=== PATIENT | female | born 1945 | race Caucasian/White ===

== ENCOUNTER 2022-06-15 12:53 | Inpatient (IN) | payer MEDICARE ==
[~2022-06-15] VITALS: Ht 162.6 cm; Wt 74.9 kg
[2022-06-15] MEDS ORDERED: LACTULOSE SYRUP 10GM/15ML (ENULOSE) 30ML UDC PO PRN (13:00)
[2022-06-15] MEDS ORDERED: guaiFENesin/CODEINE (ROBITUSSIN AC) 10ML UDC PO PRN (13:00)
[2022-06-15] MEDS ORDERED: BISACODYL 10 MG SUPP (DULCOLAX) PR PRN (13:00)
[2022-06-15] MEDS ORDERED: LOPERAMIDE 2 MG (IMODIUM) TABLET PO PRN (13:00)
[2022-06-15] MEDS ORDERED: MELATONIN 3 MG TABLET PO PRN (13:00)
[2022-06-15] MEDS ORDERED: ONDANSETRON 4 MG (ZOFRAN) ORAL DISSOLVE TAB PO PRN (13:00)
[2022-06-15] MEDS ORDERED: DOCUSATE SODIUM 100 MG (COLACE) CAP PO PRN (13:00)
[2022-06-15] MEDS ORDERED: CALCIUM CARBONATE 500 MG (TUMS) TAB.CHEW PO PRN (13:00)
[2022-06-15] MEDS ORDERED: diphenhydrAMINE 25 MG TAB (BENADRYL) PO PRN (13:00)
[2022-06-15] MEDS ORDERED: ALPRAZolam 0.25 MG (XANAX) TAB PO PRN (13:00)
[2022-06-15] MEDS ORDERED: FLEET ENEMA ADULT 1 EA BTL PR PRN (13:00)
--- NOTE | 2022-06-15 13:01 | PM&R Post Admission Assessment ---
PM&R HP Date of Visit: Jun 15, 2022 Time of Visit: 18:30 History of Present Illness CC: CVA HPI: This is a 76yoWF who presents from [facility] in [place], [place] following a CVA. Left sided facial droop and mild dysarthria noted. Left arm fracture will need Dr Kirby evaluation since they have requested his services. Cardiology will be consulted. Atrial fibrillation will be monitored closely and Cardiology will see her Tuesday. Patient denies pain and is able to swallow well without dysphagia. Aggressive therapy will be required in order to return back to independent living. PLOF was independent in all ADL's and ambulation. Past Sqqoace-Gxkehd-Ejsmdt Hx Past Med/Social Hx: Reviewed Nursing Past Med/Soc Hx, Reviewed and Corrections made Patient Social History Marrital Status: single Employed/Student: retired Alcohol Use: Denies Use Smoking Status: Never a Smoker Past Medical History Cardiac: Atrial Fibrillation, High Cholesterol, Hypertension Neurological: Stroke Psychosocial: Depression PM&R Allergy/Meds/Data Review Allergies Coded Allergies: Iodinated Contrast Media (Verified Allergy, Unknown, 06/15/22) Sulfa (Sulfonamide Antibiotics) (Verified Allergy, Unknown, 06/15/22) Home Medications Scheduled Amiodarone HCl (Amiodarone HCl), 200 MG PO BID, (Reported) Amiodarone HCl (Amiodarone HCl), 200 MG PO DAILY, (Reported) Apixaban (Eliquis), 5 MG PO BID, (Reported) Aspirin (Aspirin EC), 81 MG PO BID, (Reported) Atorvastatin Calcium (Atorvastatin Calcium), 40 MG PO HS, (Reported) Calcium Carbonate (Calcium Carbonate), 500 MG PO TID, (Reported) Ergocalciferol (Vitamin D2) (Vitamin D2), 50 MCG PO BID, (Reported) Fish Oil/Dha/Epa (Fish Oil 1,200 mg Fish Oil), 1 EACH PO DAILY, (Reported) Gabapentin (Gabapentin), 100 MG PO TID, (Reported) Losartan Potassium (Losartan Potassium), 50 MG PO DAILY, (Reported) Metoprolol Succinate (Metoprolol Succinate), 25 MG PO DAILY, (Reported) Paroxetine HCl (Paroxetine HCl), 20 MG PO DAILY, (Reported) Vit A/Vit C/Vit E/Zinc/Copper (Eye Multivitamin Tablet), 1 EACH PO DAILY, (Reported) Current Medications Current Medications Reviewed Review of Systems Constitutional: see HPI, dizziness, malaise, weakness EENTM: no symptoms reported Respiratory: no symptoms reported Cardiovascular: no symptoms reported Gastrointestinal: no symptoms reported Genitourinary: no symptoms reported Musculoskeletal: back pain, joint pain, other (left wrist pain) Skin: no symptoms reported Psychiatric/Neurological: Depressed, Paresthesia, Weakness All Other Systems Reviewed Negative Unless Noted: Yes Physical Exam Physical Exam Vital Signs Capillary Refill : Height, Weight, BMI Height: '" Weight: lbs. oz. kg; BMI Method: General Appearance: No Apparent Distress, WD/WN, Chronically ill Eyes: Bilateral Eye Normal Inspection, Bilateral Eye PERRL HEENT: PERRL/EOMI, Normal ENT Inspection, Pharynx Normal, Other (Left facial droop) Neck: Full Range of Motion, Normal Inspection, Non Tender, Supple, Carotid Bruit Respiratory: Chest Non Tender, Lungs Clear, Normal Breath Sounds, No Accessory Muscle Use, No Respiratory Distress Cardiovascular: Regular Rate, Rhythm, No Edema, No Gallop, No JVD, No Murmur, Normal Peripheral Pulses Gastrointestinal: Normal Bowel Sounds, No Organomegaly, No Pulsatile Mass, Non Tender, Soft Back: Normal Inspection, No CVA Tenderness, No Vertebral Tenderness Extremity: Normal Capillary Refill, Normal Inspection, Normal Range of Motion, Non Tender, No Calf Tenderness, No Pedal Edema, Other (left wrist arm in brace ) Neurologic/Psychiatric: Alert, Oriented x3, 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 fib, left arm fracture, fall risk REHAB PLAN: The patient is being admitted to our comprehensive inpatient rehabilitation facility and can tolerate the intensity of service consisting of at least: 180 minutes of therapy a day, 5 out of 7 days a week Rehab treatment will consist of: PT and OT will focus on regaining function while managing left arm fracture with stroke residual with the use of assistive devices in order to increase independence in ADLs The patient/family has a good understanding of our discharge process and will benefit from an interdisciplinary inpatient rehabilitation program. The patient has potential to make improvement and is in need of at least two of the following multidisciplinary therapies including but not limited to physical, occupational, speech, and prosthetics and orthotics. Additionally the patient will need services from respiratory, nutritional services, wound care, psychology, etc. (Customize this to each patient). Given the patients complex condition and risk of further medical complications, rehabilitation services cannot be safely or effectively provided at a lower level of care such as a [facility] facility. BARRIERS TO DISCHARGE: Advanced age and fall risk ESTIMATED LOS: 10 days DISPOSITION: Home RELEVANT CHANGES SINCE PREADMISSION SCREENING: I have compared the patients medical and functional status at the time of the preadmission screening and there are: No changes PROGNOSIS: Good REHABILITATION GOALS: 1.PT and OT will focus on regaining function while managing left arm fracture with stroke residual with the use of assistive devices in order to increase independence in ADLs All the above goals were reviewed with the patient and he/she is in agreement. By signing this document, I acknowledge that I have personally performed a full physical examination on this patient within 24 hours of admission to this inpatient rehabilitation facility and have determined the patient to be able to tolerate the above course of treatment at an intensive level for a reasonable period of time. I will be completing a detailed individualized Plan of Care for this patient by day #4 of the patients stay based upon the Preadmission Screen, the Post-Admission Evaluation, and the therapy evaluations. 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 (4) Closed left arm fracture ICD Codes: S42.302A - Unspecified fracture of shaft of humerus, left arm, initial encounter for closed fracture (5) Depression ICD Codes: F32.A - Depression, unspecified (6) Hypertension ICD Codes: I10 - Essential (primary) hypertension (7) Hyperlipidemia ICD Codes: E78.5 - Hyperlipidemia, unspecified Assessment/Plan Assessment and Plan Assess & Plan/Chief Complaint Assessment: CVA Left-sided weakness Left arm fracture Hypertension Hyperlipidemia Atrial fibrillation Depression Plan: Supportive care Monitor closely Orthopedic surgery consult Cardiology consult JHOANA GROSS DO Jun 15, 2022 13:01
[2022-06-15] MEDS ORDERED: CALC500T64 PO ×2 (13:22)
[2022-06-15] MEDS ORDERED: ASPI-1238 PO ×2 (13:22)
[2022-06-15] MEDS ORDERED: FISH1CAP15 PO ×2 (13:22)
[2022-06-15] MEDS ORDERED: ATOR40TA70 PO ×2 (13:22)
[2022-06-15] MEDS ORDERED: ERGO50CA PO ×2 (13:22)
[2022-06-15] MEDS ORDERED: LOSA50TA63 PO ×2 (13:22)
[2022-06-15] MEDS ORDERED: APIX5TAB PO ×2 (13:22)
[2022-06-15] MEDS ORDERED: PARO20TA5 PO ×2 (13:22)
[2022-06-15] MEDS ORDERED: AMIO200T65 PO ×4 (13:22→13:24)
[2022-06-15] MEDS ORDERED: GABA-486 PO ×2 (13:22)
[2022-06-15] MEDS ORDERED: MTP25TSR PO ×2 (13:22)
[2022-06-15] MEDS ORDERED: VIT-31 PO ×2 (13:22)
--- OUTSIDE RECORDS SUMMARY | 2022-06-15 18:08 | XMS REPORT | Clinical Summary ---
Author Author [facility] Organization [facility] Address Unknown Phone Unavailable Care Team Providers Care Steersman Name Role Phone No Pcp, Na PCP Unavailable Source Comments Some departments are not documenting in the electronic medical record. If you d o not see the information that you expected, contact Release of Information in [facility] Information Management department at [phone] for further assistan ce in locating additional records.[facility] Allergies Comments Active Allergy Reactions Severity Noted Date Adhesive Tape-Silicones RASH Medium 2012 Azithromycin NAUSEA AND Low 08/30/2013 VOMITING Fexofenadine-Pseudoephedr PALPITATIONS High 05/17 ine Gemcitabine RASH Medium 01/07/2021 Iodinated Contrast Media SWOLLEN High 01/07 TONGUE, EDEMA Levofloxacin HIVES, EDEMA High 06/17/2009 Sulfa (Sulfonamide RASH Medium 01/07/2021 Antibiotics) Medications End Date Status Medication Sig Dispensed Refills Start Date Active PARoxetine (PAXIL) 20 mg Take 20 mg by 0 11/15 tablet mouth daily. 1 Active lisinopriL (ZESTRIL) 20 TAKE 1 TABLET 0 mg tablet BY MOUTH ONCE 1 DAILY FOR 90 DAYS Active acetaminophen SR (TYLENOL Take by 0 05/15 ARTHRITIS PAIN) 650 mg mouth every 0 tablet 12 hours. Active aspirin EC 81 mg tablet Take 81 mg by 0 mouth daily. Take with food. Active calcium carbonate Take 500 mg 0 (CALCIUM 500 PO) by mouth twice daily. Active diclofenac sodium Apply 1.2 mL 0 (PENNSAID) 1.5 % topical topically to solution affected area four times daily. Active fish oil /omega-3 fatty Take 1 0 acids (SEA-OMEGA) capsule by 340/1000 mg capsule mouth daily. Active fish oil- omega 3-DHA/EPA Take 1 0 300/1,000 mg capsule capsule by mouth daily. Active pregabalin (LYRICA) 75 mg Take one 180 capsule 3 capsule capsule by 2 mouth twice daily. Active Problems Not on file Surgical History Surgery Date Site/Laterality Comments HYSTERECTOMY MASTECTOMY AXILLARY SURGERY resucction KNEE SURGERY Medical History Medical History Date Comments Breast cancer (HCC) A-fib (HCC) Family History Medical History Relation Name Comments Heart problem Father Lung Disease Father pulmonary fibrosis Relation Name Status Comments Father Mother Social History Date Tobacco Use Types Packs/Day Years Used Never Smoker Smokeless Tobacco: Never Used Tobacco Cessation: Counseling Given: No Comments Alcohol Use Standard Drinks/Week Yes 0 (1 standard drink = 0.6 o z pure alcohol) Sex Assigned at Date Recorded Female 01/07/2021 7:42 AM CDT Obstetrics History Last Filed Vital Signs Reading Time Taken Comments Vital Sign 155/80 11/10/2021 12:20 PM CDT Blood Pressure 75 11/10/2021 12:20 PM CDT Pulse 36.7 C (98.1 F) 11/10/2021 12:20 PM CDT Temperature 16 11/10/2021 12:20 PM CDT Respiratory Rate 95% 11/10/2021 12:20 PM CDT Oxygen Saturation - - Inhaled Oxygen Concentration 73 kg (161 lb) 11/10/2021 12:20 PM CDT Weight 162.6 cm (5' 4") 11/10/2021 12:20 PM CDT Height 27.64 11/10/2021 12:20 PM CDT Body Mass Index Plan of Treatment Health Maintenance Due Date Last Done Comments MEDICARE ANNUAL WELLNESS 1944 VISIT DTAP/TDAP VACCINES ( - 1962 Tdap) HEPATITIS C SCREENING 1962 PHYSICAL (COMPREHENSIVE) 1962 EXAM OSTEOPOROSIS 2009 SCREENING/MONITORING PNEUMOCOCCAL VACCINE ( - 2009 PCV) COVID-19 VACCINE (4 - 12/22/2020 10/27/2020, Booster for Moderna 10/15/2020, series) 09/17/2020 ADVANCED CARE PLANNING 08/15/2021 DISCUSSION AND DOCUMENTATION DEPRESSION SCREENING 08/15/2021 INFLUENZA VACCINE 03/15/2022 SHINGLES RECOMBINANT Completed 02/23/2018, VACCINE 12/23/2017 Results Not on filefrom Last 3 Months Insurance Type Payer Benefit Subscriber ID Effective Phone Address Plan / Dates Group Medicare MEDICARE MEDICARE [id number] 2009- [phone] [place] [address] [employer] [id number] 2020- [phone] [id number] [place] [address] Care Teams Start Date End Date Steersman Relationship Specialty 12/31/20 No Pcp, Na PCP - General
--- OUTSIDE RECORDS SUMMARY | 2022-06-15 18:08 | XMS REPORT ---
Author Roxi Mayorga Organization [facility] Address [address] [place], [place] [id number] Care Team Providers Care Wiping Rag Washer Name Role Phone Amado Maldonado PCP Ac Kimbrough Unavailable Ac Kimbrough PreferredProvider Allergies and Adverse Reactions Name Reaction Notes chemotherapy rash, itching Gemzar Contrast media allergy skin red, swollen eyes et lips SULFA (SULFONAMIDES) Levaquin rash Plan of Treatment Planned Activity Comments Planned Date Planned Time Plan/Goal CMP 04/04/2019 12:00 AM DEXA 11/11/2021 12:00 AM Mammogram, diagnostic, digital with samantha 05/27/2022 12:00 AM Urine culture and sensitivity 06/08/2022 12:00 AM Medications Active Name Start Date Estimated Completion Date SIG Co mments Fish Oil 1000 mg oral BID aspirin 81 mg oral tablet,delayed release (DR/EC) take 1 tablet (81 mg) by oral route once daily Zyrtec 10 mg oral tablet take 1 tablet (1 0 mg) by oral route once daily CBD Oil Calcium 500 oral Tylenol Arthritis Pain 650 mg oral tablet extended release take 2 tablets (1,300 mg) by oral route every 8 hours as needed swallowing whole with water. Do not break, crush, dissolve and/or chew. Vitamin D3 2,000 unit oral tablet 04/04/2019 take 3 tablets by oral route once a week Glucometer 12/21/2021 Glucometer of choice with rohan fuentes, testing once a day paroxetine HCl 20 mg oral tablet 04/08/2022 01/03/2023 Take 1 tablet by mouth once daily metoprolol succinate ER 25 mg tablet,extended release 24 hr take 2 tablets (50 mg) by oral route once daily metoprolol tartrate 25 mg tablet take 1 tablet (25 mg) by oral route once daily Name Start Date Expiration Date SIG Comments clarithromycin 500 mg oral tablet 08/05/2015 08/12/2015 take 1 tablet (500 mg) by oral route every 12 hours for 7 days acyclovir 800 mg oral tablet 08/05/2015 08/12/2015 demond e 1 tablet (800 mg) by oral route 4 times per day for 7 days amoxicillin 500 mg oral capsule 08/05/2015 Take two tablets three times a day for 5 days Ventolin HFA 90 mcg/actuation inhalation HFA aerosol inhaler Take two puffs every 4 hours as needed Tessalon Perles 100 mg oral capsule 08/07/2015 take 1 capsule (100 mg) by oral route every 4 hours as needed ipratropium-albuterol 0.5 mg-3 mg(2.5 mg base)/3 mL inhalation solution for nebulization 08/09/2015 09/08/2015 inhale 3 milliliters by nebulization route 4 times per day for 10 days ondansetron 4 mg oral tablet,disintegrating 08/11/2015 One tablet every 4-6 hours as needed for nausea Macrobid 100 mg oral capsule 11/29/2015 12/06/2015 demond e 1 capsule (100 mg) by oral route every 12 hours with food for 7 days Macrobid 100 mg oral capsule 04/09/2016 04/16/2016 demond e 1 capsule (100 mg) by oral route every 12 hours with food for 7 days acyclovir 800 mg oral tablet 05/20/2016 05/27/2016 demond e 1 tablet (800 mg) by oral route 5 times per day for 7 days Macrobid 100 mg oral capsule 05/28/2016 06/04/2016 demond e 1 capsule (100 mg) by oral route every 12 hours with food for 7 days tizanidine 4 mg oral capsule 06/14/2016 demond e 1 capsule (4 mg) by oral route 3 times per day Augmentin 875-125 mg oral tablet 09/22/2016 09/29/2016 take 1 tablet by oral route every 12 hours for 7 days Xarelto 20 mg oral tablet 12/01/2016 03/01/2017 take 1 tablet (20 mg) by oral route once daily with the evening meal for 30 days hydrocodone-acetaminophen 5-325 mg oral tablet 05/04/2017 1 take 1 tablet by oral route every 4-6 hours as needed for pain for 30 days Macrobid 100 mg oral capsule 05/04/2017 demond e 1 capsule (100 mg) by oral route every 12 hours with food for 7 days acyclovir 800 mg oral tablet 05/18/2017 demond e 1 tablet (800 mg) by oral route 4 times per day for 7 days nabumetone 500 mg oral tablet 12/13/2018 12/08/2019 ta ke 1 tablet by oral route daily for 90 days Macrobid 100 mg oral capsule 10/02/2019 10/09/2019 demond e 1 capsule (100 mg) by oral route every 12 hours with food for 7 days Macrobid 100 mg oral capsule 12/13/2019 12/20/2019 demond e 1 capsule (100 mg) by oral route 2 times per day with food for 7 days nifedipine 30 mg oral tablet extended release 05/08/2020 take 1 tablet (30 mg) by oral route once daily for 90 days pregabalin 75 mg oral capsule 06/09/2020 10/07/2020 ta ke 1 capsule (75 mg) by oral route 2 times per day for 30 days ciprofloxacin HCl 250 mg oral tablet 04/10/2021 04/15/2021 take 1 tablet by oral route 2 times a day for 5 days ciprofloxacin HCl 250 mg oral tablet 10/16/2021 10/23/2021 take 1 tablet by oral route 2 times a day for 7 days ciprofloxacin 500 mg tablet 12/25/2021 01/01/2022 take 1 tablet (500 mg) by oral route every 12 hours for 7 days Cipro 250 mg tablet 02/09/2022 02/16/2022 take 1 table t (250 mg) by oral route every 12 hours for 7 days Discontinued Name Start Date Discontinued Date SIG Comments Co Q-10 200 mg oral capsule 04/22/2017 take 1 capsul e by oral route daily gabapentin 300 mg oral capsule 05/28/2016 06/14/2016 T lenny one capsule at bedtime for 5-7 days. If no improvement you may increase to two capsules at bedtime. sotalol 80 mg oral tablet 01/07/2017 take 1 tablet (80 mg) by oral route 2 times per day stopped it in october fluticasone propionate (bulk) 100 % miscellaneous powder 11/20/2020 use as directed simvastatin 10 mg oral tablet 04/22/2017 ta ke 1 tablet (10 mg) by oral route once daily in the evening metoprolol tartrate 25 mg oral tablet 11/10/2016 12/15/2016 take 0.5 tablet by oral route 2 times a day for 30 days Eliquis 5 mg oral tablet 12/01/2016 12/15/2016 take 1 tablet (5 mg) by oral route 2 times per day for 30 days Effexor XR 150 mg oral capsule,extended release 24hr 12/01/2016 09/07/2017 take 1 capsule (150 mg) by oral route once daily for 90 days Paxil 20 mg oral tablet 08/10/2017 06/26/2018 take 1 t ablet (20 mg) by oral route once daily for 90 days Macrobid 100 mg oral capsule 08/13/2017 03/08/2018 demond e 1 capsule (100 mg) by oral route 2 times per day with food for 7 days Pyridium 100 mg oral tablet 08/13/2017 03/08/2018 take 1 tablet (100 mg) by oral route 3 times per day after meals as needed nabumetone 500 mg oral tablet 10/04/2017 06/26/2018 TAKE 1 TABL ET TWICE A DAY metoprolol succinate 50 mg oral tablet extended release 24 h r 03/08/2018 06/26/2018 take 0.5 tablet by oral route daily gabapentin 300 mg oral capsule 06/27/2019 11/15/2019 t lenny 1 capsule by oral route once a day (at bedtime) for 90 days metoprolol tartrate 25 mg oral tablet 06/27/2019 07/27/2019 take 0.5 tablet by oral route daily for 30 days Pt is requesting to discontinue to see h ow her BP does, will notify staff if she restarts medication Xarelto 20 mg oral tablet 11/20/2020 take 1 tablet (20 mg) by oral route once daily with the evening meal lisinopril 20 mg tablet 11/26/2021 04/08/2022 Take 1 tablet by mouth once daily pt has stopped and switched to metoprolol Problem List Description Status Onset GERD Active Osteoporosis Active Menopause Active 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 Sjogren's syndrome Active 03/29/2016 Essential hypertension Active 07/15/2016 Mixed hyperlipidemia Active 07/15/2016 Post herpetic neuralgia Active 07/15/2016 Vital Signs Date Time BP-Sys(mm[Hg] BP-Romi(mm[Hg]) HR(bpm) RR(rpm) Temp WT HT HC BMI BSA BMI Percentile O2 Sat(%) 06/08/2022 7:11:00 PM 144 mm[Hg] 70 mm[Hg] 60 {beats}/min 20 rpm 97.5 F 164 lbs 64 in 28.1502 kg/m2 1.8328 m2 92 % 05/18/2022 11:01:00 AM 134 mm[Hg] 82 mm[Hg] 55 {beats}/min 18 rpm 97.5 F 97 % 04/08/2022 1:52:00 PM 140 mm[Hg] 82 mm[Hg] 48 {beats}/min 04/08/2022 1:52:00 PM 126 mm[Hg] 74 mm[Hg] 51 {beats}/min 04/08/2022 1:52:00 PM 110 mm[Hg] 60 mm[Hg] 55 {beats}/min 04/08/2022 1:48:00 PM 140 mm[Hg] 82 mm[Hg] 48 {beats}/min 16 rpm 96.7 F 163.125 lbs 65.4 in 26.8141 kg/m2 1.8478 m2 96 % 02/09/2022 4:53:00 PM 132 mm[Hg] 78 mm[Hg] 68 {beats}/min 18 rpm 98.2 F 163 lbs 64 in 27.98 kg/m2 1.83 m2 97 % 12/21/2021 8:40:00 AM 124 mm[Hg] 80 mm[Hg] 98 {beats}/min 18 rpm 97.9 F 161 lbs 64 in 27.6353 kg/m2 1.8159 m2 97 % 12/04/2021 4:17:00 PM 130 mm[Hg] 80 mm[Hg] 71 {beats}/min 20 rpm 97.5 F 162 lbs 64 in 27.81 kg/m2 1.82 m2 98 % 11/11/2021 2:02:00 PM 108 mm[Hg] 62 mm[Hg] 82 {beats}/min 16 rpm 97.8 F 165.125 lbs 97 % 10/16/2021 6:35:00 PM 132 mm[Hg] 78 mm[Hg] 78 {beats}/min 16 rpm 97.7 F 163 lbs 64 in 27.9786 kg/m2 1.8272 m2 97 % 05/12/2021 2:43:00 PM 120 mm[Hg] 70 mm[Hg] 66 {beats}/min 18 rpm 97 F 164 lbs 64 in 28.15 kg/m2 1.83 m2 96 % 04/10/2021 3:11:00 PM 120 mm[Hg] 70 mm[Hg] 85 {beats}/min 20 rpm 97.1 F 160 lbs 64 in 27.4637 kg/m2 1.8103 m2 97 % 11/20/2020 3:49:00 PM 130 mm[Hg] 82 mm[Hg] 11/20/2020 2:43:00 PM 140 mm[Hg] 80 mm[Hg] 66 {beats}/min 97.5 F 162 lbs 64 in 27.81 kg/m2 1.8216 m2 97 % 11/17/2020 2:51:00 PM 120 mm[Hg] 60 mm[Hg] 69 {beats}/min 97.5 F 161 l bs 95 % 06/26/2020 2:08:00 PM 120 mm[Hg] 60 mm[Hg] 86 {beats}/min 97.9 F 160 lbs 64 in 27.4637 kg/m2 1.8103 m2 98 % 05/22/2020 2:40:00 PM 116 mm[Hg] 72 mm[Hg] 71 {beats}/min 14 rpm 96.6 F 164.5 lbs 64 in 28.24 kg/m2 1.84 m2 97 % 10/02/2019 11:37:00 AM 146 mm[Hg] 70 mm[Hg] 97 {beats}/min 16 rpm 97.9 F 170.312 lbs 64 in 29.2338 kg/m2 1.8677 m2 95 % 06/27/2019 2:04:00 PM 138 mm[Hg] 72 mm[Hg] 62 {beats}/min 18 rpm 97.7 F 171.375 lbs 64 in 29.42 kg/m2 1.87 m2 95 % 05/30/2019 1:45:00 PM 154 mm[Hg] 90 mm[Hg] 53 {beats}/min 20 rpm 97.9 F 170 lbs 64 in 29.1801 kg/m2 1.866 m2 98 % 04/04/2019 2:23:00 PM 140 mm[Hg] 90 mm[Hg] 04/04/2019 2:13:00 PM 142 mm[Hg] 92 mm[Hg] 66 {beats}/min 18 rpm 97.3 F 167.375 lbs 64 in 28.73 kg/m2 1.8515 m2 97 % 12/13/2018 1:52:00 PM 148 mm[Hg] 74 mm[Hg] 72 {beats}/min 18 rpm 97.7 F 169.375 lbs 64 in 29.0729 kg/m2 1.86 m2 98 % 10/05/2018 1:28:00 PM 134 mm[Hg] 72 mm[Hg] 78 {beats}/min 17 rpm 98.2 F 170.375 lbs 64 in 29.24 kg/m2 1.8681 m2 98 % 06/26/2018 1:16:00 PM 132 mm[Hg] 72 mm[Hg] 82 {beats}/min 18 rpm 97.2 F 167.25 lbs 64 in 28.7081 kg/m2 1.85 m2 97 % 06/13/2018 2:36:00 PM 130 mm[Hg] 70 mm[Hg] 81 {beats}/min 18 rpm 97.7 F 166.125 lbs 64 in 28.51 kg/m2 1.8446 m2 96 % 03/08/2018 2:30:00 PM 134 mm[Hg] 74 mm[Hg] 51 {beats}/min 18 rpm 99 F 166.375 lbs 64 in 28.5579 kg/m2 1.85 m2 97 % 12/28/2017 2:52:00 PM 128 mm[Hg] 74 mm[Hg] 11/16/2017 10:49:00 AM 128 mm[Hg] 70 mm[Hg] 57 {beats}/min 18 rpm 97.9 F 165.125 lbs 64 in 28.3434 kg/m2 1.8391 m2 97 % 09/07/2017 4:22:00 PM 142 mm[Hg] 82 mm[Hg] 09/07/2017 4:20:00 PM 150 mm[Hg] 84 mm[Hg] 51 {beats}/min 18 rpm 98.4 F 161.125 lbs 64 in 27.66 kg/m2 1.8166 m2 98 % 08/22/2017 5:11:00 PM 124 mm[Hg] 64 mm[Hg] 08/13/2017 1:12:00 PM 128 mm[Hg] 66 mm[Hg] 64 {beats}/min 18 rpm 96.8 F 160 lbs 96 % 07/29/2017 3:35:00 PM 142 mm[Hg] 78 mm[Hg] 07/13/2017 2:55:00 PM 136 mm[Hg] 82 mm[Hg] 06/30/2017 1:35:00 PM 122 mm[Hg] 68 mm[Hg] 06/15/2017 2:10:00 PM 122 mm[Hg] 64 mm[Hg] 51 {beats}/min 18 rpm 98.6 F 160 lbs 64 in 27.4637 kg/m2 1.8103 m2 96 % 05/18/2017 3:43:00 PM 140 mm[Hg] 80 mm[Hg] 78 {beats}/min 18 rpm 98.6 F 156 lbs 64 in 26.78 kg/m2 1.79 m2 99 % 05/04/2017 3:38:00 PM 150 mm[Hg] 74 mm[Hg] 73 {beats}/min 20 rpm 98 F 159.5 lbs 64 in 27.3778 kg/m2 1.8075 m2 96 % 04/22/2017 3:14:00 PM 158 mm[Hg] 88 mm[Hg] 60 {beats}/min 18 rpm 97.3 F 160.5 lbs 64 in 27.55 kg/m2 1.81 m2 97 % 03/03/2017 11:03:00 AM 152 mm[Hg] 88 mm[Hg] 70 {beats}/min 16 rpm 96.3 F 158 lbs 64 in 27.1204 kg/m2 1.7989 m2 97 % 01/14/2017 10:29:00 AM 156 mm[Hg] 88 mm[Hg] 72 {beats}/min 16 rpm 96.5 F 155.375 lbs 64 in 26.67 kg/m2 1.78 m2 97 % 01/07/2017 3:04:00 PM 170 mm[Hg] 82 mm[Hg] 64 {beats}/min 16 rpm 96.8 F 157.125 lbs 64 in 26.9702 kg/m2 1.794 m2 97 % 12/15/2016 2:42:00 PM 122 mm[Hg] 60 mm[Hg] 87 {beats}/min 18 rpm 96.7 F 153 lbs 64 in 26.26 kg/m2 1.77 m2 98 % 12/01/2016 11:54:00 AM 130 mm[Hg] 88 mm[Hg] 74 {beats}/min 18 rpm 98 F 155.375 lbs 64 in 26.6698 kg/m2 1.7839 m2 98 % 11/10/2016 10:36:00 AM 138 mm[Hg] 74 mm[Hg] 93 {beats}/min 18 rpm 96.1 F 155.125 lbs 64 in 26.63 kg/m2 1.78 m2 97 % 09/22/2016 9:31:00 AM 138 mm[Hg] 70 mm[Hg] 59 {beats}/min 18 rpm 97.6 F 156 lbs 64 in 26.7771 kg/m2 1.7875 m2 96 % 07/15/2016 10:22:00 AM 121 mm[Hg] 78 mm[Hg] 76 {beats}/min 18 rpm 97.9 F 160 lbs 64 in 27.46 kg/m2 1.81 m2 97 % 06/14/2016 4:06:00 PM 144 mm[Hg] 88 mm[Hg] 74 {beats}/min 20 rpm 97.4 F 160.25 lbs 64 in 27.5066 kg/m2 1.8117 m2 98 % 05/28/2016 3:11:00 PM 148 mm[Hg] 85 mm[Hg] 92 {beats}/min 20 rpm 97.2 F 159 lbs 97 % 05/20/2016 1:54:00 PM 148 mm[Hg] 90 mm[Hg] 77 {beats}/min 18 rpm 97.9 F 158.5 lbs 97 % 04/15/2016 11:36:00 AM 136 mm[Hg] 82 mm[Hg] 04/09/2016 11:29:00 AM 136 mm[Hg] 78 mm[Hg] 64 {beats}/min 16 rpm 97.1 F 161.25 lbs 98 % 03/24/2016 11:43:00 AM 153 mm[Hg] 74 mm[Hg] 80 {beats}/min 20 rpm 97.3 F 160 lbs 64 in 27.4637 kg/m2 1.8103 m2 98 % 01/20/2016 2:54:00 PM 130 mm[Hg] 78 mm[Hg] 12/03/2015 3:07:00 PM 120 mm[Hg] 82 mm[Hg] 11/27/2015 11:41:00 AM 138 mm[Hg] 90 mm[Hg] 2015 2:44:00 PM 150 mm[Hg] 81 mm[Hg] 11/05/2015 2:27:00 PM 144 mm[Hg] 80 mm[Hg] 10/29/2015 2:40:00 PM 152 mm[Hg] 88 mm[Hg] 10/29/2015 2:04:00 PM 162 mm[Hg] 90 mm[Hg] 78 {beats}/min 12 rpm 97.5 F 158 lbs 64 in 27.1204 kg/m2 1.7989 m2 95 % 10/02/2015 2:00:00 PM 130 mm[Hg] 75 mm[Hg] 78 {beats}/min 09/17/2015 1:25:00 PM 140 mm[Hg] 82 mm[Hg] 88 {beats}/min 14 rpm 97.9 F 158 lbs 64 in 27.1204 kg/m2 1.7989 m2 97 % 09/11/2015 2:49:00 PM 130 mm[Hg] 90 mm[Hg] 08/13/2015 11:15:00 AM 110 mm[Hg] 66 mm[Hg] 85 {beats}/min 18 rpm 97 F 159 lbs 64 in 27.292 kg/m2 1.8046 m2 96 % 08/11/2015 10:39:00 AM 126 mm[Hg] 70 mm[Hg] 76 {beats}/min 18 rpm 97.5 F 160.437 lbs 64 in 27.54 kg/m2 1.81 m2 95 % 08/09/2015 12:04:00 PM 100 mm[Hg] 60 mm[Hg] 80 {beats}/min 18 rpm 99.1 F 162 lbs 64 in 27.807 kg/m2 1.8216 m2 93 % 08/07/2015 12:50:00 PM 112 mm[Hg] 74 mm[Hg] 08/07/2015 11:30:00 AM 78 {beats}/min 22 rpm 97.8 F 97 % 08/06/2015 9:34:00 AM 114 mm[Hg] 62 mm[Hg] 87 {beats}/min 18 rpm 97.5 F 161 lbs 64 in 27.6353 kg/m2 1.8159 m2 98 % 08/05/2015 3:26:00 PM 130 mm[Hg] 70 mm[Hg] 87 {beats}/min 18 rpm 100.8 F 163 lbs 64 in 27.98 kg/m2 1.83 m2 94 % 08/01/2015 5:22:00 PM 136 mm[Hg] 70 mm[Hg] 80 {beats}/min 18 rpm 100.9 F 163.125 lbs 64 in 28.0001 kg/m2 1.8279 m2 97 % 07/28/2015 10:55:00 AM 150 mm[Hg] 90 mm[Hg] 07/23/2015 10:09:00 AM 144 mm[Hg] 90 mm[Hg] 80 {beats}/min 18 rpm 97 F 163 lbs 64 in 27.9786 kg/m2 1.8272 m2 96 % 07/09/2015 10:51:00 AM 145 mm[Hg] 100 mm[Hg] 67 {beats}/min 18 rpm 98.1 F 162 lbs 64 in 27.81 kg/m2 1.82 m2 96 % 06/18/2015 10:53:00 AM 160 mm[Hg] 100 mm[Hg] 67 {beats}/min 18 rpm 97.8 F 161.5 lbs 64 in 27.7211 kg/m2 1.8188 m2 97 % Social History Name Description Comments Alcohol Current every day glass of wine a day Tobacco Never smoker walk History of Procedures Date Ordered Description Order Status 07/28/2015 12:00 AM LIPID PANEL Reviewed 07/28/2015 12:00 AM RENAL FUNCTION PANEL Reviewed 08/05/2015 12:00 AM CHEST X-RAY 2VW FRONTAL&LATL Reviewed 08/05/2015 12:00 AM COMPLETE CBC W/AUTO DIFF WBC Reviewed 08/05/2015 12:00 AM CULTURE OTHR SPECIMN AEROBIC Reviewed 08/05/2015 12:00 AM THER/PROPH/DIAG INJ SC/IM Reviewed 08/05/2015 12:00 AM Rocephin 1 gram [facility][NOTE 3]#5801-5964-22 Reviewe d 08/05/2015 12:00 AM AIRWAY INHALATION TREATMENT Reviewed 08/07/2015 12:00 AM Rocephin 1 gram [facility][NOTE 3]#9880-7792-65 Reviewe d 08/07/2015 12:00 AM THER/PROPH/DIAG INJ SC/IM Reviewed 08/09/2015 12:00 AM COMPLETE CBC W/AUTO DIFF WBC Reviewed 08/09/2015 12:00 AM CHEST X-RAY 2VW FRONTAL&LATL Reviewed 08/09/2015 12:00 AM AIRWAY INHALATION TREATMENT Reviewed 08/11/2015 12:00 AM COMPLETE CBC W/AUTO DIFF WBC Reviewed 08/11/2015 12:00 AM Rocephin 1 gram [facility][NOTE 3]#1742-5684-47 Reviewe d 08/11/2015 12:00 AM THER/PROPH/DIAG INJ SC/IM Reviewed 08/07/2015 12:00 AM Rocephin 1 gram [facility][NOTE 3]#7452-5498-03 Reviewe d 08/13/2015 12:00 AM Rocephin 250 Mg [facility][NOTE 3]#1327-2758-98 Reviewe d 09/11/2015 2:54 PM Blood Pressure Check-no charge Reviewed 09/25/2015 12:00 AM NO CHARGE OV Reviewed 10/23/2015 12:00 AM NO CHARGE OV Reviewed 11/05/2015 12:00 AM Blood Pressure Check-no charge Reviewed 11/28/2015 12:00 AM URINE CULTURE/COLONY COUNT Reviewed 11/28/2015 2:14 PM URINALYSIS AUTO W/O SCOPE Reviewed 11/28/2015 12:00 AM URINALYSIS AUTO W/O SCOPE Reviewed 03/16/2016 12:00 AM NO CHARGE OV Reviewed 03/16/2016 12:00 AM NO CHARGE OV Reviewed 04/09/2016 11:35 AM URINALYSIS AUTO W/O SCOPE Reviewed 04/09/2016 12:00 AM URINE CULTURE/COLONY COUNT Reviewed 04/10/2016 12:00 AM URINALYSIS AUTO W/O SCOPE Reviewed 05/28/2016 4:05 PM URINALYSIS AUTO W/O SCOPE Reviewed 06/04/2016 12:00 AM EXTREMITY STUDY Returned 07/15/2016 12:00 AM LIPID PANEL Returned 07/15/2016 12:00 AM RENAL FUNCTION PANEL Returned 11/10/2016 12:00 AM COMPLETE CBC W/AUTO DIFF WBC Reviewed 11/10/2016 12:00 AM ASSAY OF IRON Reviewed 11/10/2016 12:00 AM IRON BINDING TEST Reviewed 11/10/2016 12:00 AM ASSAY OF TRANSFERRIN Reviewed 11/15/2016 12:00 AM COLLECTION VENOUS BLOOD VENIPUNCTURE Rev iewed 01/14/2017 12:00 AM RENAL FUNCTION PANEL Reviewed 01/17/2017 12:00 AM COLLECTION VENOUS BLOOD VENIPUNCTURE Rev iewed 03/04/2017 12:00 AM RENAL FUNCTION PANEL Reviewed 03/04/2017 12:00 AM COLLECTION VENOUS BLOOD VENIPUNCTURE Rev iewed 04/22/2017 12:00 AM URINE BACTERIA CULTURE Reviewed 04/24/2017 7:28 PM URINALYSIS AUTO W/O SCOPE Reviewed 08/13/2017 1:23 PM URINALYSIS AUTO W/O SCOPE Reviewed 09/01/2017 2:56 PM NO CHARGE OV Reviewed 09/12/2017 12:00 AM Blood Pressure Check-no charge Reviewed 10/12/2017 12:00 AM Blood Pressure Check-no charge Reviewed 11/04/2017 12:00 AM Blood Pressure Check-no charge Reviewed 11/16/2017 12:00 AM COMPREHEN METABOLIC PANEL Reviewed 03/21/2018 12:00 AM Blood Pressure Check-no charge Reviewed 04/12/2018 12:00 AM COLLECTION VENOUS BLOOD VENIPUNCTURE Rev iewed 05/12/2018 12:00 AM Blood Pressure Check-no charge Reviewed 06/13/2018 2:43 PM URINALYSIS AUTO W/O SCOPE Reviewed 06/13/2018 12:00 AM URINE BACTERIA CULTURE Reviewed 08/04/2018 12:00 AM Blood Pressure Check-no charge Reviewed 08/31/2018 12:00 AM COMPREHEN METABOLIC PANEL Returned 08/31/2018 12:00 AM COMPLETE CBC W/AUTO DIFF WBC Returned 08/31/2018 12:00 AM LIPID PANEL Returned 08/31/2018 12:00 AM COLLECTION VENOUS BLOOD VENIPUNCTURE Rev iewed 12/13/2018 12:00 AM COMPREHEN METABOLIC PANEL Reviewed 12/13/2018 12:00 AM Solu-Medrol, Up to 125 Mg [facility][NOTE 3]# [id number] 7-27 Reviewed 05/30/2019 12:00 AM ASSAY THYROID STIM HORMONE Returned 05/30/2019 12:00 AM COMPLETE CBC W/AUTO DIFF WBC Returned 05/30/2019 12:00 AM COMPREHEN METABOLIC PANEL Returned 05/30/2019 12:00 AM ELECTROCARDIOGRAM TRACING Reviewed 05/30/2019 12:00 AM MYOCARDIAL SPECT MULTIPLE STUDIES Return ed 05/30/2019 12:00 AM CHEST X-RAY 2VW FRONTAL&LATL Returned 06/27/2019 12:00 AM COMPREHEN METABOLIC PANEL Reviewed 10/02/2019 11:47 AM URINALYSIS AUTO W/O SCOPE Reviewed 10/02/2019 12:00 AM URINE CULTURE/COLONY COUNT Reviewed 10/02/2019 12:00 AM URINE BACTERIA CULTURE Reviewed 12/13/2019 3:21 PM URINALYSIS AUTO W/O SCOPE Reviewed 12/13/2019 12:00 AM URINE BACTERIA CULTURE Returned 06/30/2020 12:00 AM NRV CNDJ TEST 7-8 STUDIES Reviewed 06/30/2020 12:00 AM MUSC TEST DONE W/N TEST COMP Reviewed 07/02/2020 12:00 AM US XTR NON-VASC LMTD Returned 11/17/2020 12:00 AM MRI UPPR EXTREMITY W/O&W/DYE Returned 11/19/2020 12:00 AM COLLECTION VENOUS BLOOD VENIPUNCTURE Rev iewed 11/19/2020 12:00 AM LIPID PANEL Returned 11/19/2020 12:00 AM COMPREHEN METABOLIC PANEL Returned 11/24/2020 12:00 AM MRI UPPER EXTREMITY W/DYE Returned 04/10/2021 3:51 PM URINALYSIS AUTO W/O SCOPE Reviewed 04/10/2021 12:00 AM URINE BACTERIA CULTURE Returned 05/01/2021 12:00 AM COLLECTION VENOUS BLOOD VENIPUNCTURE Rev iewed 05/01/2021 12:00 AM COMPREHEN METABOLIC PANEL Returned 05/28/2021 12:00 AM BREAST TOMOSYNTHESIS UNI Returned 09/21/2021 12:00 AM COVID-19 Testing Returned 10/16/2021 6:41 PM URINALYSIS AUTO W/O SCOPE Reviewed 10/16/2021 12:00 AM URINE BACTERIA CULTURE Reviewed 11/04/2021 12:00 AM COLLECTION VENOUS BLOOD VENIPUNCTURE Rev iewed 11/04/2021 12:00 AM ASSAY THYROID STIM HORMONE Returned 11/04/2021 12:00 AM ASSAY OF FREE THYROXINE Returned 11/04/2021 12:00 AM COMPREHEN METABOLIC PANEL Returned 11/04/2021 12:00 AM LIPID PANEL Returned 12/04/2021 4:21 PM URINALYSIS AUTO W/O SCOPE Reviewed 12/04/2021 12:00 AM URINE BACTERIA CULTURE Returned 12/21/2021 3:30 PM URINALYSIS AUTO W/O SCOPE Reviewed 12/21/2021 12:00 AM URINE BACTERIA CULTURE Returned 02/09/2022 4:56 PM URINALYSIS AUTO W/O SCOPE Reviewed 02/09/2022 12:00 AM URINE BACTERIA CULTURE Returned 02/17/2022 12:00 AM URINE BACTERIA CULTURE Returned 03/25/2022 12:00 AM COMPREHEN METABOLIC PANEL Returned 05/18/2022 11:02 AM US URINE CAPACITY MEASURE Reviewed 05/18/2022 12:00 AM URINALYSIS AUTO W/SCOPE Reviewed 06/08/2022 7:24 PM URINALYSIS AUTO W/O SCOPE Reviewed Results Summary Date and Description Results 07/28/2015 3:05 PM GLUCOSE 109.0 mg/dLSODIUM 14 1.0 mmol/LPOTASSIUM 3.90 mmol/LCHLORIDE 106.0 mmol/LCO2 25.0 mmol/LBUN 15.0 mg/dLCREATININE 0.80 mg/dLALBUMIN 4.30 g/dLCALCIUM 9.10 mg/dLPHOSPHORUS 3.10 mg/dLAGE 69 GFR NonAA 71 GFR AA 86 eGFR >60 mL/min/1.73 m2eGFR AA* >60 TRIGLYCERIDES 196.0 mg/dLCHOLESTEROL 217.0 mg/dLHDL 41.0 mg/dLTOT CHOL/HDL 5.3 LDL (CALC) 137.0 mg/dL 08/05/2015 2:43 PM WBC 25.4 RBC 3.84 HGB 11.60 g/dLHCT 35.60 %MCV 93.0 fLMCH 30.20 pgMCHC 32.60 g/dLRDW SD 49 RDW CV 14.30 %MPV 11.30 fLPLT 349 NRBC# 0.00 NRBC% 0.0 %BASO 0.10 %#BASO 0.02 MANUAL DIFF SEE BELOW SEGS 72 BANDS 19 LYMPHS 2 MONOS 6 METAS 1 08/11/2015 3:54 PM WBC 9.1 RBC 3.37 HGB 10.0 g/ dLHCT 31.80 %MCV 94.0 fLMCH 29.70 pgMCHC 31.40 g/dLRDW SD 49 RDW CV 14.40 %MPV 10.20 fLPLT 540 NRBC# 0.00 NRBC% 0.0 %NEUT 82.80 %%LYMP 10.10 %%MONO 4.40 %%EOS 2.60 %%BASO 0.10 %#NEUT 7.57 #LYMP 0.92 #MONO 0.40 #EOS 0.24 #BASO 0.01 MANUAL DIFF NOT IND 11/28/2015 2:14 PM Color Ur LT YELLOW Glucose U r-sCnc NEGAATIVE Bilirub Ur Ql Strip NEGATIVE Ketones Ur Ql Strip NEGATIVE Sp Gr Ur Qn 1.020 Hgb Ur Ql Strip NEGATIVE pH Ur-LsCnc 5.0 Prot Ur Ql Strip TRACE Urobilinogen Ur-mCnc 0.2 Nitrite Ur Ql Strip NEGATIVE WBC Est Ur Ql Strip SMALL 04/09/2016 11:35 AM Color Ur Yellow Glucose Ur-s Cnc neg Bilirub Ur Ql Strip neg Ketones Ur Ql Strip neg Sp Gr Ur Qn <=1.005 Hgb Ur Ql Strip Large pH Ur-LsCnc 5.0 Prot Ur Ql Strip neg Urobilinogen Ur-mCnc 0.2 Nitrite Ur Ql Strip neg WBC Est Ur Ql Strip large 05/28/2016 4:05 PM Glucose Ur-sCnc negative Isiah irub Ur Ql Strip negative Ketones Ur Ql Strip negative Sp Gr Ur Qn <=1.005 Hgb Ur Ql Strip Trace- intact pH Ur- LsCnc 5.0 Prot Ur Ql Strip negative Urobilinogen Ur-mCnc 0.2 Nitrite Ur Ql Strip negative WBC Est Ur Ql Strip large 11/15/2016 2:40 PM WBC 7.1 RBC 4.51 HGB 13.30 g /dLHCT 41.80 %MCV 93.0 fLMCH 29.50 pgMCHC 31.80 g/dLRDW SD 53 RDW CV 15.50 %MPV 11.10 fLPLT 225 NRBC# 0.00 NRBC% 0.0 %NEUT 67.80 %%LYMP 22.0 %%MONO 7.0 %%EOS 2.50 %%BASO 0.60 %#NEUT 4.81 #LYMP 1.56 #MONO 0.50 #EOS 0.18 #BASO 0.04 MANUAL DIFF NOT IND IRON TOTAL 83.0 ug/dLTransferrin 240.0 mg/dLTIBC Calculation 300 %Saturation Calc 28 01/17/2017 3:44 PM GLUCOSE 84.0 mg/dLSODIUM 140 .0 mmol/LPOTASSIUM 4.20 mmol/LCHLORIDE 108.0 mmol/LCO2 23.0 mmol/LBUN 18.0 mg/dLCREATININE 0.80 mg/dLALBUMIN 3.90 g/dLCALCIUM 9.0 mg/dLPHOSPHORUS 3.60 mg/dLAGE 71 GFR NonAA 71 GFR AA 86 eGFR >60 mL/min/1.73 m2eGFR AA* >60 03/04/2017 4:38 PM GLUCOSE 144.0 mg/dLSODIUM 14 1.0 mmol/LPOTASSIUM 3.80 mmol/LCHLORIDE 105.0 mmol/LCO2 25.0 mmol/LBUN 20.0 mg/dLCREATININE 0.90 mg/dLALBUMIN 4.10 g/dLCALCIUM 9.20 mg/dLPHOSPHORUS 4.50 mg/dLAGE 71 GFR NonAA 62 GFR AA 75 eGFR >60 mL/min/1.73 m2eGFR AA* >60 04/24/2017 7:28 PM Clarity Ur hazy Color Ur yel low Glucose Ur-sCnc neg Bilirub Ur Ql Strip neg Ketones Ur Ql Strip neg Sp Gr Ur Qn 1.005 Hgb Ur Ql Strip mod pH Ur-LsCnc neg Prot Ur Ql Strip neg Urobilinogen Ur-mCnc neg Nitrite Ur Ql Strip positive WBC Est Ur Ql Strip trace 08/13/2017 1:23 PM Clarity Ur cloudy Urine-[place] r dk yellow Glucose Ur-sCnc neg Bilirub Ur Ql small Ketones Ur Ql Strip 15mg/dL Sp Gr Ur Qn 1.025 Hgb Ur Ql Strip Large pH Ur-LsCnc 5.5 Prot Ur Ql Strip >=300mg/dL Urobilinogen Ur-mCnc 1.0 E U/dL Nitrite Ur Ql Strip Pos WBC # Ur Trace 11/16/2017 12:05 PM GLUCOSE 78.0 mg/dLSODIUM 138 .0 mmol/LPOTASSIUM 4.20 mmol/LCHLORIDE 104.0 mmol/LCO2 26.0 mmol/LBUN 18.0 mg/dLCREATININE 0.80 mg/dLSGOT/AST 19.0 IU/LSGPT/ALT 13.0 IU/LALK PHOS 61.0 IU/LTOTAL PROTEIN 8.0 g/dLALBUMIN 4.20 g/dLTOTAL BILI 0.70 mg/dLCALCIUM 9.30 mg/dLAGE 72 GFR NonAA 70 GFR AA 85 eGFR >60 mL/min/1.73 m2eGFR AA* >60 06/13/2018 2:43 PM Clarity Ur clear Urine-Color yellow Glucose Ur-sCnc neg Bilirub Ur Ql small Ketones Ur Ql Strip Trace Sp Gr Ur Qn 1.015 Hgb Ur Ql Strip neg pH Ur-LsCnc 5.5 Prot Ur Ql Strip Trace Urobilinogen Ur-mCnc 0.2 E.U/dL Nitrite Ur Ql Strip neg WBC # Ur Trace 08/01/2018 2:32 PM Falls in last 6 months? No U nsteady or worry about falling? Yes 10/05/2018 1:30 PM Falls in last 6 months? No U nsteady or worry about falling? No Fall Risk Assessment Not At Risk 12/13/2018 3:33 PM GLUCOSE 89 SODIUM 139 POTASS IUM 4.2 CHLORIDE 103.0 mmol/LCO2 26 BUN 16.0 mg/dLCREATININE 0.80 mg/dLSGOT/AST 18 SGPT/ALT 16 ALK PHOS 60 TOTAL PROTEIN 8.0 ALBUMIN 4.3 TOTAL BILI 0.7 CALCIUM 10.10 mg/dLAGE 73 GFR NonAA 70 GFR AA 85 eGFR 70 eGFR AA* >60 mL/min/1.73 m2 06/27/2019 3:11 PM GLUCOSE 91 SODIUM 138 POTASS IUM 4.0 CHLORIDE 104.0 mmol/LCO2 25 BUN 17.0 mg/dLCREATININE 0.940 mg/dLSGOT/AST 16 SGPT/ALT 13 ALK PHOS 53 TOTAL PROTEIN 7.6 ALBUMIN 4.1 TOTAL BILI 0.7 CALCIUM 8.90 mg/dLAGE 73 GFR NonAA 58 GFR AA 70 eGFR 58 mL/min/1.73meGFR AA* >60 mL/min/1.73m 10/02/2019 11:47 AM Clarity Ur cloudy Urine-[place] r yellow Glucose Ur-sCnc neg Bilirub Ur Ql neg Ketones Ur Ql Strip neg Sp Gr Ur Qn 1.015 Hgb Ur Ql Strip small pH Ur-LsCnc 6.0 Prot Ur Ql Strip trace Urobilinogen Ur-mCnc 0.2 Nitrite Ur Ql Strip neg WBC # Ur large 12/13/2019 3:21 PM Glucose Ur-sCnc neg Bilirub Ur Ql neg Ketones Ur Ql Strip neg Sp Gr Ur Qn 1.020 Hgb Ur Ql Strip neg pH Ur-LsCnc 6.0 Prot Ur Ql Strip neg Urobilinogen Ur-mCnc 0.2 Nitrite Ur Ql Strip neg WBC # Ur small 04/10/2021 3:51 PM Glucose Ur-sCnc negative Isiah irub Ur Ql negative Ketones Ur Ql Strip 15 Sp Gr Ur Qn >=1.030 Hgb Ur Ql Strip negative pH Ur-LsCnc 5.5 Prot Ur Ql Strip negative Urobilinogen Ur-mCnc 0.2 Nitrite Ur Ql Strip negative WBC # Ur large 10/16/2021 6:41 PM Clarity Ur Dark Urine-Color Yellow Glucose Ur-sCnc Neg Bilirub Ur Ql Small Ketones Ur Ql Strip 15 Sp Gr Ur Qn 1.025 Hgb Ur Ql Strip Trace pH Ur-LsCnc 5.0 Prot Ur Ql Strip 100 Urobilinogen Ur-mCnc 0.2 Nitrite Ur Ql Strip Neg WBC # Ur Large 12/04/2021 4:17 PM Weight For Length Percentile 0.1 {percentile}Body Mass Index Percentile for Age and Sex 0.1 {percentile} 12/04/2021 4:21 PM Clarity Ur cloudy Urine-[place] r yellow Glucose Ur-sCnc neg Bilirub Ur Ql neg Ketones Ur Ql Strip neg Sp Gr Ur Qn 1.015 Hgb Ur Ql Strip trace-intact pH Ur-LsCnc 6.5 Prot Ur Ql Strip trace Urobilinogen Ur-mCnc 0.2 Nitrite Ur Ql Strip neg WBC # Ur neg 12/21/2021 8:40 AM Weight For Length Percentile 0.1 {percentile}Body Mass Index Percentile for Age and Sex 0.1 {percentile} 12/21/2021 3:30 PM Clarity Ur clear Urine-Color yellow Glucose Ur-sCnc neg Bilirub Ur Ql neg Ketones Ur Ql Strip neg Sp Gr Ur Qn 1.020 Hgb Ur Ql Strip neg pH Ur- LsCnc 7.0 Prot Ur Ql Strip neg Urobilinogen Ur-mCnc 0.2 Nitrite Ur Ql Strip neg WBC # Ur neg 02/09/2022 4:56 PM Clarity Ur cloudy Urine-[place] r yellow Glucose Ur-sCnc negative Bilirub Ur Ql small Ketones Ur Ql Strip trace Sp Gr Ur Qn 1.025 Hgb Ur Ql Strip trace pH Ur-LsCnc 5.0 Prot Ur Ql Strip trace Urobilinogen Ur-mCnc 0.2 Nitrite Ur Ql Strip negative WBC # Ur small 05/18/2022 11:02 AM Residual Urine 0.0 mL 05/18/2022 4:08 PM COLOR Light-Yellow CLARITY C lear SPEC GRAV 1.015 pH 5.0 PROTEIN Negative GLUCOSE Normal KETONE Negative BILIRUBIN Negative BLOOD Negative NITRITE Negative LEUK SCREEN Negative Micro Indicated? NOT IND CULT SET UP? NO 06/08/2022 7:24 PM Clarity Ur clear Urine-Color yellow Glucose Ur-sCnc neg Bilirub Ur Ql neg Ketones Ur Ql Strip neg Sp Gr Ur Qn 1.015 Hgb Ur Ql Strip trace-intact pH Ur-LsCnc 6.0 Prot Ur Ql Strip neg Urobilinogen Ur-mCnc 0.2 Nitrite Ur Ql Strip neg WBC # Ur small History Of Immunizations Name Date Admin Mfg Name Mfg Code Trade Name Lot# Route Inj Vis Given Vis Pub CVX Pneumococcal 08/24/2007 Not Entered NE PNEUMOVAX 23 Not Ente red Not Entered 06/15/2017 08/15/2022 33 Pneumococcal 06/13/2015 Not Entered NE PREVNAR 13 Not Enter ed Not Entered 06/15/2017 08/15/2022 133 Influenza 06/09/2017 Not Entered NE Flucelvax [id number] Intramuscular Right Deltoid 08/15/2022 08/15/2022 150 RZV (Shingles) 12/23/2017 GlaxoSmithKline SKB Not Entered Not Entered Not Entered 01/17/2018 08/15/2022 187 ZVL (Shingles) 02/23/2018 Not Entered NE SHINGRIX Not Entere d Not Entered 02/23/2018 08/15/2022 121 Influenza 05/13/2020 Not Entered NE Not Entered Not Entered Not Entered 05/15/2020 08/15/2022 135 History of Past Illness Name Date of Onset Comments Breast Cancer GERD Osteoporosis Menopause Atrial fibrillation SVT Superficial migratory thrombophlebitis 03/29/2016 L eft arm, appears to be resolved. Will refer for lymphedema therapy. Will also repeat US in 6 weeks. Sjogren's syndrome 03/29/2016 Will take over Nabum etone therapy. Will take over Nabumetone therapy. Essential hypertension 07/15/2016 Mixed hyperlipidemia 07/15/2016 Post herpetic neuralgia 07/15/2016 Elevated blood pressure Jun 18 2015 10:56AM Breast CA, left Jun 18 2015 10:56AM Autoimmune disease Jun 18 2015 10:56AM Essential hypertension Jul 09 2015 10:56AM Arthritis Jul 09 2015 10:56AM Essential hypertension Jul 23 2015 10:13AM Screening for ischemic heart disease Jul 23 2015 10:13AM Left ankle pain Jul 23 2015 10:13AM Encounter for screening for cardiovascular disorders Jul 28 2015 10:53AM Essential (primary) hypertension Jul 28 2015 10:53AM Acute maxillary sinusitis, recurrence not specified Aug 01 015 5:24PM URI (upper respiratory infection) Aug 05 2015 3:29PM Herpes zoster Aug 05 2015 3:29PM Pneumonia of right lower lobe due to Streptococcus pne umoniae Aug 06 2015 9:38AM URI (upper respiratory infection) Aug 06 2015 11:56AM Pneumonia of right lower lobe due to infectious organism Aug 07 2015 12:49PM Pneumonia Aug 09 2015 12:06PM Pneumonia Aug 11 2015 10:42AM Pneumonia of right lower lobe due to Streptococcus pne umoniae Aug 13 2015 11:18AM Pneumonia Aug 19 2015 2:21PM Hypertension, Benign Essential Sep 25 2015 1:16PM Essential hypertension Sep 17 2015 1:29PM Pneumonia of right lower lobe due to Streptococcus pne umoniae Sep 17 2015 1:29PM Hypertension, Benign Essential Oct 23 2015 2:02PM Essential hypertension Oct 29 2015 2:07PM Allergic conjunctivitis and rhinitis, bilateral Oct 29 2015 2:07PM Hypertension Nov 05 2015 2:27PM Dysuria Nov 28 2015 1:45PM HTN (hypertension) 2015 2:45PM Hypertension, Benign Essential Mar 16 2016 10:19AM Hypertension, Benign Essential Mar 16 2016 11:13AM Essential hypertension with goal blood pressure less t velasquez 140/90 Mar 24 2016 11:46AM Superficial migratory thrombophlebitis Mar 24 2016 11:46AM Major depressive disorder with single episode, in part ial remission Mar 24 2016 11:46AM Sjogren's syndrome Mar 24 2016 11:46AM Painful urination Apr 09 2016 11:32AM Urinary Tract Infection Apr 09 2016 11:32AM Rash May 20 2016 1:57PM Shingles rash May 20 2016 1:57PM Urinary Tract Infection May 28 2016 3:12PM Pain May 28 2016 3:12PM Superficial migratory thrombophlebitis Jun 04 2016 10:28AM Lower back pain Jun 14 2016 4:10PM Sciatic nerve pain, left Jun 14 2016 4:10PM Lower back pain Jun 24 2016 10:26AM Sciatica Jun 24 2016 10:26AM Mixed hyperlipidemia Jul 15 2016 10:28AM Essential Hypertension Jul 15 2016 10:28AM Post herpetic neuralgia Jul 15 2016 10:28AM Acute sinusitis Sep 22 2016 9:36AM Resolved Atrial fibrillation with rapid ventricular re sponse Sep 22 2016 9:36AM Paroxysmal atrial fibrillation Nov 10 2016 10:38AM Essential Hypertension Nov 10 2016 10:38AM Iron deficiency anemia due to chronic blood loss Nov 10 2016 10:38AM Iron deficiency anemia due to chronic blood loss Nov 15 2016 2:47PM Anxiety Dec 01 2016 11:58AM PAF (paroxysmal atrial fibrillation) Dec 01 2016 11:58AM Paroxysmal atrial fibrillation Dec 15 2016 2:44PM Essential hypertension Jan 07 2017 3:10PM Headache Jan 07 2017 3:10PM Fatigue Jan 07 2017 3:10PM Anxiety Jan 07 2017 3:10PM Paroxysmal atrial fibrillation Jan 14 2017 10:35AM Essential Hypertension Jan 14 2017 10:35AM Paroxysmal atrial fibrillation Jan 17 2017 11:26AM Essential Hypertension Jan 17 2017 11:26AM Essential Hypertension Mar 03 2017 11:10AM Essential Hypertension Mar 04 2017 10:19AM Infective urethritis Apr 22 2017 3:23PM Essential Hypertension May 04 2017 3:39PM Anxiety disorder, unspecified May 04 2017 3:39PM Major depressive disorder, single episode, unspecified Apr 162016 3:39PM Herpes zoster without complication May 18 2017 3:45PM Essential Hypertension Jun 15 2017 2:16PM Post-herpetic polyneuropathy Jun 15 2017 2:16PM Other specified anxiety disorders Jun 15 2017 2:16PM UTI (urinary tract infection) Aug 13 2017 1:14PM Dysuria Aug 13 2017 1:14PM Urinary frequency Aug 13 2017 1:14PM HTN (hypertension) Aug 22 2017 5:13PM Essential Hypertension Sep 07 2017 4:26PM Hypertension, Benign Essential Oct 12 2017 4:22PM Hypertension, Benign Essential Oct 25 2017 2:36PM Hypertension, Benign Essential Nov 04 2017 2:26PM Essential Hypertension Nov 16 2017 10:53AM Other polyneuropathy Nov 16 2017 10:53AM Hypertension, Benign Essential Feb 23 2018 3:33PM Essential Hypertension Mar 08 2018 2:38PM Other polyneuropathy Mar 08 2018 2:38PM Hypertension, Benign Essential Mar 21 2018 2:24PM Sjogren's syndrome Apr 12 2018 11:39AM custodial use of drug Apr 12 2018 11:39AM Hypertension, Benign Essential May 12 2018 11:02AM Urinary Frequency Jun 13 2018 2:38PM Dysuria Jun 13 2018 2:38PM Primary osteoarthritis involving multiple joints Jun 26 2018 1:25PM Essential Hypertension Jun 26 2018 1:25PM Risk for falls Aug 01 2018 2:32PM Hypertension, Benign Essential Aug 04 2018 11:45AM Essential hypertension Aug 04 2018 3:12PM Hyperlipidemia Aug 04 2018 3:12PM Essential Hypertension Oct 05 2018 1:30PM Stage 3 chronic kidney disease Oct 05 2018 1:30PM Essential Hypertension Dec 13 2018 2:01PM Stage 3 chronic kidney disease Dec 13 2018 2:01PM Seasonal allergic rhinitis due to pollen Dec 13 2018 2:01PM Dyspepsia Dec 13 2018 2:01PM Hypertension, Benign Essential Feb 23 2019 9:42AM Essential Hypertension Apr 04 2019 2:25PM Stage 3 chronic kidney disease Apr 04 2019 2:25PM Palpitations May 30 2019 1:47PM Bradycardia May 30 2019 1:47PM Dyspnea on exertion May 30 2019 1:47PM Essential Hypertension Jun 27 2019 2:19PM Stage 3 chronic kidney disease Jun 27 2019 2:19PM Lymphedema Jun 27 2019 2:19PM Urinary Frequency Oct 02 2019 11:46AM Dysuria Oct 02 2019 11:46AM Urinary Tract Infection, Site Not Specified Oct 02 2019 11:4 6AM Essential Hypertension Nov 15 2019 1:49PM Stage 3 chronic kidney disease Nov 15 2019 1:49PM Resolved Left Upper Lymphedema Nov 15 2019 1:49PM Left hand paresthesia Nov 15 2019 1:49PM Right knee pain Nov 15 2019 1:49PM Carpal tunnel syndrome of left wrist Nov 15 2019 1:49PM Urinary frequency Dec 13 2019 3:02PM Dysuria Dec 13 2019 3:02PM Essential Hypertension May 22 2020 2:44PM Stage 3 chronic kidney disease May 22 2020 2:44PM Left hand paresthesia May 22 2020 2:44PM 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 Jun 26 2020 2:03PM Brachial plexopathy Jun 26 2020 2:03PM Carpal tunnel syndrome of left wrist Jun 26 2020 2:03PM Brachial plexopathy Jul 02 2020 5:17PM Left hand paresthesia Jul 02 2020 5:17PM Essential hypertension Nov 05 2020 9:45AM Mixed hyperlipidemia Nov 05 2020 9:45AM Brachial plexopathy without trauma Nov 17 2020 2:55PM Neuropathic pain Nov 17 2020 2:55PM Essential Hypertension Nov 20 2020 2:46PM Stage 3 chronic kidney disease Nov 20 2020 2:46PM Left hand paresthesia Nov 20 2020 2:46PM Left arm weakness Nov 24 2020 10:59AM History of radiation therapy Nov 24 2020 10:59AM Dysuria Apr 10 2021 3:15PM Leukocytes in urine Apr 10 2021 3:15PM Hypertension May 01 2021 11:02AM Essential Hypertension May 12 2021 2:46PM Stage 3 chronic kidney disease May 12 2021 2:46PM Left hand paresthesia May 12 2021 2:46PM History of breast cancer May 28 2021 6:18PM Fever, unspecified Sep 21 2021 10:22AM Chills Sep 21 2021 10:22AM Congestion of nasal sinus Sep 21 2021 10:22AM Body aches Sep 21 2021 10:22AM Urinary urgency Oct 16 2021 6:41PM Urinary frequency Oct 16 2021 6:41PM Leukocytes in urine Oct 16 2021 6:41PM Hypertension Oct 27 2021 10:02AM Hyperlipidemia Oct 27 2021 10:02AM Family history of thyroid disease Oct 27 2021 10:02AM Hyperlipidemia Nov 11 2021 2:05PM Essential Hypertension Nov 11 2021 2:05PM CKD (chronic kidney disease) Nov 11 2021 2:05PM Osteoporosis Nov 11 2021 5:41PM Hematuria Dec 04 2021 4:20PM Dysuria Dec 04 2021 4:20PM Recurrent UTI Dec 04 2021 4:20PM Urinary frequency Dec 21 2021 8:42AM Dysuria Dec 21 2021 8:42AM Urinary urgency Dec 21 2021 8:42AM Nausea Dec 21 2021 8:42AM Urinary tract infection Feb 09 2022 4:54PM Urinary frequency Feb 17 2022 8:29AM Dysuria Feb 17 2022 8:29AM Hypertension Mar 25 2022 9:36AM Hyperlipidemia Apr 08 2022 1:40PM Essential Hypertension Apr 08 2022 1:40PM CKD (chronic kidney disease) Apr 08 2022 1:40PM Recurrent urinary tract infection May 18 2022 11:02AM Diarrhea May 18 2022 11:02AM History of breast cancer May 27 2022 11:22AM Dysuria Jun 08 2022 7:20PM Urinary Frequency Jun 08 2022 7:20PM Payers Insurance Name Company Name Plan Name Plan Number Policy Number Josr Group Number Start Date Medicare RHC Medicare RHC [id number] Mcrae 2009 Government Personnel [employer] [id number] N/A Medicare RHC Medicare RHC [id number] N/ A Medicare Part A Medicare - Lab [id number] N/A Medicare Part B Medicare Of [place] [id number] Monday, June 15, 2009 History of Encounters Visit Date Visit Type Provider 06/08/2022 Office visit Amado Maldonado [facility]IT SECRETARY 05/18/2022 Nurse visit Juanita Lang MD 05/18/2022 Office visit MARILEE BALLARD MEDICAL UNIT SECRETARY 04/08/[address] Ac Kimbrough MD 02/09/2022 Office visit Lavinia Rucker BUTT PRESSER 02/08/2022 [facility] MD 12/21/2021 Office visit Lavinia Rucker BUTT PRESSER 12/04/2021 Office visit Yelitza Salmon MEDICAL UNIT SECRETARY 11/11/[address] Ac Kimbrough MD 11/04/2021 Laboratory Juanita Lang MD 10/16/2021 Office visit Karon Stevenson MEDICAL UNIT SECRETARY 09/21/2021 Laboratory Yelitza Salmon MEDICAL UNIT SECRETARY 05/12/[address] Ac Kimbrough MD 04/10/2021 Office visit Yelitza Salmon MEDICAL UNIT SECRETARY 11/20/[address] Ac Kimbrough MD 11/19/2020 Laboratory Juanita Lang MD 11/17/2020 Office visit Godfreybrook Munguia DO 06/26/2020 Procedures Godfrey Ezra DO 05/22/[address] Ac Kimbrough MD 05/19/2020 Hospital [facility] MD 12/13/2019 Office visit Lavinia Rucker NP 11/15/[address] Ac Kimbrough MD 10/02/2019 Office visit Aliyah HILLIARD RN 07/24/2019 [facility] Ten Cool MD 06/27/[address] Ac Kimbrough MD 05/30/2019 Office visit Lavinia Rucker NP 05/30/2019 [facility] Ten Cool MD 04/04/[address] Ac Kimbrough MD 02/23/2019 Nurse visit Lavinia Rucker NP 12/13/[address] Ac Kimbrough MD 10/05/[address] Ac Kimbrough MD 08/31/2018 Laboratory Karonestevan Stevenson MEDICAL UNIT SECRETARY 08/04/2018 Nurse visit Amadojacklyn Maldonado MEDICAL UNIT SECRETARY 06/26/[address] Ac Kimbrough MD 06/13/2018 Office visit Amado Groton MEDICAL UNIT SECRETARY 05/12/2018 Nurse visit Amado Joel MEDICAL UNIT SECRETARY 04/12/2018 Laboratory Amado Groton MEDICAL UNIT SECRETARY 03/21/2018 Nurse visit Eugenie Oswald MD 03/08/[address] Ac Kimbrough MD 02/23/2018 Nurse visit Amado Groton MEDICAL UNIT SECRETARY 12/28/[address] Ac Kimbrough MD 11/16/[address] Ac Kimbrough MD 11/04/2017 Nurse visit Eugenie Oswald MD 10/25/2017 Nurse visit Amado Groton MEDICAL UNIT SECRETARY 10/12/2017 Nurse visit Fabiana HILLIARD RN 09/28/2017 Nurse visit Amado Joel MEDICAL UNIT SECRETARY 09/07/[address] Ac Kimbrouhg MD 09/01/2017 Nurse visit Eugenie Oswald MD 08/22/2017 Nurse visit Karon Stevenson MEDICAL UNIT SECRETARY 08/13/2017 Office visit Amado Maldonado MEDICAL UNIT SECRETARY 07/29/2017 Voided Eugenie Oswald MD 07/13/[address] Ac Kimbrough MD 06/30/2017 Nurse visit Eugenie Oswald MD 06/15/[address] Ac Kimbrough MD 05/18/2017 Office visit Fabiana HILLIARD RN 05/04/[address] Ac Kimbrough MD 04/22/2017 Office visit Karon Stevenson MEDICAL UNIT SECRETARY 03/04/2017 Laboratory Amado Maldonado MEDICAL UNIT SECRETARY 03/03/[address] Ac Kimbrough MD 01/17/2017 Laboratory Fabiana HILLIARD RN 01/14/[address] Ac Kimbrough MD 01/07/2017 Voided Karon Stevenson APRN 01/07/2017 Office visit Karon Stevenson APRN 12/15/[address] Ac Kimbrough MD 12/01/[address] Ac Kimbrough MD 11/15/2016 Laboratory Karon Stevenson MEDICAL UNIT SECRETARY 11/10/[address] Ac Kimbrough MD 09/22/[address] Ac Kimbrough MD 09/15/2016 Hospital JESSIE GARRIDO MD 09/14/2016 [facility] MD 09/13/2016 [facility] MD 07/23/2016 Voided Eugenie Oswald MD 07/15/[address] Ac Kimbrough MD 06/14/2016 Office visit Amado Maldonado MEDICAL UNIT SECRETARY 05/28/2016 Office visit Amado Maldonado MEDICAL UNIT SECRETARY 05/20/2016 Office visit Amado Maldonado MEDICAL UNIT SECRETARY 04/15/2016 Nurse visit Amado Maldonado MEDICAL UNIT SECRETARY 04/09/2016 Office visit Karon Stevenson MEDICAL UNIT SECRETARY 03/24/[address] Ac Kimbrough MD 02/18/2016 Voided Fabiana HILLIARD RN 01/20/2016 Nurse visit Fabiana HILLIARD RN 12/03/2015 Nurse visit Karon Stevenson MEDICAL UNIT SECRETARY 11/28/2015 Nurse visit Fabiana HILLIARD RN 11/27/2015 Nurse visit Fabiana HILLIARD RN 2015 Nurse visit Fabiana HILLIARD RN 11/05/2015 Nurse visit Karon Stevenson MEDICAL UNIT SECRETARY 10/29/[address] Ac Kimbrough MD 10/23/2015 Nurse visit Karon Stevenson MEDICAL UNIT SECRETARY 10/02/2015 Nurse visit Fabiana HILLIARD RN 09/25/2015 Nurse visit Karon Stevenson MEDICAL UNIT SECRETARY 09/17/[address] Ac Kimbrough MD 09/11/2015 Nurse visit Karon Stevenson MEDICAL UNIT SECRETARY 08/13/[address] Ac Kimbrough MD 08/11/2015 Office visit Fabiana HILLIARD RN 08/09/2015 Office visit Karon Stevenson MEDICAL UNIT SECRETARY 08/07/2015 Nurse visit Fabiana HILLIARD RN 08/06/[address] Ac Kimbrough MD 08/05/2015 Office visit Fabiana HILLIARD RN 08/01/2015 Office visit Fabiana HILLIARD RN 07/28/2015 Laboratory Fabiana HILLIARD RN 07/23/[address] Ac Kimbrough MD 07/09/[address] Ac Kimbrough MD 06/18/[address] Ac Kimbrough MD
--- OUTSIDE RECORDS SUMMARY | 2022-06-15 18:09 | XMS REPORT ---
Author Author Roxi Lang Organization [facility] Address [address] [place], [place] [id number] Care Team Providers Care Security System Installer Name Role Phone Juanita Lang PCP Ac Kimbrough Unavailable Ac Kimbrough PreferredProvider Allergies and Adverse Reactions Name Reaction Notes chemotherapy rash, itching Gemzar Contrast media allergy skin red, swollen eyes et lips SULFA (SULFONAMIDES) Levaquin rash Plan of Treatment Planned Activity Comments Planned Date Planned Time Plan/Goal CMP 04/04/2019 12:00 AM DEXA 11/11/2021 12:00 AM Mammogram, diagnostic, digital with samantha 05/27/2022 12:00 AM Medications Active Name Start Date [...] (50 mg) by oral route once daily Name [...] HC BMI BSA BMI Percentile O2 Sat(%) 05/18/2022 11:01:00 AM 134 mm[Hg] 82 mm[Hg] [...] Reviewed 08/05/2015 12:00 AM Rocephin 1 gram [facility]#7150-4937-77 Reviewe d 08/05/2015 12:00 AM AIRWAY INHALATION TREATMENT Reviewed 08/07/2015 12:00 AM Rocephin 1 gram [facility]#7900-5370-60 Reviewe d 08/07/2015 12:00 AM THER/PROPH/DIAG INJ SC/IM Reviewed 08/09/2015 12:00 AM COMPLETE CBC W/AUTO DIFF WBC Reviewed 08/09/2015 12:00 AM CHEST X-RAY 2VW FRONTAL&LATL Reviewed 08/09/2015 12:00 AM AIRWAY INHALATION TREATMENT Reviewed 08/11/2015 12:00 AM COMPLETE CBC W/AUTO DIFF WBC Reviewed 08/11/2015 12:00 AM Rocephin 1 gram [facility]#8972-3268-91 Reviewe d 08/11/2015 12:00 AM THER/PROPH/DIAG INJ SC/IM Reviewed 08/07/2015 12:00 AM Rocephin 1 gram [facility]#1714-4938-10 Reviewe d 08/13/2015 12:00 AM Rocephin 250 Mg [facility]#9617-9523-89 Reviewe d 09/11/2015 2:54 PM Blood Pressure [...] 12:00 AM Solu-Medrol, Up to 125 Mg [facility]# 58600-579 7-27 Reviewed 05/30/2019 12:00 AM ASSAY THYROID [...] 05/18/2022 12:00 AM URINALYSIS AUTO W/SCOPE Reviewed Results Summary Date and Description Results [...] trace 08/13/2017 1:23 PM Clarity Ur cloudy Urine-[place] r dk yellow Glucose Ur-sCnc neg Bilirub [...] mL/min/1.73m 10/02/2019 11:47 AM Clarity Ur cloudy Urine-[place] r yellow Glucose Ur-sCnc neg Bilirub Ur [...] {percentile} 12/04/2021 4:21 PM Clarity Ur cloudy Urine-[place] r yellow Glucose Ur-sCnc neg Bilirub Ur [...] neg 02/09/2022 4:56 PM Clarity Ur cloudy Urine-[place] r yellow Glucose Ur-sCnc negative Bilirub Ur [...] Indicated? NOT IND CULT SET UP? NO History Of Immunizations Name Date Admin Mfg Name Mfg Code Trade Name Lot# Route Inj Vis Given Vis Pub CVX Pneumococcal 08/24/2007 Not Entered NE PNEUMOVAX 23 Not Ente red Not Entered 06/15/2017 08/15/2022 33 Pneumococcal 06/13/2015 Not Entered NE PREVNAR 13 Not Enter ed Not Entered 06/15/2017 08/15/2022 133 Influenza 06/09/2017 Not Entered NE Flucelvax [id number] Intramuscular Right Deltoid 08/15/2022 08/15/2022 150 RZV [...] maxillary sinusitis, recurrence not specified Aug 01 2 015 5:24PM URI (upper respiratory infection) Aug [...] 3:39PM Major depressive disorder, single episode, unspecified Sep 2 2016 3:39PM Herpes zoster without complication May 18 [...] 2:24PM Sjogren's syndrome Apr 12 2018 11:39AM detention use of drug Apr 12 2018 11:39AM [...] of breast cancer May 27 2022 11:22AM Payers Insurance Name Company Name Plan Name Plan Number Policy Number Josr cy Group Number Start Date Medicare RHC Medicare RHC [id number] 2009 [employer] [place] [employer] [id number] N/A Medicare RHC Medicare RHC [id number] N/ A Medicare Part A Medicare - Lab [id number] N/A Medicare Part B Medicare Of [place] [id number] Monday, June 15, 2009 History of Encounters Visit Date Visit Type Provider 05/18/2022 Nurse visit Juanita Lang MD 05/18/2022 Office visit MARILEE BALLARD SENIOR INDUSTRIAL ENGINEER 04/08/[address] Ac Kimbrough MD 02/09/2022 Office visit Lavinia Rucker NP 02/08/2022 [facility] Ten Cool MD 12/21/2021 Office visit Lavinia Rucker NP 12/04/2021 Office visit Yelitza Salmon SENIOR INDUSTRIAL ENGINEER 11/11/[address] Ac Kimbrough MD 11/04/2021 Laboratory Juanita Lang MD 10/16/2021 Office visit Karon Stevenson SENIOR INDUSTRIAL ENGINEER 09/21/2021 Laboratory Yelitza Salmon SENIOR INDUSTRIAL ENGINEER 05/12/[address] Ac Kimbrough MD 04/10/2021 Office visit Yelitza Salmon SENIOR INDUSTRIAL ENGINEER 11/20/[address] Ac Kimbrough MD 11/19/2020 Laboratory Juanita Lang MD 11/17/2020 Office visit Godfrey Munguia DO 06/26/2020 Procedures Godfrey Munguia DO 05/22/[address] Ac Kimbrough MD 05/19/2020 [facility] Ten Cool MD 12/13/2019 Office visit Lavinia Rucker NP 11/15/[address] Ac Kimbrough MD 10/02/2019 Office visit Aliyah HILLIARD RN 07/24/2019 [facility] Ten Cool MD 06/27/[address] Ac Kimbrough MD 05/30/2019 Office visit Lavinia Rucker NP 05/30/2019 [facility] Ten Cool MD 04/04/[address] Ac Kimbrough MD 02/23/2019 Nurse visit Lavinia Rucker NP 12/13/[address] Ac Kimbrough MD 10/05/[address] Ac Kimbrough MD 08/31/2018 Laboratory Karon Stevenson SENIOR INDUSTRIAL ENGINEER 08/04/2018 Nurse visit Amado Maldonado SENIOR INDUSTRIAL ENGINEER 06/26/[address] Ac Kimbrough MD 06/13/2018 Office visit Amado Maldonado SENIOR INDUSTRIAL ENGINEER 05/12/2018 Nurse visit Amado Maldonado SENIOR INDUSTRIAL ENGINEER 04/12/2018 Laboratory Amado Maldonado SENIOR INDUSTRIAL ENGINEER 03/21/2018 Nurse visit Eugenie Oswald MD 03/08/[address] Ac Kimbrough MD 02/23/2018 Nurse visit Amado Maldonado SENIOR INDUSTRIAL ENGINEER 12/28/[address] Ac Kimbrough MD 11/16/[address] Ac Kimbrough MD 11/04/2017 Nurse visit Eugenie Oswald MD 10/25/2017 Nurse visit Amado Maldonado SENIOR INDUSTRIAL ENGINEER 10/12/2017 Nurse visit Fabiana HILLIARD RN 09/28/2017 Nurse visit Amado Maldonado SENIOR INDUSTRIAL ENGINEER 09/07/[address] Ac Kimbrough MD 09/01/2017 Nurse visit Eugenie Oswald MD 08/22/2017 Nurse visit Kaorn Stevenson SENIOR INDUSTRIAL ENGINEER 08/13/2017 Office visit Amado Maldonado SENIOR INDUSTRIAL ENGINEER 07/29/2017 Voided Eugenie Oswald MD 07/13/[address] Ac Kimbrough MD 06/30/2017 Nurse visit Eugenie Oswald MD 06/15/[address] Ac Kimbrough MD 05/18/2017 Office visit Fabiana HILLIARD RN 05/04/[address] Ac Kimbrough MD 04/22/2017 Office visit Karon Stevenson SENIOR INDUSTRIAL ENGINEER 03/04/2017 Laboratory Amado Maldonado SENIOR INDUSTRIAL ENGINEER 03/03/[address] Ac Kimbrough MD 01/17/2017 Laboratory Fabiana HILLIARD RN 01/14/[address] Ac Kimbrough MD 01/07/2017 Voided Karon Stevenson SENIOR INDUSTRIAL ENGINEER 01/07/2017 Office visit Karon Stevenson APRN 12/15/[address] Ac Kimbrough MD 12/01/[address] Ac Kimbrough MD 11/15/2016 Laboratory Karon Stevenson SENIOR INDUSTRIAL ENGINEER 11/10/[address] Ac Kimbrough MD 09/22/[address] Ac Kimbrough MD 09/15/2016 [facility] JESSIE GARRIDO MD 09/14/2016 [facility] Ten Cool MD 09/13/2016 [facility] MD 07/23/2016 Voided Eugenie Oswald MD 07/15/[address] Ac Kimbrough MD 06/14/2016 Office visit Amado Maldonado SENIOR INDUSTRIAL ENGINEER 05/28/2016 Office visit Amado Maldonado SENIOR INDUSTRIAL ENGINEER 05/20/2016 Office visit Amado Maldonado SENIOR INDUSTRIAL ENGINEER 04/15/2016 Nurse visit Amado Maldonado SENIOR INDUSTRIAL ENGINEER 04/09/2016 Office visit Karon Stevenson SENIOR INDUSTRIAL ENGINEER 03/24/[address] Ac Kimbrough MD 02/18/2016 Voided Fabiana HILLIARD RN 01/20/2016 Nurse visit Fabiana HILLIARD RN 12/03/2015 Nurse visit Karon Stevenson SENIOR INDUSTRIAL ENGINEER 11/28/2015 Nurse visit Fabiana HILLIARD RN 11/27/2015 Nurse visit Fabiana HILLIARD RN 2015 Nurse visit Fabiana HILLIARD RN 11/05/2015 Nurse visit Karon Stevenson SENIOR INDUSTRIAL ENGINEER 10/29/[address] Ac Kimbrough MD 10/23/2015 Nurse visit Karon Stevenson SENIOR INDUSTRIAL ENGINEER 10/02/2015 Nurse visit Fabiana HILLIARD RN 09/25/2015 Nurse visit Karon Stevenson SENIOR INDUSTRIAL ENGINEER 09/17/[address] Ac Kimbrough MD 09/11/2015 Nurse visit Karon Stevenson SENIOR INDUSTRIAL ENGINEER 08/13/[address] Ac Kimbrough MD 08/11/2015 Office visit Fabiana HILLIARD RN 08/09/2015 Office visit Karon Stevenson SENIOR INDUSTRIAL ENGINEER 08/07/2015 Nurse visit Fabiana HILLIARD RN 08/06/[address] Ac Kimbrough MD 08/05/2015 Office visit Fabiana HILLIARD RN 08/01/2015 Office visit Fabiana HILLIARD RN 07/28/2015 Laboratory Fabiana HILLIARD RN 07/23/[address] Ac Kimbrough MD 07/09/[address] Ac Kimbrough MD 06/18/[address] Ac Kimbrough MD
--- OUTSIDE RECORDS SUMMARY | 2022-06-15 18:09 | XMS REPORT ---
Author Author Roxi Lang Organization [facility] o[facility] Address [address] [place], [place] [id number] Care Team Providers Care Finish Photographer Name Role Phone Juanita Lang PCP Ac [...] 08/05/2015 12:00 AM Rocephin 1 gram [facility]#2696-9474-26 Reviewe d 08/05/2015 12:00 AM AIRWAY INHALATION TREATMENT Reviewed 08/07/2015 12:00 AM Rocephin 1 gram [facility]#0193-5294-63 Reviewe d 08/07/2015 12:00 AM THER/PROPH/DIAG INJ SC/IM Reviewed 08/09/2015 12:00 AM COMPLETE CBC W/AUTO DIFF WBC Reviewed 08/09/2015 12:00 AM CHEST X-RAY 2VW FRONTAL&LATL Reviewed 08/09/2015 12:00 AM AIRWAY INHALATION TREATMENT Reviewed 08/11/2015 12:00 AM COMPLETE CBC W/AUTO DIFF WBC Reviewed 08/11/2015 12:00 AM Rocephin 1 gram [facility]#8813-0360-93 Reviewe d 08/11/2015 12:00 AM THER/PROPH/DIAG INJ SC/IM Reviewed 08/07/2015 12:00 AM Rocephin 1 gram [facility]#4843-8214-85 Reviewe d 08/13/2015 12:00 AM Rocephin 250 Mg [facility]#8079-8197-76 Reviewe d 09/11/2015 2:54 PM Blood Pressure [...] AM Solu-Medrol, Up to 125 Mg [facility]# 67525-252 7-27 Reviewed 05/30/2019 12:00 AM ASSAY THYROID [...] trace 08/13/2017 1:23 PM Clarity Ur cloudy Urine-[place] r dk yellow Glucose Ur-sCnc neg Bilirub [...] mL/min/1.73m 10/02/2019 11:47 AM Clarity Ur cloudy Urine-[place] r yellow Glucose Ur-sCnc neg Bilirub Ur [...] {percentile} 12/04/2021 4:21 PM Clarity Ur cloudy Urine-[place] r yellow Glucose Ur-sCnc neg Bilirub Ur [...] neg 02/09/2022 4:56 PM Clarity Ur cloudy Urine-[place] r yellow Glucose Ur-sCnc negative Bilirub Ur [...] 133 Influenza 06/09/2017 Not Entered NE Flucelvax [id number] Intramuscular Right Deltoid 08/15/2022 08/15/2022 150 RZV [...] 2:24PM Sjogren's syndrome Apr 12 2018 11:39AM senior care use of drug Apr 12 2018 11:39AM [...] Number Start Date Medicare RHC Medicare RHC [id number] 2009 Government Personnel [place] [employer] [id number] N/A Medicare RHC Medicare RHC [id number] N/ A Medicare Part A Medicare - Lab [id number] N/A Medicare Part B Medicare Of [place] [id number] Monday, June 15, 2009 History of Encounters Visit Date Visit Type Provider 05/18/2022 Nurse visit Juanita Lang MD 05/18/2022 Office visit MARILEE BALLARD GENERAL WAREHOUSE ASSOCIATE 04/08/[address] Ac Kimbrough MD 02/09/2022 Office visit Lavinia Rucker NP 02/08/2022 [facility] Ten Cool MD 12/21/2021 Office visit Lavinia Rucker NP 12/04/2021 Office visit Yelitza Salmon GENERAL WAREHOUSE ASSOCIATE 11/11/[address] Ac Kimbrough MD 11/04/2021 Laboratory Juanita Lang MD 10/16/2021 Office visit Karon Stevenson GENERAL WAREHOUSE ASSOCIATE 09/21/2021 Laboratory Yelitza Salmon GENERAL WAREHOUSE ASSOCIATE 05/12/[address] cA Kimbrough MD 04/10/2021 Office visit Yelitza Salmon GENERAL WAREHOUSE ASSOCIATE 11/20/[address] Ac Kimbrough MD 11/19/2020 Laboratory Juanita Lang MD 11/17/2020 Office visit Godfrey Munguia DO 06/26/2020 Procedures Godfrey Munguia DO 05/22/[address] Ac Kimbrough MD 05/19/2020 [facility] Ten Cool MD 12/13/2019 Office visit Lavinia Rucker NP 11/15/[address] Ac Kimbrough MD 10/02/2019 Office visit Aliyah HILLIARD RN 07/24/2019 [facility] Ten Cool MD 06/27/[address] Ac Kimbrough MD 05/30/2019 Office visit Lavinia Rucker NP 05/30/2019 [facility] Ten Cool MD 04/04/[address] Ac Kimbrough MD 02/23/2019 Nurse visit Lavinia Rucker NP 12/13/[address] Ac Kimbrough MD 10/05/[address] Ac Kimbrough MD 08/31/2018 Laboratory Karon Stevenson GENERAL WAREHOUSE ASSOCIATE 08/04/2018 Nurse visit Amado Maldonado GENERAL WAREHOUSE ASSOCIATE 06/26/[address] Ac Kimbrough MD 06/13/2018 Office visit Amado Maldonado GENERAL WAREHOUSE ASSOCIATE 05/12/2018 Nurse visit Amado Maldonado GENERAL WAREHOUSE ASSOCIATE 04/12/2018 Laboratory Amado Maldonado GENERAL WAREHOUSE ASSOCIATE 03/21/2018 Nurse visit Eugenie Oswald MD 03/08/[address] Ac Kimbrough MD 02/23/2018 Nurse visit Amado Maldonado GENERAL WAREHOUSE ASSOCIATE 12/28/[address] Ac Kimbrough MD 11/16/[address] Ac Kimbrough MD 11/04/2017 Nurse visit Eugenie Oswald MD 10/25/2017 Nurse visit Amado Maldonado GENERAL WAREHOUSE ASSOCIATE 10/12/2017 Nurse visit Fabiana HILLIARD RN 09/28/2017 Nurse visit Amado Maldonado GENERAL WAREHOUSE ASSOCIATE 09/07/[address] Ac Kimbrough MD 09/01/2017 Nurse visit Eugenie Oswald MD 08/22/2017 Nurse visit Karon Stevenson GENERAL WAREHOUSE ASSOCIATE 08/13/2017 Office visit Amado Maldonado GENERAL WAREHOUSE ASSOCIATE 07/29/2017 Voided Eugenie Oswald MD 07/13/[address] Ac Kimbrough MD 06/30/2017 Nurse visit Eugenie Oswald MD 06/15/[address] Ac Kimbrough MD 05/18/2017 Office visit Fabiana HILLIARD RN 05/04/[address] Ac Kimbrough MD 04/22/2017 Office visit Karon Stevenson GENERAL WAREHOUSE ASSOCIATE 03/04/2017 Laboratory Amado Maldonado GENERAL WAREHOUSE ASSOCIATE 03/03/[address] cA Kimbrough MD 01/17/2017 Laboratory Fabiana HILLIARD RN 01/14/[address] Ac Kimbrough MD 01/07/2017 Voided Karon Stevenson GENERAL WAREHOUSE ASSOCIATE 01/07/2017 Office visit Karon Stevenson APRN 12/15/[address] Ac Kimbrough MD 12/01/[address] Ac Kimbrough MD 11/15/2016 Laboratory Karon Stevenson GENERAL WAREHOUSE ASSOCIATE 11/10/[address] Ac Kimbrough MD 09/22/[address] Ac Kimbrough MD 09/15/2016 [facility] JESSIE GARRIDO MD 09/14/2016 [facility] Ten Cool MD 09/13/2016 [facility] Ten [facility] MD 07/23/2016 Voided Eugenie Oswald MD 07/15/[address] Ac Kimbrough MD 06/14/2016 Office visit Amado Maldonado GENERAL WAREHOUSE ASSOCIATE 05/28/2016 Office visit Amado Maldonado GENERAL WAREHOUSE ASSOCIATE 05/20/2016 Office visit Amado Maldonado GENERAL WAREHOUSE ASSOCIATE 04/15/2016 Nurse visit Amado Maldonado GENERAL WAREHOUSE ASSOCIATE 04/09/2016 Office visit Karon Stevenson GENERAL WAREHOUSE ASSOCIATE 03/24/[address] Ac Kimbrough MD 02/18/2016 Voided Fabiana HILLIARD RN 01/20/2016 Nurse visit Fabiana HILLIARD RN 12/03/2015 Nurse visit Karon Stevenson GENERAL WAREHOUSE ASSOCIATE 11/28/2015 Nurse visit Fabiana HILLIARD RN 11/27/2015 Nurse visit Fabiana HILLIARD RN 2015 Nurse visit Fabiana HILLIARD RN 11/05/2015 Nurse visit Karon Stevenson GENERAL WAREHOUSE ASSOCIATE 10/29/[address] Ac Kimbrough MD 10/23/2015 Nurse visit Karon Stevenson GENERAL WAREHOUSE ASSOCIATE 10/02/2015 Nurse visit Fabiana HILLIARD RN 09/25/2015 Nurse visit Karon Stevenson GENERAL WAREHOUSE ASSOCIATE 09/17/[address] Ac Kimbrough MD 09/11/2015 Nurse visit Karon Stevenson GENERAL WAREHOUSE ASSOCIATE 08/13/[address] Ac Kimbrough MD 08/11/2015 Office visit Fabiana HILLIARD RN 08/09/2015 Office visit Karon Stevenson GENERAL WAREHOUSE ASSOCIATE 08/07/2015 Nurse visit Fabiana HILLIARD RN 08/06/[address] Ac Kimbrough MD 08/05/2015 Office visit Fabiana HILLIARD RN 08/01/2015 Office visit Fabiana HILLIARD RN 07/28/2015 Laboratory Fabiana HILLIARD RN 07/23/[address] Ac Kimbrough MD 07/09/[address] Ac Kimbrough MD 06/18/[address] Ac Kimbrough MD
--- OUTSIDE RECORDS SUMMARY | 2022-06-15 18:09 | XMS REPORT ---
Author Roxi Clancy Organization [facility] Physicians oup Address [address] [place], [place] [id number] Care Team Providers Care Fire Boat Engineer Name Role Phone MARILEE BALLARD PCP Ac Kimbrough Unavailable Unavailable Ac Kimbrough PreferredProvider Allergies and Adverse Reactions Name Reaction Notes chemotherapy rash, itching Gemzar Contrast media allergy skin red, swollen eyes et lips SULFA (SULFONAMIDES) Levaquin rash Plan of Treatment Planned Activity Comments Planned Date Planned Time Plan/Goal CMP 04/04/2019 12:00 AM DEXA 11/11/2021 12:00 AM URINALYSIS W/MICRO C&S IF IND 05/18/2022 12:00 AM Medications Active Name Start Date [...] Reviewed 08/05/2015 12:00 AM Rocephin 1 gram [facility]#9068-1602-97 Reviewe d 08/05/2015 12:00 AM AIRWAY INHALATION TREATMENT Reviewed 08/07/2015 12:00 AM Rocephin 1 gram [facility]#5314-4549-35 Reviewe d 08/07/2015 12:00 AM THER/PROPH/DIAG INJ SC/IM Reviewed 08/09/2015 12:00 AM COMPLETE CBC W/AUTO DIFF WBC Reviewed 08/09/2015 12:00 AM CHEST X-RAY 2VW FRONTAL&LATL Reviewed 08/09/2015 12:00 AM AIRWAY INHALATION TREATMENT Reviewed 08/11/2015 12:00 AM COMPLETE CBC W/AUTO DIFF WBC Reviewed 08/11/2015 12:00 AM Rocephin 1 gram [facility]#8825-9016-52 Reviewe d 08/11/2015 12:00 AM THER/PROPH/DIAG INJ SC/IM Reviewed 08/07/2015 12:00 AM Rocephin 1 gram [facility]#5740-2224-21 Reviewe d 08/13/2015 12:00 AM Rocephin 250 Mg [facility]#6401-1341-01 Reviewe d 09/11/2015 2:54 PM Blood Pressure [...] 12:00 AM Solu-Medrol, Up to 125 Mg [facility]# 87880-771 7-27 Reviewed 05/30/2019 12:00 AM ASSAY THYROID [...] 11:02 AM US URINE CAPACITY MEASURE Reviewed Results Summary Date and Description Results [...] trace 08/13/2017 1:23 PM Clarity Ur cloudy Urine-[place] r dk yellow Glucose Ur-sCnc neg Bilirub [...] mL/min/1.73m 10/02/2019 11:47 AM Clarity Ur cloudy Urine-[place] r yellow Glucose Ur-sCnc neg Bilirub Ur [...] {percentile} 12/04/2021 4:21 PM Clarity Ur cloudy Urine-[place] r yellow Glucose Ur-sCnc neg Bilirub Ur [...] neg 02/09/2022 4:56 PM Clarity Ur cloudy Urine-[place] r yellow Glucose Ur-sCnc negative Bilirub Ur Ql small Ketones Ur Ql Strip trace Sp Gr Ur Qn 1.025 Hgb Ur Ql Strip trace pH Ur-LsCnc 5.0 Prot Ur Ql Strip trace Urobilinogen Ur-mCnc 0.2 Nitrite Ur Ql Strip negative WBC # Ur small 05/18/2022 11:02 AM Residual Urine 0.0 mL History Of Immunizations Name Date Admin Mfg Name Mfg Code Trade Name Lot# Route Inj Vis Given Vis Pub CVX Pneumococcal 08/24/2007 Not Entered NE PNEUMOVAX 23 Not Ente red Not Entered 06/15/2017 08/15/2022 33 Pneumococcal 06/13/2015 Not Entered NE PREVNAR 13 Not Enter ed Not Entered 06/15/2017 08/15/2022 133 Influenza 06/09/2017 Not Entered NE Flucelvax [id number] Intramuscular Right Deltoid 08/15/2022 08/15/2022 150 RZV [...] depressive disorder, single episode, unspecified Sep 2 0 2016 3:39PM Herpes zoster without complication May [...] 2:24PM Sjogren's syndrome Apr 12 2018 11:39AM watermelon inspector 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 Ac Kimbrough MD 02/09/2022 Office visit Lavinia Rucker NP 02/08/2022 [facility] Cool MD 12/21/2021 Office visit Lavinia Rucker NP 12/04/2021 Office visit Yelitza Salmon [address] [facility] 11/11/[address] Ac Kimbrough MD 11/04/2021 Laboratory Juanita Lang MD 10/16/2021 Office visit Karon Stevenson [address] [facility] 09/21/2021 Laboratory Yelitza Salmon [address] [facility] 05/12/[address] Ac Kimbrough MD 04/10/2021 Office visit Yelitza Salmon [address] [facility] 11/20/[address] Ac Kimbrough MD 11/19/2020 Laboratory Juanita Lang MD 11/17/2020 Office visit Godfrey Munguia DO 06/26/2020 Procedures Godfrey Munguia DO 05/22/[address] Ac Kimbrough MD 05/19/2020 [facility] MD 12/13/2019 Office visit Lavinia Rucker NP 11/15/[address] Ac Kimbrough MD 10/02/2019 Office visit Aliyah HILLIARD RN 07/24/2019 [facility] MD 06/27/[address] Ac Kimbrough MD 05/30/2019 Office visit Lavinia Rucker NP 05/30/2019 [facility] MD 04/04/[address] Ac Kimbrough MD 02/23/2019 Nurse visit Lavinia Rucker NP 12/13/[address] Ac Kimbrough MD 10/05/[address] Ac Kimbrough MD 08/31/2018 Laboratory Karon Stevenson [address] [facility] 08/04/2018 Nurse visit Amado Maldonado [address] [facility] 06/26/[address] Ac Kimbrough MD 06/13/2018 Office visit Amado Maldonado [address] [facility] 05/12/2018 Nurse visit Amado Maldonado [address] [facility] 04/12/2018 Laboratory Amado Maldonado [address] [facility] 03/21/2018 Nurse visit Eugenie Oswald MD 03/08/[address] Ac Kimbrough MD 02/23/2018 Nurse visit Amado Maldonado [address] [facility] 12/28/[address] Ac Kimbrough MD 11/16/[address] Ac Kimbrough MD 11/04/2017 Nurse visit Eugenie Oswald MD 10/25/2017 Nurse visit Amado Maldonado [address] [facility] 10/12/2017 Nurse visit Fabiana HILLIARD RN 09/28/2017 Nurse visit Amado Maldonado [address] [facility] 09/07/[address] Ac Kimbrough MD 09/01/2017 Nurse visit Eugenie Oswald MD 08/22/2017 Nurse visit Karon Stevenson [address] [facility] 08/13/2017 Office visit Amado Maldonado APRN 07/29/2017 Voided Eugenie Oswald MD 07/13/[address] Ac Kimbrough MD 06/30/2017 Nurse visit Eugenie Oswald MD 06/15/[address] Ac Kimbrough MD 05/18/2017 Office visit Fabiana HILLIARD RN 05/04/[address] Ac Kimbrough MD 04/22/2017 Office visit Karon Stevenson APRN 03/04/2017 Laboratory Amado Maldonado APRN 03/03/[address] Ac Kimbrough MD 01/17/2017 Laboratory Fabiana HILLIARD RN 01/14/[address] Ac Kimbrough MD 01/07/2017 Voided Karon Stevenson APRN 01/07/2017 Office visit Karon Stevenson APRN 12/15/[address] Ac Kimbrough MD 12/01/[address] Ac Kimbrough MD 11/15/2016 Laboratory Karon Stevenson APRN 11/10/[address] Ac Kimbrough MD 09/22/[address] [facility] 09[facility] MD 09/13/2016 [facility] MD 07/23/2016 Voidmorgan Oswald MD 07/15/[address] Ac Kimbrough MD 06/14/2016 Office visit Amado Maldonado [address] [facility] 05/28/2016 Office visit Amado Maldonado APRN 05/20/2016 Office visit Amado Maldonado APRN 04/15/2016 Nurse visit Amado Maldonado APRN 04/09/2016 Office visit Karon Stevenson APRN 03/24/[address] Ac Kimbrough MD 02/18/2016 Voided Fabiana HILLIARD RN 01/20/2016 Nurse visit Fabiana HILLIARD RN 12/03/2015 Nurse visit Karon Stevenson [facility] [address] [facility] 11/28/2015 Nurse visit Fabiana HILLIARD RN 11/27/2015 Nurse visit Fabiana HILLIARD RN 2015 Nurse visit Fabiana HILLIARD RN 11/05/2015 Nurse visit Karon Stevenson [facility] [facility] 10/29/[address] Ac Kimbrough MD 10/23/2015 Nurse visit Karon Stevenson [facility] [facility] 10/02/2015 Nurse visit Fabiana HILLIARD RN 09/25/2015 Nurse visit Karon Stevenson APRN 09/17/[address] Ac Kimbrough MD 09/11/2015 Nurse visit Karon Stevenson [facility] [facility] 08/13/[address] Ac Kimbrough MD 08/11/2015 Office visit Fabiana HILLIARD RN 08/09/2015 Office visit Karon Stevenson APRN 08/07/2015 Nurse visit Fabiana HILLIARD RN 08/06/[address] Ac Kimbrough MD 08/05/2015 Office visit Fabiana HILLIARD RN 08/01/2015 Office visit Fabiana HILLIARD RN 07/28/2015 Laboratory Fabiana HILLIARD RN 07/23/[address] Ac Kimbrough MD 07/09/[address] Ac Kimbrough MD 06/18/[address] Ac Kimbrough MD
[2022-06-15] MEDS ORDERED: FLU QUAD HIGH DOSE 240 MCG/0.7 ML 2022-23 (FLUZONE) IM ONE (18:45)
[2022-06-15 19:49] VITALS: BP 143/77
[2022-06-15] MEDS: ASPIRIN E.C. 81 MG (ECOTRIN) TAB PO SCH (20:28)
[2022-06-15] MEDS: APIXABAN 5 MG (ELIQUIS) TABLET PO SCH (20:28)
[2022-06-15] MEDS: AMIODARONE 200 MG (CORDARONE) TAB PO SCH (20:29)
[2022-06-15] MEDS: CALCIUM CARBONATE 500 MG (TUMS) TAB.CHEW PO SCH (20:29)
[2022-06-15] MEDS: GABAPENTIN 100 MG (NEURONTIN) CAP PO SCH (20:29)
[2022-06-15] MEDS: DOCUSATE SODIUM 100 MG (COLACE) CAP PO SCH (20:31)
[2022-06-15] MEDS: polyethylene glycoL POWDER 17 GM (MIRALAX) PACK PO SCH (20:31)
[2022-06-15] MEDS: SENNA W/DOCUSATE (SENOKOT S) TABLET PO SCH (20:32)
[2022-06-15] MEDS ORDERED: NON-FORMULARY MEDICATION 1 EA EA (Calcium Carbonate 500 MG) PO SCH (21:00)
[2022-06-15] MEDS ORDERED: ERGOCALCIFEROL 50 MCG PO SCH (21:00)
--- NOTE | 2022-06-16 06:26 | PM&R Progress Note ---
Subjective HPI/CC On Admission Date Seen by Provider: Jun 16, 2022 Time Seen by Provider: 09:00 Subjective/Events-last exam 06/16/2022: Pt is doing pretty well Holding Gabapentin since that appears to make her very drowsy Dr. Kirby consult appreciated Dr. Medellin consult appreciated Lymphedema will be managed Review of Systems General: Fatigue, Malaise Musculoskeletal: arm pain Neurological: Weakness, Incoordination Objective Exam Vital Signs Vital Signs Date Time Temp Pulse Resp B/P (MAP) Pulse Ox O2 Delivery O2 Flow Rate FiO2 06/16/22 20:04 36.4 67 18 156/70 (98) 96 Room Air Capillary Refill : General Appearance: No Apparent Distress, WD/WN, Chronically ill HEENT: PERRL/EOMI, Normal ENT Inspection, Pharynx Normal, Other (Left facial droop) Neck: Full Range of Motion, Normal Inspection, Non Tender, Supple, Carotid Bruit Respiratory: Chest Non Tender, Lungs Clear, Normal Breath Sounds, No Accessory Muscle Use, No Respiratory Distress Cardiovascular: Regular Rate, Rhythm, No Edema, No Gallop, No JVD, No Murmur, Normal Peripheral Pulses Gastrointestinal: Normal Bowel Sounds, No Organomegaly, No Pulsatile Mass, Non Tender, Soft Back: Normal Inspection, No CVA Tenderness, No Vertebral Tenderness Extremity: Normal Capillary Refill, Normal Inspection, Normal Range of Motion, Non Tender, No Calf Tenderness, No Pedal Edema Neurologic/Psychiatric: Alert, Oriented x3, electrical sign wirer II-XII Norm as Tested, Abnormal Gait, Aphasia (Partial), Depressed Affect, Facial Droop (Left), Motor Weakness (Left-sided weakness) Skin: Normal Color, Warm/Dry Lymphatic: No Adenopathy Results/Procedures Lab Laboratory Tests 06/16/22 08:00 Patient resulted labs reviewed. FIM Transfers Therapy Code Descriptions/Definitions Functional Minter Measure: 0=Not Assessed/NA 4=Minimal Assistance 1=Total Assistance 5=Supervision or Setup 2=Maximal Assistance 6=Modified Minter 3=Moderate Assistance 7=Complete IndependenceSCALE: Activities may be completed with or without assistive devices. 7-Gkodahwijt-uviseoz completes the activity by him/herself with no assistance from a helper. 5-Set-up or Clean-up Assistance-helper sets up or cleans up; patient completes a ctivity. [place] assists only prior to or following the activity. 4-Supervision or Touching Assistance-helper provides verbal cues and/or touching/steadying and/or contact guard assistance as patient completes activity. Assistance may be provided throughout the activity or intermittently. 3-Partial/Moderate Assistance-helper does LESS THAN HALF the effort. [place] lifts, holds or supports trunk or limbs, but provides less than half the effort. 2-Substantial/Maximal Assistance-helper does MORE THAN HALF the effort. [place] lifts or holds trunk or limbs and provides more than half the effort. 6-Cxwxcdpuv-gansbb does ALL the effort. Patient does none of the effort to complete the activity. Or, the assistance of 2 or more helpers is required for the patient to complete the activity. If activity was not attempted, code reason: 7-Patient Refused. 9-Not Applicable-not attempted and the patient did not perform the activity before the current illness, exacerbation or injury. 10-Not Attempted due to Environmental Limitations-(lack of equipment, weather restraints, etc.). 88-Not Attempted due to Medical Conditions or Safety Concerns. Assessment/Plan Assessment and Plan Assess & Plan/Chief Complaint Assessment: CVA Left-sided weakness Left arm fracture Hypertension Hyperlipidemia Atrial fibrillation Depression Plan: Supportive care Monitor closely Orthopedic surgery consult Cardiology consult 06/16/2022: Monitor HR Appreciate Ira Medellin and Mirta (1) CVA (cerebral vascular accident) (2) Atrial fibrillation (3) Chronic anticoagulation (4) Closed left arm fracture (5) Depression (6) Hypertension (7) Hyperlipidemia JHOANA GROSS DO Jun 16, 2022 06:26
[2022-06-16] MEDS: MULTIVIT W/MINERALS TAB (THERAGRAN M) PO SCH (06:44)
[2022-06-16 07:30] VITALS: BP 144/64
[2022-06-16 08:10] LABS: BASOPHILS % (AUTO) 0 % (0-10); EOSINOPHILS # (AUTO) 0.2 10^3/uL (0.0-0.3); EOSINOPHILS % (AUTO) 3 % (0-10); HEMATOCRIT 38 % (35-52); HEMOGLOBIN 12.2 g/dL (11.5-16.0); LYMPHOCYTES # (AUTO) 1.3 10^3/uL (1.0-4.0); LYMPHOCYTES % (AUTO) 18 % (12-44); MEAN CORPUSCULAR HEMOGLOBIN 31 pg (25-34); MEAN CORPUSCULAR HGB CONC 32 g/dL (32-36); MEAN CORPUSCULAR VOLUME 95 fL (80-99); MEAN PLATELET VOLUME 10.1 fL (9.0-12.2); MONOCYTES # (AUTO) 0.4 10^3/uL (0.0-1.0); MONOCYTES % (AUTO) 5 % (0-12); NEUTROPHILS # (AUTO) 5.5 10^3/uL (1.8-7.8); NEUTROPHILS % (AUTO) 74 % (42-75); PLATELET COUNT 248 10^3/uL (130-400); WHITE BLOOD COUNT 7.4 10^3/uL (4.3-11.0)
[2022-06-16 08:35] LABS: ALBUMIN 3.5 GM/DL (3.2-4.5); BILIRUBIN,TOTAL 0.8 MG/DL (0.1-1.0); CALCIUM 9.2 MG/DL (8.5-10.1); CREATININE SERUM 0.78 MG/DL (0.60-1.30); POTASSIUM 3.7 MMOL/L (3.6-5.0); TOTAL PROTEIN 6.9 GM/DL (6.4-8.2)
[2022-06-16] MEDS: OMEGA 3 (FISH OIL) 1000 MG CAP PO SCH (08:36)
[2022-06-16] MEDS: AMIODARONE 200 MG (CORDARONE) TAB PO SCH ×2 (08:37→21:40)
[2022-06-16] MEDS: APIXABAN 5 MG (ELIQUIS) TABLET PO SCH ×2 (08:37→21:40)
[2022-06-16] MEDS: LOSARTAN 50 MG (COZAAR) TAB PO SCH (08:37)
[2022-06-16] MEDS: ASPIRIN E.C. 81 MG (ECOTRIN) TAB PO SCH ×2 (08:38→21:40)
[2022-06-16] MEDS: PARoxetine 20 MG (PAXIL) TAB PO SCH (08:38)
[2022-06-16] MEDS: GABAPENTIN 100 MG (NEURONTIN) CAP PO SCH (08:38)
[2022-06-16] MEDS: CALCIUM CARBONATE 500 MG (TUMS) TAB.CHEW PO SCH ×3 (08:38→21:34)
--- NOTE | 2022-06-16 08:44 | Occupational Therapy Eval ---
OT Evaluation-General/PLF Medical Diagnosis Admission Date Jun 15, 2022 at 17:50 Medical Diagnosis: R CVA Onset Date: Jun 09, 2022 Therapy Diagnosis Therapy Diagnosis: Reduced ADL status, visual field deficit Precautions Precautions/Isolations: Fall Prevention, Standard Precautions Weight Bear Status Weight Bearing Restriction: Non Weight Bearing (at this time; until ortho is consulted) Location Restriction: L UE Referral Physician: Katherin Referral Reason: Evaluation/Treatment Medical History Pertinent Medical History: Atrial Fib, CVA, HTN, Neuropathy (Brachial plexopathy) Current History Pt is s/p R CVA who also fell during an A-fib episode and fractured her L distal ulna. Pt was living with her in a single level home. She was independent with all ADLs and IADLs. Her has had a stroke in the past and receives assistance at home from home health as well as his (this pt). She stated that she normally helps him to stand, and feed him. She was not using any assistive devices at [facility]. Reviewed History: Yes Social History Home: Single Level Current Living Status: Spouse Entry Into Home: Ramp, Stairs With Railing Steps Into Home: 3 Steps Inside Home: 0 ADL-Prior Level of Function SCALE: Activities may be completed with or without assistive devices. 9-Xquivmxrkj-uehqotg completes the activity by him/herself with no assistance from a helper. 5-Set-up or Clean-up Assistance-helper sets up or cleans up; patient completes activity. [place] assists only prior to or following the activity. 4-Supervision or Touching Assistance-helper provides verbal cues and/or touching/steadying and/or contact guard assistance as patient completes act ivity. Assistance may be provided throughout the activity or intermittently. 3-Partial/Moderate Assistance-helper does LESS THAN HALF the effort. [place] lifts, holds or supports trunk or limbs, but provides less than half the effort. 2-Substantial/Maximal Assistance-helper does MORE THAN HALF the effort. [place] lifts or holds trunk or limbs and provides more than half the effort. 6-Zczizdiun-cbqnhs does ALL the effort. Patient does none of the effort to complete the activity. Or, the assistance of 2 or more helpers is required for the patient to complete the activity. If activity was not attempted, code reason: 7-Patient Refused. 9-Not Applicable-not attempted and the patient did not perform the activity before the current illness, exacerbation or injury. 10-Not Attempted due to Environmental Limitations-(lack of equipment, weather restraints, etc.). 88-Not Attempted due to Medical Conditions or Safety Concerns. Self Care: Independent Functional Cognition: Independent DME/Equipment: Bath Chair, Grab Bars, Shower, Tub/Shower DME/Equipment Comments handicap accessible toilet and widened doorways to all bathrooms Drive Self: Yes OT Current Status Subjective Pt was laying in bed upon arrival. She agreed to a therapy eval. Co-treat with PT for part of treatment () secondary to visual deficits, impaired balance, and needing 2 skilled clinicians to progress indep and safety with adls and functional mobility. Appearance Pt was left sitting EOB with nursing, nursing students and TV HOST in room. All needs were within reach. 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) R shoulder: WNL Upper Extremity Strength R Epilepsy Physician strength: minimally impaired R shoulder: 4/5 L sided strength not formally tested due to unknown precautions Pt has L lower quadrant visual field deficits secondary to the CVA, that are impairing ADL function and safety with transfers ADL-Treatment Eating (QC): 5 Oral Hygiene (QC): 4 Shower/Bathe Self (QC): 4 Upper Body Dressing (QC): 3 (mod assist for orientation and clasping bra and orientation and threading splint through arm hole of shirt) Lower Body Dressing (QC): 3 (mod assist for threading bilateral legs through underwear and pulling up over hips on L side. Able to thread pants with no assist.) On/Off Footwear (QC): 3 (min assist- donning L sock due to visual loss) Toileting Hygiene (QC): 4 Supine<>sit: SBA. Sit<>stand: CGA Pt able to doff all clothing with no assist. She completed sponge bath seated EOB with supervision for min cues, but no physical assist required. Pt required assist and cues for orientation of donning bra and clasping bra, as well as orientation of shirt and threading L arm through arm hole due to visual field loss. Pt toileted and completed toileting with CGA/supervision needing cues for orientation of toilet, again due to toilet being on L side after turning. She donned underwear with assist and cues for orientation and threading legs. She needed assist for pulling up pants on L side for underwear and pants. Anticipate better functional use of L hand once cast is removed/precautions are known. Pt stood at sink for several minutes to complete grooming at sink with CGA. No LOB, but pt reported feeling unsteady. After standing at sink, she reported fatigue and expressed the need to sit down. Other Treatments Pt participated in functional activities to improve scanning on L side to improve visual field loss of LLQ. Pt stood for several minutes for activity, but needed adequate rest breaks after each completion of task. She had some minor LOB that she was able to self-correct with CGA. When scanning for pegs in box, pt favored retrieving items from LUQ of container and needed cues to scan entirety of box. Pt unable to use L arm/hand due to splint, weakness, and unknown precautions, so pt use R arm to complete task. Education OT Patient Education: Correct positioning, Energy conservation, Modified ADL techniques, Progress toward Goal/Update tx plan, Purpose of tx/functional activities, Reviewed precautions, Rehab process, Safety issues, Transfer techniques Teaching Recipient: Patient Teaching Methods: Demonstration, Discussion Response to Teaching: Verbalize Understanding, Return Demonstration, Reinforcement Needed BIMS CAM BIMS Expression of Ideas and Wants: Without Difficulty Understanding Verbal Content: Usually Understands Brief Interview/Mental Status: Yes IRF CARL BIMS: IRF CARL BIMS Response (Comments) Value Repitition of Three Words Three 3 Recalls Socks Yes, No Cue Required 2 Recalls Blue Yes, No Cue Required 2 Recalls Bed No, Could Not Recall 0 Year Correct 3 Month Accurate Within 5 Days 2 Day Incorrect or No Answer 0 Total 12 Should Staff Asses. Mental St.: No Notes: 07/29 CAM Mental Status Change/Baseline: 0 Inattention: 0 Disorganized thinkin Altered level of consciousness: 0 OT Short Term Goals Short Term Goals Time Frame: Jun 30, 2022 Oral hygiene: 5 Toileting hygiene: 5 Upper body dressin Lower body dressin Putting on/taking off footwear: 4 OT Nursing Home Goals Nursing Home Goals Time Frame: Jul 14, 2022 Eating (QC): 6 Oral Hygiene (QC): 6 Toileting Hygiene (QC): 6 Shower/Bathe Self (QC): 5 Upper Body Dressing (QC): 6 Lower Body Dressing (QC): 6 On/Off Footwear (QC): 6 Additional Goals: 1-Demonstrate ADL Tasks, 2-Verbalize Understanding, 3-Improve Strength/Winter 1=Demonstrate adherence to instructed precautions during ADL tasks. 2=Patient will verbalize/demonstrate understanding of assistive devices/modifications for ADL. 3=Patient will improve strength/tolerance for activity to enable patient to pe rform ADL's. OT Education/Plan Problem List/Assessment Assessment: Decreased Activ Tolerance, Decreased Safety Aware, Decreased UE Strength, Impaired Coordination, Impaired Funct Balance, Impaired I ADL's, Impa ired Self-Care Skills, Restricted Funct UE ROM Discharge Recommendations Plan/Recommendations: Continue POC Treatment Plan/Plan of Care Treatment,Training & Education: Yes Patient would benefit from OT for education, treatment and training to promote independence in ADL's, mobility, safety and/or upper extremity function for ADL's. Plan of Care: ADL Retraining, Functional Mobility, Group Exercise/Act as Ind, UE Funct Exercise/Act, Visual/Perceptual Retrain Treatment Duration: Jul 14, 2022 Frequency: At least 5 of 7 days/Wk (IRF) Estimated Hrs Per Day: 1.5 hours per day (75-90 min/day) Agreement: Yes Rehab Potential: Fair Time Start Time: 07:45 (0930) Stop Time: 08:35 (0955) Total Time Billed (hr/min): 75 Billed Treatment Time 1 visit EVM (15 min) ADL x2 (35 min) 2nd [id number] with PT (25 min) FA x2 (25 min) Corinne Clifton OT Jun 16, 2022 08:44
[2022-06-16] MEDS: SENNA W/DOCUSATE (SENOKOT S) TABLET PO SCH ×2 (08:46→21:43)
[2022-06-16] MEDS: polyethylene glycoL POWDER 17 GM (MIRALAX) PACK PO SCH ×2 (08:46→21:43)
[2022-06-16] MEDS: DOCUSATE SODIUM 100 MG (COLACE) CAP PO SCH ×2 (08:46→21:43)
[2022-06-16] MEDS: ACETAMINOPHEN 325 MG TABLET PO PRN ×2 (08:51→21:41)
[2022-06-16] MEDS ORDERED: NON-FORMULARY MEDICATION 1 EA EA (Fish Oil/Dha/Epa (Fish Oil 1,200 mg Fish Oil) 1 EACH) PO SCH (09:00)
--- NOTE | 2022-06-16 09:36 | Consultation-Cardiology ---
HPI-Cardiology Cardiology Consultation Date of Consultation 06/16/22 Date of Admission Time Seen by Provider: 09:00 Indication: PAF, CVA HPI Patient is a 76 y/o female with history of PAF, HTN, HLP. Transferred from [facility] in [place], [place] following a CVA. Was noted to have AFib with RVR on admission to hospital and per patient, converted on Amiodarone gtt. Currently on Amio 200mg BID, Eliquis. Patient reports history of PAF, diagnosed approx 5 years ago, patient states she was not on any OAC prior to CVA. Follows with cardiology in [place], [place]. Denies any chest pain or dyspnea. Patient has left arm fracture as result of fall. Home Medications & Allergies Allergies: Coded Allergies: Iodinated Contrast Media (Verified Allergy, Unknown, 06/15/22) Sulfa (Sulfonamide Antibiotics) (Verified Allergy, Unknown, 06/15/22) Home Medication List Reviewed: Yes HWZ-Ypptkh-Gjvrjh Hx Patient Social History Marital Status: single Employed/Student: retired Smoking Status: Never a Smoker Alcohol Use?: Yes Past Medical History PAF, HTN, HLP Family Medical History Significant Family History: No Pertinent Family Hx Family Medical Hx Noncontributory Review of Systems-General Review of Systems Constitutional: see HPI, dizziness, malaise, weakness EENTM: no symptoms reported Respiratory: no symptoms reported Cardiovascular: no symptoms reported Gastrointestinal: no symptoms reported Genitourinary: no symptoms reported Musculoskeletal: back pain, joint pain Skin: no symptoms reported Psychiatric/Neurological: Depressed, Paresthesia, Weakness All Other Systems Reviewed Negative Unless Noted: Yes Reviewed Test Results Reviewed Test Results Lab Laboratory Tests 06/16/22 08:00: White Blood Count 7.4, Red Blood Count 3.98, Hemoglobin 12.2, Hematocrit 38, Mean Corpuscular Volume 95, Mean Corpuscular Hemoglobin 31, Mean Corpuscular Hemoglobin Concent 32, Red Cell Distribution Width 13.2, Platelet Count 248, Mean Platelet Volume 10.1, Immature Granulocyte % (Auto) 0, Neutrophils (%) (Auto) 74, Lymphocytes (%) (Auto) 18, Monocytes (%) (Auto) 5, Eosinophils (%) (Auto) 3, Basophils (%) (Auto) 0, Neutrophils # (Auto) 5.5, Lymphocytes # (Auto) 1.3, Monocytes # (Auto) 0.4, Eosinophils # (Auto) 0.2, Basophils # (Auto) 0.0, Immature Granulocyte # (Auto) 0.0, Sodium Level 140, Potassium Level 3.7, Chloride Level 107, Carbon Dioxide Level 23, Anion Gap 10, Blood Urea Nitrogen 15, Creatinine 0.78, Estimat Glomerular Filtration Rate 78, BUN/Creatinine Ratio 19, Glucose Level 162H, Calcium Level 9.2, Corrected Calcium 9.6, Total Bilirubin 0.8, Aspartate Amino Transf (AST/SGOT) 13, Alanine Aminotransferase (ALT/SGPT) 13, Alkaline Phosphatase 48, Total Protein 6.9, Albumin 3.5 Physical Exam Physical Exam Vital Signs Vital Signs - First Documented 06/15/22 19:49 Temp 35.9 Pulse 56 Resp 20 B/P (MAP) 143/77 (99) Pulse Ox 94 O2 Delivery Room Air Capillary Refill : Height, Weight, BMI Height: '" Weight: lbs. oz. kg; 28.32 BMI Method: General Appearance: No Apparent Distress, WD/WN, Chronically ill Eyes: Bilateral Eye Normal Inspection, Bilateral Eye PERRL HEENT: PERRL/EOMI, Normal ENT Inspection, Pharynx Normal, Other (Left facial droop) Neck: Full Range of Motion, Normal Inspection, Non Tender, Supple, Carotid Bruit Respiratory: Chest Non Tender, Lungs Clear, Normal Breath Sounds, No Accessory Muscle Use, No Respiratory Distress Cardiovascular: Regular Rate, Rhythm, No Edema, No Gallop, No JVD, No Murmur, Normal Peripheral Pulses Gastrointestinal: Normal Bowel Sounds, No Organomegaly, No Pulsatile Mass, Non Tender, Soft Back: Normal Inspection, No CVA Tenderness, No Vertebral Tenderness Extremity: Normal Capillary Refill, Normal Inspection, Normal Range of Motion, Non Tender, No Calf Tenderness, No Pedal Edema Neurologic/Psychiatric: Alert, Oriented x3, casino slot supervisor II-XII Norm as Tested, Abnormal Gait, Aphasia (Partial), Depressed Affect, Facial Droop (Left), Motor Weakness (Left-sided weakness) Skin: Normal Color, Warm/Dry Lymphatic: No Adenopathy A/P-Cardiology Admission Diagnosis CVA PAF HTN HLP Assessment/Plan CVA, continues to have some left sided weakness, continue with PT/OT> PAF, was off of OAC at time of CVA. Currently on Amiodarone 200mg BID, Eliquis 5mg BID, Toprol XL, noted to be bradycardic this morning. I will hold Toprol XL at this time, continue to monitor. Currently wearing Zio Patch that was placed by her humidifier operator in [place], [place] [id number] score 5, maintained on Eliquis HTN, controlled, continue to monitor. HLP, recently started on statin, monitored as outpatient. Left arm fracture, Dr. Kirby consulted. Thank you for allowing us to participate in the management of Ms. Astudillo. This is Marian Armendariz PA-C, as a scribe for Dr. Medellin. Patient was seen and evaluated with Marian, I interviewed and examined the patient, discussed the management plan and agree with the current scribed note Patient had recent stroke, receiving treatment Had left arm fracture, managed by orthopedic surgeon Dr. Kirby Noted to have paroxysmal atrial fibrillation, apparently has history of paroxysmal atrial fibrillation with an episode of atrial fibrillation about 5 years ago. Currently maintained on amiodarone and Eliquis. Family are concerned about the use of amiodarone and the side effect profile, will consider using Multaq instead. Patient had MCOT, being monitored by her humidifier operator in [place] Continue on current medication monitor blood pressure, I noted that she was bradycardic this morning subsequently I stopped Toprol and we will monitor her tolerance and response Monitor lipids MARIAN VERDIN Jun 16, 2022 09:36 YANA MEDELLIN MD Jun 16, 2022 14:21
--- NOTE | 2022-06-16 09:42 | ST Cognitive Linguistic Eval ---
Speech Evaluation-General Medical Diagnosis R CVA Onset Date: Jun 09, 2022 Therapy Diagnosis Therapy Diagnosis: Intact Cognition/Minimal Dysarthria Precautions Precautions: Fall, Aspiration Precautions/Isolations: Aspiration, Fall Prevention, Standard Precautions Referral Referring Physician: Dr. Pandey Reason for Referral: Evaluation/Treatment Medical History Pertinent Medical History: Atrial Fib, CVA, HTN, Neuropathy (Brachial plexopathy) Current History The patient is a 76 year-old female with a past medical history of atrial fibrillation, HTN, and neuropathy (brachial plexopathy), who was admitted to the acute rehabilitation unit following a right stroke. Reviewed History: Yes Social History Current Living Status: Spouse Speech PLF-Current Status Prior Level of Function The patient denied challenges or concerns with her prior level of cognition, speech, language, or swallowing. Subjective The patient was seated upright on the edge of the bed, awake and alert, upon entrance to her room by the clinician. The patient greeted the clinician appropriately and was agreeable to participation in the cognitive linguistic assessment. To note, the patient had multiple individuals present in the room throughout the assessment. Initially, the patient had the RN and two nursing students. Followed by Cardiology and Orthopedics. Finally, the patient's son and were present for completion of the assessment. The patient denied changes or challenges to her communication or language. The patient stated she experiences minimal "slurring" intermittently but displays 100% intelligibility. The patient denied oropharyngeal swallowing difficulties but stated, "I want to be careful. I take my pills one at a time." Language Eval: Auditory Comprehends Simple Yes/No Ques: Functional Ident/Pics in Multiple Powell: Functional Follows 1-Step Commands: Functional Follows General Conversations: Functional Language Eval: Verbal Language Completes Spontaneous Greeting: Functional Produces Auto, Serial Info: Functional Imitates Simple Words/Phrases: Functional Word Finding: Functional Requests Basic Needs: Functional States Basic Personal Info: Functional Language Evaluation: Reading Follows Simple Written Direct: Functional Cognitive Patient Orientation The patient was independently oriented to self, location, month, day of the week, and year. Objective Cognitive Domain Attention: WNL Memory: WNL Problem Solving: Functional Visuospatial Skills: Mild (Per OT, the patient is displaying a left, lower visual field deficit.) Composite Severity Rating: WNL Objective Formal/Standardized Tests [facility] Mental Status Exam (UMS) Results The patient initiated the SLUMS with high accuracy. Unfortunately, due to consistent interruptions the SLUMS could not be completed. The patient does not display or report cognitive deficits at this time throughout interview, informal conversational interactions, and completed portions of the SLUMS. Oral Motor/Speech Production The patient displayed a minimal left facial droop. Minimally reduced articulation was noted throughout the evaluation. The patient remains 100% intelligible in known and unknown contexts. Intelligibility strategies (handout) were provided, demonstrated, and discussed. Minimal dysarthria is present at this time. Impression The patient displays minimal dysarthria with intact cognition and language skills. Speech Patient Assess Expression of Ideas/Wants: Expression (4) Understanding Verbal Content: Understands (4) Brief Interview-Mental Status: Yes Repetition of Three Words: Three (3) Temporal Orientation: Year: Correct (3) Temporal Orientation: Month: Accurate within 5 days(2) Temporal Orientation: Day: Correct (1) Recall : Wear to say "Sock": Yes, no cue required (2) Recall : Color: Yes, no cue required (2) Recall : Bed: Yes, no cue required (2) Memory/Recall Ability: Current season, Location of own room, Staff names and faces, That he or she is in a hsp/hsp unit Speech-Plan Treatment Plan Speech Therapy Treatment Plan: Discontinue ST Treatment Duration: Jun 16, 2022 Frequency: 1 time per week Estimated Hrs Per Day: .5 hour per day (40 minutes per day.) Rehab Potential: Good Safety Risks/Education Teaching Recipient: Patient, Family (Son), Significant Other Teaching Methods: Demonstration, Handout, Discussion Response to Teaching: Verbalize Understanding, Return Demonstration Education Topics Provided: Results, Recommendations, Intelligibility Strategies Time Speech Therapy Time In: 08:35 Speech Therapy Time Out: 09:00 Total Billed Time: 40 Billed Treatment Time 1, SPSNDCOMP (0835 to 0900), SLTS (1015 to 1030) DEMETRICE ARCEO Jun 16, 2022 09:42
--- NOTE | 2022-06-16 10:05 | Physical Therapy Evaluation ---
PT Evaluation-General Medical Diagnosis Admission Date Jun 15, 2022 at 17:50 Medical Diagnosis: R CVA Onset Date: Jun 09, 2022 Therapy Diagnosis Therapy Diagnosis: impaired mobility, strength, balance Precautions Precautions/Isolations: Aspiration, Fall Prevention, Standard Precautions Referral Physician: Ashley Pandey DO Reason for Referral: Evaluation/Treatment Medical History Pertinent Medical History: Atrial Fib, CVA, HTN, Neuropathy (Brachial plexopathy) Reviewed History: Yes Social History Home: Single Level Current Living Status: Spouse Entry Into Home: Ramp, Stairs With Railing PT Steps Into Home: 3 PT Steps Inside Home: 0 Prior Prior Level of Function SCALE: Activities may be completed with or without assistive devices. 1-Loiupyrjio-aztrrne completes the activity by him/herself with no assistance from a helper. 5-Set-up or Clean-up Assistance-helper sets up or cleans up; patient completes activity. Allen assists only prior to or following the activity. 4-Supervision or Touching Assistance-helper provides verbal cues and/or touching/steadying and/or contact guard assistance as patient completes activity. Assistance may be provided throughout the activity or intermittently. 3-Partial/Moderate Assistance-helper does LESS THAN HALF the effort. Allen lifts, holds or supports trunk or limbs, but provides less than half the effort. 2-Substantial/Maximal Assistance-helper does MORE THAN HALF the effort. Allen lifts or holds trunk or limbs and provides more than half the effort. 3-Dcguyiwud-ntjvsr does ALL the effort. Patient does none of the effort to complete the activity. Or, the assistance of 2 or more helpers is required for the patient to complete the activity. If activity was not attempted, code reason: 7-Patient Refused. 9-Not Applicable-not attempted and the patient did not perform the activity before the current illness, exacerbation or injury. 10-Not Attempted due to Environmental Limitations-(lack of equipment, weather restraints, etc.). 88-Not Attempted due to Medical Conditions or Safety Concerns. Bed Mobility: 6 Transfers (B,C,W/C): 6 Gait: 6 Stairs: 6 Indoor Mobility (Ambulation): Independent Stairs: Needed Some Help Prior Devices Use: None PT Evaluation-Current Subjective Patient sitting EOB pre tx, agrees to PT, has no complaints of pain. Will be co-treating with OT for part of tx due to poor patient mobility, strength, endurance, severe debility, coordinate UE and LE during activity, safety and reduce risk of falls. Pain Section J - Health Conditions 1. Rarely or not at all 2. Occasionally 3. Frequently 4. Almost constantly 8. Unable to answer Pain Effect on Sleep: 1 Pain Interference with Therapy: 1 Pain Interference w/Day-to-Day: 1 Pt/Family Goals to be independent at home Objective Patient Orientation: Person, Place, Situation patient has a splint/cast on her left arm ROM/Strength ROM Lower Extremities WNL Strength Lower Extremities LLE (hip flexion 3+/5, knee flexion 4/5, knee extension 4/5, dorsiflexion 4/5), RLE (hip flexion 4/5, knee flexion 4+/5, knee extension 4+/5, dorsiflexion 5/5) Neuromuscular (Tone, Coordination, Reflexes) Patient seems to have intact peripheral vision bilaterally but has some difficulty tracking on the left side. Sensory Vision: Hearing: Functional Hand Dominance: Right Sensation Right Lower Extremit: Intact Sensation Left Lower Extremity: Impaired Transfers Roll Left & Right (QC): 4 Sit to Lying (QC): 4 Lying to Sitting/Side of Bed(Q: 4 Sit to Stand (QC): 4 Chair/Doc-al-Glgqt Xfer(QC): 4 Toilet Transfer (QC): 4 Car Transfer (QC): 4 Patient performs rolling and supine <-> sit with SBA, sit <-> stand and transfers CGA, car transfer CGA. Patient is unsteady when standing and needs steadying assist but didn't have a complete LOB, needs cues for safety and direction due to left neglect. Gait Does the Patient Walk?: Yes Mode of Locomotion: Walk Anticipated Mode of Locomotion: Walk Walk 10 feet (QC): 4 Walk 50 ft with 2 Turns(QC): 4 Walk 150 ft (QC): 4 Walking 10ft/uneven surface-QC: 4 Distance: 150', 100'x2 Gait Assistive Device: Cane Single Point Comments/Gait Description Patient can ambulate 150' with a rolling walker with CGA (including 50' with at least 2 turns of 90 degrees and 10' over an uneven surface), patient is unsteady and needs steadying assist, cues for direction and safety. Attempted to use a rolling walker but her splint doesn't really allow her to millinery copyist it. Wheelchair Training Wheel 50 ft with 2 turns (QC): 9 Wheel 150 ft (QC): 9 Stairs #of Steps: 4 1 Step (curb) (QC): 4 4 Steps (QC): 4 12 Steps (QC): 88 Patient can go up and down 4 steps using 1 handrail with CGA, cues for safety and foot placement Balance Sitting Static: Normal Sitting Dynamic: Normal Standing Static: Fair Standing Dynamic: Poor Picking up an Object (QC): 4 (CGA using a customs guard) Treatment Patient also performed standing exercise while performing UE reaching and scanning activity. PT performed bed mobility and transfers, ambulation, stair training, standing activity, OT performed UE and scanning activity, UE positioning and safety during activity. Assessment/Needs Patient in recliner post tx with nurse call, phone, tray, all needs met. Instructed patient to call nurse if she needs to get up. Patient has impaired mobility, strength, endurance, balance. She has left neglect and needs cues for safety and direction when up. Rehab Potential: Fair PT Short Term Goals Short Term Goals Time Frame: Jun 23, 2022 Roll Left & Right: 6 Sit to lyin Lying to sitting on side of be: 6 Sit to stand: 4 Chair/bzs-tm-dcdjo transfer: 4 Walk 10 feet: 4 Walk 50 feet with two turns: 4 Walk 150 feet: 4 PT Bulk Station Agent Goals Bulk Station Agent Goals PT Penitentiary Goals Time Frame: Jul 07, 2022 Roll Left to Right (QC): 6 Sit to Lying (QC): 6 Lying-Sitting on Side/Bed(QC): 6 Sit to Stand (QC): 5 Chair/Zgc-pa-Jgyvg Xfer(QC): 5 Toilet/Commode Transfer (QC): 5 Car Transfer (QC): 5 Does the Patient Walk: Yes Walk 10 feet (QC): 5 Walk 10ft-Uneven Surface(QC): 5 Walk 50ft with 2 Turns (QC): 5 Walk 150 ft (QC): 5 Wheel 50 feet with 2 turns (QC: 9 Wheel 150 feet: 9 1 Step (curb) (QC): 4 (SBA) 4 Steps (QC): 4 (SBA) 12 Steps (QC): 4 (SBA) Picking up an Object (QC): 5 PT Plan Problem List Problem List: Activity Tolerance, Functional Strength, Safety, Balance, Gait, Transfer, Bed Mobility, ROM Treatment/Plan Treatment Plan: Continue Plan of Care Treatment Plan: Bed Mobility, Education, Functional Activity Winter, Functional Strength, Group Therapy, Gait, Safety, Therapeutic Exercise, Transfers Treatment Duration: Jul 07, 2022 Frequency: At least 5 of 7 days/Wk (IRF) Estimated Hrs Per Day: 1.5 hours per day Patient and/or Family Agrees t: Yes Safety Risks/Education Patient Education: Gait Training, Transfer Techniques, Steps, Correct Positioning, Safety Issues Teaching Recipient: Patient Teaching Methods: Demonstration, Discussion Response to Teaching: Reinforcement Needed Discharge Recommendations Plan Patient will perform bed mobility and transfer training, balance and endurance training, functional strengthening, stair training, gait training, and education, to improve functional mobility and independence at home. Therapy Discharge Recommendati: Scheduled Assistance, Home & Family, Post Acute PT Time Time In: 0900 Time Out: 1015 Total Billed Treatment Time: 75 Total Billed Treatment 1 visit EVM 15' EX 25' FA 35' co-treated with OT from [id number] SERGEY CABRERA PT Jun 16, 2022 10:04
--- NOTE | 2022-06-16 12:27 | Diagnostic Imaging Report ---
Indication: Follow-up of wrist fracture. No comparison for review at this time. FINDINGS: There is minimally displaced fracture of the ulnar styloid and radial styloid. No callus formation is noted. There is mild irregularity along the articulating surface of the radius. The carpal bones are in good alignment. There is no evidence of intercarpal ligament disruption. 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 IMPRESSION: Minimally displaced radial and ulnar styloid fractures without evidence of callus formation. Dictated by: Dictated on workstation # [id number]
--- NOTE | 2022-06-16 14:13 | Physical Therapy Progress Note ---
Therapy Progress Note Patient measured for UE compression garments. At this time, custom compression garments are contraindicated. Patient was dispensed and educated on use and care of Size E tubigrip that was applied from proximal most aspect of cast, proximally to the left shoulder. Patient demonstrates 2-3 second capillary refill time and was educated to contact nursing if she experienced an increase in UE pain or onset of numbness and/or tingling in the left UE. Patient will be fit with smaller, size D tubigrip pending measurable decrease in LE edema. Nurse was notified of dispensing of left UE tubigrip and signs to assess and discontinue use. Dr. Pandey notified as well. JAVAD KEMP PT Jun 16, 2022 14:13
--- NOTE | 2022-06-16 14:34 | CONSULTATION REPORT ---
DATE OF SERVICE: 06/16/2022 INPATIENT CONSULTATION REASON FOR CONSULTATION: Left wrist fracture. HISTORY OF PRESENT ILLNESS: The patient is a 76-year-old female who was transferred from an outside facility following a cerebrovascular accident. She presents for rehabilitation treatment. Apparently, she sustained a wrist fracture at the time of her fall. She was placed in a splint at the outside facility. PHYSICAL EXAMINATION: Today, she has intact MCP extension, finger abduction, thumb IP flexion and extension. Radiographs were obtained today, which revealed a distal radial styloid fracture and ulna fracture. There appears to be some dorsal comminution with some slight dorsal displacement. The alignment overall appears adequate. IMPRESSION: Left ulnar and radial styloid fractures. PLAN: Continue with splint wear. Recommended limited weightbearing to the left upper extremity walker as needed. Recommend platform walker. She is going to follow up with an outside physician in [place] when discharged. This may require operative intervention if there is any displacement. Job ID: [id number] DocumentID: [id number] Dictated Date: 06/16/2022 11:10:16 Automotive Designer Date: 06/16/2022 14:33:28 Dictated By: CHEIKH PZA MD
[2022-06-16 17:13] VITALS: BP 159/82
[2022-06-16 20:04] VITALS: BP 156/70
--- NOTE | 2022-06-17 05:21 | PM&R Progress Note ---
Subjective HPI/CC On Admission Date Seen by Provider: Jun 17, 2022 Time Seen by Provider: 11:00 Subjective/Events-last exam 06/17/2022: 06/16/2022: Pt is doing pretty well Holding Gabapentin since that appears to make her very drowsy Dr. Kirby consult appreciated Dr. Medellin consult appreciated Lymphedema will be managed Review of Systems General: Fatigue, Malaise Objective Exam Vital Signs Vital Signs Date Time Temp Pulse Resp B/P (MAP) Pulse Ox O2 Delivery O2 Flow Rate FiO2 06/17/22 07:58 36.4 67 18 156/70 (98) 96 Room Air Capillary Refill : General Appearance: No Apparent Distress, WD/WN, Chronically ill HEENT: PERRL/EOMI, Normal ENT Inspection, Pharynx Normal, Other (Left facial droop) Neck: Full Range of Motion, Normal Inspection, Non Tender, Supple, Carotid Bruit Respiratory: Chest Non Tender, Lungs Clear, Normal Breath Sounds, No Accessory Muscle Use, No Respiratory Distress Cardiovascular: Regular Rate, Rhythm, No Edema, No Gallop, No JVD, No Murmur, Normal Peripheral Pulses Gastrointestinal: Normal Bowel Sounds, No Organomegaly, No Pulsatile Mass, Non Tender, Soft Back: Normal Inspection, No CVA Tenderness, No Vertebral Tenderness Extremity: Normal Capillary Refill, Normal Inspection, Normal Range of Motion, Non Tender, No Calf Tenderness, No Pedal Edema Neurologic/Psychiatric: Alert, Oriented x3, coating engineer II-XII Norm as Tested, Abnormal Gait, Aphasia (Partial), Depressed Affect, Facial Droop (Left), Motor Weakness (Left-sided weakness) Skin: Normal Color, Warm/Dry Lymphatic: No Adenopathy Results/Procedures Lab Patient resulted labs reviewed. FIM Transfers Therapy Code Descriptions/Definitions Functional [place] Measure: 0=Not Assessed/NA 4=Minimal Assistance 1=Total Assistance 5=Supervision or Setup 2=Maximal Assistance 6=Modified [place] 3=Moderate Assistance 7=Complete IndependenceSCALE: Activities may be completed with or without assistive devices. 3-Smumvsvlkp-fpcrsia completes the activity by him/herself with no assistance from a helper. 5-Set-up or Clean-up Assistance-helper sets up or cleans up; patient completes activity. [place] assists only prior to or following the activity. 4-Supervision or Touching Assistance-helper provides verbal cues and/or touching/steadying and/or contact guard assistance as patient completes activity. Assistance may be provided throughout the activity or intermittently. 3-Partial/Moderate Assistance-helper does LESS THAN HALF the effort. [place] lifts, holds or supports trunk or limbs, but provides less than half the effort. 2-Substantial/Maximal Assistance-helper does MORE THAN HALF the effort. [place] l ifts or holds trunk or limbs and provides more than half the effort. 2-Anslamoyw-xuahvz does ALL the effort. Patient does none of the effort to complete the activity. Or, the assistance of 2 or more helpers is required for the patient to complete the activity. If activity was not attempted, code reason: 7-Patient Refused. 9-Not Applicable-not attempted and the patient did not perform the activity before the current illness, exacerbation or injury. 10-Not Attempted due to Environmental Limitations-(lack of equipment, weather restraints, etc.). 88-Not Attempted due to Medical Conditions or Safety Concerns. Roll Left to Right (QC): 4 Sit to Lying (QC): 4 Sit to Stand (QC): 4 Chair/Fwe-sa-Cjxsh Xfer(QC): 4 Car Transfer (QC): 4 Gait Training Does the Patient Walk?: Yes Walk 10 feet (QC): 4 Walk 50 ft with 2 Turns(QC): 4 Walk 150 ft (QC): 4 Walking 10ft/uneven surface-QC: 4 Gait Assistive Device: Cane Single Point Wheelchair Training Wheel 50 ft with 2 turns (QC): 9 Wheel 150 ft (QC): 9 Stair Training #of Steps: 4 1 Step (curb) (QC): 4 4 Steps (QC): 4 12 Steps (QC): 88 Balance Picking up an Object (QC): 4 (CGA using a clamper) ADL-Treatment Eating (QC): 5 Oral Hygiene (QC): 4 Shower/Bathe Self (QC): 4 Upper Body Dressing (QC): 3 (mod assist for orientation and clasping bra and orientation and threading splint through arm hole of shirt) Lower Body Dressing (QC): 3 (mod assist for threading bilateral legs through underwear and pulling up over hips on L side. Able to thread pants with no assist.) On/Off Footwear (QC): 3 (min assist- donning L sock due to visual loss) Toileting Hygiene (QC): 4 Assessment/Plan Assessment and Plan Assess & Plan/Chief Complaint Assessment: CVA Left-sided weakness Left arm fracture Hypertension Hyperlipidemia Atrial fibrillation Depression Plan: Supportive care Monitor closely Orthopedic surgery consult Cardiology consult 06/16/2022: Monitor HR Appreciate Ira Medellin and Mirta 06/17/2022: (1) CVA (cerebral vascular accident) (2) Atrial fibrillation (3) Chronic anticoagulation (4) Closed left arm fracture (5) Depression (6) Hypertension (7) Hyperlipidemia JHOANA GROSS DO Jun 17, 2022 05:21
--- NOTE | 2022-06-17 05:22 | Individualized Plan of Care ---
Individualized Plan of Care Rehab Nursing IPOC Order Admission Date Jun 15, 2022 at 17:50 Current Orders Orders Admission Order(Inpt,Obs,Sdc) (06/15/22 12:58) Vital Signs: Per Unit Policy ( 08,16,00 (06/15/22 12:58) Phil Suarez (06/15/22 12:58) Sequential Compression Device (06/15/22 12:58) Timber Trimmer-Inpt Rehab Con (06/15/22 12:58) Rehab Nursing Orders-Ipoc (06/15/22 12:58) Physical Therapy Rehab Orders (06/15/22 12:58) Occupational Therapy Rehab Ord (06/15/22 12:58) Speech Therapy Rehab Orders (06/15/22 12:58) Cbc With Automated Diff (06/16/22 06:00) Comprehensive Metabolic Panel (06/16/22 06:00) Precautions (Aru) (06/15/22 12:58) Weekly Weight WEEK (06/15/22 12:58) Rehab-Intensity Of Therapy (06/15/22 12:58) Initiate Admission Nursing Pro .admission (06/15/22 12:58) Alprazolam Tablet (Xanax Tablet) (06/15/22 13:00) Calcium Carbonate Chew Tablet (Antacid C (06/15/22 13:00) Diphenhydramine Tablet (Benadryl Tablet) (06/15/22 13:00) Docusate Sodium Capsule (Colace Capsule) (06/15/22 21:00) Docusate Sodium Capsule (Colace Capsule) (06/15/22 13:00) Bisacodyl Suppository (Dulcolax Supposit (06/15/22 13:00) Lactulose Oral Solution (Enulose Oral So (06/15/22 13:00) Na Phos/Na Biphos Enema (Fleet Enema Chirag (06/15/22 13:00) Guaifenesin/Codeine Syrup (Robitussin Ac (06/15/22 13:00) Loperamide Tablet (Imodium Tablet) (06/15/22 13:00) Melatonin Tablet (Melatonin Tablet) (06/15/22 13:00) Polyethylene Glycol Powder Pkt (Miralax (06/15/22 21:00) Ondansetron Oral Dissolve Tab (Zofran (06/15/22 13:00) Senna S Tablet (Senokot S Tablet) (06/15/22 21:00) Acetaminophen Tablet/Caplet (Tylenol T (06/15/22 13:00) Initiate Admission Nursing Pro .admission (06/15/22 12:58) Follow-Up Appointment (06/15/22 13:13) Admission Arrival Bed Request (06/15/22 17:50) Amiodarone Tablet (Cordarone Tablet) (06/15/22 21:00) Apixaban Tablet (Eliquis Tablet) (06/15/22 21:00) Aspirin Enteric Coated Tablet (Ecotrin T (06/15/22 21:00) Atorvastatin Tablet (Lipitor Tablet) (06/15/22 21:00) Gabapentin Capsule/Tablet (Neurontin Cap (06/15/22 21:00) Losartan Tablet (Cozaar Tablet) (06/16/22 09:00) Metoprolol Succinate (Xl) Tab (Toprol Xl (06/16/22 09:00) Paroxetine Tablet (Paxil Tablet) (06/16/22 09:00) (Nf) Calcium Carbonate (06/15/22 21:00) (Nf) Ergocalciferol (Vitamin D2) (Vitami (06/15/22 21:00) (Nf) Fish Oil/Dha/Epa (Fish Oil 1,200 Mg (06/16/22 09:00) (Nf) Vit A/Vit C/Vit E/Zinc/Copper (Eye (06/16/22 09:00) General/Regular (06/15/22 Dinner) Flu High Dose Quad [id number] (Fluzone Hi (06/15/22 18:45) Amiodarone Tablet (Cordarone Tablet) (07/14/22 09:00) Burke 3 Capsule (Fish Oil Capsule) (06/16/22 09:00) Calcium Carbonate Chew Tablet (Antacid C (06/15/22 21:00) Therapeutic Multivitamin Tab (Vitamins, (06/16/22 07:00) Consult Cardiology (06/16/22 06:26) Consult Orthopedic Surgery (06/16/22 06:26) Ekg Tracing (06/16/22 06:26) Ekg Tracing (06/16/22 07:08) Wrist, Left, 3 Views Or More (06/16/22 09:10) Patient Visit (06/16/22 ) Speech Sound Lang Comp (06/16/22 ) Treat. Speech/Lang/Voice (06/16/22 ) Patient Visit (06/16/22 ) Pt Eval Moderate Complexity (06/16/22 ) Exercise Therap, Ea 15 Min (06/16/22 ) Functional Activities, Ea 15 (06/16/22 ) Ekg Tracing (06/16/22 17:11) Nursing Communication (Order) (06/16/22 21:53) Nursing Communication (Order) (06/16/22 22:01) Ekg Tracing (06/17/22 06:28) Ekg Tracing (06/17/22 07:22) Rehab Nursing Orders: Ongoing Assess. of Function Status Intensity of Therapy to be met Patient to be seen: Min.3h per day/5 of 7d PT IPOC Problem List: Activity Tolerance, Functional Strength, Safety, Balance, Gait, Transfer, Bed Mobility, ROM Bed Mobility, Education, Functional Activity Winter, Functional Strength, Group Therapy, Gait, Safety, Therapeutic Exercise, Transfers Treatment Duration: Jul 07, 2022 Frequency: At least 5 of 7 days/Wk (IRF) Estimated Hrs Per Day: 1.5 hours per day OT IPOC Problems: Decreased Activ Tolerance, Decreased Safety Aware, Decreased UE Strength, Impaired Coordination, Impaired Funct Balance, Impaired I ADL's, Impaired Self-Care Skills, Restricted Funct UE ROM OT Treatment, Training and Edu: Yes Plan of Care: ADL Retraining, Functional Mobility, Group Exercise/Act as Ind, UE Funct Exercise/Act, Visual/Perceptual Retrain Treatment Duration: Jul 14, 2022 Frequency: At least 5 of 7 days/Wk (IRF) Estimated Hrs Per Day: 1.5 hours per day (75-90 min/day) ST IPOC Speech Therapy Treatment Plan: Discontinue ST Treatment Duration: Jun 16, 2022 Frequency: 1 time per week Estimated Hrs Per Day: .5 hour per day (40 minutes per day.) Timber Trimmer/Case Mgmt Timber Trimmer/Case Managemen: Discharge Planning Dietitian/Operations [place] Dietitian/Operations [place] to monitor nutritional status and make changes and/or recommendations as needed and work with speech pathology on dietary upgrades as the occur. Physician IPOC Medical Issues being managed closely and that require the 24 hour availability of a physician: Brief Synthesis of Preadmission Screen, Post-Admission Evaluation, and Therapy Evaluations: JHOANA GROSS DO Jun 17, 2022 05:22
[2022-06-17] MEDS: MULTIVIT W/MINERALS TAB (THERAGRAN M) PO SCH (06:37)
[2022-06-17] MEDS: LOSARTAN 50 MG (COZAAR) TAB PO SCH (07:46)
[2022-06-17] MEDS: OMEGA 3 (FISH OIL) 1000 MG CAP PO SCH (07:46)
[2022-06-17] MEDS: ASPIRIN E.C. 81 MG (ECOTRIN) TAB PO SCH (07:46)
[2022-06-17] MEDS: PARoxetine 20 MG (PAXIL) TAB PO SCH (07:47)
[2022-06-17] MEDS: CALCIUM CARBONATE 500 MG (TUMS) TAB.CHEW PO SCH (07:47)
[2022-06-17] MEDS: AMIODARONE 200 MG (CORDARONE) TAB PO SCH (07:47)
[2022-06-17] MEDS: APIXABAN 5 MG (ELIQUIS) TABLET PO SCH (07:51)
[2022-06-17 07:58] VITALS: BP 156/70
--- NOTE | 2022-06-17 08:38 | Cardiology Progress Note ---
Subjective Date Seen by Provider: Jun 17, 2022 Time Seen by Provider: 08:05 Subjective/Events-last exam Patient is sitting up in chair, complaining of palpitations and racing heart when up to bathroom earlier today. Denies any chest pain. EKG showing AFib with RVR Objective-Cardiology Exam Last Set of Vital Signs Vital Signs 06/17/22 07:58 Temp 36.4 Pulse 67 Resp 18 B/P (MAP) 156/70 (98) Pulse Ox 96 O2 Delivery Room Air I&O Intake and Output 06/17/22 00:00 Intake Total 2090 ml Balance 2090 ml Intake Oral 2090 ml # Voids 11 # Bowel Movements 3 General: Alert, Oriented X3 HEENT: Atraumatic Lungs: Clear to Auscultation, Normal Air Movement Heart: Normal S1, Normal S2, Other (irregularly irregular, tachycardic) Abdomen: Soft Skin: No Rashes, No Significant Lesion Neuro: Normal Speech Psych/Mental Status: Mental Status NL, Mood NL A/P-Cardiology Admission Diagnosis CVA PAF HTN HLP Assessment/Plan CVA, continues to have some left sided weakness, continue with PT/OT PAF, was off of OAC at time of CVA. Currently on Amiodarone 200mg BID, Eliquis 5mg BID, Toprol XL. Patient went back to afib with RVR this morning, will transfer to ICU, start Cardizem gtt Currently wearing Zio Patch that was placed by her draw fire operator in [place], [place] [id number] score 5, maintained on Eliquis HTN, controlled, continue to monitor. HLP, recently started on statin, monitored as outpatient. Left forearm fracture, management per Dr. Kirby Patient was seen and evaluated with Marian, examination performed, management plan was discussed, agree with the current scribed note, I made few changes to the note using Italic font Patient was seen this morning, appeared to be in atrial fibrillation with rapid ventricular response I was contacted last night that she has been in and out of atrial fibrillation but her heart rate was in the 60s. Toprol was discontinued yesterday due to her bradycardia I am planning to transfer her to ICU and start her on Cardizem drip and titrate to achieve adequate heart rate and blood pressure control Monitor blood pressure and lipids Continue on current medications. Supervisory-Addendum Brief Supervisory Addendum Participated in pt care: history, MDM, physical Personally performed: exam, history, MDM Care discussed with: PA Results interpretation: Verified all documentation MARIAN VERDIN Jun 17, 2022 08:37 YANA BRISENO MD Jun 17, 2022 08:48
--- NOTE | 2022-06-17 09:09 | Occupational Ther Daily Note ---
OT Current Status-Daily Note Subjective Pt sitting in recliner upon arrival. Per nursing she was in A-fib last night and this morning after getting back from the bathroom. Nursing agreed for therapy to continue with treatment at this time, but to take it easy. At the end of the session, Dr. Day entered the room and reported that the pt needs to go up to ICU to be further treated/monitored for her A-fib. Appearance Pt was left sitting in recliner with all needs within reach. Mental Status/Objective Patient Orientation: Person, Place, Time, Situation ADL-Treatment Therapy Code Descriptions/Definitions Functional [place] Measure: 0=Not Assessed/NA 4=Minimal Assistance 1=Total Assistance 5=Supervision or Setup 2=Maximal Assistance 6=Modified [place] 3=Moderate Assistance 7=Complete IndependenceSCALE: Activities may be completed with or without assistive devices. 1-Knljygzako-ccsfpjw completes the activity by him/herself with no assistance from a helper. 5-Set-up or Clean-up Assistance-helper sets up or cleans up; patient completes activity. [place] assists only prior to or following the activity. 4-Supervision or Touching Assistance-helper provides verbal cues and/or touchin g/steadying and/or contact guard assistance as patient completes activity. Assistance may be provided throughout the activity or intermittently. 3-Partial/Moderate Assistance-helper does LESS THAN HALF the effort. [place] lifts, holds or supports trunk or limbs, but provides less than half the effort. 2-Substantial/Maximal Assistance-helper does MORE THAN HALF the effort. [place] lifts or holds trunk or limbs and provides more than half the effort. 2-Ctvzquhgv-eaodbn does ALL the effort. Patient does none of the effort to complete the activity. Or, the assistance of 2 or more helpers is required for the patient to complete the activity. If activity was not attempted, code reason: 7-Patient Refused. 9-Not Applicable-not attempted and the patient did not perform the activity before the current illness, exacerbation or injury. 10-Not Attempted due to Environmental Limitations-(lack of equipment, weather restraints, etc.). 88-Not Attempted due to Medical Conditions or Safety Concerns. Eating (QC): 4 (needed cues for L side of the tray) Upper Body Dressing (QC): 5 Toileting Hygiene (QC): 3 (min assist for pulling underwear over L hip) Toilet Transfer (QC): 4 Vitals were taken at beginning of session and pt was in A-fib with her HR ranging from 97-134 BPM; symptomatic. Pt had breakfast tray in front of her and was cued to the left side of her tray where missed food was. She stated, "Oh, I didn't even know that was there." Pt completed upper body dressing x2 with set up assist. Pt declined changing pants at this time, due to fear of standing up w hilyvette in A-fib. Later, Pt requested to transfer to [facility], CGA provided for safety. Pt was able to pull underwear down for toileting but needed min assist to pull underwear over L hip after completion of toileting. After functional activity and news of going to ICU, she decided to get dressed into a hospital gown. Other Treatment Pt participated in functional activity of game of Sequence to improve visual scanning, fine motor skills, and problem-solving. She favored the R side of the board and required mod cues to look to the L of the board. She was seated for entirety of game due to being symptomatic. Education OT Patient Education: Correct positioning, Energy conservation, Modified ADL techniques, Purpose of tx/functional activities, Rehab process, Safety issues Teaching Recipient: Patient Teaching Methods: Discussion Response to Teaching: Verbalize Understanding, Return Demonstration OT Short Term Goals Short Term Goals Time Frame: Jun 30, 2022 Oral hygiene: 5 Toileting hygiene: 5 Upper body dressin Lower body dressin Putting on/taking off footwear: 4 OT Longterm Goals Longterm Goals Time Frame: Jul 14, 2022 Acute change in mental status: 0 Inattention: 0 Disorganized thinkin Altered level of consciousness: 0 Eating (QC): 6 Oral Hygiene (QC): 6 Toileting Hygiene (QC): 6 Shower/Bathe Self (QC): 5 Upper Body Dressing (QC): 6 Lower Body Dressing (QC): 6 On/Off Footwear (QC): 6 Additional Goals: 1-Demonstrate ADL Tasks, 2-Verbalize Understanding, 3- ImproveStrength/Winter 1=Demonstrate adherence to instructed precautions during ADL tasks. 2=Patient will verbalize/demonstrate understanding of assistive devices/modifications for ADL. 3=Patient will improve strength/tolerance for activity to enable patient to perform ADL's. OT Education/Plan Problem List/Assessment Assessment: Decreased Activ Tolerance, Decreased UE Strength, Impaired Coordination, Impaired Funct Balance, Impaired I ADL's, Impaired Self-Care Skills Discharge Recommendations Plan/Recommendations: Continue POC Treatment Plan/Plan of Care Treatment,Training & Education: Yes Patient would benefit from OT for education, treatment and training to promote independence in ADL's, mobility, safety and/or upper extremity function for ADL's. Plan of Care: ADL Retraining, Functional Mobility, Group Exercise/Act as Ind, UE Funct Exercise/Act, Visual/Perceptual Retrain Treatment Duration: Jul 14, 2022 Frequency: At least 5 of 7 days/Wk (IRF) Estimated Hrs Per Day: 1.5 hours per day (75-90 min/day) Agreement: Yes Rehab Potential: Good Time Start Time: 07:30 Stop Time: 09:00 DATE: Jun 17, 2022 Total Time Billed (hr/min): 90 Billed Treatment Time 1 visit ADL x3 (50 min) FA x3 (40 min) Corinne Clifton OT Jun 17, 2022 09:09
--- NOTE | 2022-06-17 10:01 | Discharge Summary ---
Diagnosis/Chief Complaint Date of Admission Jun 15, 2022 at 17:50 Date of Discharge Jun 17, 2022 at 09:10 Discharge Diagnosis Assessment: A. fib with RVR requiring ICU transfer and discharge from rehab 06/17/2022 CVA Left-sided weakness Left arm fracture Hypertension Hyperlipidemia Atrial fibrillation Depression History of left sided breast cancer Chronic left arm lymphedema Plan: Supportive care Monitor closely Orthopedic surgery consult Cardiology consult 06/16/2022: Monitor HR Appreciate Ira Medellin and Mirta Discharge Summary Discharge Physical Examination Allergies: Coded Allergies: gemcitabine (Verified Allergy, Mild, RASH, 06/17/22) Iodinated Contrast Media (Verified Allergy, Unknown, 06/15/22) Sulfa (Sulfonamide Antibiotics) (Verified Allergy, Unknown, 06/15/22) azithromycin (Verified Allergy, NAUSEA AND VOMITING, 06/17/22) levofloxacin (Verified Allergy, HIVES, 06/17/22) Uncoded Allergies: ADHESIVE TAPE-SILICONES (Allergy, Mild, RASH, 06/17/22) CHEMOTHERAPY (Allergy, Unknown, rash, itching, 06/17/22) FEXOFENADINE-PSEUDOEPHEDRINE (Allergy, PALPITATIONS, 06/17/22) Vitals & I&Os Vital Signs Date Time Temp Pulse Resp B/P (MAP) Pulse Ox O2 Delivery O2 Flow Rate FiO2 06/17/22 07:58 36.4 67 18 156/70 (98) 96 Room Air General Appearance: Alert, Oriented X3, Cooperative Respiratory: Clear to Auscultation Cardiovascular: Regular Rate Psych/Mental Status: Mental Status NL Hospital Course Was the Problem List Reviewed?: Yes Short hospital course after he was admitted from [facility] to recover from CVA but she experienced A. fib with RVR and Dr. Medellin was already consulted and he moved around to the ICU on a [facility] drip. Labs (last 24 hrs) Laboratory Tests 06/16/22 08:00: White Blood Count 7.4, Red Blood Count 3.98, Hemoglobin 12.2, Hematocrit 38, Mean Corpuscular Volume 95, Mean Corpuscular Hemoglobin 31, Mean Corpuscular Hemoglobin Concent 32, Red Cell Distribution Width 13.2, Platelet Count 248, Mean Platelet Volume 10.1, Immature Granulocyte % (Auto) 0, Neutrophils (%) (Auto) 74, Lymphocytes (%) (Auto) 18, Monocytes (%) (Auto) 5, Eosinophils (%) (Auto) 3, Basophils (%) (Auto) 0, Neutrophils # (Auto) 5.5, Lymphocytes # (Auto) 1.3, Monocytes # (Auto) 0.4, Eosinophils # (Auto) 0.2, Basophils # (Auto) 0.0, Immature Granulocyte # (Auto) 0.0, Sodium Level 140, Potassium Level 3.7, Chloride Level 107, Carbon Dioxide Level 23, Anion Gap 10, Blood Urea Nitrogen 15, Creatinine 0.78, Estimat Glomerular Filtration Rate 78, BUN/Creatinine Ratio 19, Glucose Level 162H, Calcium Level 9.2, Corrected Calcium 9.6, Total Bilirubin 0.8, Aspartate Amino Transf (AST/SGOT) 13, Alanine Aminotransferase (ALT/SGPT) 13, Alkaline Phosphatase 48, Total Protein 6.9, Albumin 3.5 Pending Labs Laboratory Tests 06/16/22 08:00: White Blood Count 7.4, Red Blood Count 3.98, Hemoglobin 12.2, Hematocrit 38, Mean Corpuscular Volume 95, Mean Corpuscular Hemoglobin 31, Mean Corpuscular Hemoglobin Concent 32, Red Cell Distribution Width 13.2, Platelet Count 248, Mean Platelet Volume 10.1, Immature Granulocyte % (Auto) 0, Neutrophils (%) (Auto) 74, Lymphocytes (%) (Auto) 18, Monocytes (%) (Auto) 5, Eosinophils (%) (Auto) 3, Basophils (%) (Auto) 0, Neutrophils # (Auto) 5.5, Lymphocytes # (Auto) 1.3, Monocytes # (Auto) 0.4, Eosinophils # (Auto) 0.2, Basophils # (Auto) 0.0, Immature Granulocyte # (Auto) 0.0, Sodium Level 140, Potassium Level 3.7, Chloride Level 107, Carbon Dioxide Level 23, Anion Gap 10, Blood Urea Nitrogen 15, Creatinine 0.78, Estimat Glomerular Filtration Rate 78, BUN/Creatinine Ratio 19, Glucose Level 162, Calcium Level 9.2, Corrected Calcium 9.6, Total Bilirubin 0.8, Aspartate Amino Transf (AST/SGOT) 13, Alanine Aminotransferase (ALT/SGPT) 13, Alkaline Phosphatase 48, Total Protein 6.9, Albumin 3.5 Discharge Home Medications: Active Scripts Active Reported Amiodarone HCl 200 Mg Tablet 200 Mg PO DAILY HOLD UNTIL AFTER THE 30 DAYS OF TWICE DAILY HAS BEEN FINISHED Paroxetine HCl 20 Mg Tablet 20 Mg PO DAILY Fish Oil 1,200 mg Fish Oil (Fish Oil/Dha/Epa) 1,200 Mg-144 Mg-216 Mg Capsule 1 Each PO DAILY Eye Multivitamin Tablet (Vit A/Vit C/Vit E/Zinc/Copper) 2,148-113 Tablet 1 Each PO DAILY Metoprolol Succinate 25 Mg Tab.er.24h 25 Mg PO DAILY Losartan Potassium 50 Mg Tablet 50 Mg PO DAILY Gabapentin 100 Mg Capsule 100 Mg PO TID Vitamin D2 (Ergocalciferol (Vitamin D2)) 50 Mcg (2000 Unit) Capsule 50 Mcg PO BID Calcium Carbonate 500 Mg Calcium (1250 Mg) Tablet 500 Mg PO TID Atorvastatin Calcium 40 Mg Tablet 40 Mg PO HS Aspirin EC (Aspirin) 81 Mg Tablet.dr 81 Mg PO BID Eliquis (Apixaban) 5 Mg Tablet 5 Mg PO BID Amiodarone HCl 200 Mg Tablet 200 Mg PO BID TAKE TWICE DAILY STARTING 06-14-2022 , AFTER THE 30 DAYS DECREASE TO 200MG DAILY Instructions to patient/family Please see electronic discharge instructions given to patient. Diagnosis/Problems Diagnosis/Problems (1) CVA (cerebral vascular accident) (2) Atrial fibrillation (3) Chronic anticoagulation (4) Closed left arm fracture (5) Depression (6) Hypertension (7) Hyperlipidemia JHOANA GROSS DO Jun 17, 2022 10:01
--- NOTE | 2022-06-17 12:43 | History & Physical ---
LILIAMARK 06/17/22 1243: History of Present Illness History of Present Illness Reason for visit/HPI Patient is a 76 year old female with a history of PAF, HTN, and HLD who transferred from [facility] in [place], [place] following a CVA on 06/15 for in-patient rehab. The patient was found to have afib with RVR on adm ission but converted with amiodarone. On 06/17 the patient had palpitations and felt like her heart was racing when she stood up and EKG showed that she was in afib with RVR. The patient was transferred to the ICU to be placed on a cardizem drip. The patient denies any chest pain, SOB, and is not currently experiencing any palpitations. Date of Admission Jun 15, 2022 at 17:50 Date Seen by a Provider: Jun 17, 2022 Time Seen by a Provider: 10:15 I consulted on this patient on 06/17/22 12:38 Attending Physician Admitting Physician Admitting Physician: Ashley Pandey DO Attending Physician: Ashley Pandey DO Consult Allergies and Home Medications Allergies Coded Allergies: gemcitabine (Verified Allergy, Mild, RASH, 06/17/22) Iodinated Contrast Media (Verified Allergy, Unknown, 06/15/22) Sulfa (Sulfonamide Antibiotics) (Verified Allergy, Unknown, 06/15/22) azithromycin (Verified Allergy, NAUSEA AND VOMITING, 06/17/22) levofloxacin (Verified Allergy, HIVES, 06/17/22) Uncoded Allergies: ADHESIVE TAPE-SILICONES (Allergy, Mild, RASH, 06/17/22) CHEMOTHERAPY (Allergy, Unknown, rash, itching, 06/17/22) FEXOFENADINE-PSEUDOEPHEDRINE (Allergy, PALPITATIONS, 06/17/22) Patient Home Medication List Home Medication List Reviewed: Yes Amiodarone HCl (Amiodarone HCl) 200 Mg Tablet, 200 MG PO BID, (Reported) Entered as Reported by: YUNIEL MCGRAW on 06/15/22 1322 Last Action: Continued Amiodarone HCl (Amiodarone HCl) 200 Mg Tablet, 200 MG PO DAILY, (Reported) Entered as Reported by: YUNIEL MCGRAW on 06/15/22 1328 Last Action: Continued Apixaban (Eliquis) 5 Mg Tablet, 5 MG PO BID, (Reported) Entered as Reported by: YUNIEL MCGRAW on 06/15/221321 Last Action: Continued Aspirin (Aspirin EC) 81 Mg Tablet.dr, 81 MG PO BID, (Reported) Entered as Reported by: YUNIEL MCGRAW on 06/15/221321 Last Action: Continued Atorvastatin Calcium (Atorvastatin Calcium) 40 Mg Tablet, 40 MG PO HS, (Reported) Entered as Reported by: YUNIEL MCGRAW on 06/15/221321 Last Action: Continued Calcium Carbonate (Calcium Carbonate) 500 Mg Calcium (1250 Mg) Tablet, 500 MG PO TID, (Reported) Entered as Reported by: YUNIEL MCGRAW on 06/15/221321 Last Action: Converted Ergocalciferol (Vitamin D2) (Vitamin D2) 50 Mcg (2000 Unit) Capsule, 50 MCG PO BID, (Reported) Entered as Reported by: YUNIEL MCGRAW on 06/15/221321 Last Action: Converted Fish Oil/Dha/Epa (Fish Oil 1,200 mg Fish Oil) 1,200 Mg-144 Mg-216 Mg Capsule, 1 EACH PO DAILY, (Reported) Entered as Reported by: YUNIEL MCGRAW on 06/15/221321 Last Action: Converted Gabapentin (Gabapentin) 100 Mg Capsule, 100 MG PO TID, (Reported) Entered as Reported by: YUNIEL MCGRAW on 06/15/221321 Last Action: Continued Losartan Potassium (Losartan Potassium) 50 Mg Tablet, 50 MG PO DAILY, (Reported) Entered as Reported by: YUNIEL MCGRAW on 06/15/221321 Last Action: Continued Metoprolol Succinate (Metoprolol Succinate) 25 Mg Tab.er.24h, 25 MG PO DAILY, (Reported) Entered as Reported by: YUNIEL MCGRAW on 06/15/221321 Last Action: Continued Paroxetine HCl (Paroxetine HCl) 20 Mg Tablet, 20 MG PO DAILY, (Reported) Entered as Reported by: YUNIEL MCGRAW on 06/15/221321 Last Action: Continued Vit A/Vit C/Vit E/Zinc/Copper (Eye Multivitamin Tablet) 2,148-113 Tablet, 1 EACH PO DAILY, (Reported) Entered as Reported by: YUNIEL MCGRAW on 06/15/221321 Last Action: Converted Past Ohgqkhr-Kslxwf-Xzxxud Hx Patient Social History Marrital Status: single Employed/Student: retired Tobacco Use?: No Smoking Status: Never a Smoker Use of E-Cig and/or Vaping dev: No Substance use?: No Alcohol Use?: Yes Alcohol type: Wine Alcohol Frequency: Daily Pt feels they are or have been: No Current Status Advance Directives: Yes Advance Directive Location: Home Communicates: Verbally Primary Language: Kiswahili Preferred Spoken Language: Kiswahili Is interpretation needed?: No Sensory deficits: Vision impairment Past Medical History Atrial Fibrillation, High Cholesterol, Hypertension Stroke Depression Family Medical History No Pertinent Family Hx Review of Systems Constitutional: No chills, No fever EENTM: No hearing loss, No blurred vision Respiratory: No cough, No dyspnea on exertion Cardiovascular: see HPI Gastrointestinal: No diarrhea, No nausea, No vomiting Genitourinary: No hematuria, No incontinence Physical Exam Vital Signs Vital Signs - First Documented 06/15/22 19:49 Temp 35.9 Pulse 56 Resp 20 B/P (MAP) 143/77 (99) Pulse Ox 94 O2 Delivery Room Air Capillary Refill : Height, Weight, BMI Height: '" Weight: lbs. oz. kg; 28.32 BMI Method: General Appearance: No Apparent Distress, WD/WN HEENT: PERRL/EOMI Neck: Non Tender, Supple Respiratory: Lungs Clear, No Accessory Muscle Use Cardiovascular: No Edema, Normal Peripheral Pulses Gastrointestinal: Non Tender, Soft Rectal: Deferred Back: No CVA Tenderness Extremity: Non Tender, No Pedal Edema Neurologic/Psychiatric: Alert, Oriented x3, Facial Droop (Slight on L side following CVA) Skin: Normal Color, Warm/Dry Assessment/Plan Assessment and Plan CVA Afib with RVR HTN Hyperlipidemia Closed left arm fracture Currently on cardizem drip Cardiology consulted Orthopedics consulted Continue to work with PT/OT Problems: (1) CVA (cerebral vascular accident) (2) Atrial fibrillation (3) Chronic anticoagulation (4) Closed left arm fracture (5) Depression (6) Hypertension (7) Hyperlipidemia ASHLEY PANDEY DO 06/18/22 0506: Allergies and Home Medications Allergies Coded Allergies: gemcitabine (Verified Allergy, Mild, RASH, 06/17/22) Iodinated Contrast Media (Verified Allergy, Unknown, 06/15/22) Sulfa (Sulfonamide Antibiotics) (Verified Allergy, Unknown, 06/15/22) azithromycin (Verified Allergy, NAUSEA AND VOMITING, 06/17/22) levofloxacin (Verified Allergy, HIVES, 06/17/22) Uncoded Allergies: ADHESIVE TAPE-SILICONES (Allergy, Mild, RASH, 06/17/22) CHEMOTHERAPY (Allergy, Unknown, rash, itching, 06/17/22) FEXOFENADINE-PSEUDOEPHEDRINE (Allergy, PALPITATIONS, 06/17/22) Patient Home Medication List Amiodarone HCl (Amiodarone HCl) 200 Mg Tablet, 200 MG PO BID, (Reported) Entered as Reported by: YUNIEL MCGRAW on 06/15/221321 Last Action: Continued Amiodarone HCl (Amiodarone HCl) 200 Mg Tablet, 200 MG PO DAILY, (Reported) Entered as Reported by: YUNIEL MCGRAW on 06/15/221323 Last Action: Continued Apixaban (Eliquis) 5 Mg Tablet, 5 MG PO BID, (Reported) Entered as Reported by: YUNIEL MCGRAW on 06/15/221321 Last Action: Continued Aspirin (Aspirin EC) 81 Mg Tablet.dr, 81 MG PO BID, (Reported) Entered as Reported by: YUNIEL MCGRAW on 06/15/221321 Last Action: Continued Atorvastatin Calcium (Atorvastatin Calcium) 40 Mg Tablet, 40 MG PO HS, (Reported) Entered as Reported by: YUNIEL MCGRAW on 06/15/221321 Last Action: Continued Calcium Carbonate (Calcium Carbonate) 500 Mg Calcium (1250 Mg) Tablet, 500 MG PO TID, (Reported) Entered as Reported by: YUNIEL MCGRAW on 06/15/221321 Last Action: Converted Ergocalciferol (Vitamin D2) (Vitamin D2) 50 Mcg (2000 Unit) Capsule, 50 MCG PO BID, (Reported) Entered as Reported by: YUNIEL MCGRAW on 06/15/221321 Last Action: Converted Fish Oil/Dha/Epa (Fish Oil 1,200 mg Fish Oil) 1,200 Mg-144 Mg-216 Mg Capsule, 1 EACH PO DAILY, (Reported) Entered as Reported by: YUNIEL MCGRAW on 06/15/221321 Last Action: Converted Gabapentin (Gabapentin) 100 Mg Capsule, 100 MG PO TID, (Reported) Entered as Reported by: YUNIEL MCGRAW on 06/15/221321 Last Action: Continued Losartan Potassium (Losartan Potassium) 50 Mg Tablet, 50 MG PO DAILY, (Reported) Entered as Reported by: YUNIEL MCGRAW on 06/15/221321 Last Action: Continued Metoprolol Succinate (Metoprolol Succinate) 25 Mg Tab.er.24h, 25 MG PO DAILY, (Reported) Entered as Reported by: YUNIEL MCGRAW on 06/15/221321 Last Action: Continued Paroxetine HCl (Paroxetine HCl) 20 Mg Tablet, 20 MG PO DAILY, (Reported) Entered as Reported by: YUNIEL MCGRAW on 06/15/221321 Last Action: Continued Vit A/Vit C/Vit E/Zinc/Copper (Eye Multivitamin Tablet) 2,148-113 Tablet, 1 EACH PO DAILY, (Reported) Entered as Reported by: YUNIEL MCGRAW on 06/15/221321 Last Action: Converted MARK RODRIGUES Jun 17, 2022 12:43 ASHLEY PANDEY DO Jun 18, 2022 05:06
--- NOTE | 2022-06-17 13:19 | Therapy Team Discharge Summary ---
Therapy Discharge Summary Discharge Recommendations Date of Discharge Jun 17, 2022 at 09:10 Physical Therapy Patient came to rehab following a CVA. Upon evaluation patient performs rolling and supine <-> sit with SBA, sit <-> stand and transfers CGA, car transfer CGA, ambulate 150' with a rolling walker with CGA (including 50' with at least 2 turns of 90 degrees and 10' over an uneven surface), can go up and down 4 steps using 1 handrail with CGA, and can orange picker an object from the floor using a quill stripper with CGA. Patient was only really evaluated, she had no further therapy treatment due to medical complications and had to go to ICU. Patient will be discharged from PT at this time. Roll Left to Right (QC): 4 Sit to Lying (QC): 4 Lying to Sitting/Side of Bed(Q: 4 Sit to Stand (QC): 4 Chair/Cmx-zt-Jpaam Xfer(QC): 4 Toilet Transfer (QC): 4 Car Transfer (QC): 4 Does the Patient Walk: Yes Mode of Locomotion: Walk Anticipated Mode of Locomotion: Walk Walk 10 feet (QC): 4 Walk 50 ft with 2 Turns(QC): 4 Walk 150 ft (QC): 4 Walking 10ft on uneven surface: 4 Distance: 150', 100'x2 Gait Assistive Device: Cane Single Point Wheel 50 ft with 2 turns (QC): 9 Wheel 150 ft (QC): 9 #of Steps: 4 1 Step (curb) (QC): 4 4 Steps (QC): 4 12 Steps (QC): 88 Balance Sitting Static: Normal Balance Sitting Dynamic: Normal Balance-Standing Static: Fair Picking up an Object (QC): 4 (CGA using a quill stripper) Occupational Therapy Decreased Activ Tolerance, Decreased UE Strength, Impaired Coordination, Impaired Funct Balance, Impaired I ADL's, Impaired Self-Care Skills Eating (QC): 4 (needed cues for L side of the tray) Oral Hygiene (QC): 4 Shower/Bathe Self (QC): 4 Upper Body Dressing (QC): 5 On/Off Footwear (QC): 3 (min assist- donning L sock due to visual loss) Toileting Hygiene (QC): 3 (min assist for pulling underwear over L hip) PT Ice Cream Vendor Goals Residential Goals PT Ice Cream Vendor Goals Time Frame: Jul 07, 2022 Roll Left to Right (QC): 6 Sit to Lying (QC): 6 Lying-Sitting on Side/Bed(QC): 6 Sit to Stand (QC): 5 Chair/Cji-vn-Izabw Xfer(QC): 5 Toilet/Commode Transfer (QC): 5 Car Transfer (QC): 5 Does the Patient Walk: Yes Walk 10 feet (QC): 5 Walk 10ft-Uneven Surface(QC): 5 Walk 50ft with 2 Turns (QC): 5 Walk 150 ft (QC): 5 Wheel 50 feet with 2 turns (QC: 9 Wheel 150 feet: 9 1 Step (curb) (QC): 4 (SBA) 4 Steps (QC): 4 (SBA) 12 Steps (QC): 4 (SBA) Picking up an Object (QC): 5 OT Residential Goals Residential Goals Time Frame: Jul 14, 2022 Acute change in mental status: 0 Inattention: 0 Disorganized thinkin Altered level of consciousness: 0 Eating (QC): 6 Oral Hygiene (QC): 6 Toileting Hygiene (QC): 6 Shower/Bathe Self (QC): 5 Upper Body Dressing (QC): 6 Lower Body Dressing (QC): 6 On/Off Footwear (QC): 6 Additional Goals: 1-Demonstrate ADL Tasks, 2-Verbalize Understanding, 3-ImproveStrength/Winter 1=Demonstrate adherence to instructed precautions during ADL tasks. 2=Patient will verbalize/demonstrate understanding of assistive devices/modifications for ADL. 3=Patient will improve strength/tolerance for activity to enable patient to perform ADL's. SERGEY CABRERA PT Jun 17, 2022 13:19
[2022-06-18] MEDS ORDERED: DILT-27 PO ×2 (10:45)
[2022-06-18] MEDS ORDERED: AMIO200T65 PO ×2 (10:45)
[2022-06-18] MEDS ORDERED: CHOL20003 PO (15:13)
[2022-07-14] MEDS ORDERED: AMIODARONE 200 MG (CORDARONE) TAB PO SCH (09:00)
== END 2022-06-17 09:10 | disposition short-term general hospital (02) | DRG 57 ==
PROVIDERS: ADMIT Internal Medicine; ATTEND Internal Medicine
DX: I69.354 Hemiplegia and hemiparesis following cerebral infarction affecting left non-dominant side (principal); I69.392 Facial weakness following cerebral infarction; I69.322 Dysarthria following cerebral infarction; I69.320 Aphasia following cerebral infarction; I69.398 Other sequelae of cerebral infarction; R26.89 Other abnormalities of gait and mobility; S52.512D Displaced fracture of left radial styloid process, subsequent encounter for closed fracture with routine healing; S52.612D Displaced fracture of left ulna styloid process, subsequent encounter for closed fracture with routine healing; I48.0 Paroxysmal atrial fibrillation; I89.0 Lymphedema, not elsewhere classified; E78.00 Pure hypercholesterolemia, unspecified; I10 Essential (primary) hypertension; F32.A Depression, unspecified; Z79.01 Long term (current) use of anticoagulants; Z79.82 Long term (current) use of aspirin; Z85.3 Personal history of malignant neoplasm of breast; W19.XXXD Unspecified fall, subsequent encounter
CPT/HCPCS: 36415; 73110; 80053; 85025; 93005

== ENCOUNTER 2022-06-17 09:02 | Inpatient (IN) | payer MEDICARE ==
[~2022-06-17] VITALS: Ht 162.6 cm; Wt 74.8 kg
[~2022-06-17 09:02] MED LIST: AMIO200T65 PO; APIX5TAB PO; ASPI-1238 PO; ATOR40TA70 PO; CALC500T64 PO; ERGO50CA PO; FISH1CAP15 PO; GABA-486 PO; LOSA50TA63 PO; MTP25TSR PO; PARO20TA5 PO; VIT-31 PO
[2022-06-17] MEDS ORDERED: polyethylene glycoL POWDER 17 GM (MIRALAX) PACK PO PRN (10:00)
[2022-06-17] MEDS ORDERED: BISACODYL 10 MG SUPP (DULCOLAX) PR PRN (10:00)
[2022-06-17] MEDS ORDERED: diphenhydrAMINE 25 MG TAB (BENADRYL) PO PRN (10:00)
[2022-06-17] MEDS ORDERED: diphenhydrAMINE 50 MG/ML INJ (BENADRYL) IVP PRN (10:00)
[2022-06-17] MEDS ORDERED: NS IV 500 ML 500 ML IV PRN (10:00)
[2022-06-17] MEDS ORDERED: ONDANSETRON 4 MG (ZOFRAN) ORAL DISSOLVE TAB PO PRN (10:00)
[2022-06-17] MEDS ORDERED: ANTACID SUSP 30 ML UDC (MYLANTA) PO PRN (10:00)
[2022-06-17] MEDS ORDERED: MELATONIN 3 MG TABLET PO PRN (10:00)
[2022-06-17] MEDS ORDERED: ONDANSETRON 4 MG/2 ML (SDV) Z0FRAN IV PRN (10:00)
[2022-06-17] MEDS ORDERED: CALCIUM CARBONATE 500 MG (TUMS) TAB.CHEW PO PRN (10:00)
[2022-06-17] MEDS ORDERED: MILK OF MAGNESIA 400 MG/5 ML 30 ML UDC PO PRN (10:00)
[2022-06-17] MEDS ORDERED: ACETAMINOPHEN 325 MG TABLET PO PRN (10:00)
[2022-06-17] MEDS ORDERED: LACTULOSE SYRUP 10GM/15ML (ENULOSE) 30ML UDC PO PRN (10:00)
[2022-06-17] MEDS ORDERED: morphine INJ 4 MG/ML 1 ML (VIAL/SYRINGE) IV PRN (10:00)
[2022-06-17 10:16] LABS: BASOPHILS % (AUTO) 0 % (0-10); EOSINOPHILS # (AUTO) 0.2 10^3/uL (0.0-0.3); EOSINOPHILS % (AUTO) 3 % (0-10); HEMATOCRIT 37 % (35-52); HEMOGLOBIN 11.9 g/dL (11.5-16.0); LYMPHOCYTES % (AUTO) 14 % (12-44); MEAN CORPUSCULAR HEMOGLOBIN 31 pg (25-34); MEAN CORPUSCULAR HGB CONC 32 g/dL (32-36); MEAN CORPUSCULAR VOLUME 97 fL (80-99); MEAN PLATELET VOLUME 10.4 fL (9.0-12.2); MONOCYTES # (AUTO) 0.6 10^3/uL (0.0-1.0); MONOCYTES % (AUTO) 8 % (0-12); NEUTROPHILS # (AUTO) 5.2 10^3/uL (1.8-7.8); NEUTROPHILS % (AUTO) 74 % (42-75); PLATELET COUNT 263 10^3/uL (130-400); WHITE BLOOD COUNT 6.9 10^3/uL (4.3-11.0)
[2022-06-17] MEDS ORDERED: dilTIAZem120 MG (CARDIZEM CD) CAP PO NR (10:30)
[2022-06-17 10:41] LABS: ALBUMIN 3.4 GM/DL (3.2-4.5); BILIRUBIN,TOTAL 0.5 MG/DL (0.1-1.0); CALCIUM 9.2 MG/DL (8.5-10.1); CREATININE SERUM 0.8 MG/DL (0.60-1.30); POTASSIUM 3.6 MMOL/L (3.6-5.0); TOTAL PROTEIN 6.7 GM/DL (6.4-8.2)
[2022-06-17] MEDS: NS IV 1000 ML 1,000 ML IV SCH (10:55)
[2022-06-17] MEDS: dilTIAZem DRIP PRE-MIX 125 ML IV SCH (11:44)
[2022-06-17 11:54] VITALS: BP 154/88
[2022-06-17] MEDS ORDERED: RT-ALBUTEROL/IPRATROPIUM 3 ML (DUONEB) VIAL INH PRN (12:15)
--- NOTE | 2022-06-17 13:14 | History & Physical ---
LILIAMARK 06/17/22 1314: History of Present Illness History of Present Illness Reason for visit/HPI Patient is a 76 year old female with a history of PAF, HTN, and HLD who transferred from [facility] in [place], [place] following a CVA on 06/15 for in-patient rehab. Patient presented with left-sided weakness, left-s ided facial droop, and mild dysarthria. The patient was found to have afib with RVR on admission but converted with amiodarone. On 06/17 the patient had palpitations and felt like her heart was racing when she stood up and EKG showed that she was in afib with RVR. The patient was transferred to the ICU to be placed on a cardizem drip. The patient denies any chest pain, SOB, and is not currently experiencing any palpitations. Date of Admission Jun 17, 2022 at 09:02 Date Seen by a Provider: Jun 17, 2022 Time Seen by a Provider: 10:15 I consulted on this patient on 06/17/22 13:10 Attending Physician Ac Kimbrough MD Admitting Physician Admitting Physician: Ashley Gross DO Attending Physician: Ashley Gross DO Consult Allergies and Home Medications Allergies Coded Allergies: gemcitabine (Verified Allergy, Mild, RASH, 06/17/22) Iodinated Contrast Media (Verified Allergy, Unknown, 06/15/22) Sulfa (Sulfonamide Antibiotics) (Verified Allergy, Unknown, 06/15/22) azithromycin (Verified Allergy, NAUSEA AND VOMITING, 06/17/22) levofloxacin (Verified Allergy, HIVES, 06/17/22) Uncoded Allergies: ADHESIVE TAPE-SILICONES (Allergy, Mild, RASH, 06/17/22) CHEMOTHERAPY (Allergy, Unknown, rash, itching, 06/17/22) FEXOFENADINE-PSEUDOEPHEDRINE (Allergy, PALPITATIONS, 06/17/22) Patient Home Medication List Home Medication List Reviewed: Yes Amiodarone HCl (Amiodarone HCl) 200 Mg Tablet, 200 MG PO BID, (Reported) Entered as Reported by: YUNIEL MCGRAW on 06/15/22 1322 Last Action: Held Amiodarone HCl (Amiodarone HCl) 200 Mg Tablet, 200 MG PO DAILY, (Reported) Entered as Reported by: YUNIEL MCGRAW on 06/15/221323 Last Action: Held Apixaban (Eliquis) 5 Mg Tablet, 5 MG PO BID, (Reported) Entered as Reported by: YUNIEL MCGRAW on 06/15/221321 Last Action: Continued Aspirin (Aspirin EC) 81 Mg Tablet.dr, 81 MG PO BID, (Reported) Entered as Reported by: YUNIEL MCGRAW on 06/15/221321 Last Action: Continued Atorvastatin Calcium (Atorvastatin Calcium) 40 Mg Tablet, 40 MG PO HS, (Reported) Entered as Reported by: YUNIEL MCGRAW on 06/15/221321 Last Action: Continued Calcium Carbonate (Calcium Carbonate) 500 Mg Calcium (1250 Mg) Tablet, 500 MG PO TID, (Reported) Entered as Reported by: YUNIEL MCGRAW on 06/15/221321 Last Action: Converted Ergocalciferol (Vitamin D2) (Vitamin D2) 50 Mcg (2000 Unit) Capsule, 50 MCG PO BID, (Reported) Entered as Reported by: YUNIEL MCGRAW on 06/15/221321 Last Action: Converted Fish Oil/Dha/Epa (Fish Oil 1,200 mg Fish Oil) 1,200 Mg-144 Mg-216 Mg Capsule, 1 EACH PO DAILY, (Reported) Entered as Reported by: YUNIEL MCGRAW on 06/15/221321 Last Action: Held Gabapentin (Gabapentin) 100 Mg Capsule, 100 MG PO TID, (Reported) Entered as Reported by: YUNIEL MCGRAW on 06/15/221321 Last Action: Continued Losartan Potassium (Losartan Potassium) 50 Mg Tablet, 50 MG PO DAILY, (Reported) Entered as Reported by: YUNIEL MCGRAW on 06/15/221321 Last Action: Held Metoprolol Succinate (Metoprolol Succinate) 25 Mg Tab.er.24h, 25 MG PO DAILY, (Reported) Entered as Reported by: YUNIEL MCGRAW on 06/15/221321 Last Action: Held Paroxetine HCl (Paroxetine HCl) 20 Mg Tablet, 20 MG PO DAILY, (Reported) Entered as Reported by: YUNIEL MCGRAW on 06/15/221321 Last Action: Continued Vit A/Vit C/Vit E/Zinc/Copper (Eye Multivitamin Tablet) 2,148-113 Tablet, 1 EACH PO DAILY, (Reported) Entered as Reported by: YUNIEL MCGRAW on 06/15/22 1322 Last Action: Held Past Gchiftp-Gqnvlq-Vkkqdr Hx Current Status Primary Language: Citizen Of [place] Past Medical History Atrial Fibrillation, High Cholesterol, Hypertension Stroke Depression Family Medical History No Pertinent Family Hx Review of Systems Constitutional: No chills, No fever EENTM: No hearing loss, No blurred vision Respiratory: No cough, No short of breath Cardiovascular: see HPI Gastrointestinal: No abdominal pain, No nausea, No vomiting Genitourinary: No hematuria, No incontinence Skin: No change in color, No change in hair/nails Psychiatric/Neurological: See HPI Physical Exam Vital Signs Vital Signs - First Documented 06/17/22 06/17/22 06/17/22 09:00 11:54 12:28 Temp 36.9 Pulse 65 Resp 24 B/P (MAP) 102/60 (74) Pulse Ox 96 O2 Delivery Room Air FiO2 21 Capillary Refill : Height, Weight, BMI Height: '" Weight: lbs. oz. kg; 28.32 BMI Method: General Appearance: No Apparent Distress, WD/WN HEENT: PERRL/EOMI Neck: Non Tender, Supple Respiratory: Lungs Clear, No Accessory Muscle Use Cardiovascular: No Edema, Normal Peripheral Pulses Gastrointestinal: Non Tender, Soft Rectal: Deferred Back: No CVA Tenderness, No Vertebral Tenderness Extremity: Non Tender, No Pedal Edema Neurologic/Psychiatric: Alert, Oriented x3 Skin: Normal Color, Warm/Dry Lymphatic: No Adenopathy Assessment/Plan Assessment and Plan CVA Afib with RVR HTN Hyperlipidemia Closed left arm fracture Currently on darci cool Cardiology consulted Orthopedics consulted Continue to work with PT/OT Admission Diagnosis Afib with RVR Admission Status: Inpatient Order (span 2 midnights) Reason for Inpatient Admission: ASHLEY Barnes DO 06/18/22 0455: Allergies and Home Medications Allergies Coded Allergies: gemcitabine (Verified Allergy, Mild, RASH, 06/17/22) Iodinated Contrast Media (Verified Allergy, Unknown, 06/15/22) Sulfa (Sulfonamide Antibiotics) (Verified Allergy, Unknown, 06/15/22) azithromycin (Verified Allergy, NAUSEA AND VOMITING, 06/17/22) levofloxacin (Verified Allergy, HIVES, 06/17/22) Uncoded Allergies: ADHESIVE TAPE-SILICONES (Allergy, Mild, RASH, 06/17/22) CHEMOTHERAPY (Allergy, Unknown, rash, itching, 06/17/22) FEXOFENADINE-PSEUDOEPHEDRINE (Allergy, PALPITATIONS, 06/17/22) Patient Home Medication List Amiodarone HCl (Amiodarone HCl) 200 Mg Tablet, 200 MG PO BID, (Reported) Entered as Reported by: YUNIEL MCGRAW on 06/15/221321 Last Action: Held Amiodarone HCl (Amiodarone HCl) 200 Mg Tablet, 200 MG PO DAILY, (Reported) Entered as Reported by: YUNIEL MCGRAW on 06/15/221323 Last Action: Held Apixaban (Eliquis) 5 Mg Tablet, 5 MG PO BID, (Reported) Entered as Reported by: YUNIEL MCGRAW on 06/15/221321 Last Action: Continued Aspirin (Aspirin EC) 81 Mg Tablet.dr, 81 MG PO BID, (Reported) Entered as Reported by: YUNIEL MCGRAW on 06/15/221321 Last Action: Continued Atorvastatin Calcium (Atorvastatin Calcium) 40 Mg Tablet, 40 MG PO HS, (Reported) Entered as Reported by: YUNIEL MCGRAW on 06/15/221321 Last Action: Continued Calcium Carbonate (Calcium Carbonate) 500 Mg Calcium (1250 Mg) Tablet, 500 MG PO TID, (Reported) Entered as Reported by: YUNIEL MCGRAW on 06/15/221321 Last Action: Converted Ergocalciferol (Vitamin D2) (Vitamin D2) 50 Mcg (2000 Unit) Capsule, 50 MCG PO BID, (Reported) Entered as Reported by: YUNIEL MCGRAW on 06/15/221321 Last Action: Converted Fish Oil/Dha/Epa (Fish Oil 1,200 mg Fish Oil) 1,200 Mg-144 Mg-216 Mg Capsule, 1 EACH PO DAILY, (Reported) Entered as Reported by: YUNIEL MCGRAW on 06/15/221321 Last Action: Held Gabapentin (Gabapentin) 100 Mg Capsule, 100 MG PO TID, (Reported) Entered as Reported by: YUNIEL MCGRAW on 06/15/221321 Last Action: Continued Losartan Potassium (Losartan Potassium) 50 Mg Tablet, 50 MG PO DAILY, (Reported) Entered as Reported by: YUNIEL MCGRAW on 06/15/221321 Last Action: Held Metoprolol Succinate (Metoprolol Succinate) 25 Mg Tab.er.24h, 25 MG PO DAILY, (Reported) Entered as Reported by: YUNIEL MCGRAW on 06/15/221321 Last Action: Held Paroxetine HCl (Paroxetine HCl) 20 Mg Tablet, 20 MG PO DAILY, (Reported) Entered as Reported by: YUNIEL MCGRAW on 06/15/221321 Last Action: Continued Vit A/Vit C/Vit E/Zinc/Copper (Eye Multivitamin Tablet) 2,148-113 Tablet, 1 EACH PO DAILY, (Reported) Entered as Reported by: YUNIEL MCGRAW on 06/15/221321 Last Action: Held Past Kinmsvl-Mnrcaz-Ycztzx Hx Patient Social History Marrital Status: single Employed/Student: retired Smoking Status: Never a Smoker Past Medical History Atrial Fibrillation, High Cholesterol, Hypertension Stroke Review of Systems Constitutional: see HPI Respiratory: short of breath Cardiovascular: palpitations Physical Exam General Appearance: No Apparent Distress, WD/WN, Chronically ill Respiratory: Lungs Clear, Normal Breath Sounds Cardiovascular: Irregularly Irregular, Tachycardia Assessment/Plan Assessment and Plan Assessment: Atrial fibrillation with RVR Recent CVA Hypertension Hyperlipidemia Closed left ulna fracture History of breast cancer left Left arm lymphedema Plan: Supportive care Cardizem drip Anticoagulation Problems: (1) Atrial fibrillation with rapid ventricular response (2) CVA (cerebral vascular accident) (3) Chronic anticoagulation (4) Closed left arm fracture (5) Hypertension (6) Hyperlipidemia (7) Depression (8) Atrial fibrillation Admission Diagnosis Admission Status: Inpatient Order (span 2 midnights) Reason for Inpatient Admission: A. fib with RVR with recent stroke Supervisory-Addendum Brief Verification & Attestation Participated in pt care: history, MDM, physical Personally performed: exam, history, MDM, supervision of care Care discussed with: Medical Student Procedures: n/a Results interpretation: Verified all documentation Verification and Attestation of Medical Student E/M Service A medical student performed and documented this service in my presence. I reviewed and verified all information documented by the medical student and made modifications to such information, when appropriate. I personally performed the physical exam and medical decision making. Ashley Gross, Jun 18, 2022,04:55 MARK RODRIGUES Jun 17, 2022 13:14 ASHLEY GROSS DO Jun 18, 2022 04:55
[2022-06-17] MEDS: AMIODARONE 200 MG (CORDARONE) TAB PO SCH ×2 (14:06→20:53)
[2022-06-17] MEDS ORDERED: FLU QUAD HIGH DOSE 240 MCG/0.7 ML 2022-23 (FLUZONE) IM ONE (14:30)
--- NOTE | 2022-06-17 15:17 | Tele-ICU Consult ---
History of Present Illness History of Present Illness Date Seen by Provider: Jun 17, 2022 Time Seen by Provider: 15:16 Date of Admission (Tele-ICU Physician , consultation as per request of PCP Service provided via interactive audio and video telecommunications E-CARE system to a patient admitted to ICU bed in [facility]. Available chart/ vitals / labs / Images reviewed H&P is from ER notes Patient's information available about PMH, Shx, Fhx allergy reviewed inEMR. ROS as per chart and RN report Now in ICU, hemodynamically stable Video assessment done using teleICU camera, rest of exam as per RN Discussed with RN. Consultants: Hospital course: A/P A fib RVR- rate controlled now - off any gtts - as per cardiology - AC with Eliquis - Amio po , toprol was on hold with haile - to be adjusted Recent CVA 06/15/22 - was ont on AC prior to CVA - control BP Left arm fracture - as per bedside ortho Lines : , (Central Line Necessity Reviewed) [place]: OG: Nutrition: Analgesia: Anxiety/ delirium VTE Prophylaxis: eliquis Stress Ulcer Prophylaxis:na Plans in collaboration with bedside consultants and IM MDs. Discussed with RN to reach out if any questions or concerns A total of 10 minutes of critical care time was devoted to this patient today, required to treat and/or prevent further deterioration of critical care condition ( as above ) . I am remotely monitoring this patient from another state. I am unable to do the bedside exam, and history/physical and pertinent information is taken from other notes in the computer and bedside staff. Allergies and Home Medications Allergies Coded Allergies: gemcitabine (Verified Allergy, Mild, RASH, 06/17/22) Iodinated Contrast Media (Verified Allergy, Unknown, 06/15/22) Sulfa (Sulfonamide Antibiotics) (Verified Allergy, Unknown, 06/15/22) azithromycin (Verified Allergy, NAUSEA AND VOMITING, 06/17/22) levofloxacin (Verified Allergy, HIVES, 06/17/22) Uncoded Allergies: ADHESIVE TAPE-SILICONES (Allergy, Mild, RASH, 06/17/22) CHEMOTHERAPY (Allergy, Unknown, rash, itching, 06/17/22) FEXOFENADINE-PSEUDOEPHEDRINE (Allergy, PALPITATIONS, 06/17/22) Home Medications Amiodarone HCl 200 Mg Tablet, 200 MG PO BID, (Reported) TAKE TWICE DAILY STARTING 06-14-2022 , AFTER THE 30 DAYS DECREASE TO 200MG DAILY Amiodarone HCl 200 Mg Tablet, 200 MG PO DAILY, (Reported) HOLD UNTIL AFTER THE 30 DAYS OF TWICE DAILY HAS BEEN FINISHED Apixaban 5 Mg Tablet, 5 MG PO BID, (Reported) Aspirin 81 Mg Tablet.dr, 81 MG PO BID, (Reported) Atorvastatin Calcium 40 Mg Tablet, 40 MG PO HS, (Reported) Calcium Carbonate 500 Mg Calcium (1250 Mg) Tablet, 500 MG PO TID, (Reported) Ergocalciferol (Vitamin D2) 50 Mcg (2000 Unit) Capsule, 50 MCG PO BID, (Reported) Fish Oil/Dha/Epa 1,200 Mg-144 Mg-216 Mg Capsule, 1 EACH PO DAILY, (Reported) Gabapentin 100 Mg Capsule, 100 MG PO TID, (Reported) Losartan Potassium 50 Mg Tablet, 50 MG PO DAILY, (Reported) Metoprolol Succinate 25 Mg Tab.er.24h, 25 MG PO DAILY, (Reported) Paroxetine HCl 20 Mg Tablet, 20 MG PO DAILY, (Reported) Vit A/Vit C/Vit E/Zinc/Copper 2,148-113 Tablet, 1 EACH PO DAILY, (Reported) Past Medical/Social/Family Hx Patient Social History Tobacco Use?: No Substance use?: No Alcohol Use?: Yes Alcohol type: Wine Alcohol Frequency: Daily Pt stated abuse/neglect: No Immunizations Up To Date Influenza Vaccine Up-to-Date: No; Not Current Tetanus Booster (TDap): More Than 5 Years TB Skin Test: Negative Current Status Advance Directives: Yes Advance Directive Location: Home Communicates: Verbally Primary Language: Finnish Preferred Spoken Language: Finnish Is interpretation needed?: No Sensory deficits: Vision impairment, Hearing impairment Implanted or Applied Medical D: Other Review of Systems Constitutional: see HPI Focused Exam Height, Weight, BMI Height: '" Weight: lbs. oz. kg; 26.66 BMI Method: Exam Exam Patient acknowledged, consented, and participated in this virtual visit which was conducted using real time audio/video Vital Signs Date Time Temp Pulse Resp B/P (MAP) Pulse Ox O2 Delivery O2 Flow Rate FiO2 06/17/22 15:00 56 17 120/73 (89) 97 Room Air 06/17/22 14:00 59 16 140/100 (113) 97 Room Air 06/17/22 13:00 63 06/17/22 13:00 51 25 124/104 (111) 94 Room Air 06/17/22 12:48 95 Room Air 06/17/22 12:28 36.9 06/17/22 12:00 63 18 161/91 (114) 97 Room Air 06/17/22 11:54 60 97 21 06/17/22 11:00 60 12 154/88 (110) 98 Room Air 06/17/22 10:00 63 21 146/82 (103) 96 Room Air 06/17/22 09:00 65 24 102/60 (74) 96 Room Air Height & Weight Height: '" Weight: lbs. oz. kg; 26.66 BMI Method: General Appearance: No Apparent Distress, WD/WN HEENT: PERRL/EOMI Neck: Non Tender, Supple Respiratory: Lungs Clear, No Accessory Muscle Use Cardiovascular: No Edema, Normal Peripheral Pulses Extremity: Non Tender, No Pedal Edema Neurologic/Psychiatric: Alert, Oriented x3 Skin: Normal Color, Warm/Dry Lymphatic: No Adenopathy Results Lab Laboratory Tests 06/17/22 10:10 Assessment/Plan Assessment/Plan 1 LINK JASON MD Jun 17, 2022 15:17
[2022-06-17] MEDS: CALCIUM CARBONATE 500 MG (TUMS) TAB.CHEW PO SCH (20:52)
[2022-06-17] MEDS: ASPIRIN E.C. 81 MG (ECOTRIN) TAB PO SCH (20:52)
[2022-06-17] MEDS: GABAPENTIN 100 MG (NEURONTIN) CAP PO SCH (20:52)
[2022-06-17] MEDS: APIXABAN 5 MG (ELIQUIS) TABLET PO SCH (20:53)
[2022-06-17] MEDS ORDERED: NON-FORMULARY MEDICATION 1 EA EA (Calcium Carbonate 500 MG) PO SCH (21:00)
[2022-06-17] MEDS ORDERED: ERGOCALCIFEROL 50 MCG PO SCH (21:00)
[2022-06-17] MEDS ORDERED: FUROSEMIDE 40 MG/4 ML INJ (LASIX) IVP ONE (23:30)
[2022-06-17] MEDS: DOCUSATE SODIUM 100 MG (COLACE) CAP PO SCH (23:39)
[2022-06-17] MEDS: SENNOSIDES 8.6 MG (SENOKOT) TAB PO SCH (23:39)
[2022-06-17] MEDS ORDERED: FUROSEMIDE 40 MG/4 ML INJ (LASIX) ONE (23:42)
[2022-06-18] MEDS: NS IV 1000 ML 1,000 ML IV SCH (00:50)
[2022-06-18] MEDS ORDERED: ACETAMINOPHEN 325 MG TABLET PO PRN (05:45)
[2022-06-18] MEDS ORDERED: KCL 20 MEQ TAB (K-DUR) PO SCH (06:00)
[2022-06-18] MEDS ORDERED: MAGNESIUM 1 GM/100 ML IVPB 100 ML IV SCH (06:00)
[2022-06-18] MEDS ORDERED: POTASSIUM CL 10MEQ/50ML IVPB 50 ML IV SCH (06:00)
[2022-06-18 06:12] LABS: BASOPHILS % (AUTO) 0 % (0-10); EOSINOPHILS # (AUTO) 0.2 10^3/uL (0.0-0.3); EOSINOPHILS % (AUTO) 2 % (0-10); HEMATOCRIT 35 % (35-52); HEMOGLOBIN 11.1 g/dL (11.5-16.0); LYMPHOCYTES # (AUTO) 1.3 10^3/uL (1.0-4.0); LYMPHOCYTES % (AUTO) 17 % (12-44); MEAN CORPUSCULAR HEMOGLOBIN 30 pg (25-34); MEAN CORPUSCULAR HGB CONC 32 g/dL (32-36); MEAN CORPUSCULAR VOLUME 96 fL (80-99); MEAN PLATELET VOLUME 10.8 fL (9.0-12.2); MONOCYTES # (AUTO) 0.5 10^3/uL (0.0-1.0); MONOCYTES % (AUTO) 7 % (0-12); NEUTROPHILS # (AUTO) 5.4 10^3/uL (1.8-7.8); NEUTROPHILS % (AUTO) 72 % (42-75); PLATELET COUNT 253 10^3/uL (130-400); WHITE BLOOD COUNT 7.5 10^3/uL (4.3-11.0)
[2022-06-18 06:31] LABS: ALBUMIN 3.4 GM/DL (3.2-4.5)
[2022-06-18 06:32] LABS: POTASSIUM 3.7 MMOL/L (3.6-5.0)
[2022-06-18 06:33] LABS: CALCIUM 8.8 MG/DL (8.5-10.1)
[2022-06-18 06:34] LABS: TOTAL PROTEIN 6.6 GM/DL (6.4-8.2)
[2022-06-18 06:36] LABS: BILIRUBIN,TOTAL 0.7 MG/DL (0.1-1.0)
[2022-06-18 06:37] LABS: PHOSPHORUS 4.5 MG/DL (2.3-4.7)
[2022-06-18 06:38] LABS: CREATININE SERUM 0.82 MG/DL (0.60-1.30)
[2022-06-18 06:41] LABS: MAGNESIUM 1.7 MG/DL (1.6-2.4)
[2022-06-18] MEDS ORDERED: RT-ALBUTEROL/IPRATROPIUM 3 ML (DUONEB) VIAL INH SCH (07:00)
[2022-06-18] MEDS: MAGNESIUM 1 GM/100 ML IVPB 100 ML IV SCH ×2 (08:10→08:11)
[2022-06-18] MEDS: CALCIUM CARBONATE 500 MG (TUMS) TAB.CHEW PO SCH (08:11)
[2022-06-18] MEDS: SENNOSIDES 8.6 MG (SENOKOT) TAB PO SCH (08:11)
[2022-06-18] MEDS: ASPIRIN E.C. 81 MG (ECOTRIN) TAB PO SCH (08:11)
[2022-06-18] MEDS: DOCUSATE SODIUM 100 MG (COLACE) CAP PO SCH (08:11)
[2022-06-18] MEDS: GABAPENTIN 100 MG (NEURONTIN) CAP PO SCH (08:11)
[2022-06-18] MEDS: APIXABAN 5 MG (ELIQUIS) TABLET PO SCH (08:12)
[2022-06-18] MEDS: AMIODARONE 200 MG (CORDARONE) TAB PO SCH (08:12)
--- NOTE | 2022-06-18 08:56 | Diagnostic Imaging Report ---
INDICATION: Atrial fibrillation with dyspnea. FINDINGS: The heart size within normal limits. There is blunting of the left costophrenic angle. No focal consolidation, however, there is some mild bibasilar partial atelectasis. IMPRESSION: Small left effusion and mild basilar atelectasis. Dictated by: Dictated on workstation # [id number]
[2022-06-18] MEDS ORDERED: PARoxetine 20 MG (PAXIL) TAB PO SCH (09:00)
[2022-06-18] MEDS ORDERED: dilTIAZem120 MG (CARDIZEM CD) CAP PO SCH (09:00)
--- NOTE | 2022-06-18 09:03 | Cardiology Progress Note ---
Subjective Date Seen by Provider: Jun 18, 2022 Time Seen by Provider: 09:01 Subjective/Events-last exam Patient was seen at bedside, sitting comfortably, feeling better. Heart rate is more stable. Review of Systems General: No Chills, No Night Sweats, No Fatigue, No Malaise, No Appetite, No Other HEENT: No Head Aches, No Visual Changes, No Eye Pain, No Ear Pain, No Dysphasia, No Sinus Congestion, No Post Nasal Drip, No Sore Throat, No Other Pulmonary: No Dyspnea, No Cough, No Pleuritic Chest Pain, No Other Cardiovascular: No: Chest Pain, Palpitations, Orthopnea, Paroxysmal Noc. Dyspnea, Edema, Lt Headedness, Other Objective-Cardiology Exam Last Set of Vital Signs Vital Signs 06/18/22 06/18/22 06/18/22 06/18/22 00:06 04:18 08:00 08:03 Temp 36.3 Pulse 55 Resp 22 B/P (MAP) 166/101 (122) Pulse Ox 93 O2 Delivery Room Air O2 Flow Rate 4.00 FiO2 38 I&O Intake and Output 06/18/22 00:00 Intake Total 1540 ml Output Total 200 ml Balance 1340 ml Intake Oral 1540 ml Output Urine Total 200 ml # Voids 2 # Urine Diapers 1 Daily Weight Change No General: Alert, Oriented X3, Cooperative HEENT: Atraumatic, PERRLA Neck: Supple, No JVD, No Thyromegaly Lungs: Clear to Auscultation, Normal Air Movement Heart: Regular Rate, Normal S1, Normal S2, No Murmurs Abdomen: Normal Bowel Sounds, Soft, No Tenderness, No Hepatosplenomegaly, No Masses Extremities: No Clubbing, No Cyanosis, No Edema, Normal Pulses, No Tenderness/Swelling Skin: No Rashes, No Breakdown, No Significant Lesion Neuro: Normal Gait, Normal Speech, Strength at 5/5 X4 Ext, Normal Tone, Sensation Intact Psych/Mental Status: Mental Status NL, Mood NL Results Lab Laboratory Tests 06/17/22 10:10 06/18/22 05:04 A/P-Cardiology Assessment/Plan CVA, continues to have some left sided weakness, continue with PT/OT PAF, was off of OAC at time of CVA. Had multiple episodes of atrial fibrillation with rapid ventricular response. I increased amiodarone to 400 twice daily, it appeared that it settled down her heart rate. Started on Cardizem CD 120 mg daily. Tolerating it well. Transient episode of bradycardia while on metoprolol and amiodarone, currently tolerating amiodarone and Cardizem better. [id number] score 5, maintained on Eliquis Hypertension, poorly controlled. Maintained on Cardizem CD 120 mg daily I will add losartan 50 mg daily and evaluate tolerance and response. HLP, recently started on statin, monitored as outpatient. Left forearm fracture, management per Dr. Mirta Edmondson to transfer to rehab YANA BRISENO MD Jun 18, 2022 09:03
--- NOTE | 2022-06-18 09:14 | Tele-ICU Progress Note ---
Subjective Date Seen by a Provider: Jun 18, 2022 Time Seen by a Provider: 09:14 Subjective/Events-last exam (Tele-ICU Physician , Progress Note ) Service provided via interactive audio and video telecommunications E-CARE system to a patient admitted to ICU bed in [facility]. Available chart/ vitals / labs / Images reviewed Video assessment done using teleICU camera, rest of exam as per RN Discussed with RN Events overnight : hypoxia --> 4l o2 , lasix given Afebrile hemodynamically stable Respiratory - I/O = neg 1 L Drips: ns Pressors- no Consultants: [email or web address] Hospital course: (06/15) Admitted to Rehab from [facility] in [place], [place] following a CVA. Left Arm Fx. (06/17) Pt tx to ICU from Rehab Unit for Afib RVR. (06/18) Now SR A/P A fib RVR- rate controlled now - off any gtts - as per cardiology - AC with Eliquis - Amio po , toprol was on hold with haile ---> to be adjusted by cardiology Hypoxia - most likely VO , resolved with lasix - will stop IVF , cont IS Recent CVA 06/15/22 - was ont on AC prior to CVA - control BP Left arm fracture - as per bedside ortho Lines : periiph , (Central Line Necessity Reviewed) [place]: void OG: Nutrition: Analgesia: Anxiety/ delirium VTE Prophylaxis: eliquis Stress Ulcer Prophylaxis:na Plans in collaboration with bedside consultants and IM MDs. Discussed with RN to reach out if any questions or concerns A total of 15 minutes of critical care time was devoted to this patient today, required to treat and/or prevent further deterioration of critical care condition ( as above ) . I am remotely monitoring this patient from another state. I am unable to do the bedside exam, and history/physical and pertinent information is taken from other notes in the computer and bedside staff. Sepsis Event Evaluation Height, Weight, BMI Height: '" Weight: lbs. oz. kg; 28.29 BMI Method: Exam Exam Patient acknowledged, consented, and participated in this virtual visit which was conducted using real time audio/video Vital Signs Date Time Temp Pulse Resp B/P (MAP) Pulse Ox O2 Delivery O2 Flow Rate FiO2 06/18/22 08:03 36.3 06/18/22 08:00 55 22 166/101 (122) 93 Room Air 06/18/22 07:00 52 18 157/93 (114) 90 Room Air 06/18/22 07:00 55 06/18/22 06:00 56 20 171/95 (120) 92 Room Air 06/18/22 05:00 64 17 95 Room Air 06/18/22 04:18 98 Nasal Cannula 4.00 06/18/22 04:00 55 16 146/75 (98) 96 Room Air 06/18/22 04:00 36.8 06/18/22 03:00 55 18 156/85 (108) 96 Room Air 06/18/22 02:00 55 18 146/78 (100) 95 Room Air 06/18/22 01:00 55 21 145/65 (91) 96 Room Air 06/18/22 01:00 60 06/18/22 00:38 97 Nasal Cannula 4.00 06/18/22 00:06 60 95 38 06/18/22 00:00 59 29 165/86 (112) 95 Room Air 06/18/22 00:00 37.1 06/18/22 00:00 95 Nasal Cannula 4.00 06/17/22 23:07 Nasal Cannula 4.00 06/17/22 23:00 66 23 174/95 (121) 95 Room Air 06/17/22 22:00 62 30 169/94 (119) 95 Room Air 06/17/22 21:00 61 15 167/86 (113) 94 Room Air 06/17/22 20:11 95 Room Air 06/17/22 20:00 36.6 06/17/22 20:00 62 27 128/69 (88) 95 Room Air 06/17/22 19:20 92 Room Air 06/17/22 19:00 70 06/17/22 19:00 65 19 115/60 (78) 95 Room Air 06/17/22 18:00 57 31 146/80 (102) 96 Room Air 06/17/22 17:00 60 22 96 Room Air 06/17/22 16:00 36.6 06/17/22 16:00 96 Room Air 06/17/22 16:00 58 12 161/80 (107) 96 Room Air 06/17/22 15:00 56 17 120/73 (89) 97 Room Air 06/17/22 14:00 59 16 140/100 (113) 97 Room Air 06/17/22 13:00 63 06/17/22 13:00 51 25 124/104 (111) 94 Room Air 06/17/22 12:48 95 Room Air 06/17/22 12:28 36.9 06/17/22 12:00 63 18 161/91 (114) 97 Room Air 06/17/22 11:54 60 97 21 06/17/22 11:00 60 12 154/88 (110) 98 Room Air 06/17/22 10:00 63 21 146/82 (103) 96 Room Air I & O 06/18/22 07:00 Intake Total 1840 ml Output Total 200 ml Balance 1640 ml Height & Weight Height: '" Weight: lbs. oz. kg; 28.29 BMI Method: General Appearance: No Apparent Distress, WD/WN, Chronically ill HEENT: PERRL/EOMI Neck: Non Tender, Supple Respiratory: Lungs Clear, Normal Breath Sounds Cardiovascular: Irregularly Irregular, Tachycardia Extremity: Non Tender, No Pedal Edema Neurologic/Psychiatric: Alert, Oriented x3 Skin: Normal Color, Warm/Dry Lymphatic: No Adenopathy Results Lab Laboratory Tests 06/17/22 10:10 06/18/22 05:04 Assessment/Plan Assessment/Plan 1 LINK JASON MD Jun 18, 2022 09:14
[2022-06-18] MEDS ORDERED: LOSARTAN 50 MG (COZAAR) TAB PO SCH (09:15)
[2022-06-18] MEDS: dilTIAZem DRIP PRE-MIX 125 ML IV SCH (09:28)
[2022-06-18] MEDS ORDERED: AMIO200T65 PO ×2 (10:45)
[2022-06-18] MEDS ORDERED: DILT-27 PO ×2 (10:45)
--- NOTE | 2022-06-18 10:47 | Discharge Summary ---
Diagnosis/Chief Complaint Date of Admission Jun 17, 2022 at 09:02 Date of Discharge Discharge Date: Jun 18, 2022 Discharge Diagnosis Assessment: Atrial fibrillation with RVR Recent CVA Hypertension Hyperlipidemia Closed left ulna fracture History of breast cancer left Left arm lymphedema Plan: Supportive care Cardizem drip Anticoagulation Reason Hospital Visit Discharge Summary Discharge Physical Examination Allergies: Coded Allergies: gemcitabine (Verified Allergy, Mild, RASH, 06/17/22) Iodinated Contrast Media (Verified Allergy, Unknown, 06/15/22) Sulfa (Sulfonamide Antibiotics) (Verified Allergy, Unknown, 06/15/22) azithromycin (Verified Allergy, NAUSEA AND VOMITING, 06/17/22) levofloxacin (Verified Allergy, HIVES, 06/17/22) Uncoded Allergies: ADHESIVE TAPE-SILICONES (Allergy, Mild, RASH, 06/17/22) CHEMOTHERAPY (Allergy, Unknown, rash, itching, 06/17/22) FEXOFENADINE-PSEUDOEPHEDRINE (Allergy, PALPITATIONS, 06/17/22) Vitals & I&Os Vital Signs Date Time Temp Pulse Resp B/P (MAP) Pulse Ox O2 Delivery O2 Flow Rate FiO2 06/18/22 11:45 06/18/22 11:09 95 Room Air 4.00 06/18/22 10:00 56 17 06/18/22 08:03 36.3 06/18/22 00:06 38 General Appearance: Alert, Oriented X3, Cooperative Respiratory: Clear to Auscultation Psych/Mental Status: Mental Status NL Hospital Course Was the Problem List Reviewed?: Yes Short course after admitted to ICU for AF RVR managed with Cardizem drip. Pt had an uneventful hospital course. She was admitted for afib with RVR after discharge from in-patient rehab. Dr. [place] had her on a Cardizem drip and ultimately converted her over to Amiodarone 400 mg BID, added Diltiazem of 120 and Losartan of 50. Pt was deemed stable for discharge and went back to the in- patient rehab unit. Labs (last 24 hrs) Laboratory Tests 06/17/22 10:10: White Blood Count 6.9, Red Blood Count 3.86, Hemoglobin 11.9, Hematocrit 37, Mean Corpuscular Volume 97, Mean Corpuscular Hemoglobin 31, Mean Corpuscular Hemoglobin Concent 32, Red Cell Distribution Width 13.3, Platelet Count 263, Mean Platelet Volume 10.4, Immature Granulocyte % (Auto) 1, Neutrophils (%) (Auto) 74, Lymphocytes (%) (Auto) 14, Monocytes (%) (Auto) 8, Eosinophils (%) (Auto) 3, Basophils (%) (Auto) 0, Neutrophils # (Auto) 5.2, Lymphocytes # (Auto) 1.0, Monocytes # (Auto) 0.6, Eosinophils # (Auto) 0.2, Basophils # (Auto) 0.0, Immature Granulocyte # (Auto) 0.0, Sodium Level 140, Potassium Level 3.6, Chloride Level 107, Carbon Dioxide Level 24, Anion Gap 9, Blood Urea Nitrogen 13, Creatinine 0.80, Estimat Glomerular Filtration Rate 76, BUN/Creatinine Ratio 16, Glucose Level 116H, Calcium Level 9.2, Corrected Calcium 9.7, Total Bilirubin 0.5, Aspartate Amino Transf (AST/SGOT) 12, Alanine Aminotransferase (ALT/SGPT) 14, Alkaline Phosphatase 45, Total Protein 6.7, Albumin 3.4 06/18/22 05:04: White Blood Count 7.5, Red Blood Count 3.66L, Hemoglobin 11.1L, Hematocrit 35, Mean Corpuscular Volume 96, Mean Corpuscular Hemoglobin 30, Mean Corpuscular Hemoglobin Concent 32, Red Cell Distribution Width 13.2, Platelet Count 253, Mean Platelet Volume 10.8, Immature Granulocyte % (Auto) 1, Neutrophils (%) (Auto) 72, Lymphocytes (%) (Auto) 17, Monocytes (%) (Auto) 7, Eosinophils (%) (Auto) 2, Basophils (%) (Auto) 0, Neutrophils # (Auto) 5.4, Lymphocytes # (Auto) 1.3, Monocytes # (Auto) 0.5, Eosinophils # (Auto) 0.2, Basophils # (Auto) 0.0, Immature Granulocyte # (Auto) 0.0, Sodium Level 141, Potassium Level 3.7, Chloride Level 108H, Carbon Dioxide Level 22, Anion Gap 11, Blood Urea Nitrogen 12, Creatinine 0.82, Estimat Glomerular Filtration Rate 74, BUN/Creatinine Ratio 15, Glucose Level 97, Calcium Level 8.8, Corrected Calcium 9.3, Total Bilirubin 0.7, Aspartate Amino Transf (AST/SGOT) 15, Alanine Aminotransferase (ALT/SGPT) 11, Alkaline Phosphatase 49, Total Protein 6.6, Albumin 3.4, Phosphorus Level 4.5, Magnesium Level 1.7 Microbiology 06/17/22 MRSA Screen - Final, Complete MRSA not isolated Pending Labs Microbiology Date/Time Source Procedure Growth Status 06/17/22 14:20 Nasal MRSA Screen - Final MRSA not isolated Complete Laboratory Tests 06/17/22 10:10: White Blood Count 6.9, Red Blood Count 3.86, Hemoglobin 11.9, Hematocrit 37, Mean Corpuscular Volume 97, Mean Corpuscular Hemoglobin 31, Mean Corpuscular H emoglobin Concent 32, Red Cell Distribution Width 13.3, Platelet Count 263, Mean Platelet Volume 10.4, Immature Granulocyte % (Auto) 1, Neutrophils (%) (Auto) 74, Lymphocytes (%) (Auto) 14, Monocytes (%) (Auto) 8, Eosinophils (%) (Auto) 3, Basophils (%) (Auto) 0, Neutrophils # (Auto) 5.2, Lymphocytes # (Auto) 1.0, Monocytes # (Auto) 0.6, Eosinophils # (Auto) 0.2, Basophils # (Auto) 0.0, Immature Granulocyte # (Auto) 0.0, Sodium Level 140, Potassium Level 3.6, Chloride Level 107, Carbon Dioxide Level 24, Anion Gap 9, Blood Urea Nitrogen 13, Creatinine 0.80, Estimat Glomerular Filtration Rate 76, BUN/Creatinine Ratio 16, Glucose Level 116, Calcium Level 9.2, Corrected Calcium 9.7, Total Bilirubin 0.5, Aspartate Amino Transf (AST/SGOT) 12, Alanine Aminotransferase (ALT/SGPT) 14, Alkaline Phosphatase 45, Total Protein 6.7, Albumin 3.4 06/18/22 05:04: White Blood Count 7.5, Red Blood Count 3.66, Hemoglobin 11.1, Hematocrit 35, Mean Corpuscular Volume 96, Mean Corpuscular Hemoglobin 30, Mean Corpuscular Hemoglobin Concent 32, Red Cell Distribution Width 13.2, Platelet Count 253, Mean Platelet Volume 10.8, Immature Granulocyte % (Auto) 1, Neutrophils (%) (Auto) 72, Lymphocytes (%) (Auto) 17, Monocytes (%) (Auto) 7, Eosinophils (%) (Auto) 2, Basophils (%) (Auto) 0, Neutrophils # (Auto) 5.4, Lymphocytes # (Auto) 1.3, Monocytes # (Auto) 0.5, Eosinophils # (Auto) 0.2, Basophils # (Auto) 0.0, Immature Granulocyte # (Auto) 0.0, Sodium Level 141, Potassium Level 3.7, Chloride Level 108, Carbon Dioxide Level 22, Anion Gap 11, Blood Urea Nitrogen 12, Creatinine 0.82, Estimat Glomerular Filtration Rate 74, BUN/Creatinine Ratio 15, Glucose Level 97, Calcium Level 8.8, Corrected Calcium 9.3, Total Bilirubin 0.7, Aspartate Amino Transf (AST/SGOT) 15, Alanine Aminotransferase (ALT/SGPT) 11, Alkaline Phosphatase 49, Total Protein 6.6, Albumin 3.4, Phosphorus Level 4.5, Magnesium Level 1.7 Discharge Home Medications: Active Scripts Active Vitamin D3 (Cholecalciferol (Vitamin D3)) 50 Mcg (2000 Unit) Capsule 50 Mcg PO BID GIVE WITH CALCIUM AT 0900 AND 2100 Diltiazem 24Hr ER (Diltiazem HCl) 120 Mg Cap.er.24h 120 Mg PO DAILY 30 Days Amiodarone HCl 200 Mg Tablet 400 Mg PO BID 30 Days Reported Paroxetine HCl 20 Mg Tablet 20 Mg PO DAILY Fish Oil 1,200 mg Fish Oil (Fish Oil/Dha/Epa) 1,200 Mg-144 Mg-216 Mg Capsule 1 Each PO DAILY Eye Multivitamin Tablet (Vit A/Vit C/Vit E/Zinc/Copper) 2,148-113 Tablet 1 Each PO DAILY Losartan Potassium 50 Mg Tablet 50 Mg PO DAILY Gabapentin 100 Mg Capsule 100 Mg PO TID Calcium Carbonate 500 Mg Calcium (1250 Mg) Tablet 500 Mg PO TID Atorvastatin Calcium 40 Mg Tablet 40 Mg PO HS Aspirin EC (Aspirin) 81 Mg Tablet.dr 81 Mg PO BID Eliquis (Apixaban) 5 Mg Tablet 5 Mg PO BID Instructions to patient/family Please see electronic discharge instructions given to patient. Diagnosis/Problems Diagnosis/Problems (1) Atrial fibrillation with rapid ventricular response (2) CVA (cerebral vascular accident) (3) Chronic anticoagulation (4) Closed left arm fracture (5) Hypertension (6) Hyperlipidemia (7) Depression (8) Atrial fibrillation JHOANA GROSS DO Jun 18, 2022 10:47
[2022-06-18] MEDS ORDERED: CHOL20003 PO (15:13)
== END 2022-06-18 11:36 | DRG 309 ==
LOC: ICU 09:02
PROVIDERS: ADMIT Internal Medicine; ATTEND Internal Medicine
DX: I48.0 Paroxysmal atrial fibrillation (principal); S42.302A Unspecified fracture of shaft of humerus, left arm, initial encounter for closed fracture; I10 Essential (primary) hypertension; Z79.82 Long term (current) use of aspirin; Z79.899 Other long term (current) drug therapy; E78.00 Pure hypercholesterolemia, unspecified; Z86.73 Personal history of transient ischemic attack (TIA), and cerebral infarction without residual deficits; F32.A Depression, unspecified; I89.0 Lymphedema, not elsewhere classified; Z85.3 Personal history of malignant neoplasm of breast; Z79.01 Long term (current) use of anticoagulants; R09.02 Hypoxemia; R00.1 Bradycardia, unspecified; R53.1 Weakness
CPT/HCPCS: 36415; 71045; 80053; 83735; 84100; 85025; 87081; 93005; 94640; 94664

== ENCOUNTER 2022-06-18 10:49 | Inpatient (IN) | payer MEDICARE ==
[~2022-06-18] VITALS: Ht 162.6 cm; Wt 73.5 kg
[~2022-06-18 10:49] MED LIST changes: +DILT-27 PO
[2022-06-18] MEDS ORDERED: BISACODYL 10 MG SUPP (DULCOLAX) PR PRN ×2 (11:00→12:15)
[2022-06-18] MEDS ORDERED: FLEET ENEMA ADULT 1 EA BTL PR PRN (11:00)
[2022-06-18] MEDS ORDERED: CALCIUM CARBONATE 500 MG (TUMS) TAB.CHEW PO PRN (11:00)
[2022-06-18] MEDS ORDERED: diphenhydrAMINE 25 MG TAB (BENADRYL) PO PRN ×2 (11:00→12:15)
[2022-06-18] MEDS ORDERED: ACETAMINOPHEN 325 MG TABLET PO PRN (11:00)
[2022-06-18] MEDS ORDERED: LACTULOSE SYRUP 10GM/15ML (ENULOSE) 30ML UDC PO PRN ×2 (11:00→12:15)
[2022-06-18] MEDS ORDERED: guaiFENesin/CODEINE (ROBITUSSIN AC) 10ML UDC PO PRN (11:00)
[2022-06-18] MEDS ORDERED: ONDANSETRON 4 MG (ZOFRAN) ORAL DISSOLVE TAB PO PRN ×2 (11:00→12:15)
[2022-06-18] MEDS ORDERED: LOPERAMIDE 2 MG (IMODIUM) TABLET PO PRN (11:00)
[2022-06-18] MEDS ORDERED: MELATONIN 3 MG TABLET PO PRN (11:00)
[2022-06-18] MEDS ORDERED: ALPRAZolam 0.25 MG (XANAX) TAB PO PRN (11:00)
[2022-06-18] MEDS ORDERED: DOCUSATE SODIUM 100 MG (COLACE) CAP PO PRN (11:00)
--- NOTE | 2022-06-18 11:00 | PM&R Post Admission Assessment ---
PM&R HP Date of Visit: Jun 18, 2022 Time of Visit: 11:45 History of Present Illness CC: CVA HPI: This is a 76yoWF who presents from [facility] in [place], [place] following a CVA. Left sided facial droop and mild dysarthria noted. Left arm fracture has been managed by Dr Kirby since they have requested his services and weight bearing on that limb should be minimized. Cardiology will continue consulted. Atrial fibrillation will be monitored closely. Patient denies pain and is able to swallow well without dysphagia. Aggressive therapy will be req uired in order to return back to independent living. PLOF was independent in all ADL's and ambulation. ICU course: Pt had an uneventful hospital course. She was admitted for afib with RVR after discharge from in-patient rehab. Dr. Medellin had her on a Cardizem drip and ultimately converted her over to Amiodarone 400 mg BID, added Diltiazem of 120 and Losartan of 50. Pt was deemed stable for discharge and went back to the in-patient rehab unit. Patient is a 76 year old female with a history of PAF, HTN, and HLD who transferred from [facility] in [place], [place] following a CVA on 06/15 for in-patient rehab. Patient presented with left-sided weakness, left- sided facial droop, and mild dysarthria. The patient was found to have afib with RVR on admission but converted with amiodarone. On 06/17 the patient had palpitations and felt like her heart was racing when she stood up and EKG showed that she was in afib with RVR. The patient was transferred to the ICU to be placed on a cardizem drip. The patient denies any chest pain, SOB, and is not currently experiencing any palpitations. Past Sifmnsu-Fwvezb-Sidreh Hx Past Med/Social Hx: Reviewed Nursing Past Med/Soc Hx, Reviewed and Corrections made Patient Social History Marrital Status: single Employed/Student: retired Alcohol Use: Denies Use Smoking Status: Never a Smoker Past Medical History Cardiac: Atrial Fibrillation, High Cholesterol, Hypertension Neurological: Stroke Psychosocial: Depression Family History No Pertinent Family Hx PM&R Allergy/Meds/Data Review Allergies Coded Allergies: gemcitabine (Verified Allergy, Mild, RASH, 06/17/22) Iodinated Contrast Media (Verified Allergy, Unknown, 06/15/22) Sulfa (Sulfonamide Antibiotics) (Verified Allergy, Unknown, 06/15/22) azithromycin (Verified Allergy, NAUSEA AND VOMITING, 06/17/22) levofloxacin (Verified Allergy, HIVES, 06/17/22) Uncoded Allergies: ADHESIVE TAPE-SILICONES (Allergy, Mild, RASH, 06/17/22) CHEMOTHERAPY (Allergy, Unknown, rash, itching, 06/17/22) FEXOFENADINE-PSEUDOEPHEDRINE (Allergy, PALPITATIONS, 06/17/22) Home Medications Scheduled Amiodarone HCl (Amiodarone HCl), 400 MG PO BID Apixaban (Eliquis), 5 MG PO BID, (Reported) Aspirin (Aspirin EC), 81 MG PO BID, (Reported) Atorvastatin Calcium (Atorvastatin Calcium), 40 MG PO HS, (Reported) Calcium Carbonate (Calcium Carbonate), 500 MG PO TID, (Reported) Cholecalciferol (Vitamin D3) (Vitamin D3), 50 MCG PO BID Diltiazem HCl (Diltiazem 24Hr ER), 120 MG PO DAILY Fish Oil/Dha/Epa (Fish Oil 1,200 mg Fish Oil), 1 EACH PO DAILY, (Reported) Gabapentin (Gabapentin), 100 MG PO TID, (Reported) Losartan Potassium (Losartan Potassium), 50 MG PO DAILY, (Reported) Paroxetine HCl (Paroxetine HCl), 20 MG PO DAILY, (Reported) Vit A/Vit C/Vit E/Zinc/Copper (Eye Multivitamin Tablet), 1 EACH PO DAILY, (Reported) Discontinued Medications Amiodarone HCl (Amiodarone HCl), 200 MG PO BID, (Reported) Amiodarone HCl (Amiodarone HCl), 200 MG PO DAILY, (Reported) Ergocalciferol (Vitamin D2) (Vitamin D2), 50 MCG PO BID, (Reported) Discontinued Reason: New Order Metoprolol Succinate (Metoprolol Succinate), 25 MG PO DAILY, (Reported) Current Medications Current Medications Reviewed Review of Systems Constitutional: see HPI, malaise, weakness EENTM: no symptoms reported Respiratory: dyspnea on exertion Cardiovascular: no symptoms reported Gastrointestinal: constipation Genitourinary: no symptoms reported Musculoskeletal: back pain, joint pain Skin: no symptoms reported Psychiatric/Neurological: Tremors, Weakness All Other Systems Reviewed Negative Unless Noted: Yes Physical Exam Physical Exam Vital Signs Capillary Refill : Height, Weight, BMI Height: '" Weight: lbs. oz. kg; 28.29 BMI Method: General Appearance: No Apparent Distress, WD/WN, Chronically ill Eyes: Bilateral Eye Normal Inspection, Bilateral Eye PERRL HEENT: PERRL/EOMI, Normal ENT Inspection, Pharynx Normal Neck: Full Range of Motion, Normal Inspection, Non Tender, Supple, Carotid Bruit Respiratory: Chest Non Tender, Lungs Clear, Normal Breath Sounds, No Accessory Muscle Use, No Respiratory Distress Cardiovascular: No Edema, No Gallop, No JVD, No Murmur, Normal Peripheral Pu lses, Irregularly Irregular, Tachycardia Gastrointestinal: Normal Bowel Sounds, No Organomegaly, No Pulsatile Mass, Non Tender, Soft Back: Normal Inspection, No CVA Tenderness, No Vertebral Tenderness Extremity: Normal Capillary Refill, Normal Inspection, Normal Range of Motion (except left arm), Non Tender, No Calf Tenderness, No Pedal Edema Neurologic/Psychiatric: Alert, Oriented x3, Normal 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 fib, left arm fracture, fall risk REHAB PLAN: The patient is being admitted to our comprehensive inpatient rehabilitation facility and can tolerate the intensity of service consisting of at least: 180 minutes of therapy a day, 5 out of 7 days a week Rehab treatment will consist of: PT and OT will focus on regaining function while managing left arm fracture with stroke residual with the use of assistive devices in order to increase independence in ADLs The patient/family has a good understanding of our discharge process and will benefit from an interdisciplinary inpatient rehabilitation program. The patient has potential to make improvement and is in need of at least two of the following multidisciplinary therapies including but not limited to physical, occupational, speech, and prosthetics and orthotics. Additionally the patient will need services from respiratory, nutritional services, wound care, psychology, etc. (Customize this to each patient). Given the patients complex condition and risk of further medical complications, rehabilitation services cannot be safely or effectively provided at a lower level of care such as a assisted facility. BARRIERS TO DISCHARGE: Advanced age and fall risk ESTIMATED LOS: 10 days DISPOSITION: Home RELEVANT CHANGES SINCE PREADMISSION SCREENING: I have compared the patients medical and functional status at the time of the preadmission screening and there are: No changes PROGNOSIS: Good REHABILITATION GOALS: 1.PT and OT will focus on regaining function while managing left arm fracture with stroke residual with the use of assistive devices in order to increase independence in ADLs All the above goals were reviewed with the patient and he/she is in agreement. By signing this document, I acknowledge that I have personally performed a full physical examination on this patient within 24 hours of admission to this inpatient rehabilitation facility and have determined the patient to be able to tolerate the above course of treatment at an intensive level for a reasonable period of time. I will be completing a detailed individualized Plan of Care for this patient by day #4 of the patients stay based upon the Preadmission Screen, the Post-Admission Evaluation, and the therapy evaluations. Admission Dx/Comorbidities: (1) CVA (cerebral vascular accident) ICD Codes: I63.9 - Cerebral infarction, unspecified (2) Atrial fibrillation with rapid ventricular response ICD Codes: I48.91 - Unspecified atrial fibrillation (3) Closed left arm fracture ICD Codes: S42.302A - Unspecified fracture of shaft of humerus, left arm, initial encounter for closed fracture (4) Chronic anticoagulation ICD Codes: Z79.01 - correction (current) use of anticoagulants (5) Hypertension ICD Codes: I10 - Essential (primary) hypertension (6) Hyperlipidemia ICD Codes: E78.5 - Hyperlipidemia, unspecified (7) Depression ICD Codes: F32.A - Depression, unspecified Assessment/Plan Assessment and Plan Assess & Plan/Chief Complaint Assessment: A. fib with RVR requiring ICU transfer and discharge from rehab 06/17/2022 but readmitted 06/18/2022 CVA Left-sided weakness Left arm fracture limit weight bearing Hypertension Hyperlipidemia Atrial fibrillation Depression History of left sided breast cancer Chronic left arm lymphedema Plan: Monitor closely Fall risk Aggressive rehab Appreciate Cardiology JHOANA GROSS DO Jun 18, 2022 11:00
--- NOTE | 2022-06-18 11:50 | Occupational Therapy Eval ---
OT Evaluation-General/PLF Medical Diagnosis Admission Date 06/18/22 Medical Diagnosis: R CVA Onset Date: Jun 09, 2022 Therapy Diagnosis Therapy Diagnosis: Reduced ADL status Precautions Precautions/Isolations: Fall Prevention, Standard Precautions Weight Bear Status Weight Bearing Restriction: Partial Weight Bearing Location Restriction: L UE Referral Physician: Katherin Lopez Reason: Evaluation/Treatment Medical History Pertinent Medical History: Atrial Fib, CVA, HTN, Neuropathy Current History Pt is s/p R CVA who also fell during an A-fib episode and fractured her L distal ulna. Pt was previously on ARU floor, but after an episode of A-fib, she went up to the ICU and she has just returned to ARU today. Pt was living with her in a single level home. She was independent with all ADLs and IADLs. Her has had a stroke in the past and receives assistance at home from home health as well as his (this pt). She stated that she normally helps him to stand, and feed him. She was not using any assistive devices at [facility]. Reviewed History: Yes Social History Home: Single Level Current Living Status: Spouse Entry Into Home: Ramp, Stairs With Railing Steps Into Home: 3 ADL-Prior Level of Function SCALE: Activities may be completed with or without assistive devices. 4-Ovfcdzkmbw-rgrefih completes the activity by him/herself with no assistance from a helper. 5-Set-up or Clean-up Assistance-helper sets up or cleans up; patient completes activity. Simpson assists only prior to or following the activity. 4-Supervision or Touching Assistance-helper provides verbal cues and/or touching/steadying and/or contact guard assistance as patient completes activity. Assistance may be provided throughout the activity or intermittently. 3-Partial/Moderate Assistance-helper does LESS THAN HALF the effort. Simpson lifts, holds or supports trunk or limbs, but provides less than half the effort. 2-Substantial/Maximal Assistance-helper does MORE THAN HALF the effort. Simpson lifts or holds trunk or limbs and provides more than half the effort. 4-Bfpkknyma-upyydu does ALL the effort. Patient does none of the effort to complete the activity. Or, the assistance of 2 or more helpers is required for the patient to complete the activity. If activity was not attempted, code reason: 7-Patient Refused. 9-Not Applicable-not attempted and the patient did not perform the activity before the current illness, exacerbation or injury. 10-Not Attempted due to Environmental Limitations-(lack of equipment, weather restraints, etc.). 88-Not Attempted due to Medical Conditions or Safety Concerns. Self Care: Independent Functional Cognition: Independent DME/Equipment: Bath Chair, Grab Bars, Shower, Tall Toilet, Tub/Shower DME/Equipment Comments handicap accessible toilet and widened doorways to all bathrooms Drive Self: Yes OT Current Status Subjective Pt was laying in recliner upon arrival. She was ready and excited to come back down to MAU. Her is with her at this time. Appearance Pt was left sitting in chair, all needs within reach, spouse in room at OT departure. 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) R shoulder: WNL Upper Extremity Strength R Radio Television Technical Director strength: minimally impaired R shoulder: 4/5 ADL-Treatment Eating (QC): 4 Oral Hygiene (QC): 5 Shower/Bathe Self (QC): 3 (assist needed for taping/covering L arm, and washing under R arm) Upper Body Dressing (QC): 5 Lower Body Dressing (QC): 3 (mod assist for threading L leg through pants and pulling briefs and pants over L hip) On/Off Footwear (QC): 3 (mod assisit: needs assist for putting bilateral soaks onto toes, pt able to pull socks over heal) Toileting Hygiene (QC): 3 (min assist for pulling pants up over L hip) Sit<>stand: SBA. Pt required assist for taping/covering arm for shower. Pt able to doff all clothing with no assistance or cues. Pt completed shower 75% in standing. Pt only sat to wash lower legs and hair. Pt required assist to wash under R armpit due to having L arm wrapped, and unable to use. Pt showed good balance while in shower. She did report feeling extra cautious and fearful in the shower, wanting therapist to "be close and watch me, in case", due to her A- fib episode and her falling/breaking her arm right after getting out of the shower last time. Pt able to don upper body clothing with set up assist. She was able to thread bilateral legs through the brief but needed assist threading and orienting L leg through pant hole. She requires assist for pulling pants over L hip for both brief and pants. Pt not able to put socks over toes due to cast/inability to use fingers in cast (swelling and placement of cast on fingers), but after therapist donned socks over toes, pt able to pull socks over heals. Pt performed all grooming tasks standing at sink with set up assist. Pt toileted and performed toileting hygiene with min assist for pulling pants over L hip. Other Treatments Pt participated in UE exercises seated in recliner 1x10 reps in all planes. L wrist/hand not performed secondary to cast and being contraindicated at this time. Pt educated on importance of performing exercises everyday to regain/ maintain strength. Pt tolerated these exercises well and did not need any rest breaks in between. Education OT Patient Education: Correct positioning, Energy conservation, Exercise program, Modified ADL techniques, Progress toward Goal/Update tx plan, Purpose of tx/functional activities, Reviewed precautions, Rehab process, Safety issues Teaching Recipient: Patient Teaching Methods: Discussion Response to Teaching: Verbalize Understanding, Return Demonstration BIMS CAM BIMS Expression of Ideas and Wants: Without Difficulty Understanding Verbal Content: Understands Brief Interview/Mental Status: Yes IRF CARL BIMS: IRF CARL BIMS Response (Comments) Value Repitition of Three Words Three 3 Recalls Socks Yes, No Cue Required 2 Recalls Blue Yes, No Cue Required 2 Recalls Bed Yes, After Cueing 1 Year Correct 3 Month Accurate Within 5 Days 2 Day Correct 1 Total [address] Mental [address] No CAM Mental Status Change/Baseline: 0 Inattention: 0 Disorganized thinkin Altered level of consciousness: 0 OT Short Term Goals Short Term Goals Time Frame: Jun 25, 2022 Eatin Oral hygiene: 5 Toileting hygiene: 5 Shower/bathe self: 4 Upper body dressin Lower body dressin Putting on/taking off footwear: 4 OT [facility] Goals [facility] Goals Time Frame: Jul 07, 2022 Eating (QC): 6 Oral Hygiene (QC): 6 Toileting Hygiene (QC): 6 Shower/Bathe Self (QC): 5 Upper Body Dressing (QC): 6 Lower Body Dressing (QC): 6 On/Off Footwear (QC): 6 Additional Goals: 1-Demonstrate ADL Tasks, 2-Verbalize Understanding, 3-Imp roveStrength/Winter 1=Demonstrate adherence to instructed precautions during ADL tasks. 2=Patient will verbalize/demonstrate understanding of assistive devices/modifications for ADL. 3=Patient will improve strength/tolerance for activity to enable patient to perform ADL's. OT Education/Plan Problem List/Assessment Assessment: Decreased Activ Tolerance, Decreased Safety Aware, Decreased UE Strength, Impaired Coordination, Impaired Funct Balance, Impaired I ADL's, Impaired Self-Care Skills Discharge Recommendations Plan/Recommendations: Continue POC Therapy Discharge Recommendati: Post Acute OT (Home health OT pending progress ) Treatment Plan/Plan of Care Treatment,Training & Education: Yes Patient would benefit from OT for education, treatment and training to promote independence in ADL's, mobility, safety and/or upper extremity function for ADL's. Plan of Care: ADL Retraining, Functional Mobility, Group Exercise/Act as Ind, UE Funct Exercise/Act Treatment Duration: Jul 07, 2022 Frequency: At least 5 of 7 days/Wk (IRF) Estimated Hrs Per Day: 1.5 hours per day (75-90 min/day) Agreement: Yes Rehab Potential: Good Time Start Time: 11:28 (1230) Stop Time: 11:38 (1350) DATE: Jun 18, 2022 Total Time Billed (hr/min): 90 Billed Treatment Time 1 visit EVM (10 min) 2nd visit ADL x4 (60 min) EX (20 min) Corinne Clifton OT Jun 18, 2022 11:50
[2022-06-18 11:58] VITALS: BP 139/70
[2022-06-18] MEDS ORDERED: polyethylene glycoL POWDER 17 GM (MIRALAX) PACK PO PRN (12:15)
[2022-06-18] MEDS ORDERED: ANTACID SUSP 30 ML UDC (MYLANTA) PO PRN (12:15)
[2022-06-18] MEDS ORDERED: diphenhydrAMINE 50 MG/ML INJ (BENADRYL) IVP PRN (12:15)
[2022-06-18] MEDS ORDERED: ONDANSETRON 4 MG/2 ML (SDV) Z0FRAN IV PRN (12:15)
[2022-06-18] MEDS ORDERED: morphine INJ 4 MG/ML 1 ML (VIAL/SYRINGE) IV PRN (12:15)
[2022-06-18] MEDS ORDERED: MILK OF MAGNESIA 400 MG/5 ML 30 ML UDC PO PRN (12:15)
--- NOTE | 2022-06-18 12:38 | Physical Therapy Evaluation ---
PT Evaluation-General Medical Diagnosis Admission Date Jun 18, 2022 at 11:28 Medical Diagnosis: R CVA Onset Date: Jun 09, 2022 Therapy Diagnosis Therapy Diagnosis: impaired mobility, strength, balance Precautions Precautions/Isolations: Fall Prevention, Standard Precautions Weight Bear Status Right Lower Extremity: Right Full Weight Bearing Left Lower Extremity: Left Full Weight Bearing partial weight bearing on left hand Referral Physician: Ashley Pandey DO Reason for Referral: Evaluation/Treatment Medical History Pertinent Medical History: Atrial Fib, CVA, HTN, Neuropathy Additional Medical History Pertinent Medical History: Atrial Fib, CVA, HTN, Neuropathy (Brachial plexopathy) Reviewed History: Yes Social History Home: Single Level Current Living Status: Spouse Entry Into Home: Ramp, Stairs With Railing PT Steps Into Home: 3 Prior Prior Level of Function SCALE: Activities may be completed with or without assistive devices. 6-Fcvrsnldgq-gigbxga completes the activity by him/herself with no assistance from a helper. 5-Set-up or Clean-up Assistance-helper sets up or cleans up; patient completes activity. [place] assists only prior to or following the activity. 4-Supervision or Touching Assistance-helper provides verbal cues and/or touching/steadying and/or contact guard assistance as patient completes activity. Assistance may be provided throughout the activity or intermittently. 3-Partial/Moderate Assistance-helper does LESS THAN HALF the effort. [place] lifts, holds or supports trunk or limbs, but provides less than half the effort. 2-Substantial/Maximal Assistance-helper does MORE THAN HALF the effort. [place] lifts or holds trunk or limbs and provides more than half the effort. 3-Ywcjwrncs-qlxvdv does ALL the effort. Patient does none of the effort to complete the activity. Or, the assistance of 2 or more helpers is required for the patient to complete the activity. If activity was not attempted, code reason: 7-Patient Refused. 9-Not Applicable-not attempted and the patient did not perform the activity before the current illness, exacerbation or injury. 10-Not Attempted due to Environmental Limitations-(lack of equipment, weather restraints, etc.). 88-Not Attempted due to Medical Conditions or Safety Concerns. Bed Mobility: 6 Transfers (B,C,W/C): 6 Gait: 6 Stairs: 6 Indoor Mobility (Ambulation): Independent Stairs: Independent Prior Devices Use: None PT Evaluation-Current Subjective Patient in ICU recliner pre-tx, brought down to rehab floor, reports 4/10 pain in LUE, agrees to PT. Pain Section J - Health Conditions 1. Rarely or not at all 2. Occasionally 3. Frequently 4. Almost constantly 8. Unable to answer Pain Effect on Sleep: 1 Pain Interference with Therapy: 1 Pain Interference w/Day-to-Day: 1 Pt/Family Goals Return to independence at home. Objective Patient Orientation: Person, Place, Situation left arm splint ROM/Strength ROM Lower Extremities WFL Strength Lower Extremities RLE (hip flexion 3+, knee extension 4-/5, knee flexion 5/5, DF 4-/5), LLE (hip flexion 3+, knee extension 4-/5, knee flexion 5/5, DF 4-/5) Neuromuscular (Tone, Coordination, Reflexes) Coordination slightly diminished Sensory Hearing: Functional Hand Dominance: Right Sensation Right Lower Extremit: Intact Sensation Left Lower Extremity: Intact Transfers Roll Left & Right (QC): 4 (SBA) Sit to Lying (QC): 4 (SBA) Lying to Sitting/Side of Bed(Q: 4 (SBA) Sit to Stand (QC): 4 (CGA) Chair/Fip-to-Ugwvs Xfer(QC): 4 (CGA) Toilet Transfer (QC): 4 (CGA) Car Transfer (QC): 4 (CGA) Gait Does the Patient Walk?: Yes Mode of Locomotion: Walk Anticipated Mode of Locomotion: Walk Walk 10 feet (QC): 4 Walk 50 ft with 2 Turns(QC): 4 Walk 150 ft (QC): 4 Walking 10ft/uneven surface-QC: 4 Distance: 75', 75', 150' Gait Assistive Device: Walker Platform Comments/Gait Description CGA with all ambulation, patient walks with functional foot clearance, gait speed, and step length. Patient uses platform walker due to broken distal forearm. Wheelchair Training Does the Pt Use a Wheelchair?: No Wheel 50 ft with 2 turns (QC): 9 Wheel 150 ft (QC): 9 Stairs #of Steps: 1 1 Step (curb) (QC): 4 (CGA) 4 Steps (QC): 88 12 Steps (QC): 88 Balance Sitting Static: Normal Sitting Dynamic: Fair Standing Static: Fair Standing Dynamic: Fair Picking up an Object (QC): 4 (CGA with air support control officer arm) Assessment/Needs Patient is unsteady with walking, transfers, and transitioning into different positions. During position transitions, patient reports getting dizzy and displays moderate unsteadiness. [place] 20/28 MODERATE Fall Risk. Patient in recliner post-tx with in room, nurse call, phone, tray, all needs met. Rehab Potential: Fair PT Short Term Goals Short Term Goals Time Frame: Jun 25, 2022 Sit to stand: 4 Chair/csb-po-ybxqb transfer: 4 Toilet transfer: 4 Car transfer: 4 Walk 10 feet: 4 Walk 50 feet with two turns: 4 Walk 150 feet: 4 Walking 10ft on uneven surface: 4 1 step (curb): 4 4 steps: 4 Picking up objects: 4 SBA on all GOALS PT Mcc Goals Key Holder Goals PT Mcc Goals Time Frame: Jul 09, 2022 Roll Left to Right (QC): 6 Sit to Lying (QC): 6 Lying-Sitting on Side/Bed(QC): 6 Sit to Stand (QC): 6 Chair/Vya-dj-Vmief Xfer(QC): 6 Toilet/Commode Transfer (QC): 6 Car Transfer (QC): 6 Walk 10 feet (QC): 6 Walk 10ft-Uneven Surface(QC): 6 Walk 50ft with 2 Turns (QC): 6 Walk 150 ft (QC): 6 Wheel 50 feet with 2 turns (QC: 9 Wheel 150 feet: 9 1 Step (curb) (QC): 6 4 Steps (QC): 6 12 Steps (QC): 88 Picking up an Object (QC): 6 PT Plan Problem List Problem List: Activity Tolerance, Functional Strength, Safety, Balance, Gait, Transfer, Bed Mobility, ROM Treatment/Plan Treatment Plan: Continue Plan of Care Treatment Plan: Bed Mobility, Education, Functional Activity Winter, Functional Strength, Gait, Safety, Therapeutic Exercise, Transfers Treatment Duration: Jul 09, 2022 Frequency: At least 5 of 7 days/Wk (IRF) Estimated Hrs Per Day: 1.5 hours per day Patient and/or Family Agrees t: Yes Safety Risks/Education Patient Education: Gait Training, Transfer Techniques, Steps, Correct Positioning, Safety Issues Teaching Recipient: Patient Teaching Methods: Demonstration, Discussion Response to Teaching: Reinforcement Needed Discharge Recommendations Plan Patient will perform bed mobility and transfer training, functional strengthening and endurance training, stair and gait training, and balance training in order to be more independent at home. Therapy Discharge Recommendati: Home & Family Time Time In: 1138 Time Out: 1200 DATE: Jun 18, 2022 Total Billed Treatment Time: 22 Total Billed Treatment 1 visit ELIANA 22' SERGEY CABRERA PT Jun 18, 2022 12:38
[2022-06-18] MEDS: ACETAMINOPHEN 325 MG TABLET PO PRN ×2 (12:39→20:53)
[2022-06-18] MEDS: CALCIUM CARBONATE 500 MG (TUMS) TAB.CHEW PO SCH ×2 (13:56→20:55)
[2022-06-18] MEDS: GABAPENTIN 100 MG (NEURONTIN) CAP PO SCH ×2 (13:56→20:55)
--- NOTE | 2022-06-18 14:15 | ST Cognitive Linguistic Eval ---
Speech Evaluation-General Medical Diagnosis R CVA Onset Date: Jun 09, 2022 Therapy Diagnosis Therapy Diagnosis: Intact Cognition, Minimal Dysarthria Precautions Precautions: Fall, Aspiration Precautions/Isolations: Aspiration, Fall Prevention, Standard Precautions Referral Referring Physician: Dr. Pandey Medical History Pertinent Medical History: Atrial Fib, CVA, HTN, Neuropathy Reviewed History: Yes Social History Current Living Status: Spouse Speech PLF-Current Status Prior Level of Function The patient denied recent changes to her speech, language or cognition. Subjective The patient was seated upright in a recliner, awake and alert, upon entrance to her room by the clinician. The patient greeted the clinician appropriately and was agreeable to participation in the cognitive linguistic assessment. The patient's was present for the assessment. Language Eval: Auditory Comprehends Simple Yes/No Ques: Functional Indent/Objects Multiple [place]: Functional Follows 1-Step Commands: Functional Follows General Conversations: Functional Language Eval: Verbal Language Completes Spontaneous Greeting: Functional Produces Auto, Serial Info: Functional Word Finding: Functional Requests Basic Needs: Functional States Basic Personal Info: Functional Objective Cognitive Domain Attention: WNL Composite Severity Rating: WNL Objective Oral Motor/Speech Production The patient demonstrated slightly reduced left labial range of motion and strength. Minimally imprecise articulation was present, minimal dysarthria. Regardless of the impairments noted, the patient remains 100% intelligible in known and unknown contexts. Impression The patient remains consistent with intact cognitive linguistic skills and minimal dysarthria. The patient's intelligibility strategies were reviewed and discussed. The patient denied additional questions or concerns for the clinician at this time. Speech-Plan Treatment Plan Speech Therapy Treatment Plan: Discontinue ST Treatment Duration: Jun 18, 2022 Frequency: 1 time per week Estimated Hrs Per Day: .25 hour per day Rehab Potential: Fair Pt/Family Agrees to Plan: Yes Safety Risks/Education Teaching Recipient: Patient, Significant Other Teaching Methods: Discussion Response to Teaching: Verbalize Understanding Education Topics Provided: Results, Plan of Care Time Speech Therapy Time In: 13:50 Speech Therapy Time Out: 14:05 DATE: Jun 18, 2022 Total Billed Time: 15 Billed Treatment Time 1, DEMETRICE LOVING Jun 18, 2022 14:15
--- NOTE | 2022-06-18 14:56 | Physical Therapy Daily Note ---
PT Daily Note-Current Subjective Patient in recliner pre-tx, reports discomfort in distal LUE but no pain, agrees to PT. Pain Section J - Health Conditions 1. Rarely or not at all 2. Occasionally 3. Frequently 4. Almost constantly 8. Unable to answer Pain Effect on Sleep: 1 Pain Interference with Therapy: 1 Pain Interference w/Day-to-Day: 1 Appearance Patient in bed post-tx with in room, nurse call, phone, tray, all needs met. Mental Status Patient Orientation: Person, Place, Situation telemetry, left arm splint Transfers SCALE: Activities may be completed with or without assistive devices. 4-Hxaubhfodx-hviqyzy completes the activity by him/herself with no assistance f rom a helper. 5-Set-up or Clean-up Assistance-helper sets up or cleans up; patient completes activity. [place] assists only prior to or following the activity. 4-Supervision or Touching Assistance-helper provides verbal cues and/or touching/steadying and/or contact guard assistance as patient completes activity. Assistance may be provided throughout the activity or intermittently. 3-Partial/Moderate Assistance-helper does LESS THAN HALF the effort. [place] lifts, holds or supports trunk or limbs, but provides less than half the effort. 2-Substantial/Maximal Assistance-helper does MORE THAN HALF the effort. [place] lifts or holds trunk or limbs and provides more than half the effort. 9-Pdxladvax-ovqupw does ALL the effort. Patient does none of the effort to complete the activity. Or, the assistance of 2 or more helpers is required for the patient to complete the activity. If activity was not attempted, code reason: 7-Patient Refused. 9-Not Applicable-not attempted and the patient did not perform the activity before the current illness, exacerbation or injury. 10-Not Attempted due to Environmental Limitations-(lack of equipment, weather restraints, etc.). 88-Not Attempted due to Medical Conditions or Safety Concerns. Roll Left & Right (QC): 4 Sit to Lying (QC): 4 Lying to Sitting/Side of Bed(Q: 4 Sit to Stand (QC): 4 (CGA) Chair/Tjh-jd-Sjwaz Xfer(QC): 4 (CGA) SBA for all except as noted Weight Bearing Right Lower Extremity: Right Full Weight Bearing Left Lower Extremity: Left Full Weight Bearing partial weight bearing on left hand Gait Training Does the Patient Walk?: Yes Distance: 150', 150' Walk 10 feet (QC): 3 Walk 50 ft with 2 Turns(QC): 3 Walk 150 ft (QC): 3 Gait Persons Needed: 1 Gait Assistive Device: Cane Large Base Quad min A with all ambulation due to patient needing assist to maintain balance, patient was walking with platform walker but we tried quad cane today. Patient a bit unsteady with quad cane, but instructed to take smaller steps and make contact with all 4 points at the same time to steady herself better. Patient seemed to have a little better balance after making those adjustments. Slight left neglect when walking. Exercises Standing: Hamstring curls, Heel/toe raises, 3 way Ex=Flex, Abd, Ext, Marching Standing Reps: 10 NuStep Minutes: 15 NuStep Workload: 4 Treatments Ambulation, LE Strengthening Assessment Current Status: Fair Progress Patient leans a bit to the left side when ambulating, needs verbal cueing to take smaller steps with quad cane in order to have better balance. Patient balance diminished and is unsteady with all ambulation, requires CGA at all times. PT Short Term Goals Short Term Goals Time Frame: Jun 25, 2022 Sit to stand: 4 Chair/vcm-tq-svpkw transfer: 4 Toilet transfer: 4 Car transfer: 4 Walk 10 feet: 4 Walk 50 feet with two turns: 4 Walk 150 feet: 4 Walking 10ft on uneven surface: 4 1 step (curb): 4 4 steps: 4 Picking up objects: 4 PT Center Customer Service Associate Goals Longterm Goals PT Center Customer Service Associate Goals Time Frame: Jul 09, 2022 Roll Left & Right (QC): 6 Sit to Lying (QC): 6 Lying-Sitting on Side/Bed(QC): 6 Sit to Stand (QC): 6 Chair/Sjb-tq-Nifba Xfer(QC): 6 Toilet Transfer (QC): 6 Car Transfer (QC): 6 Does the Patient Walk: Yes Walk 10 feet (QC): 6 Walk 50ft with 2 Turns (QC): 6 Walk 150 ft (QC): 6 Walking 10ft on Uneven Surface: 6 1 Step (curb) (QC): 6 4 Steps (QC): 6 12 Steps (QC): 88 Picking up an Object (QC): 6 Wheel 50 feet with 2 turns (QC: 9 Wheel 150 feet: 9 PT Plan Problem List Problem List: Activity Tolerance, Functional Strength, Safety, Balance, Gait, Transfer, Bed Mobility, ROM Treatment/Plan Treatment Plan: Continue Plan of Care Treatment Plan: Bed Mobility, Education, Functional Activity Winter, Functional Strength, Gait, Safety, Therapeutic Exercise, Transfers Treatment Duration: Jul 09, 2022 Frequency: At least 5 of 7 days/Wk (IRF) Estimated Hrs Per Day: 1.5 hours per day Patient and/or Family Agrees t: Yes Safety Risks/Education Patient Education: Gait Training, Transfer Techniques, Correct Positioning, Safety Issues Teaching Recipient: Patient Teaching Methods: Demonstration, Discussion Response to Teaching: Reinforcement Needed Time Time In: 1405 Time Out: 1500 DATE: Jun 18, 2022 Total Billed Treatment Time: 55 Total Billed Treatment 1 visit FA 30' EX 25' SERGEY CABRERA PT Jun 18, 2022 14:56
[2022-06-18] MEDS ORDERED: CATHETER FLUSH 10 ML SYR IVP PRN (15:00)
[2022-06-18] MEDS ORDERED: CHOL20003 PO (15:13)
[2022-06-18 16:00] VITALS: BP 152/68
[2022-06-18] MEDS: RT-ALBUTEROL/IPRATROPIUM 3 ML (DUONEB) VIAL INH SCH ×2 (16:36→20:15)
[2022-06-18] MEDS ORDERED: FLU QUAD HIGH DOSE 240 MCG/0.7 ML 2022-23 (FLUZONE) IM ONE (16:45)
[2022-06-18 20:00] VITALS: BP 155/69
[2022-06-18] MEDS: polyethylene glycoL POWDER 17 GM (MIRALAX) PACK PO SCH (20:54)
[2022-06-18] MEDS: DOCUSATE SODIUM 100 MG (COLACE) CAP PO SCH (20:54)
[2022-06-18] MEDS: SENNOSIDES 8.6 MG (SENOKOT) TAB PO SCH (20:54)
[2022-06-18] MEDS: APIXABAN 5 MG (ELIQUIS) TABLET PO SCH (20:54)
[2022-06-18] MEDS: AMIODARONE 200 MG (CORDARONE) TAB PO SCH (20:54)
[2022-06-18] MEDS: VITAMIN D3 25 MCG (1,000 UNITS) TABLET PO SCH (20:55)
[2022-06-18] MEDS: ASPIRIN E.C. 81 MG (ECOTRIN) TAB PO SCH (20:55)
[2022-06-18] MEDS: CATHETER FLUSH 10 ML SYR IVP SCH (20:56)
[2022-06-18] MEDS ORDERED: SENNA W/DOCUSATE (SENOKOT S) TABLET PO SCH (21:00)
[2022-06-18] MEDS ORDERED: DOCUSATE SODIUM 100 MG (COLACE) CAP PO SCH (21:00)
[2022-06-18] MEDS ORDERED: ERGOCALCIFEROL 50 MCG PO SCH (21:00)
[2022-06-19] MEDS: CATHETER FLUSH 10 ML SYR IVP SCH ×3 (06:48→20:05)
[2022-06-19 06:50] LABS: BASOPHILS % (AUTO) 1 % (0-10); EOSINOPHILS # (AUTO) 0.2 10^3/uL (0.0-0.3); EOSINOPHILS % (AUTO) 3 % (0-10); HEMATOCRIT 36 % (35-52); HEMOGLOBIN 11.4 g/dL (11.5-16.0); LYMPHOCYTES # (AUTO) 1.3 10^3/uL (1.0-4.0); LYMPHOCYTES % (AUTO) 19 % (12-44); MEAN CORPUSCULAR HEMOGLOBIN 30 pg (25-34); MEAN CORPUSCULAR HGB CONC 32 g/dL (32-36); MEAN CORPUSCULAR VOLUME 97 fL (80-99); MEAN PLATELET VOLUME 10.7 fL (9.0-12.2); MONOCYTES # (AUTO) 0.6 10^3/uL (0.0-1.0); MONOCYTES % (AUTO) 8 % (0-12); NEUTROPHILS # (AUTO) 4.8 10^3/uL (1.8-7.8); NEUTROPHILS % (AUTO) 69 % (42-75); PLATELET COUNT 259 10^3/uL (130-400)
[2022-06-19 07:04] LABS: ALBUMIN 3.3 GM/DL (3.2-4.5); BILIRUBIN,TOTAL 0.5 MG/DL (0.1-1.0); CALCIUM 8.9 MG/DL (8.5-10.1); CREATININE SERUM 0.75 MG/DL (0.60-1.30); POTASSIUM 3.9 MMOL/L (3.6-5.0); TOTAL PROTEIN 6.5 GM/DL (6.4-8.2)
[2022-06-19 07:19] VITALS: BP 151/72
[2022-06-19] MEDS: RT-ALBUTEROL/IPRATROPIUM 3 ML (DUONEB) VIAL INH SCH ×4 (07:50→19:34)
[2022-06-19] MEDS ORDERED: dilTIAZem120 MG (CARDIZEM CD) CAP PO SCH (09:00)
--- NOTE | 2022-06-19 09:16 | Cardiology Progress Note ---
Subjective Date Seen by Provider: Jun 19, 2022 Time Seen by Provider: 09:13 Subjective/Events-last exam Patient was seen at bedside, sitting comfortably, feeling well, complaining of mild orthostatic dizziness. Review of Systems General: No Chills, No Night Sweats, No Fatigue, No Malaise, No Appetite, No Other HEENT: No Head Aches, No Visual Changes, No Eye Pain, No Ear Pain, No Dysphasia, No Sinus Congestion, No Post Nasal Drip, No Sore Throat, No Other Pulmonary: No Dyspnea, No Cough, No Pleuritic Chest Pain, No Other Cardiovascular: No: Chest Pain, Palpitations, Orthopnea, Paroxysmal Noc. Dyspnea, Edema, Lt Headedness, Other Objective-Cardiology Exam Last Set of Vital Signs Vital Signs 06/19/22 06/19/22 07:19 07:50 Temp 36.3 Pulse 55 Resp 18 B/P (MAP) 151/72 (98) Pulse Ox 95 O2 Delivery Room Air I&O Intake and Output 06/19/22 00:00 Intake Total 720 ml Balance 720 ml Intake Oral 720 ml # Voids 4 General: Alert, Oriented X3, Cooperative HEENT: Atraumatic, PERRLA Neck: Supple, No JVD, No Thyromegaly Lungs: Clear to Auscultation, Normal Air Movement Heart: Regular Rate, Normal S1, Normal S2, No Murmurs Abdomen: Normal Bowel Sounds, Soft, No Tenderness, No Hepatosplenomegaly, No Masses Extremities: No Clubbing, No Cyanosis, No Edema, Normal Pulses, No Tenderness/Swelling Skin: No Rashes, No Breakdown, No Significant Lesion Neuro: Normal Gait, Normal Speech, Strength at 5/5 X4 Ext, Normal Tone, Sensation Intact Psych/Mental Status: Mental Status NL, Mood NL Results Lab Laboratory Tests 06/19/22 06:09 A/P-Cardiology Admission Diagnosis Acute CVA Paroxysmal atrial fibrillation Sinus node dysfunction Hypertension Assessment/Plan Status post acute CVA, continues to have some left sided weakness, continue with PT/OT PAF, was off of OAC at time of CVA. Had multiple episodes of atrial fibrillation with rapid ventricular response. Intolerant to metoprolol or Cardizem with bradycardia. Currently tolerating amiodarone Sinus node dysfunction, transient episode of bradycardia while on metoprolol and while on Cardizem. I have stopped Cardizem on June 18, 2022 Maintained on amiodarone 400 mg twice daily and planning to decrease the dose to 200 mg twice daily next week Patient was asymptomatic during the bradycardic episode. Continue to monitor [id number] score 5, maintained on Eliquis Hypertension, poorly controlled. Having orthostatic hypotension and dizziness Maintained on losartan 50 mg daily, continue to monitor blood pressure Hyperlipidemia, maintained on statin. Continue to monitor lipids Left forearm fracture, management per YANA Tobias MD Jun 19, 2022 09:16
--- NOTE | 2022-06-19 09:38 | PM&R Progress Note ---
Subjective HPI/CC On Admission Date Seen by Provider: Jun 19, 2022 Time Seen by Provider: 11:00 Subjective/Events-last exam 06/19/2022: Doing much better Less pain HR is labile either too slow or too fast Dr Medellin assessed her today Review of Systems General: Fatigue, Malaise Objective Exam Vital Signs Vital Signs Date Time Temp Pulse Resp B/P (MAP) Pulse Ox O2 Delivery O2 Flow Rate FiO2 06/19/22 12:42 62 06/19/22 11:06 96 Room Air 06/19/22 07:19 36.3 18 151/72 (98) Capillary Refill : General Appearance: No Apparent Distress, WD/WN, Chronically ill HEENT: PERRL/EOMI, Normal ENT Inspection, Pharynx Normal Neck: Full Range of Motion, Normal Inspection, Non Tender, Supple, Carotid Bruit Respiratory: Chest Non Tender, Lungs Clear, Normal Breath Sounds, No Accessory Muscle Use, No Respiratory Distress Cardiovascular: No Edema, No Gallop, No JVD, No Murmur, Normal Peripheral Pul ses, Irregularly Irregular, Tachycardia Gastrointestinal: Normal Bowel Sounds, No Organomegaly, No Pulsatile Mass, Non Tender, Soft Back: Normal Inspection, No CVA Tenderness, No Vertebral Tenderness Extremity: Normal Capillary Refill, Normal Inspection, Normal Range of Motion (except left arm), Non Tender, No Calf Tenderness, No Pedal Edema Neurologic/Psychiatric: Alert, Oriented x3, Normal Mood/Affect, conveyor mechanic II-XII Norm as Tested, Abnormal Gait, Motor Weakness (left sided) Skin: Normal Color, Warm/Dry Lymphatic: No Adenopathy Results/Procedures Lab Laboratory Tests 06/19/22 06:09 Patient resulted labs reviewed. FIM Transfers Therapy Code Descriptions/Definitions Functional [place] Measure: 0=Not Assessed/NA 4=Minimal Assistance 1=Total Assistance 5=Supervision or Setup 2=Maximal Assistance 6=Modified [place] 3=Moderate Assistance 7=Complete IndependenceSCALE: Activities may be completed with or without assistive devices. 1-Qrmgtmraxo-gxuvrbz completes the activity by him/herself with no assistance from a helper. 5-Set-up or Clean-up Assistance-helper sets up or cleans up; patient completes activity. [place] assists only prior to or following the activity. 4-Supervision or Touching Assistance-helper provides verbal cues and/or touching/steadying and/or contact guard assistance as patient completes activity. Assistance may be provided throughout the activity or intermittently. 3-Partial/Moderate Assistance-helper does LESS THAN HALF the effort. [place] li fts, holds or supports trunk or limbs, but provides less than half the effort. 2-Substantial/Maximal Assistance-helper does MORE THAN HALF the effort. [place] lifts or holds trunk or limbs and provides more than half the effort. 9-Hhtxgfkdk-nbawcf does ALL the effort. Patient does none of the effort to complete the activity. Or, the assistance of 2 or more helpers is required for the patient to complete the activity. If activity was not attempted, code reason: 7-Patient Refused. 9-Not Applicable-not attempted and the patient did not perform the activity before the current illness, exacerbation or injury. 10-Not Attempted due to Environmental Limitations-(lack of equipment, weather restraints, etc.). 88-Not Attempted due to Medical Conditions or Safety Concerns. Roll Left to Right (QC): 4 Sit to Lying (QC): 4 Sit to Stand (QC): 4 (CGA) Chair/Byy-iw-Olwys Xfer(QC): 4 (CGA) Car Transfer (QC): 4 (CGA) Gait Training Does the Patient Walk?: Yes Distance: 150', 150' Walk 10 feet (QC): 3 Walk 50 ft with 2 Turns(QC): 3 Walk 150 ft (QC): 3 Walking 10ft/uneven surface-QC: 4 Gait Persons Needed: 1 Gait Assistive Device: Cane Large Base Quad Wheelchair Training Does the Pt Use a Wheelchair?: No Wheel 50 ft with 2 turns (QC): 9 Wheel 150 ft (QC): 9 Stair Training #of Steps: 1 1 Step (curb) (QC): 4 (CGA) 4 Steps (QC): 88 12 Steps (QC): 88 Balance Picking up an Object (QC): 4 (CGA with neurology technologist arm) ADL-Treatment Eating (QC): 4 Oral Hygiene (QC): 5 Shower/Bathe Self (QC): 3 (assist needed for taping/covering L arm, and washing under R arm) Upper Body Dressing (QC): 5 Lower Body Dressing (QC): 3 (mod assist for threading L leg through pants and pulling briefs and pants over L hip) On/Off Footwear (QC): 3 (mod assisit: needs assist for putting bilateral soaks onto toes, pt able to pull socks over heal) Toileting Hygiene (QC): 3 (min assist for pulling pants up over L hip) Assessment/Plan Assessment and Plan Assess & Plan/Chief Complaint Assessment: Mary. fib with RVR requiring ICU transfer and discharge from rehab 06/17/2022 but readmitted 06/18/2022 CVA Left-sided weakness Left arm fracture limit weight bearing Hypertension Hyperlipidemia Atrial fibrillation Depression History of left sided breast cancer Chronic left arm lymphedema Plan: Monitor closely Fall risk Aggressive rehab Appreciate Cardiology 06/19/2022: Monitor HR Aggressive therapy (1) CVA (cerebral vascular accident) (2) Atrial fibrillation with rapid ventricular response (3) Closed left arm fracture (4) Chronic anticoagulation (5) Hypertension (6) Hyperlipidemia (7) Depression JHOANA GROSS DO Jun 19, 2022 09:38
--- NOTE | 2022-06-19 09:38 | Individualized Plan of Care ---
Individualized Plan of Care Rehab Nursing IPOC Order Admission Date Jun 18, 2022 at 11:28 Current Orders Orders Admission Order(Inpt,Obs,Sdc) (06/18/22 10:57) Vital Signs: Per Unit Policy ( 08,16,00 (06/18/22 10:57) Phil Suarez (06/18/22 10:57) Sequential Compression Device (06/18/22 10:57) Dryerman/Woman-Inpt Rehab Con (06/18/22 10:57) Rehab Nursing Orders-Ipoc (06/18/22 10:57) Physical Therapy Rehab Orders (06/18/22 10:57) Occupational Therapy Rehab Ord (06/18/22 10:57) Speech Therapy Rehab Orders (06/18/22 10:57) Cbc With Automated Diff (06/19/22 06:00) Comprehensive Metabolic Panel (06/19/22 06:00) Precautions (Aru) (06/18/22 10:57) Weekly Weight WEEK (06/18/22 10:57) Rehab-Intensity Of Therapy (06/18/22 10:57) Initiate Admission Nursing Pro .admission (06/18/22 10:57) Alprazolam Tablet (Xanax Tablet) (06/18/22 11:00) Calcium Carbonate Chew Tablet (Antacid C (06/18/22 11:00) Diphenhydramine Tablet (Benadryl Tablet) (06/18/22 11:00) Docusate Sodium Capsule (Colace Capsule) (06/18/22 21:00) Docusate Sodium Capsule (Colace Capsule) (06/18/22 11:00) Bisacodyl Suppository (Dulcolax Supposit (06/18/22 11:00) Lactulose Oral Solution (Enulose Oral So (06/18/22 11:00) Na Phos/Na Biphos Enema (Fleet Enema Chirag (06/18/22 11:00) Guaifenesin/Codeine Syrup (Robitussin Ac (06/18/22 11:00) Loperamide Tablet (Imodium Tablet) (06/18/22 11:00) Melatonin Tablet (Melatonin Tablet) (06/18/22 11:00) Polyethylene Glycol Powder Pkt (Miralax (06/18/22 21:00) Ondansetron Oral Dissolve Tab (Zofran (06/18/22 11:00) Senna S Tablet (Senokot S Tablet) (06/18/22 21:00) Acetaminophen Tablet/Caplet (Tylenol T (06/18/22 11:00) Code/Resuscitation (06/18/22 10:57) Initiate Admission Nursing Pro .admission (06/18/22 10:57) Telemetry (06/18/22 11:38) Telemetry Nursing Assessment ( (06/18/22 11:38) Admission Arrival Bed Request (06/18/22 11:41) Sequential Compression Device (06/18/22 12:08) Phil Hose (06/18/22 12:08) Telemetry (06/18/22 12:08) Vital Signs: Every 4 Hours (Or (06/18/22 12:08) General/Regular (06/18/22 Lunch) Acetaminophen Tablet/Caplet (Tylenol T (06/18/22 12:15) Albuterol/Ipra Inhalation Soln (Duoneb I (06/18/22 15:00) Amiodarone Tablet (Cordarone Tablet) (06/18/22 21:00) Apixaban Tablet (Eliquis Tablet) (06/18/22 21:00) Aspirin Enteric Coated Tablet (Ecotrin T (06/18/22 21:00) Atorvastatin Tablet (Lipitor Tablet) (06/18/22 21:00) Diphenhydramine Injection (Benadryl Inje (06/18/22 12:15) Diphenhydramine Tablet (Benadryl Tablet) (06/18/22 12:15) Calcium Carbonate Chew Tablet (Antacid C (06/18/22 13:00) Docusate Sodium Capsule (Colace Capsule) (06/18/22 21:00) Bisacodyl Suppository (Dulcolax Supposit (06/18/22 12:15) Lactulose Oral Solution (Enulose Oral So (06/18/22 12:15) Gabapentin Capsule/Tablet (Neurontin Cap (06/18/22 13:00) Losartan Tablet (Cozaar Tablet) (06/19/22 09:00) Melatonin Tablet (Melatonin Tablet) (06/18/22 12:15) Magnesium Hydroxide Oral Susp (Mom Oral (06/18/22 12:15) Polyethylene Glycol Powder Pkt (Miralax (06/18/22 12:15) Morphine Injection (Morphine Injection (06/18/22 12:15) Antacid Suspension (Mylanta Suspension (06/18/22 12:15) Paroxetine Tablet (Paxil Tablet) (06/19/22 09:00) Sennosides Tablet (Senokot Tablet) (06/18/22 21:00) Ondansetron Injection (Zofran Injectio (06/18/22 12:15) Ondansetron Oral Dissolve Tab (Zofran (06/18/22 12:15) Diltiazem Cd 24 Hr Capsule (Cardizem Cd (06/19/22 09:00) Oxycodone Immediate Rel Tablet (Oxyir Ta (06/18/22 12:15) Consult Cardiology (06/18/22 12:08) Incentive Spirometry Initial (06/18/22 12:08) Mat Initiate Protocol (06/18/22 12:08) Follow-Up Appointment (06/18/22 12:08) Nursing Communication (Order) (06/18/22 12:08) Precautions (Aru) (06/18/22 12:08) Sequential Compression Device (06/18/22 12:08) Phil Suarez (06/18/22 12:08) Weekly Weight WEEK (06/18/22 12:08) Telemetry Nursing Assessment ( (06/18/22 12:08) Svn Small Volume Nebulizer (06/18/22 12:08) Incentive Spirometry (Nursing) Q2H (06/18/22 12:08) Patient Visit (06/18/22 ) Pt Eval Moderate Complexity (06/18/22 ) Patient Visit (06/18/22 ) Speech Sound Lang Comp (06/18/22 ) Sodium Chloride Flush (Catheter Flush Sy (06/18/22 15:00) Sodium Chloride Flush (Catheter Flush Sy (06/18/22 22:00) Patient Visit (06/18/22 ) Exercise Therap, Ea 15 Min (06/18/22 ) Functional Activities, Ea 15 (06/18/22 ) Cholecalciferol Capsule/Tablet (Vitamin (06/18/22 21:00) Ekg Tracing (06/18/22 16:14) Flu High Dose Quad [id number] (Fluzone Hi (06/18/22 16:45) Patient Visit (06/19/22 ) Gait Training, Ea 15 Min (06/19/22 ) Rehab Nursing Orders: Ongoing Assess. of Function Status, Bladder Management, Bladder Scan, Bladder Training, Bowel Management, Bowel Training, Disease Management & Educaiton, DVT Prophylaxis, Fall Prevention, Fluid/Electrolyte/Nutrition Mgmt, Infection Prevention, Medication Management & Education, Management of Risks & Complications, Management of Skin Intergrity, Nutrition Management, Pain Management, Safety Management Intensity of Therapy to be met Patient to be seen: Min.3h per day/5 of 7d PT IPOC Problem List: Activity Tolerance, Functional Strength, Safety, Balance, Gait, Transfer, Bed Mobility, ROM Treatment Plan: Continue Plan of Care Bed Mobility, Education, Functional Activity Winter, Functional Strength, Gait, Safety, Therapeutic Exercise, Transfers Treatment Duration: Jul 09, 2022 Frequency: At least 5 of 7 days/Wk (IRF) Estimated Hrs Per Day: 1.5 hours per day OT IPOC Problems: Decreased Activ Tolerance, Decreased Safety Aware, Decreased UE Strength, Impaired Coordination, Impaired Funct Balance, Impaired I ADL's, Impaired Self-Care Skills OT Treatment, Training and Edu: Yes Plan of Care: ADL Retraining, Functional Mobility, Group Exercise/Act as Ind, UE Funct Exercise/Act Treatment Duration: Jul 07, 2022 Frequency: At least 5 of 7 days/Wk (IRF) Estimated Hrs Per Day: 1.5 hours per day (75-90 min/day) ST IPOC Speech Therapy Treatment Plan: Discontinue ST Treatment Duration: Jun 18, 2022 Frequency: 1 time per week Estimated Hrs Per Day: .25 hour per day Dryerman/Woman/Case Mgmt Dryerman/Woman/Case Managemen: Discharge Planning Dietitian/Assistant Branch Operations Manager Dietitian/Assistant Branch Operations Manager to monitor nutritional status and make changes and/or recommendations as needed and work with speech pathology on dietary upgrades as the occur. Physician IPOC Medical Issues being managed closely and that require the 24 hour availability of a physician: Recent CVA embolic type then AF RVR ICU stay 2 days after admitted to ARU early this last week will require close monitoring with Cardiology expertise while increasing stamina Medical Issues: Bowel/Bladder Function, DVT Prophylaxis, Falls Precautions, Fluid/Electrolyte/Nutrition Balance, Infection Protection, Pain Management Brief Synthesis of Preadmission Screen, Post-Admission Evaluation, and Therapy Evaluations: PT OT will focus on regaining function with the use of assistive devices in order to increase stamina and prevent falls in order to return to independent living Medical Prognosis: Good Anticipated Length of Stay: 7 days JHOANA GROSS DO Jun 19, 2022 09:38
[2022-06-19] MEDS: polyethylene glycoL POWDER 17 GM (MIRALAX) PACK PO SCH ×2 (09:59→20:17)
[2022-06-19] MEDS: PARoxetine 20 MG (PAXIL) TAB PO SCH (10:01)
[2022-06-19] MEDS: ACETAMINOPHEN 325 MG TABLET PO PRN ×3 (10:01→22:15)
[2022-06-19] MEDS: APIXABAN 5 MG (ELIQUIS) TABLET PO SCH ×2 (10:01→20:06)
[2022-06-19] MEDS: GABAPENTIN 100 MG (NEURONTIN) CAP PO SCH ×3 (10:01→20:07)
[2022-06-19] MEDS: AMIODARONE 200 MG (CORDARONE) TAB PO SCH ×2 (10:01→20:07)
[2022-06-19] MEDS: CALCIUM CARBONATE 500 MG (TUMS) TAB.CHEW PO SCH ×3 (10:01→20:07)
[2022-06-19] MEDS: LOSARTAN 50 MG (COZAAR) TAB PO SCH (10:02)
[2022-06-19] MEDS: SENNOSIDES 8.6 MG (SENOKOT) TAB PO SCH ×2 (10:02→20:06)
[2022-06-19] MEDS: VITAMIN D3 25 MCG (1,000 UNITS) TABLET PO SCH ×2 (10:02→20:06)
[2022-06-19] MEDS: ASPIRIN E.C. 81 MG (ECOTRIN) TAB PO SCH ×2 (10:02→20:07)
[2022-06-19] MEDS: DOCUSATE SODIUM 100 MG (COLACE) CAP PO SCH ×2 (10:02→20:07)
--- NOTE | 2022-06-19 11:06 | Physical Therapy Daily Note ---
PT Daily Note-Current Subjective Pt is in the chair with family present on arrival. Pt is agreeable to treatment. Pain Section J - Health Conditions 1. Rarely or not at all 2. Occasionally 3. Frequently 4. Almost constantly 8. Unable to answer Pain Effect on Sleep: 1 Pain Interference with Therapy: 1 Pain Interference w/Day-to-Day: 1 Mental Status Patient Orientation: Person, Place, Time, Situation Transfers SCALE: Activities may be completed with or without assistive devices. 7-Rigspiisee-fpiufkp completes the activity by him/herself with no assistance from a helper. 5-Set-up or Clean-up Assistance-helper sets up or cleans up; patient completes activity. [place] assists only prior to or following the activity. 4-Supervision or Touching Assistance-helper provides verbal cues and/or touching/steadying and/or contact guard assistance as patient completes activity. Assistance may be provided throughout the activity or intermittently. 3-Partial/Moderate Assistance-helper does LESS THAN HALF the effort. [place] lifts, holds or supports trunk or limbs, but provides less than half the effort. 2-Substantial/Maximal Assistance-helper does MORE THAN HALF the effort. [place] lifts or holds trunk or limbs and provides more than half the effort. 5-Vkinhojna-zfjyou does ALL the effort. Patient does none of the effort to complete the activity. Or, the assistance of 2 or more helpers is required for the patient to complete the activity. If activity was not attempted, code reason: 7-Patient Refused. 9-Not Applicable-not attempted and the patient did not perform the activity be fore the current illness, exacerbation or injury. 10-Not Attempted due to Environmental Limitations-(lack of equipment, weather restraints, etc.). 88-Not Attempted due to Medical Conditions or Safety Concerns. Sit to Stand (QC): 6 Chair/Lvn-qb-Teoyu Xfer(QC): 6 Weight Bearing Right Lower Extremity: Right Full Weight Bearing Left Lower Extremity: Left Full Weight Bearing partial weight bearing on left hand Gait Training Does the Patient Walk?: Yes Distance: 300ft Gait Assistive Device: Walker Platform Moved the platform to the outside of the walker on the (L) to allow pt more room inside the walker for improved safety. Wheelchair Training Does the Pt Use a Wheelchair?: No Exercises Seated Therapy Exercises: LE Protocol Seated Reps: 20 Assessment Current Status: Good Progress Pt is safe with transfers, during gait, and while turning. Pt shows good stability throughout gait. PT Short Term Goals Short Term Goals Time Frame: Jun 25, 2022 Sit to stand: 4 Chair/fty-gb-jobws transfer: 4 Toilet transfer: 4 Car transfer: 4 Walk 10 feet: 4 Walk 50 feet with two turns: 4 Walk 150 feet: 4 Walking 10ft on uneven surface: 4 1 step (curb): 4 4 steps: 4 Picking up objects: 4 PT Raw Material Handler Goals Raw Material Handler Goals PT Raw Material Handler Goals Time Frame: Jul 09, 2022 Roll Left & Right (QC): 6 Sit to Lying (QC): 6 Lying-Sitting on Side/Bed(QC): 6 Sit to Stand (QC): 6 Chair/Rnl-el-Uvzfy Xfer(QC): 6 Toilet Transfer (QC): 6 Car Transfer (QC): 6 Does the Patient Walk: Yes Walk 10 feet (QC): 6 Walk 50ft with 2 Turns (QC): 6 Walk 150 ft (QC): 6 Walking 10ft on Uneven Surface: 6 1 Step (curb) (QC): 6 4 Steps (QC): 6 12 Steps (QC): 88 Picking up an Object (QC): 6 Wheel 50 feet with 2 turns (QC: 9 Wheel 150 feet: 9 PT Plan Treatment/Plan Treatment Plan: Continue Plan of Care Treatment Plan: Bed Mobility, Education, Functional Activity Winter, Functional Strength, Gait, Safety, Therapeutic Exercise, Transfers Treatment Duration: Jul 09, 2022 Frequency: At least 5 of 7 days/Wk (IRF) Estimated Hrs Per Day: 1.5 hours per day Patient and/or Family Agrees t: Yes Time Time In: 1035 Time Out: 1050 DATE: Jun 19, 2022 Total Billed Treatment Time: 15 Total Billed Treatment 1, gt 15 RON BARGER PT Jun 19, 2022 11:06
[2022-06-19 19:59] VITALS: BP 153/73
[2022-06-20] MEDS: CATHETER FLUSH 10 ML SYR IVP SCH ×3 (06:34→20:19)
[2022-06-20 07:46] VITALS: BP 150/79
--- NOTE | 2022-06-20 07:51 | PM&R Progress Note ---
Subjective HPI/CC On Admission Date Seen by Provider: Jun 20, 2022 Time Seen by Provider: 11:30 Subjective/Events-last exam 06/20/2022: Back in AF Pacemaker will be placed tomorrow morning due to severe bradycardia with meds and then will have AF RVR so only option will be pacemaker No pain otherwise Checked meds and labs 06/19/2022: Doing much better Less pain HR is labile either too slow or too fast Dr [place] assessed her today Review of Systems General: Fatigue, Malaise Objective Exam Vital Signs Vital Signs Date Time Temp Pulse Resp B/P (MAP) Pulse Ox O2 Delivery O2 Flow Rate FiO2 06/20/22 13:04 73 06/20/22 11:13 139/84 (102) 06/20/22 09:53 Room Air 06/20/22 08:19 36.4 95 06/20/22 07:46 18 Capillary Refill : General Appearance: No Apparent Distress, WD/WN, Chronically ill HEENT: PERRL/EOMI, Normal ENT Inspection, Pharynx Normal Neck: Full Range of Motion, Normal Inspection, Non Tender, Supple, Carotid Bruit Respiratory: Chest Non Tender, Lungs Clear, Normal Breath Sounds, No Accessory Muscle Use, No Respiratory Distress Cardiovascular: No Edema, No Gallop, No JVD, No Murmur, Normal Peripheral Pulses, Irregularly Irregular, Tachycardia Gastrointestinal: Normal Bowel Sounds, No Organomegaly, No Pulsatile Mass, Non Tender, Soft Back: Normal Inspection, No CVA Tenderness, No Vertebral Tenderness Extremity: Normal Capillary Refill, Normal Inspection, Normal Range of Motion (except left arm), Non Tender, No Calf Tenderness, No Pedal Edema Neurologic/Psychiatric: Alert, Oriented x3, Normal Mood/Affect, gm II-XII Norm as Tested, Abnormal Gait, Motor Weakness (left sided) Skin: Normal Color, Warm/Dry Lymphatic: No Adenopathy Results/Procedures Lab Patient resulted labs reviewed. FIM Transfers Therapy Code Descriptions/Definitions Functional [place] Measure: 0=Not Assessed/NA 4=Minimal Assistance 1=Total Assistance 5=Supervision or Setup 2=Maximal Assistance 6=Modified [place] 3=Moderate Assistance 7=Complete IndependenceSCALE: Activities may be completed with or without assistive devices. 7-Hpmyilteyq-jszpfcz completes the activity by him/herself with no assistance from a helper. 5-Set-up or Clean-up Assistance-helper sets up or cleans up; patient completes activity. [place] assists only prior to or following the activity. 4-Supervision or Touching Assistance-helper provides verbal cues and/or touching/steadying and/or contact guard assistance as patient completes activity. Assistance may be provided throughout the activity or intermittently. 3-Partial/Moderate Assistance-helper does LESS THAN HALF the effort. [place] lifts, holds or supports trunk or limbs, but provides less than half the effort. 2-Substantial/Maximal Assistance-helper does MORE THAN HALF the effort. [place] lifts or holds trunk or limbs and provides more than half the effort. 2-Plnmfnjrh-uitlrz does ALL the effort. Patient does none of the effort to complete the activity. Or, the assistance of 2 or more helpers is required for the patient to complete the activity. If activity was not attempted, code reason: 7-Patient Refused. 9-Not Applicable-not attempted and the patient did not perform the activity before the current illness, exacerbation or injury. 10-Not Attempted due to Environmental Limitations-(lack of equipment, weather restraints, etc.). 88-Not Attempted due to Medical Conditions or Safety Concerns. Roll Left to Right (QC): 4 Sit to Lying (QC): 4 Sit to Stand (QC): 6 Chair/Mqx-we-Avszi Xfer(QC): 6 Car Transfer (QC): 4 (CGA) Gait Training Does the Patient Walk?: Yes Distance: 300ft Walk 10 feet (QC): 3 Walk 50 ft with 2 Turns(QC): 3 Walk 150 ft (QC): 3 Walking 10ft/uneven surface-QC: 4 Gait Persons Needed: 1 Gait Assistive Device: Walker Platform Wheelchair Training Does the Pt Use a Wheelchair?: No Wheel 50 ft with 2 turns (QC): 9 Wheel 150 ft (QC): 9 Stair Training #of Steps: 1 1 Step (curb) (QC): 4 (CGA) 4 Steps (QC): 88 12 Steps (QC): 88 Balance Picking up an Object (QC): 4 (CGA with production director arm) ADL-Treatment Eating (QC): 4 Oral Hygiene (QC): 5 Shower/Bathe Self (QC): 3 (assist needed for taping/covering L arm, and washing under R arm) Upper Body Dressing (QC): 5 Lower Body Dressing (QC): 3 (mod assist for threading L leg through pants and pulling briefs and pants over L hip) On/Off Footwear (QC): 3 (mod assisit: needs assist for putting bilateral soaks onto toes, pt able to pull socks over heal) Toileting Hygiene (QC): 3 (min assist for pulling pants up over L hip) Assessment/Plan Assessment and Plan Assess & Plan/Chief Complaint Assessment: A. fib with RVR requiring ICU transfer and discharge from rehab 06/17/2022 but readmitted 06/18/2022 CVA Left-sided weakness Left arm fracture limit weight bearing Hypertension Hyperlipidemia Atrial fibrillation Depression History of left sided breast cancer Chronic left arm lymphedema Plan: Monitor closely Fall risk Aggressive rehab Appreciate Cardiology 06/19/2022: Monitor HR Aggressive therapy 06/20/2022: Pacemaker placement tomorrow (1) CVA (cerebral vascular accident) (2) Atrial fibrillation with rapid ventricular response (3) Closed left arm fracture (4) Chronic anticoagulation (5) Hypertension (6) Hyperlipidemia (7) Depression JHOANA GROSS DO Jun 20, 2022 07:51
[2022-06-20] MEDS: RT-ALBUTEROL/IPRATROPIUM 3 ML (DUONEB) VIAL INH SCH (08:16)
[2022-06-20 08:19] VITALS: BP 150/79
[2022-06-20] MEDS: LOSARTAN 50 MG (COZAAR) TAB PO SCH (08:26)
[2022-06-20] MEDS: DOCUSATE SODIUM 100 MG (COLACE) CAP PO SCH ×2 (08:26→20:19)
[2022-06-20] MEDS: ASPIRIN E.C. 81 MG (ECOTRIN) TAB PO SCH (08:26)
[2022-06-20] MEDS: PARoxetine 20 MG (PAXIL) TAB PO SCH (08:26)
[2022-06-20] MEDS: APIXABAN 5 MG (ELIQUIS) TABLET PO SCH (08:26)
[2022-06-20] MEDS: ACETAMINOPHEN 325 MG TABLET PO PRN ×3 (08:26→22:32)
[2022-06-20] MEDS: CALCIUM CARBONATE 500 MG (TUMS) TAB.CHEW PO SCH ×3 (08:27→20:19)
[2022-06-20] MEDS: SENNOSIDES 8.6 MG (SENOKOT) TAB PO SCH ×2 (08:27→20:19)
[2022-06-20] MEDS: GABAPENTIN 100 MG (NEURONTIN) CAP PO SCH ×3 (08:27→20:19)
[2022-06-20] MEDS: AMIODARONE 200 MG (CORDARONE) TAB PO SCH ×2 (08:27→20:19)
[2022-06-20] MEDS: VITAMIN D3 25 MCG (1,000 UNITS) TABLET PO SCH ×2 (08:27→20:19)
[2022-06-20] MEDS: polyethylene glycoL POWDER 17 GM (MIRALAX) PACK PO SCH ×2 (08:27→19:45)
[2022-06-20] MEDS ORDERED: LOSARTAN 100 MG (COZAAR) TABLET PO SCH (09:00)
[2022-06-20] MEDS ORDERED: LOSARTAN 50 MG (COZAAR) TAB PO NR (10:00)
[2022-06-20 11:13] VITALS: BP 139/84
--- NOTE | 2022-06-20 11:33 | Cardiology Progress Note ---
Subjective Date Seen by Provider: Jun 20, 2022 Time Seen by Provider: 11:32 Subjective/Events-last exam Patient went back to atrial fibrillation with rapid ventricular response with a heart rate around 140 today She was sitting comfortably in bed, asymptomatic. Review of Systems General: No Chills, No Night Sweats, No Fatigue, No Malaise, No Appetite, No Other HEENT: No Head Aches, No Visual Changes, No Eye Pain, No Ear Pain, No Dysphasia, No Sinus Congestion, No Post Nasal Drip, No Sore Throat, No Other Pulmonary: No Dyspnea, No Cough, No Pleuritic Chest Pain, No Other Cardiovascular: No: Chest Pain, Palpitations, Orthopnea, Paroxysmal Noc. Dyspnea, Edema, Lt Headedness, Other Objective-Cardiology Exam Last Set of Vital Signs Vital Signs 06/20/22 06/20/22 06/20/22 06/20/22 07:46 08:19 09:53 11:13 Temp 36.4 Pulse 131 Resp 18 B/P (MAP) 139/84 (102) Pulse Ox 95 O2 Delivery Room Air I&O Intake and Output 06/20/22 00:00 Intake Total 1400 ml Balance 1400 ml Intake Oral 1400 ml # Voids 5 General: Alert, Oriented X3, Cooperative HEENT: Atraumatic, PERRLA Neck: Supple, No JVD, No Thyromegaly Lungs: Clear to Auscultation, Normal Air Movement Heart: Normal S1, Normal S2, No Murmurs, Other (Atrial fibrillation with rapid ventricular response) Abdomen: Normal Bowel Sounds, Soft, No Tenderness, No Hepatosplenomegaly, No Masses Extremities: No Clubbing, No Cyanosis, No Edema, Normal Pulses, No Tenderness/Swelling Skin: No Rashes, No Breakdown, No Significant Lesion Neuro: Normal Gait, Normal Speech, Strength at 5/5 X4 Ext, Normal Tone, Sensation Intact Psych/Mental Status: Mental Status NL, Mood NL A/P-Cardiology Admission Diagnosis Acute CVA Paroxysmal atrial fibrillation Sinus node dysfunction Hypertension Assessment/Plan Status post acute CVA, continues to have some left sided weakness, continue with PT/OT PAF, was off of OAC at time of CVA. Had multiple episodes of atrial fibrillation with rapid ventricular response. Intolerant to metoprolol or Cardizem with severe bradycardia and multiple pauses Currently back in atrial fibrillation with a heart rate around 140, patient is having tacky bradycardia episodes. I am planning to proceed with dual-chamber pacemaker implantation in the morning and then we will restart Cardizem Sinus node dysfunction, transient episode of bradycardia while on metoprolol and while on Cardizem. I have stopped Cardizem on June 18, 2022 Maintained on amiodarone 400 mg twice daily and planning to decrease the dose to 200 mg twice daily next week Planning for pacemaker implantation then restarting Cardizem [id number] score 5, maintained on Eliquis Hypertension, poorly controlled. Having orthostatic hypotension and dizziness I increase losartan 200 mg daily Hyperlipidemia, maintained on statin. Continue to monitor lipids Left forearm fracture, management per YANA Tobias MD Jun 20, 2022 11:33
[2022-06-20 19:38] VITALS: BP 147/67
[2022-06-21] MEDS: CATHETER FLUSH 10 ML SYR IVP SCH ×2 (05:31→11:45)
--- NOTE | 2022-06-21 06:06 | PM&R Progress Note ---
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 Updated family and patient 06/20/2022: Back in AF Pacemaker will be placed tomorrow morning due to severe bradycardia with meds and then will have AF RVR so only option will be pacemaker No pain otherwise Checked meds and labs 06/19/2022: Doing much better Less pain HR is labile either too slow or too fast Dr Medellin assessed her today Review of Systems General: Fatigue, Malaise Musculoskeletal: arm pain Neurological: Weakness Objective Exam Vital Signs Vital Signs Date Time Temp Pulse Resp B/P (MAP) Pulse Ox O2 Delivery O2 Flow Rate FiO2 06/21/22 09:20 Room Air 06/21/22 09:15 96 0.00 06/21/22 07:10 36.3 62 18 145/84 (104) Capillary Refill : General Appearance: No Apparent Distress, WD/WN, Chronically ill HEENT: PERRL/EOMI, Normal ENT Inspection, Pharynx Normal Neck: Full Range of Motion, Normal Inspection, Non Tender, Supple, Carotid Bruit Respiratory: Chest Non Tender, Lungs Clear, Normal Breath Sounds, No Accessory Muscle Use, No Respiratory Distress Cardiovascular: No Edema, No Gallop, No JVD, No Murmur, Normal Peripheral Pulses, Irregularly Irregular, Tachycardia Gastrointestinal: Normal Bowel Sounds, No Organomegaly, No Pulsatile Mass, Non Tender, Soft Back: Normal Inspection, No CVA Tenderness, No Vertebral Tenderness Extremity: Normal Capillary Refill, Normal Inspection, Normal Range of Motion (except left arm), Non Tender, No Calf Tenderness, No Pedal Edema Neurologic/Psychiatric: Alert, Oriented x3, Normal Mood/Affect, director learning and development II-XII Norm as Tested, Abnormal Gait, Motor Weakness (left sided) Skin: Normal Color, Warm/Dry Lymphatic: No Adenopathy Results/Procedures Lab Laboratory Tests 06/21/22 06:02 Patient resulted labs reviewed. FIM Transfers Therapy Code Descriptions/Definitions Functional [place] Measure: 0=Not Assessed/NA 4=Minimal Assistance 1=Total Assistance 5=Supervision or Setup 2=Maximal Assistance 6=Modified [place] 3=Moderate Assistance 7=Complete IndependenceSCALE: Activities may be completed with or without assistive devices. 4-Tgjfafahgh-ugyueix completes the activity by him/herself with no assistance from a helper. 5-Set-up or Clean-up Assistance-helper sets up or cleans up; patient completes activity. [place] assists only prior to or following the activity. 4-Supervision or Touching Assistance-helper provides verbal cues and/or touching/steadying and/or contact guard assistance as patient completes activity. Assistance may be provided throughout the activity or intermittently. 3-Partial/Moderate Assistance-helper does LESS THAN HALF the effort. [place] lifts, holds or supports trunk or limbs, but provides less than half the effort. 2-Substantial/Maximal Assistance-helper does MORE THAN HALF the effort. [place] lifts or holds trunk or limbs and provides more than half the effort. 8-Vrowopumj-hqzawz does ALL the effort. Patient does none of the effort to complete the activity. Or, the assistance of 2 or more helpers is required for the patient to complete the activity. If activity was not attempted, code reason: 7-Patient Refused. 9-Not Applicable-not attempted and the patient did not perform the activity before the current illness, exacerbation or injury. 10-Not Attempted due to Environmental Limitations-(lack of equipment, weather restraints, etc.). 88-Not Attempted due to Medical Conditions or Safety Concerns. Roll Left to Right (QC): 4 Sit to Lying (QC): 4 Sit to Stand (QC): 6 Chair/Rno-hc-Wutgp Xfer(QC): 6 Car Transfer (QC): 4 (CGA) Gait Training Does the Patient Walk?: Yes Distance: 300ft Walk 10 feet (QC): 3 Walk 50 ft with 2 Turns(QC): 3 Walk 150 ft (QC): 3 Walking 10ft/uneven surface-QC: 4 Gait Persons Needed: 1 Gait Assistive Device: Walker Platform Wheelchair Training Does the Pt Use a Wheelchair?: No Wheel 50 ft with 2 turns (QC): 9 Wheel 150 ft (QC): 9 Stair Training #of Steps: 1 1 Step (curb) (QC): 4 (CGA) 4 Steps (QC): 88 12 Steps (QC): 88 Balance Picking up an Object (QC): 4 (CGA with maori physiotherapist arm) ADL-Treatment Eating (QC): 4 Oral Hygiene (QC): 5 Shower/Bathe Self (QC): 3 (assist needed for taping/covering L arm, and washing under R arm) Upper Body Dressing (QC): 5 Lower Body Dressing (QC): 3 (mod assist for threading L leg through pants and pulling briefs and pants over L hip) On/Off Footwear (QC): 3 (mod assisit: needs assist for putting bilateral soaks onto toes, pt able to pull socks over heal) Toileting Hygiene (QC): 3 (min assist for pulling pants up over L hip) Assessment/Plan Assessment and Plan Assess & Plan/Chief Complaint Assessment: A. fib with RVR requiring ICU transfer and discharge from rehab 06/17/2022 but readmitted 06/18/2022 SSS s/p pacemaker of leadless type required transfer to [place] and placed by Dr Cool 06/21/22 CVA Left-sided weakness Left arm fracture limit weight bearing Hypertension Hyperlipidemia Atrial fibrillation Depression History of left sided breast cancer Chronic left arm lymphedema Plan: Monitor closely Fall risk Aggressive rehab Appreciate Cardiology 06/19/2022: Monitor HR Aggressive therapy 06/20/2022: Pacemaker placement tomorrow 06/21/2022: [place] for leadless pacemaker (1) CVA (cerebral vascular accident) (2) Atrial fibrillation with rapid ventricular response (3) Closed left arm fracture (4) Chronic anticoagulation (5) Hypertension (6) Hyperlipidemia (7) Depression JHOANA GROSS DO Jun 21, 2022 06:06
[2022-06-21 06:09] LABS: HEMATOCRIT 43 % (35-52); HEMOGLOBIN 13.3 g/dL (11.5-16.0); MEAN CORPUSCULAR HEMOGLOBIN 31 pg (25-34); MEAN CORPUSCULAR HGB CONC 31 g/dL (32-36); MEAN CORPUSCULAR VOLUME 100 fL (80-99); MEAN PLATELET VOLUME 11.4 fL (9.0-12.2); PLATELET COUNT 253 10^3/uL (130-400); WHITE BLOOD COUNT 7.6 10^3/uL (4.3-11.0)
[2022-06-21 06:30] LABS: ALBUMIN 3.8 GM/DL (3.2-4.5); BILIRUBIN,TOTAL 0.6 MG/DL (0.1-1.0); CALCIUM 9.7 MG/DL (8.5-10.1); CREATININE SERUM 0.82 MG/DL (0.60-1.30); POTASSIUM 4.2 MMOL/L (3.6-5.0); TOTAL PROTEIN 8.2 GM/DL (6.4-8.2)
[2022-06-21 07:10] VITALS: BP 145/84
[2022-06-21 08:08] LABS: INR 1.1 (0.8-1.4)
[2022-06-21] MEDS: PARoxetine 20 MG (PAXIL) TAB PO SCH (08:46)
[2022-06-21] MEDS: AMIODARONE 200 MG (CORDARONE) TAB PO SCH (08:46)
[2022-06-21] MEDS: CALCIUM CARBONATE 500 MG (TUMS) TAB.CHEW PO SCH ×2 (08:46→11:42)
[2022-06-21] MEDS: LOSARTAN 100 MG (COZAAR) TABLET PO SCH (08:46)
[2022-06-21] MEDS: GABAPENTIN 100 MG (NEURONTIN) CAP PO SCH ×2 (08:46→11:43)
[2022-06-21] MEDS: DOCUSATE SODIUM 100 MG (COLACE) CAP PO SCH (08:46)
[2022-06-21] MEDS: SENNOSIDES 8.6 MG (SENOKOT) TAB PO SCH (08:46)
[2022-06-21] MEDS: VITAMIN D3 25 MCG (1,000 UNITS) TABLET PO SCH (08:46)
[2022-06-21] MEDS: ACETAMINOPHEN 325 MG TABLET PO PRN (08:53)
--- NOTE | 2022-06-21 09:42 | Cardiology Progress Note ---
Subjective Date Seen by Provider: Jun 21, 2022 Time Seen by Provider: 09:40 Subjective/Events-last exam Patient was seen at bedside, sitting comfortably, feeling better Back in sinus rhythm Review of Systems General: No Chills, No Night Sweats, No Fatigue, No Malaise, No Appetite, No Other HEENT: No Head Aches, No Visual Changes, No Eye Pain, No Ear Pain, No Dysphasi a, No Sinus Congestion, No Post Nasal Drip, No Sore Throat, No Other Pulmonary: No Dyspnea, No Cough, No Pleuritic Chest Pain, No Other Cardiovascular: No: Chest Pain, Palpitations, Orthopnea, Paroxysmal Noc. Dyspnea, Edema, Lt Headedness, Other Objective-Cardiology Exam Last Set of Vital Signs Vital Signs 06/21/22 06/21/22 07:10 09:15 Temp 36.3 Pulse 62 Resp 18 B/P (MAP) 145/84 (104) Pulse Ox 96 O2 Delivery Room Air O2 Flow Rate 0.00 I&O Intake and Output 06/21/22 00:00 Intake Total 1855 ml Balance 1855 ml Intake Oral 1855 ml # Voids 6 # Bowel Movements 1 General: Alert, Oriented X3, Cooperative HEENT: Atraumatic, PERRLA Neck: Supple, No JVD, No Thyromegaly Lungs: Clear to Auscultation, Normal Air Movement Heart: Regular Rate, Normal S1, Normal S2, No Murmurs Abdomen: Normal Bowel Sounds, Soft, No Tenderness, No Hepatosplenomegaly, No Masses Extremities: No Clubbing, No Cyanosis, No Edema, Normal Pulses, No Tenderness/Swelling Skin: No Rashes, No Breakdown, No Significant Lesion Neuro: Normal Gait, Normal Speech, Strength at 5/5 X4 Ext, Normal Tone, Sensation Intact Psych/Mental Status: Mental Status NL, Mood NL Results Lab Laboratory Tests 06/21/22 06:02 A/P-Cardiology Admission Diagnosis Acute CVA Paroxysmal atrial fibrillation Sinus node dysfunction Hypertension Assessment/Plan Status post acute CVA, continues to have some left sided weakness, continue with PT/OT PAF, was off of OAC at time of CVA. Had multiple episodes of atrial fibrillation with rapid ventricular response. Intolerant to metoprolol or Cardizem with severe bradycardia and multiple pauses Was back in atrial fibrillation with a heart rate around 140 on June 20, 2022, currently back in sinus rhythm Unable to tolerate calcium channel blockers or beta-blockers due to severe bradycardia with sinus node dysfunction, I had a long discussion with the patient and her family and I was planning to proceed with dual-chamber pacemaker implantation today. She cannot have a device placed on the left side due to history of breast cancer and radiation to the chest We discussed the possibility of putting right-sided device versus leadless pacemaker and patient and her family elected to proceed with a leadless pacemaker I discussed the management plan with Dr. Cool in [place] who accepted the patient. She will be transferred for evaluation Sinus node dysfunction, transient episode of bradycardia while on metoprolol and while on Cardizem. I have stopped Cardizem on June 18, 2022 Maintained on amiodarone 400 mg twice daily and planning to decrease the dose to 200 mg twice daily next week Planning for pacemaker implantation then restarting Cardizem [id number] score 5, maintained on Eliquis Hypertension, poorly controlled. Having orthostatic hypotension and dizziness Continue losartan and monitor blood pressure Hyperlipidemia, maintained on statin. Continue to monitor lipids Left forearm fracture, management per YANA Tobias MD Jun 21, 2022 09:42
[2022-06-21] MEDS: polyethylene glycoL POWDER 17 GM (MIRALAX) PACK PO SCH (11:42)
[2022-06-22] MEDS: polyethylene glycoL POWDER 17 GM (MIRALAX) PACK PO SCH ×3 (13:58→21:30)
[2022-06-22] MEDS: DOCUSATE SODIUM 100 MG (COLACE) CAP PO SCH ×3 (13:58→21:30)
[2022-06-22] MEDS: CALCIUM CARBONATE 500 MG (TUMS) TAB.CHEW PO SCH ×4 (13:58→21:31)
[2022-06-22] MEDS: AMIODARONE 200 MG (CORDARONE) TAB PO SCH ×3 (13:58→21:59)
[2022-06-22] MEDS: LOSARTAN 100 MG (COZAAR) TABLET PO SCH (13:59)
[2022-06-22] MEDS: GABAPENTIN 100 MG (NEURONTIN) CAP PO SCH ×3 (13:59→21:30)
[2022-06-22] MEDS: VITAMIN D3 25 MCG (1,000 UNITS) TABLET PO SCH ×3 (13:59→21:31)
[2022-06-22] MEDS: CATHETER FLUSH 10 ML SYR IVP SCH ×4 (13:59→22:00)
[2022-06-22] MEDS: SENNOSIDES 8.6 MG (SENOKOT) TAB PO SCH ×3 (13:59→21:30)
[2022-06-22] MEDS: PARoxetine 20 MG (PAXIL) TAB PO SCH (14:00)
[2022-06-22 19:50] VITALS: BP 142/78
--- NOTE | 2022-06-23 05:58 | PM&R Progress Note ---
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 Updated family and patient 06/20/2022: Back in AF Pacemaker will be placed tomorrow morning due to severe bradycardia with meds and then will have AF RVR so only option will be pacemaker No pain otherwise Checked meds and labs 06/19/2022: Doing much better Less pain HR is labile either too slow or too fast Dr Medellin assessed her today Review of Systems General: Fatigue, Malaise Objective Exam Vital Signs Vital Signs Date Time Temp Pulse Resp B/P (MAP) Pulse Ox O2 Delivery O2 Flow Rate FiO2 06/24/22 01:03 105 06/23/22 23:23 94 Room Air 06/23/22 20:24 36.8 18 147/73 (97) 06/21/22 09:15 0.00 Capillary Refill : General Appearance: No Apparent Distress, WD/WN, Chronically ill HEENT: PERRL/EOMI, Normal ENT Inspection, Pharynx Normal Neck: Full Range of Motion, Normal Inspection, Non Tender, Supple, Carotid Bruit Respiratory: Chest Non Tender, Lungs Clear, Normal Breath Sounds, No Accessory Muscle Use, No Respiratory Distress Cardiovascular: No Edema, No Gallop, No JVD, No Murmur, Normal Peripheral Pulses, Irregularly Irregular, Tachycardia Gastrointestinal: Normal Bowel Sounds, No Organomegaly, No Pulsatile Mass, Non Tender, Soft Back: Normal Inspection, No CVA Tenderness, No Vertebral Tenderness Extremity: Normal Capillary Refill, Normal Inspection, Normal Range of Motion (except left arm), Non Tender, No Calf Tenderness, No Pedal Edema Neurologic/Psychiatric: Alert, Oriented x3, Normal Mood/Affect, neck fitter II-XII Norm as Tested, Abnormal Gait, Motor Weakness (left sided) Skin: Normal Color, Warm/Dry Lymphatic: No Adenopathy Results/Procedures Lab Patient resulted labs reviewed. FIM Transfers Therapy Code Descriptions/Definitions Functional [place] Measure: 0=Not Assessed/NA 4=Minimal Assistance 1=Total Assistance 5=Supervision or Setup 2=Maximal Assistance 6=Modified [place] 3=Moderate Assistance 7=Complete IndependenceSCALE: Activities may be completed with or without assistive devices. 7-Tycarjsdzi-zttbccm completes the activity by him/herself with no assistance from a helper. 5-Set-up or Clean-up Assistance-helper sets up or cleans up; patient completes activity. [place] assists only prior to or following the activity. 4-Supervision or Touching Assistance-helper provides verbal cues and/or touching/steadying and/or contact guard assistance as patient completes activity. Assistance may be provided throughout the activity or intermittently. 3-Partial/Moderate Assistance-helper does LESS THAN HALF the effort. [place] lifts, holds or supports trunk or limbs, but provides less than half the effort. 2-Substantial/Maximal Assistance-helper does MORE THAN HALF the effort. [place] lifts or holds trunk or limbs and provides more than half the effort. 9-Tukjxtcjy-bjxcdo does ALL the effort. Patient does none of the effort to complete the activity. Or, the assistance of 2 or more helpers is required for the patient to complete the activity. If activity was not attempted, code reason: 7-Patient Refused. 9-Not Applicable-not attempted and the patient did not perform the activity before the current illness, exacerbation or injury. 10-Not Attempted due to Environmental Limitations-(lack of equipment, weather restraints, etc.). 88-Not Attempted due to Medical Conditions or Safety Concerns. Roll Left to Right (QC): 4 Sit to Lying (QC): 4 Sit to Stand (QC): 6 Chair/Puj-xl-Fxcna Xfer(QC): 6 Car Transfer (QC): 4 (CGA) Gait Training Does the Patient Walk?: Yes Distance: 300ft Walk 10 feet (QC): 3 Walk 50 ft with 2 Turns(QC): 3 Walk 150 ft (QC): 3 Walking 10ft/uneven surface-QC: 4 Gait Persons Needed: 1 Gait Assistive Device: Walker Platform Wheelchair Training Does the Pt Use a Wheelchair?: No Wheel 50 ft with 2 turns (QC): 9 Wheel 150 ft (QC): 9 Stair Training #of Steps: 1 1 Step (curb) (QC): 4 (CGA) 4 Steps (QC): 88 12 Steps (QC): 88 Balance Picking up an Object (QC): 4 (CGA with parking lot spotter arm) ADL-Treatment Eating (QC): 4 Oral Hygiene (QC): 5 Shower/Bathe Self (QC): 3 (assist needed for taping/covering L arm, and washing under R arm) Upper Body Dressing (QC): 5 Lower Body Dressing (QC): 3 (mod assist for threading L leg through pants and pulling briefs and pants over L hip) On/Off Footwear (QC): 3 (mod assisit: needs assist for putting bilateral soaks onto toes, pt able to pull socks over heal) Toileting Hygiene (QC): 3 (min assist for pulling pants up over L hip) Assessment/Plan Assessment and Plan Assess & Plan/Chief Complaint Assessment: A. fib with RVR requiring ICU transfer and discharge from rehab 06/17/2022 but readmitted 06/18/2022 SSS s/p pacemaker of leadless type required transfer to [facility] and placed by Dr Cool 06/21/22 and readmitted 06/22/22 CVA Left-sided weakness Left arm fracture limit weight bearing Hypertension Hyperlipidemia Atrial fibrillation Depression History of left sided breast cancer Chronic left arm lymphedema Plan: Monitor closely Fall risk Aggressive rehab Appreciate Cardiology 06/19/2022: Monitor HR Aggressive therapy 06/20/2022: Pacemaker placement tomorrow 06/21/2022: [facility] for leadless pacemaker 06/23/2022: Telemetry Appreciate Dr Medellin (1) CVA (cerebral vascular accident) (2) Atrial fibrillation with rapid ventricular response (3) Closed left arm fracture (4) Chronic anticoagulation (5) Hypertension (6) Hyperlipidemia (7) Depression JHOANA GROSS DO Jun 23, 2022 05:58
[2022-06-23 07:24] VITALS: BP 159/78
[2022-06-23] MEDS: CATHETER FLUSH 10 ML SYR IVP SCH ×4 (07:47→22:04)
[2022-06-23] MEDS: LOSARTAN 100 MG (COZAAR) TABLET PO SCH (08:02)
[2022-06-23] MEDS: PARoxetine 20 MG (PAXIL) TAB PO SCH (08:02)
[2022-06-23] MEDS: AMIODARONE 200 MG (CORDARONE) TAB PO SCH ×2 (08:02→20:43)
[2022-06-23] MEDS: CALCIUM CARBONATE 500 MG (TUMS) TAB.CHEW PO SCH ×3 (08:02→20:43)
[2022-06-23] MEDS: GABAPENTIN 100 MG (NEURONTIN) CAP PO SCH ×3 (08:02→20:43)
[2022-06-23] MEDS: DOCUSATE SODIUM 100 MG (COLACE) CAP PO SCH ×2 (08:02→20:43)
[2022-06-23] MEDS: VITAMIN D3 25 MCG (1,000 UNITS) TABLET PO SCH ×2 (08:02→20:42)
--- NOTE | 2022-06-23 08:16 | Physical Therapy Evaluation ---
PT Evaluation-General Medical Diagnosis Admission Date Jun 18, 2022 at 11:28 Medical Diagnosis: R CVA Onset Date: Jun 09, 2022 Therapy Diagnosis Therapy Diagnosis: Gait deficit, strength deficit Precautions Precautions/Isolations: Fall Prevention, Standard Precautions Weight Bear Status Right Lower Extremity: Right Full Weight Bearing Left Lower Extremity: Left Full Weight Bearing Referral Physician: Ashley Pandey DO Reason for Referral: Evaluation/Treatment Medical History Pertinent Medical History: Atrial Fib, CVA, HTN, Neuropathy Reviewed History: Yes Social History Home: Single Level Current Living Status: Spouse Entry Into Home: Ramp, Stairs With Railing PT Steps Into Home: 3 Prior Prior Level of Function SCALE: Activities may be completed with or without assistive devices. 3-Nhlmtwnyra-epuyvfd completes the activity by him/herself with no assistance from a helper. 5-Set-up or Clean-up Assistance-helper sets up or cleans up; patient completes activity. [place] assists only prior to or following the activity. 4-Supervision or Touching Assistance-helper provides verbal cues and/or touching/steadying and/or contact guard assistance as patient completes activity. Assistance may be provided throughout the activity or intermittently. 3-Partial/Moderate Assistance-helper does LESS THAN HALF the effort. [place] lifts, holds or supports trunk or limbs, but provides less than half the effort. 2-Substantial/Maximal Assistance-helper does MORE THAN HALF the effort. [place] lifts or holds trunk or limbs and provides more than half the effort. 8-Bjicqajnw-xewsar does ALL the effort. Patient does none of the effort to complete the activity. Or, the assistance of 2 or more helpers is required for the patient to complete the activity. If activity was not attempted, code reason: 7-Patient Refused. 9-Not Applicable-not attempted and the patient did not perform the activity before the current illness, exacerbation or injury. 10-Not Attempted due to Environmental Limitations-(lack of equipment, weather restraints, etc.). 88-Not Attempted due to Medical Conditions or Safety Concerns. Bed Mobility: 6 Transfers (B,C,W/C): 6 Gait: 6 Stairs: 6 Indoor Mobility (Ambulation): Independent Stairs: Independent Prior Devices Use: None PT Evaluation-Current Subjective Patient sitting in chair upon PT arrival, agreeable to treatment but finishing breakfast. Patient rates pain at 4/[address] Medellin in room upon PT arrival and reports he does not want the patient using the right UE at extreme ranges, but she is able to use the right UE to push especially with transfers and assistive device for gait. He reports "pulling with the right arm is much worse as it can pull the leads out." Pain Section J - Health Conditions 1. Rarely or not at all 2. Occasionally 3. Frequently 4. Almost constantly 8. Unable to answer Pain Effect on Sleep: 2 Pain Interference with Therapy: 2 Pain Interference w/Day-to-Day: 2 Objective Patient Orientation: Person, Place, Situation ROM/Strength ROM Upper Extremities Right UE ROM limited but recent pacemaker placement, no extreme Ranges of motion in any direction ROM Lower Extremities Bilateral LEs WFLs Strength Lower Extremities 4-5 bilaterally all planes Sensory Vision: Functional Hearing: Functional Hand Dominance: Right Sensation Right Lower Extremit: Intact Sensation Left Lower Extremity: Intact Transfers Roll Left & Right (QC): 4 Sit to Lying (QC): 4 Lying to Sitting/Side of Bed(Q: 4 Sit to Stand (QC): 4 Chair/Evg-ci-Hkfvz Xfer(QC): 4 Toilet Transfer (QC): 4 Car Transfer (QC): 4 Gait Does the Patient Walk?: Yes Mode of Locomotion: Walk Anticipated Mode of Locomotion: Walk Walk 10 feet (QC): 4 Walk 50 ft with 2 Turns(QC): 4 Walk 150 ft (QC): 4 Walking 10ft/uneven surface-QC: 4 Distance: 300' Gait Assistive Device: Walker Platform Wheelchair Training Does the Pt Use a Wheelchair?: No Wheel 50 ft with 2 turns (QC): 9 Wheel 150 ft (QC): 9 Stairs #of Steps: 12 1 Step (curb) (QC): 4 4 Steps (QC): 4 12 Steps (QC): 4 CGA for all steps, patient ascended/descended 3 steps x 4 reps Balance Sitting Static: Good Sitting Dynamic: Good Standing Static: Fair Standing Dynamic: Fair Picking up an Object (QC): 3 Assessment/Needs Patient tolerated evaluation and treatment well. She requires frequent verbal cues for right UE restrictions, however does well using the right UE within limits set forth by Dr. Medellin. Per Dr. Medellin, the patient should not be using the right UE at extreme ranges, but she is able to use the right UE to push especially with transfers and assistive device for gait. He reports "pulling with the right arm is much worse as it can pull the leads out." Patient ambulates 300 feet with platform FWW, with SBA and verbal cues for safety, posture, control within her limits with the left UE and precautions with right UE. Patient in chair post treatment with all needs met, nursing notified, call light in hand. Rehab Potential: Good PT Short Term Goals Short Term Goals Time Frame: Jun 25, 2022 Sit to stand: 4 (MET) Chair/ymn-ky-nkxkl transfer: 4 (MET) Toilet transfer: 4 (MET) Car transfer: 4 (MET) Walk 10 feet: 4 (MET) Walk 50 feet with two turns: 4 (MET) Walk 150 feet: 4 (MET) Walking 10ft on uneven surface: 4 (MET) 1 step (curb): 4 (MET) 4 steps: 4 (MET) Picking up objects: 4 PT Mcfp Goals Mcfp Goals PT Department Head Goals Time Frame: Jul 09, 2022 Roll Left to Right (QC): 6 Sit to Lying (QC): 6 Lying-Sitting on Side/Bed(QC): 6 Sit to Stand (QC): 6 Chair/Wfo-qi-Jqmvi Xfer(QC): 6 Toilet/Commode Transfer (QC): 6 Car Transfer (QC): 6 Does the Patient Walk: Yes Walk 10 feet (QC): 6 Walk 10ft-Uneven Surface(QC): 6 Walk 50ft with 2 Turns (QC): 6 Walk 150 ft (QC): 6 Wheel 50 feet with 2 turns (QC: 9 Wheel 150 feet: 9 1 Step (curb) (QC): 6 4 Steps (QC): 6 12 Steps (QC): 6 Picking up an Object (QC): 6 PT Plan Problem List Problem List: Activity Tolerance, Functional Strength, Safety, Balance, Gait, Transfer, Bed Mobility, ROM Treatment/Plan Treatment Plan: Continue Plan of Care Treatment Plan: Bed Mobility, Education, Functional Activity Winter, Functional Strength, Gait, Safety, Therapeutic Exercise, Transfers Treatment Duration: Jul 09, 2022 Frequency: At least 5 of 7 days/Wk (IRF) Estimated Hrs Per Day: 1.5 hours per day Patient and/or Family Agrees t: Yes Safety Risks/Education Patient Education: Gait Training, Transfer Techniques, Steps, Reviewed Precautions Teaching Recipient: Patient Teaching Methods: Demonstration, Discussion Response to Teaching: Verbalize Understanding, Return Demonstration Time Time In: 810 Time Out: 840 DATE: Jun 23, 2022 Total Billed Treatment Time: 30 Total Billed Treatment Visit, Re-eval (10), gait (20) JAVAD KEMP PT Jun 23, 2022 08:16
[2022-06-23] MEDS ORDERED: APIXABAN 5 MG (ELIQUIS) TABLET PO SCH (09:00)
[2022-06-23] MEDS: SENNOSIDES 8.6 MG (SENOKOT) TAB PO SCH ×2 (09:14→20:43)
[2022-06-23] MEDS: polyethylene glycoL POWDER 17 GM (MIRALAX) PACK PO SCH ×2 (09:14→19:25)
--- NOTE | 2022-06-23 09:51 | Cardiology Progress Note ---
Subjective Date Seen by Provider: Jun 23, 2022 Time Seen by Provider: 08:05 Subjective/Events-last exam Patient sitting up in chair, no new complaint. Right arm in sling and PPM Review of Systems General: No Chills, No Night Sweats; Fatigue; No Malaise, No Appetite, No Other HEENT: No Head Aches, No Visual Changes, No Eye Pain, No Ear Pain, No Dysphasia, No Sinus Congestion, No Post Nasal Drip, No Sore Throat, No Other Pulmonary: No Dyspnea, No Cough, No Pleuritic Chest Pain, No Other Cardiovascular: No: Chest Pain, Palpitations, Orthopnea, Paroxysmal Noc. Dyspnea, Edema, Lt Headedness, Other Objective-Cardiology Exam Last Set of Vital Signs Vital Signs 06/21/22 06/23/22 09:15 07:24 Temp 36.1 Pulse 76 Resp 18 B/P (MAP) 159/78 (105) Pulse Ox 96 O2 Delivery Room Air O2 Flow Rate 0.00 General: Alert, Oriented X3, Cooperative HEENT: Atraumatic, PERRLA Neck: Supple, No JVD, No Thyromegaly Lungs: Clear to Auscultation, Normal Air Movement Heart: Regular Rate, Normal S1, Normal S2, No Murmurs Abdomen: Normal Bowel Sounds, Soft, No Tenderness, No Hepatosplenomegaly, No Masses Extremities: No Clubbing, No Cyanosis, No Edema, Normal Pulses, No Tenderness/Swelling Skin: No Rashes, No Breakdown, No Significant Lesion Neuro: Normal Gait, Normal Speech, Strength at 5/5 X4 Ext, Normal Tone, Sensation Intact Psych/Mental Status: Mental Status NL, Mood NL A/P-Cardiology Admission Diagnosis Acute CVA Paroxysmal atrial fibrillation Sinus node dysfunction Hypertension Assessment/Plan Status post acute CVA, continues to have some left sided weakness, continue with PT/OT PAF, was off of OAC at time of CVA. Had multiple episodes of atrial fibrillation with rapid ventricular response. Intolerant to metoprolol or Cardizem with severe bradycardia and multiple pauses Was back in atrial fibrillation with a heart rate around 140 on June 20, 2022, currently back in sinus rhythm Unable to tolerate calcium channel blockers or beta-blockers due to severe bradycardia with sinus node dysfunction, I had a long discussion with the patient and her family and I was planning to proceed with dual-chamber pacemaker implantation today. She cannot have a device placed on the left side due to history of breast cancer and radiation to the chest Patient is s/p right sided PPM implantation done by Dr. Cool on 06/22/22. Sinus node dysfunction, transient episode of bradycardia while on metoprolol and while on Cardizem. I have stopped Cardizem on June 18, 2022 Maintained on amiodarone 400 mg twice daily and planning to decrease the dose to 200 mg twice daily next week She is s/p PPM implantation, I will start patient on Cardizem CD 120mg daily [id number] score 5, maintained on Eliquis Hypertension, Having orthostatic hypotension and dizziness Continue losartan and monitor blood pressure Hyperlipidemia, maintained on statin. Continue to monitor lipids Left forearm fracture, management per Dr. Kirby Supervisory-Addendum Brief Supervisory Addendum Participated in pt care: history, MDM, physical Personally performed: exam, history, MDM Care discussed with: SUE Results interpretation: Verified all documentation Notes: Patient was seen and evaluated with Loren, examination performed, management plan was discussed, agree with the current scribed note, I made few changes to the note using Italic font Patient is sitting in a chair, comfortable, no new complaint. Right arm in a sling, encouraged her to start physical therapy Restart Eliquis, adding Cardizem at this point and will consider increasing the dose as tolerated. LOREN VERDIN Jun 23, 2022 09:51 YANA BRISENO MD Jun 23, 2022 11:40
--- NOTE | 2022-06-23 10:13 | Occupational Ther Daily Note ---
OT Current Status-Daily Note Subjective Pt in recliner, alert. Pt agrees to therapy. C/o no pain at this time. Mental Status/Objective Patient Orientation: Person, Place, Time, Situation ADL-Treatment Pt completed sponge bath after set up, upper body and brendan area/buttocks by self then declines to complete lower body bathing. Pt ambulated to bathroom with FWW and transferred to toilet, SBA. Pt performed toilet hygiene and cleaned brendan area by self. Pt SBA for toilet transfer and ambulated to sink. Pt completed oral and hand hygiene in standing by self, SBA for safety. Assist provided to brush hair due to pacemaker protocols. Pt ambulated to recliner with FWW. Pt made comfortable. Call light and phone in reach. All needs met in room. Therapy Code Descriptions/Definitions Functional [place] Measure: 0=Not Assessed/NA 4=Minimal Assistance 1=Total Assistance 5=Supervision or Setup 2=Maximal Assistance 6=Modified [place] 3=Moderate Assistance 7=Complete IndependenceSCALE: Activities may be completed with or without assistive devices. 3-Njtoosuzvt-wxsgnjx completes the activity by him/herself with no assistance from a helper. 5-Set-up or Clean-up Assistance-helper sets up or cleans up; patient completes activity. [place] assists only prior to or following the activity. 4-Supervision or Touching Assistance-helper provides verbal cues and/or touching/steadying and/or contact guard assistance as patient completes activity. Assistance may be provided throughout the activity or intermittently. 3-Partial/Moderate Assistance-helper does LESS THAN HALF the effort. [place] lifts, holds or supports trunk or limbs, but provides less than half the effort. 2-Substantial/Maximal Assistance-helper does MORE THAN HALF the effort. [place] lifts or holds trunk or limbs and provides more than half the effort. 2-Vxtahlkdu-dpzjxh does ALL the effort. Patient does none of the effort to complete the activity. Or, the assistance of 2 or more helpers is required for the patient to complete the activity. If activity was not attempted, code reason: 7-Patient Refused. 9-Not Applicable-not attempted and the patient did not perform the activity before the current illness, exacerbation or injury. 10-Not Attempted due to Environmental Limitations-(lack of equipment, weather restraints, etc.). 88-Not Attempted due to Medical Conditions or Safety Concerns. Pt reports her home is well equipped for her needs. Her recently had a stroke and their home has been modified to fit his needs which will now benefit her as well. Pt was unable to use L hand/fingers due to cast. She did use it for assistance with stabilizing objects. Other Treatment Pt performed 20 reps of resistance sponge for R deputy controller strength and pinched resistance clothes pins with R hand crossing midline while following pacemaker precautions to improve UE strength for self care and mobility. Pt unable to perform task with L hand due to fingers in cast. Pt displayed a pincer grasp with R hand to remove small objects from putty to improve FM skills needed for self care. Education OT Patient Education: Energy conservation Teaching Recipient: Patient Teaching Methods: Demonstration, Discussion Response to Teaching: Verbalize Understanding OT Short Term Goals Short Term Goals Time Frame: Jun 25, 2022 Eatin Oral hygiene: 5 Toileting hygiene: 5 Shower/bathe self: 4 Upper body dressin Lower body dressin Putting on/taking off footwear: 4 OT Group Home Goals Group Home Goals Time Frame: Jul 07, 2022 Acute change in mental status: 0 Inattention: 0 Disorganized thinkin Altered level of consciousness: 0 Eating (QC): 6 Oral Hygiene (QC): 6 Toileting Hygiene (QC): 6 Shower/Bathe Self (QC): 5 Upper Body Dressing (QC): 6 Lower Body Dressing (QC): 6 On/Off Footwear (QC): 6 Additional Goals: 1-Demonstrate ADL Tasks, 2-Verbalize Understanding, 3- ImproveStrength/Winter 1=Demonstrate adherence to instructed precautions during ADL tasks. 2=Patient will verbalize/demonstrate understanding of assistive devices/modifications for ADL. 3=Patient will improve strength/tolerance for activity to enable patient to perform ADL's. OT Education/Plan Problem List/Assessment Assessment: Decreased Activ Tolerance, Decreased UE Strength, Impaired I ADL's, Impaired Self-Care Skills Discharge Recommendations Plan/Recommendations: Continue POC Treatment Plan/Plan of Care Patient would benefit from OT for education, treatment and training to promote independence in ADL's, mobility, safety and/or upper extremity function for ADL's. Plan of Care: ADL Retraining, Functional Mobility, Group Exercise/Act as Ind, UE Funct Exercise/Act Treatment Duration: Jul 07, 2022 Frequency: At least 5 of 7 days/Wk (IRF) Estimated Hrs Per Day: 1.5 hours per day (75-90 min/day) Agreement: Yes Rehab Potential: Good Time Start Time: 09:00 Stop Time: 10:00 DATE: Jun 23, 2022 Total Time Billed (hr/min): 60 Billed Treatment Time 1 visit-ADL 3 (40 min) EX 1 (20 min) KENDY SHARP Jun 23, 2022 10:13
--- NOTE | 2022-06-23 10:54 | Physical Therapy Daily Note ---
PT Daily Note-Current Subjective Pt. sitting up in recliner, agrees to Rx if not too vigorous, c/o some fatigue and some anxiety wanting to make sure she is being monitored regarding AFIB. Pt. explains her previous level of activity at home and feels sure she will get back to that. Pt. c/o some discomfort in right shoulder / pec area secondary to new pacemaker placement Pain Numeric Pain Scale: 4 Location: Right Location Body Site: Breast (chest/shoulder) Pain Description: Burning Section J - Health Conditions 1. Rarely or not at all 2. Occasionally 3. Frequently 4. Almost constantly 8. Unable to answer Pain Effect on Sleep: 2 Pain Interference with Therapy: 2 Pain Interference w/Day-to-Day: 2 Mental Status Patient Orientation: Normal For Age Attachments: Other-See Comments (splint cast left wrist) Transfers SCALE: Activities may be completed with or without assistive devices. 5-Lqbjgubgmy-wghupba completes the activity by him/herself with no assistance from a helper. 5-Set-up or Clean-up Assistance-helper sets up or cleans up; patient completes activity. [place] assists only prior to or following the activity. 4-Supervision or Touching Assistance-helper provides verbal cues and/or touching/steadying and/or contact guard assistance as patient completes activity. Assistance may be provided throughout the activity or intermittently. 3-Partial/Moderate Assistance-helper does LESS THAN HALF the effort. [place] lifts, holds or supports trunk or limbs, but provides less than half the effort. 2-Substantial/Maximal Assistance-helper does MORE THAN HALF the effort. [place] lifts or holds trunk or limbs and provides more than half the effort. 7-Emqkxbfnk-zgumfo does ALL the effort. Patient does none of the effort to complete the activity. Or, the assistance of 2 or more helpers is required for the patient to complete the activity. If activity was not attempted, code reason: 7-Patient Refused. 9-Not Applicable-not attempted and the patient did not perform the activity before the current illness, exacerbation or injury. 10-Not Attempted due to Environmental Limitations-(lack of equipment, weather restraints, etc.). 88-Not Attempted due to Medical Conditions or Safety Concerns. Sit to Stand (QC): 4 Toilet Transfer (QC): 4 reviewed precautions use of right arm ( see educ )sit to stand from lift recline chair without advantage of lift , sit to stand from toilet all CGA Weight Bearing Right Lower Extremity: Right Full Weight Bearing Left Lower Extremity: Left Full Weight Bearing partial weight bearing on left hand Gait Training Does the Patient Walk?: Yes Gait Assistive Device: Walker Platform 30ft x 2 FWW platf CGA, no LOB, uses device correctly Exercises Supine Ex: Bridging, Ankle pumps, Quad Set, Glut sets, Heel Slides, Short Arc Quads, Scooting (up in recliner in supine), Straight leg raise, Hip abd/add Supine Reps: 15 Seated Therapy Exercises: Ankle pumps, Sit to stand (5), Long arc quads, Hip flexion, Hip abd/add Seated Reps: 15 Treatments sup and sit therex, BP monitoring in sit and stand, gait , toileting, intro to use of lift recline chair, Assessment Current Status: Good Progress c/o some fatigue but agreeable to Rx with rest etc, seated BP 132/63, HR 63, standing BP 122/58 HR 61 PT Short Term Goals Short Term Goals Time Frame: Jun 25, 2022 Sit to stand: 4 (MET) Chair/fku-kj-gkfxm transfer: 4 (MET) Toilet transfer: 4 (MET) Car transfer: 4 (MET) Walk 10 feet: 4 (MET) Walk 50 feet with two turns: 4 (MET) Walk 150 feet: 4 (MET) Walking 10ft on uneven surface: 4 (MET) 1 step (curb): 4 (MET) 4 steps: 4 (MET) Picking up objects: 4 PT Parts Processor Goals Mcfp Goals PT Parts Processor Goals Time Frame: Jul 09, 2022 Roll Left & Right (QC): 6 Sit to Lying (QC): 6 Lying-Sitting on Side/Bed(QC): 6 Sit to Stand (QC): 6 Chair/Iuk-zs-Rswog Xfer(QC): 6 Toilet Transfer (QC): 6 Car Transfer (QC): 6 Does the Patient Walk: Yes Walk 10 feet (QC): 6 Walk 50ft with 2 Turns (QC): 6 Walk 150 ft (QC): 6 Walking 10ft on Uneven Surface: 6 1 Step (curb) (QC): 6 4 Steps (QC): 6 12 Steps (QC): 6 Picking up an Object (QC): 6 Wheel 50 feet with 2 turns (QC: 9 Wheel 150 feet: 9 PT Plan Treatment/Plan Treatment Plan: Continue Plan of Care Treatment Plan: Bed Mobility, Education, Functional Activity Winter, Functional Strength, Gait, Safety, Therapeutic Exercise, Transfers Treatment Duration: Jul 09, 2022 Frequency: At least 5 of 7 days/Wk (IRF) Estimated Hrs Per Day: 1.5 hours per day Patient and/or Family Agrees t: Yes Safety Risks/Education Patient Education: Gait Training, Transfer Techniques, Reviewed Precautions (use of right ar,m limitations, no extension or over head use per Dr [place]), Correct Positioning, Safety Issues Teaching Recipient: Patient Teaching Methods: Demonstration, Discussion Response to Teaching: Verbalize Understanding, Return Demonstration, Reinforcement Needed Time Time In: 1000 Time Out: 1100 DATE: Jun 23, 2022 Total Billed Treatment Time: 60 Total Billed Treatment 1,FA30m,EX20m,GT10m DARINEL HAMPTON CONCRETE SCULPTOR Jun 23, 2022 10:54
--- NOTE | 2022-06-23 11:05 | Progress Note ---
ELIECER ADAMS 06/23/22 1105: Progress Note S: Ms. Astudillo is a 76 year old female who presents to the rehabilitation unit s/p CVA. Patient returned from [place] yesterday evening after having a leadless pacemaker placed on the right. Cardiology is following patient. Patient has requested to be monitored with telemetry to ease her concerns about her heart rhythm. Patient states she is doing well today. She denies chest pain, SOA, nausea, or vomiting. She states she has pain on her right anterior chest from where the pacemaker was placed. She states the pain is sharp and rates as 5/10. Patient states she also has left upper extremity pain that is aching in nature and rates as 4/10. Patient states her pain is well controlled with PO pain medication. Patient reports ambulating well with FWW and her last BM was yesterday. O: -Vital signs stable: T 36.8, HR 69, RR 20, BP 142/78, SpO2 96% RA. -PE: -Cardiovascular: HRRR -Pulmonary: LCTAB A/P: 1. Continued in-patient rehabilitation with PT and OT. Plan is to work toward discharge on 07/01/2022. 2. Appreciate plan from Cardiology. Plan to discontinue telemetry by tomorrow or Tuesday if no complications persist. ASHLEY GROSS DO 06/23/222101: Supervisory-Addendum Brief Verification & Attestation Participated in pt care: history, MDM, physical Personally performed: exam, history, MDM, supervision of care Care discussed with: Medical Student Procedures: n/a Results interpretation: Verified all documentation Verification and Attestation of Medical Student E/M Service A medical student performed and documented this service in my presence. I reviewed and verified all information documented by the medical student and made modifications to such information, when appropriate. I personally performed the physical exam and medical decision making. Ashley Gross Jun 23, 2022,21:02 ELIECER ADAMS Jun 23, 2022 11:05 ASHLEY GROSS DO Jun 23, 2022 21:02
[2022-06-23] MEDS: ACETAMINOPHEN 325 MG TABLET PO PRN ×2 (11:30→20:42)
--- NOTE | 2022-06-23 11:53 | Occupational Ther Daily Note ---
OT Current Status-Daily Note Subjective Pt in recliner. Pt displays increased fatigue. C/o of no pain. Agrees to therapy. Mental Status/Objective Patient Orientation: Person, Place, Time, Situation Attachments: Telemetry (pacemaker) ADL-Treatment Therapy Code Descriptions/Definitions Functional [place] Measure: 0=Not Assessed/NA 4=Minimal Assistance 1=Total Assistance 5=Supervision or Setup 2=Maximal Assistance 6=Modified [place] 3=Moderate Assistance 7=Complete IndependenceSCALE: Activities may be completed with or without assistive devices. 3-Kcxfadkcmg-gnvyjlw completes the activity by him/herself with no assistance from a helper. 5-Set-up or Clean-up Assistance-helper sets up or cleans up; patient completes activity. [place] assists only prior to or following the activity. 4-Supervision or Touching Assistance-helper provides verbal cues and/or touching/steadying and/or contact guard assistance as patient completes acti vity. Assistance may be provided throughout the activity or intermittently. 3-Partial/Moderate Assistance-helper does LESS THAN HALF the effort. [place] lifts, holds or supports trunk or limbs, but provides less than half the effort. 2-Substantial/Maximal Assistance-helper does MORE THAN HALF the effort. [place] lifts or holds trunk or limbs and provides more than half the effort. 2-Yfpzhksdr-anbvgp does ALL the effort. Patient does none of the effort to complete the activity. Or, the assistance of 2 or more helpers is required for the patient to complete the activity. If activity was not attempted, code reason: 7-Patient Refused. 9-Not Applicable-not attempted and the patient did not perform the activity before the current illness, exacerbation or injury. 10-Not Attempted due to Environmental Limitations-(lack of equipment, weather restraints, etc.). 88-Not Attempted due to Medical Conditions or Safety Concerns. Other Treatment Pt educated on energy conservation. Hand out provided on energy conservation. Pt completed 2 visual scanning exercises without difficulty. Pt displayed images of regarding safety hazards at home and verbalized good understanding of proper safety techniques and procedures. pt in recliner at end of session. Call light/phone in reach. All needs met in room. Education OT Patient Education: Energy conservation Teaching Recipient: Patient Teaching Methods: Handout, Discussion Response to Teaching: Verbalize Understanding OT Short Term Goals Short Term Goals Time Frame: Jun 25, 2022 Eatin Oral hygiene: 5 Toileting hygiene: 5 Shower/bathe self: 4 Upper body dressin Lower body dressin Putting on/taking off footwear: 4 OT Chcf Goals Chcf Goals Time Frame: Jul 07, 2022 Acute change in mental status: 0 Inattention: 0 Disorganized thinkin Altered level of consciousness: 0 Eating (QC): 6 Oral Hygiene (QC): 6 Toileting Hygiene (QC): 6 Shower/Bathe Self (QC): 5 Upper Body Dressing (QC): 6 Lower Body Dressing (QC): 6 On/Off Footwear (QC): 6 Additional Goals: 1-Demonstrate ADL Tasks, 2-Verbalize Understanding, 3- ImproveStrength/Winter 1=Demonstrate adherence to instructed precautions during ADL tasks. 2=Patient will verbalize/demonstrate understanding of assistive devices/modifications for ADL. 3=Patient will improve strength/tolerance for activity to enable patient to perform ADL's. OT Education/Plan Problem List/Assessment Assessment: Decreased Activ Tolerance, Impaired I ADL's, Impaired Self-Care Skills Discharge Recommendations Plan/Recommendations: Continue POC Treatment Plan/Plan of Care Patient would benefit from OT for education, treatment and training to promote independence in ADL's, mobility, safety and/or upper extremity function for ADL's. Plan of Care: ADL Retraining, Functional Mobility, Group Exercise/Act as Ind, UE Funct Exercise/Act Treatment Duration: Jul 07, 2022 Frequency: At least 5 of 7 days/Wk (IRF) Estimated Hrs Per Day: 1.5 hours per day (75-90 min/day) Agreement: Yes Rehab Potential: Good Time Start Time: 11:15 Stop Time: 11:45 DATE: Jun 23, 2022 Total Time Billed (hr/min): 30 Billed Treatment Time 1 visit FA 2 (30 min) KENDY SHARP Jun 23, 2022 11:53
[2022-06-23] MEDS: dilTIAZem120 MG (CARDIZEM CD) CAP PO SCH (13:45)
[2022-06-23 20:24] VITALS: BP 147/73
--- NOTE | 2022-06-24 05:56 | PM&R Progress Note ---
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 Updated family and patient 06/20/2022: Back in AF Pacemaker will be placed tomorrow morning due to severe bradycardia with meds and then will have AF RVR so only option will be pacemaker No pain otherwise Checked meds and labs 06/19/2022: Doing much better Less pain HR is labile either too slow or too fast Dr Medellin assessed her today Review of Systems General: Fatigue, Malaise Objective Exam Vital Signs Vital Signs Date Time Temp Pulse Resp B/P (MAP) Pulse Ox O2 Delivery O2 Flow Rate FiO2 06/25/22 01:00 60 06/24/22 20:20 36.2 16 142/64 (90) 94 Room Air 06/24/22 08:28 21 06/21/22 09:15 0.00 Capillary Refill : General Appearance: No Apparent Distress, WD/WN, Chronically ill HEENT: PERRL/EOMI, Normal ENT Inspection, Pharynx Normal Neck: Full Range of Motion, Normal Inspection, Non Tender, Supple, Carotid Bruit Respiratory: Chest Non Tender, Lungs Clear, Normal Breath Sounds, No Accessory Muscle Use, No Respiratory Distress Cardiovascular: No Edema, No Gallop, No JVD, No Murmur, Normal Peripheral Pulses, Irregularly Irregular, Tachycardia Gastrointestinal: Normal Bowel Sounds, No Organomegaly, No Pulsatile Mass, Non Tender, Soft Back: Normal Inspection, No CVA Tenderness, No Vertebral Tenderness Extremity: Normal Capillary Refill, Normal Inspection, Normal Range of Motion (except left arm), Non Tender, No Calf Tenderness, No Pedal Edema Neurologic/Psychiatric: Alert, Oriented x3, Normal Mood/Affect, pricing analyst II-XII Norm as Tested, Abnormal Gait, Motor Weakness (left sided) Skin: Normal Color, Warm/Dry Lymphatic: No Adenopathy Results/Procedures Lab Patient resulted labs reviewed. FIM Transfers Therapy Code Descriptions/Definitions Functional [place] Measure: 0=Not Assessed/NA 4=Minimal Assistance 1=Total Assistance 5=Supervision or Setup 2=Maximal Assistance 6=Modified [place] 3=Moderate Assistance 7=Complete IndependenceSCALE: Activities may be completed with or without assistive devices. 0-Ulqsphcbxo-yqpcsdv completes the activity by him/herself with no assistance from a helper. 5-Set-up or Clean-up Assistance-helper sets up or cleans up; patient completes activity. [place] assists only prior to or following the activity. 4-Supervision or Touching Assistance-helper provides verbal cues and/or touching/steadying and/or contact guard assistance as patient completes activity. Assistance may be provided throughout the activity or intermittently. 3-Partial/Moderate Assistance-helper does LESS THAN HALF the effort. [place] lifts, holds or supports trunk or limbs, but provides less than half the effort. 2-Substantial/Maximal Assistance-helper does MORE THAN HALF the effort. [place] lifts or holds trunk or limbs and provides more than half the effort. 2-Gmmymcxlc-gxcnwz does ALL the effort. Patient does none of the effort to complete the activity. Or, the assistance of 2 or more helpers is required for the patient to complete the activity. If activity was not attempted, code reason: 7-Patient Refused. 9-Not Applicable-not attempted and the patient did not perform the activity before the current illness, exacerbation or injury. 10-Not Attempted due to Environmental Limitations-(lack of equipment, weather restraints, etc.). 88-Not Attempted due to Medical Conditions or Safety Concerns. Roll Left to Right (QC): 4 Sit to Lying (QC): 4 Sit to Stand (QC): 4 Chair/Bks-vr-Ivbzt Xfer(QC): 4 Car Transfer (QC): 4 Gait Training Does the Patient Walk?: Yes Distance: 300ft Walk 10 feet (QC): 4 Walk 50 ft with 2 Turns(QC): 4 Walk 150 ft (QC): 4 Walking 10ft/uneven surface-QC: 4 Gait Persons Needed: 1 Gait Assistive Device: Walker Platform Wheelchair Training Does the Pt Use a Wheelchair?: No Wheel 50 ft with 2 turns (QC): 9 Wheel 150 ft (QC): 9 Stair Training #of Steps: 12 1 Step (curb) (QC): 4 4 Steps (QC): 4 12 Steps (QC): 4 Balance Picking up an Object (QC): 3 ADL-Treatment Eating (QC): 4 Oral Hygiene (QC): 5 Shower/Bathe Self (QC): 3 (assist needed for taping/covering L arm, and washing under R arm) Upper Body Dressing (QC): 5 Lower Body Dressing (QC): 3 (mod assist for threading L leg through pants and pulling briefs and pants over L hip) On/Off Footwear (QC): 3 (mod assisit: needs assist for putting bilateral soaks onto toes, pt able to pull socks over heal) Toileting Hygiene (QC): 3 (min assist for pulling pants up over L hip) Assessment/Plan Assessment and Plan Assess & Plan/Chief Complaint Assessment: A. fib with RVR requiring ICU transfer and discharge from rehab 06/17/2022 but readmitted 06/18/2022 SSS s/p pacemaker of leadless type required transfer to [place] and placed by Dr Cool 06/21/22 and readmitted 06/22/22 CVA Left-sided weakness Left arm fracture limit weight bearing Hypertension Hyperlipidemia Atrial fibrillation Depression History of left sided breast cancer Chronic left arm lymphedema Plan: Monitor closely Fall risk Aggressive rehab Appreciate Cardiology 06/19/2022: Monitor HR Aggressive therapy 06/20/2022: Pacemaker placement tomorrow 06/21/2022: [place] for leadless pacemaker 06/23/2022: Telemetry Appreciate Dr Medellin 06/24/2022: Appreciate Ira Medellin and [place] (1) CVA (cerebral vascular accident) (2) Atrial fibrillation with rapid ventricular response (3) Closed left arm fracture (4) Chronic anticoagulation (5) Hypertension (6) Hyperlipidemia (7) Depression JHOANA GROSS DO Jun 24, 2022 05:56
[2022-06-24] MEDS: ACETAMINOPHEN 325 MG TABLET PO PRN ×3 (06:21→20:04)
[2022-06-24 07:23] VITALS: BP 129/96
[2022-06-24] MEDS: VITAMIN D3 25 MCG (1,000 UNITS) TABLET PO SCH ×2 (07:32→20:05)
[2022-06-24] MEDS: CALCIUM CARBONATE 500 MG (TUMS) TAB.CHEW PO SCH ×3 (07:32→20:05)
[2022-06-24] MEDS: SENNOSIDES 8.6 MG (SENOKOT) TAB PO SCH ×2 (07:33→20:05)
[2022-06-24] MEDS: DOCUSATE SODIUM 100 MG (COLACE) CAP PO SCH ×2 (07:33→20:05)
[2022-06-24] MEDS: PARoxetine 20 MG (PAXIL) TAB PO SCH (07:33)
[2022-06-24] MEDS: dilTIAZem120 MG (CARDIZEM CD) CAP PO SCH (07:33)
[2022-06-24] MEDS: LOSARTAN 100 MG (COZAAR) TABLET PO SCH (07:33)
[2022-06-24] MEDS: AMIODARONE 200 MG (CORDARONE) TAB PO SCH ×2 (07:33→20:06)
[2022-06-24] MEDS: GABAPENTIN 100 MG (NEURONTIN) CAP PO SCH ×3 (07:36→20:05)
[2022-06-24] MEDS: polyethylene glycoL POWDER 17 GM (MIRALAX) PACK PO SCH ×2 (07:39→19:23)
--- NOTE | 2022-06-24 08:23 | Cardiology Progress Note ---
Subjective Date Seen by Provider: Jun 24, 2022 Time Seen by Provider: 08:21 Subjective/Events-last exam Patient was seen at bedside, sitting comfortably, feeling well Back in atrial fibrillation with ventricular response Review of Systems General: No Chills, No Night Sweats, No Fatigue, No Malaise, No Appetite, No Other HEENT: No Head Aches, No Visual Changes, No Eye Pain, No Ear Pain, No Dysphasia, No Sinus Congestion, No Post Nasal Drip, No Sore Throat, No Other Pulmonary: No Dyspnea, No Cough, No Pleuritic Chest Pain, No Other Cardiovascular: No: Chest Pain, Palpitations, Orthopnea, Paroxysmal Noc. Dyspnea, Edema, Lt Headedness, Other Objective-Cardiology Exam Last Set of Vital Signs Vital Signs 06/21/22 06/24/22 09:15 07:23 Temp 36.0 Pulse 122 Resp 18 B/P (MAP) 129/96 (107) Pulse Ox 96 O2 Delivery Room Air O2 Flow Rate 0.00 I&O Intake and Output 06/24/22 00:00 Intake Total 1780 ml Balance 1780 ml Intake Oral 1780 ml # Voids 7 # Bowel Movements 1 General: Alert, Oriented X3, Cooperative HEENT: Atraumatic, PERRLA Neck: Supple, No JVD, No Thyromegaly Lungs: Clear to Auscultation, Normal Air Movement Heart: Normal S1, Normal S2, No Murmurs, Other (Atrial fibrillation) Abdomen: Normal Bowel Sounds, Soft, No Tenderness, No Hepatosplenomegaly, No Masses Extremities: No Clubbing, No Cyanosis, No Edema, Normal Pulses, No Tenderness/Swelling Skin: No Rashes, No Breakdown, No Significant Lesion Neuro: Normal Gait, Normal Speech, Normal Tone, Sensation Intact Psych/Mental Status: Mental Status NL, Mood NL A/P-Cardiology Admission Diagnosis Acute CVA Paroxysmal atrial fibrillation Sinus node dysfunction Hypertension Assessment/Plan Status post acute CVA, continues to have some left sided weakness, continue with PT/OT PAF, was off of OAC at time of CVA. Patient is s/p right sided PPM implantation done by Dr. Cool on 06/22/22. Back in atrial fibrillation with rapid ventricular response Continue on amiodarone and Cardizem and monitor tolerance and response. Sinus node dysfunction, multiple episodes of bradycardia, tachybradycardia episodes. She is s/p PPM implantation Cardizem was restarted, monitor tolerance and response [id number] score 5, maintained on Eliquis Hypertension, Having orthostatic hypotension and dizziness Continue losartan and monitor blood pressure Hyperlipidemia, maintained on statin. Continue to monitor lipids Left forearm fracture, management per YANA Tobias MD Jun 24, 2022 08:23
[2022-06-24 08:28] VITALS: BP 129/96
--- NOTE | 2022-06-24 08:59 | Physical Therapy Daily Note ---
PT Daily Note-Current Subjective Pt. agrees to Rx but is somewhat apprehensive as she is in A fib and this makes her nervous. Nursing present and reassures pt that with pacemaker and meds she is safe to do therapies. Dr Medellin visits pt and also supports her continuing activity etc and recommends seeing drop wire aligner . Pt. then expresses she feels more confident and asks when she might get to go home, hoping for Sat, at point of sup to sit with rolling pt c/o dizziness , BP taken at 103/73, HR 66 Pain Numeric Pain Scale: 3 Location: Right Location Body Site: Shoulder (chest/pec, pacemaker site) Pain Description: Pricking Section J - Health Conditions 1. Rarely or not at all 2. Occasionally 3. Frequently 4. Almost constantly 8. Unable to answer Pain Effect on Sleep: 1 Pain Interference with Therapy: 2 Pain Interference w/Day-to-Day: 2 Mental Status Patient Orientation: Normal For Age Transfers SCALE: Activities may be completed with or without assistive devices. 0-Njtwqjrsne-nebwpfv completes the activity by him/herself with no assistance from a helper. 5-Set-up or Clean-up Assistance-helper sets up or cleans up; patient completes activity. [place] assists only prior to or following the activity. 4-Supervision or Touching Assistance-helper provides verbal cues and/or touching/steadying and/or contact guard assistance as patient completes activ ity. Assistance may be provided throughout the activity or intermittently. 3-Partial/Moderate Assistance-helper does LESS THAN HALF the effort. [place] lifts, holds or supports trunk or limbs, but provides less than half the effort. 2-Substantial/Maximal Assistance-helper does MORE THAN HALF the effort. [place] lifts or holds trunk or limbs and provides more than half the effort. 2-Wnujeocss-odiosg does ALL the effort. Patient does none of the effort to complete the activity. Or, the assistance of 2 or more helpers is required for the patient to complete the activity. If activity was not attempted, code reason: 7-Patient Refused. 9-Not Applicable-not attempted and the patient did not perform the activity before the current illness, exacerbation or injury. 10-Not Attempted due to Environmental Limitations-(lack of equipment, weather restraints, etc.). 88-Not Attempted due to Medical Conditions or Safety Concerns. Roll Left & Right (QC): 6 Sit to Lying (QC): 6 Lying to Sitting/Side of Bed(Q: 4 Sit to Stand (QC): 6 Chair/Eqv-ub-Azrpw Xfer(QC): 6 Toilet Transfer (QC): 6 pt. still working out the fine points of sup to sit to sup with both UEs involved Weight Bearing Right Lower Extremity: Right Full Weight Bearing Left Lower Extremity: Left Full Weight Bearing partial weight bearing on left hand Gait Training Does the Patient Walk?: Yes Walk 10 feet (QC): 6 Walk 50 ft with 2 Turns(QC): 6 Walk 150 ft (QC): 6 Gait Persons Needed: 1 Gait Assistive Device: Walker Platform good use of AD, fine tuned the platf att today attempting to accommodate for more comfort Exercises Supine Ex: Bridging, Ankle pumps, Quad Set, Rolling, Glut sets, Lower trunk rotation, Heel Slides, Short Arc Quads, Scooting, Straight leg raise, Hip abd/add Supine Reps: 15 (x2) Seated Therapy Exercises: Ankle pumps, Sit to stand, Long arc quads, Hip flexion, Hip abd/add Seated Reps: 15 Treatments education, BP and HR monitoring, toileting with SBA for all, gait, TRFs, LE ex Assessment Current Status: Good Progress pt. in AFib this morning, Dr Medellin consulted and visited pt this morning calming her fears, pt. requesting to DC possibly Sat PT Short Term Goals Short Term Goals Time Frame: Jun 25, 2022 Sit to stand: 4 (MET) Chair/ypj-xh-zovad transfer: 4 (MET) Toilet transfer: 4 (MET) Car transfer: 4 (MET) Walk 10 feet: 4 (MET) Walk 50 feet with two turns: 4 (MET) Walk 150 feet: 4 (MET) Walking 10ft on uneven surface: 4 (MET) 1 step (curb): 4 (MET) 4 steps: 4 (MET) Picking up objects: 4 PT Examining Officer Goals Jail Goals PT Jail Goals Time Frame: Jul 09, 2022 Roll Left & Right (QC): 6 Sit to Lying (QC): 6 Lying-Sitting on Side/Bed(QC): 6 Sit to Stand (QC): 6 Chair/Hyl-kx-Ixuqn Xfer(QC): 6 Toilet Transfer (QC): 6 Car Transfer (QC): 6 Does the Patient Walk: Yes Walk 10 feet (QC): 6 Walk 50ft with 2 Turns (QC): 6 Walk 150 ft (QC): 6 Walking 10ft on Uneven Surface: 6 1 Step (curb) (QC): 6 4 Steps (QC): 6 12 Steps (QC): 6 Picking up an Object (QC): 6 Wheel 50 feet with 2 turns (QC: 9 Wheel 150 feet: 9 PT Plan Treatment/Plan Treatment Plan: Continue Plan of Care Treatment Plan: Bed Mobility, Education, Functional Activity Winter, Functional Strength, Gait, Safety, Therapeutic Exercise, Transfers Treatment Duration: Jul 09, 2022 Frequency: At least 5 of 7 days/Wk (IRF) Estimated Hrs Per Day: 1.5 hours per day Patient and/or Family Agrees t: Yes Safety Risks/Education Patient Education: Gait Training, Transfer Techniques, Reviewed Precautions, Correct Positioning, Disease Process, Safety Issues Teaching Recipient: Patient Teaching Methods: Demonstration, Discussion Response to Teaching: Verbalize Understanding, Return Demonstration, Reinforcement Needed Time Time In: 745 Time Out: 900 DATE: Jun 24, 2022 Total Billed Treatment Time: 75 Total Billed Treatment 1,FA30m,EX30m, GT15 DARINEL HAMPTON VAT OVERHAULER Jun 24, 2022 08:59
[2022-06-24] MEDS: APIXABAN 5 MG (ELIQUIS) TABLET PO SCH ×2 (09:08→20:06)
--- NOTE | 2022-06-24 11:09 | Progress Note ---
ELIECER ADAMS 06/24/22 1109: Progress Note S: Ms. Astudillo is a 76 year old female who presents to the rehabilitation unit s/p CVA. Patient returned from [facility] on 06/22 after having a leadless pacemaker placed on the right. Cardiology is following patient. Patient has requested to be monitored with telemetry to ease her concerns about her heart rhythm. Patient experienced atrial fibrillation with RVR this morning and has been seen by Cardiology. She denies chest pain or SOA. Patient states her right- sided chest pain from pacemaker placement has improved today. Patient states her pain is well controlled with PO pain medication. During her time with PT this morning, after sitting up from lying down, the patient began to feel faint, weak, and dizzy. The patient's BP was measured multiple times in a seated position; range: 103-155/67-94. HR range 49-71. The patient made a quick recovery and was able to ambulate to her room without difficulty. The patient expressed desire to return home prior to 07/01, her scheduled discharge date. Counseled patient that she continues to meet goals and that her discharge is a multi-disciplinary decision. OT voiced inquiries regarding how the patient's left fingers are positioned in her cast. Plan is to communicate with Dr. Kirby. O: -Vital signs: T 36.0, HR 122, RR 18, BP 129/96, SpO2 96% RA. -PE: -Cardiovascular: HRRR - at time of encounter patient, a fib was not auscultated or identifiable with radial pulse -Pulmonary: LCTAB A/P: 1. Continued in-patient rehabilitation with PT and OT. Plan is to work toward discharge on 07/01/2022. 2. Appreciate plan from Cardiology. Plan to discontinue telemetry if no complications persist/when patient feels comfortable to do so. 3. Appreciate plan from Dr. Kirby regarding patient's left arm cast SAHLEY GROSS DO 06/25/22 1759: Supervisory-Addendum Brief Verification & Attestation Participated in pt care: history, MDM, physical Personally performed: exam, history, MDM, supervision of care Care discussed with: Medical Student Procedures: n/a Results interpretation: Verified all documentation Verification and Attestation of Medical Student E/M Service A medical student performed and documented this service in my presence. I reviewed and verified all information documented by the medical student and made modifications to such information, when appropriate. I personally performed the physical exam and medical decision making. Ashley Gross, Jun 25, 2022,04:09 ELIECER ADAMS Jun 24, 2022 11:09 ASHLEY GROSS DO Jun 25, 2022 04:09
--- NOTE | 2022-06-24 11:22 | Occupational Ther Daily Note ---
OT Current Status-Daily Note Subjective Pt alert, in bed. Pt c/o no pain at this time. Pt agrees to therapy. Pt reports feeling a little "foggy" from medication. Mental Status/Objective Patient Orientation: Person, Place, Time, Situation Attachments: Telemetry (pacemaker) ADL-Treatment Pt independently supine to EOB. Pt completed upper body, brendan area and upper legs sponge bath then required assist for lower legs and feet due to pacemaker precautions. Pt ambulates to bathroom with FWW, completes toilet transfer independently. Pt required assist to wipe after BM due to pacemaker precautions. Pt used locomotive crane operator helper to lace feet through depends and pants. Pt used dressing stick to doff socks. Therapist applied DEBBIE hose. Assist provided to don socks due to pacemaker precautions. Pt ambulated to sink to perform hand hygiene independently. Pt ambulated with FWW back to recliner. Pt donned shirt by self after set up. Pt ambulated back to bathroom sink to perform oral hygiene while standing at sink independently. Pt ambulated back to recliner and made comfortable. Phone/call light in reach. All needs met in room. Therapy Code Descriptions/Definitions Functional [place] Measure: 0=Not Assessed/NA 4=Minimal Assistance 1=Total Assistance 5=Supervision or Setup 2=Maximal Assistance 6=Modified [place] 3=Moderate Assistance 7=Complete IndependenceSCALE: Activities may be completed with or without assistive devices. 3-Fksbnzxvcw-ngqepxo completes the activity by him/herself with no assistance from a helper. 5-Set-up or Clean-up Assistance-helper sets up or cleans up; patient completes activity. [place] assists only prior to or following the activity. 4-Supervision or Touching Assistance-helper provides verbal cues and/or touching/steadying and/or contact guard assistance as patient completes activity. Assistance may be provided throughout the activity or intermittently. 3-Partial/Moderate Assistance-helper does LESS THAN HALF the effort. [place] lifts, holds or supports trunk or limbs, but provides less than half the effort. 2-Substantial/Maximal Assistance-helper does MORE THAN HALF the effort. [place] lifts or holds trunk or limbs and provides more than half the effort. 7-Ifosquazp-brtjix does ALL the effort. Patient does none of the effort to complete the activity. Or, the assistance of 2 or more helpers is required for the patient to complete the activity. If activity was not attempted, code reason: 7-Patient Refused. 9-Not Applicable-not attempted and the patient did not perform the activity before the current illness, exacerbation or injury. 10-Not Attempted due to Environmental Limitations-(lack of equipment, weather restraints, etc.). 88-Not Attempted due to Medical Conditions or Safety Concerns. Oral Hygiene (QC): 6 Bathing Location: L Arm, R Arm, L Upper Leg, R Upper Leg, Chest, Abdomen, Buttocks, Perineal Area Shower/Bathe Self (QC): 3 Upper Body Dressing (QC): 5 Lower Body Dressing (QC): 5 On/Off Footwear: 3 Toileting Hygiene (QC): 3 Toilet Transfer (QC): 6 Other Treatment Skilled instruction provided for brachial plexus stretches to fingers. Education OT Patient Education: Home exercise program Teaching Recipient: Patient Teaching Methods: Demonstration Response to Teaching: Verbalize Understanding, Return Demonstration OT Short Term Goals Short Term Goals Time Frame: Jun 25, 2022 Eatin Oral hygiene: 5 Toileting hygiene: 5 Shower/bathe self: 4 Upper body dressin Lower body dressin Putting on/taking off footwear: 4 OT Senior Living Goals [employer] Mill Tender Goals Time Frame: Jul 07, 2022 Acute change in mental status: 0 Inattention: 0 Disorganized thinkin Altered level of consciousness: 0 Eating (QC): 6 Oral Hygiene (QC): 6 Toileting Hygiene (QC): 6 Shower/Bathe Self (QC): 5 Upper Body Dressing (QC): 6 Lower Body Dressing (QC): 6 On/Off Footwear (QC): 6 Additional Goals: 1-Demonstrate ADL Tasks, 2-Verbalize Understanding, 3- ImproveStrength/Winter 1=Demonstrate adherence to instructed precautions during ADL tasks. 2=Patient will verbalize/demonstrate understanding of assistive devices/modifications for ADL. 3=Patient will improve strength/tolerance for activity to enable patient to perform ADL's. OT Education/Plan Problem List/Assessment Assessment: Decreased Activ Tolerance, Impaired Self-Care Skills, Restricted Fu nct UE ROM (due to pacemaker precautions) Discharge Recommendations Plan/Recommendations: Continue POC Treatment Plan/Plan of Care Patient would benefit from OT for education, treatment and training to promote independence in ADL's, mobility, safety and/or upper extremity function for ADL's. Plan of Care: ADL Retraining, Functional Mobility, Group Exercise/Act as Ind, UE Funct Exercise/Act Treatment Duration: Jul 07, 2022 Frequency: At least 5 of 7 days/Wk (IRF) Estimated Hrs Per Day: 1.5 hours per day (75-90 min/day) Agreement: Yes Rehab Potential: Good Time Start Time: 09:00 Stop Time: 10:00 DATE: Jun 24, 2022 Total Time Billed (hr/min): 60 Billed Treatment Time 1 visit-ADL 4 (60 min) KENDY SHARP Jun 24, 2022 11:22
[2022-06-24 12:04] VITALS: BP 129/81
[2022-06-24] MEDS: CATHETER FLUSH 10 ML SYR IVP SCH ×2 (13:24→19:23)
--- NOTE | 2022-06-24 13:25 | Occupational Ther Daily Note ---
OT Current Status-Daily Note Subjective Pt alert, in bed upon arrival. Pt c/o no pain at the time. Pt agrees to therapy. Mental Status/Objective Patient Orientation: Person, Place, Time, Situation ADL-Treatment Therapy Code Descriptions/Definitions Functional [place] Measure: 0=Not Assessed/NA 4=Minimal Assistance 1=Total Assistance 5=Supervision or Setup 2=Maximal Assistance 6=Modified [place] 3=Moderate Assistance 7=Complete IndependenceSCALE: Activities may be completed with or without assistive devices. 9-Agrynthtqr-hwugtie completes the activity by him/herself with no assistance from a helper. 5-Set-up or Clean-up Assistance-helper sets up or cleans up; patient completes activity. [place] assists only prior to or following the activity. 4-Supervision or Touching Assistance-helper provides verbal cues and/or touchi ng/steadying and/or contact guard assistance as patient completes activity. Assistance may be provided throughout the activity or intermittently. 3-Partial/Moderate Assistance-helper does LESS THAN HALF the effort. [place] lifts, holds or supports trunk or limbs, but provides less than half the effort. 2-Substantial/Maximal Assistance-helper does MORE THAN HALF the effort. [place] lifts or holds trunk or limbs and provides more than half the effort. 6-Cnctqdteh-dczmsi does ALL the effort. Patient does none of the effort to complete the activity. Or, the assistance of 2 or more helpers is required for the patient to complete the activity. If activity was not attempted, code reason: 7-Patient Refused. 9-Not Applicable-not attempted and the patient did not perform the activity before the current illness, exacerbation or injury. 10-Not Attempted due to Environmental Limitations-(lack of equipment, weather restraints, etc.). 88-Not Attempted due to Medical Conditions or Safety Concerns. Pt ambulated from recliner to bed with FWW to fold clothes placed on the bed. Pt sat at a chair next to the bed to complete folding. Pt ambulated to closet to place clothing in suitcase. Pt ambulated to kitchen with FWW. She was able to stand at the sink and fill a cup with water independently. Pt required assist to retrieve cup from cabinet due to pacemaker precautions. Pt used the counter top for stabilization and walked with the cup to place it into the microwave. Pt opened and closed microwave independently. She then placed the cup in the fridge, opening and closing it independently. Pt ambulated back to the sink by using the counter top for stabilization and emptied the cup and through it away. Pt opened the oven and removed peres independently. She required assist to close oven due to pacemaker precautions. Pt required a seated rest break before ambulating back to the room with FWW. Pt states she does not use a cane or walker at home but due to the fall, she is scared to walk without it. Pt has less anxiety using FWW to be stable. Nursing came into room at this time to adjust splint and place new dressing. Pt in recliner at end of session. Phone/call light in reach. All needs met in room. Education OT Patient Education: Modified ADL techniques, Purpose of tx/functional activities, Reviewed precautions Teaching Recipient: Patient Teaching Methods: Demonstration, Discussion Response to Teaching: Verbalize Understanding, Return Demonstration OT Short Term Goals Short Term Goals Time Frame: Jun 25, 2022 Eatin Oral hygiene: 5 Toileting hygiene: 5 Shower/bathe self: 4 Upper body dressin Lower body dressin Putting on/taking off footwear: 4 OT Fpc Goals Pediatric Medical Assistant Goals Time Frame: Jul 07, 2022 Acute change in mental status: 0 Inattention: 0 Disorganized thinkin Altered level of consciousness: 0 Eating (QC): 6 Oral Hygiene (QC): 6 Toileting Hygiene (QC): 6 Shower/Bathe Self (QC): 5 Upper Body Dressing (QC): 6 Lower Body Dressing (QC): 6 On/Off Footwear (QC): 6 Additional Goals: 1-Demonstrate ADL Tasks, 2-Verbalize Understanding, 3- ImproveStrength/Winter 1=Demonstrate adherence to instructed precautions during ADL tasks. 2=Patient will verbalize/demonstrate understanding of assistive devices/modifications for ADL. 3=Patient will improve strength/tolerance for activity to enable patient to perform ADL's. OT Education/Plan Problem List/Assessment Assessment: Impaired I ADL's, Impaired Self-Care Skills, Restricted Funct UE ROM Discharge Recommendations Plan/Recommendations: Continue POC Treatment Plan/Plan of Care Patient would benefit from OT for education, treatment and training to promote independence in ADL's, mobility, safety and/or upper extremity function for ADL's. Plan of Care: ADL Retraining, Functional Mobility, Group Exercise/Act as Ind, UE Funct Exercise/Act Treatment Duration: Jul 07, 2022 Frequency: At least 5 of 7 days/Wk (IRF) Estimated Hrs Per Day: 1.5 hours per day (75-90 min/day) Agreement: Yes Rehab Potential: Good Time Start Time: 11:20 Stop Time: 11:50 DATE: Jun 24, 2022 Total Time Billed (hr/min): 30 Billed Treatment Time 1 visit FA 2 (30 min) KENDY SHARP Jun 24, 2022 13:25
--- NOTE | 2022-06-24 14:00 | Physical Therapy Daily Note ---
PT Daily Note-Current Subjective Pt. , and dtr all present . Dtr concerned about pt. aftr DC. This DIRECTOR OF DIETARY encouraging that pt is doing well Pain Location: No Pain Reported Section J - Health Conditions 1. Rarely or not at all 2. Occasionally 3. Frequently 4. Almost constantly 8. Unable to answer Pain Effect on Sleep: 1 Pain Interference with Therapy: 2 Pain Interference w/Day-to-Day: 2 Mental Status Patient Orientation: Normal For Age Attachments: Other-See Comments (cast L arm) Transfers SCALE: Activities may be completed with or without assistive devices. 8-Qsotaruchv-dpzwpei completes the activity by him/herself with no assistance from a helper. 5-Set-up or Clean-up Assistance-helper sets up or cleans up; patient completes activity. [place] assists only prior to or following the activity. 4-Supervision or Touching Assistance-helper provides verbal cues and/or touching/steadying and/or contact guard assistance as patient completes activity. Assistance may be provided throughout the activity or intermittently. 3-Partial/Moderate Assistance-helper does LESS THAN HALF the effort. [place] lifts, holds or supports trunk or limbs, but provides less than half the effort. 2-Substantial/Maximal Assistance-helper does MORE THAN HALF the effort. [place] lifts or holds trunk or limbs and provides more than half the effort. 3-Jojwvuewt-mplehw does ALL the effort. Patient does none of the effort to co mplete the activity. Or, the assistance of 2 or more helpers is required for the patient to complete the activity. If activity was not attempted, code reason: 7-Patient Refused. 9-Not Applicable-not attempted and the patient did not perform the activity before the current illness, exacerbation or injury. 10-Not Attempted due to Environmental Limitations-(lack of equipment, weather restraints, etc.). 88-Not Attempted due to Medical Conditions or Safety Concerns. Sit to Stand (QC): 6 Weight Bearing Right Lower Extremity: Right Full Weight Bearing Left Lower Extremity: Left Full Weight Bearing partial weight bearing on left hand Gait Training Does the Patient Walk?: Yes Walk 150 ft (QC): 6 Gait Persons Needed: 1 Gait Assistive Device: Walker Platform Stair Training Stair Training: Handrails/: 2 handrails 4 Steps (QC): 6 Stairs: Pattern: Reciprocal Treatments family education, gait, steps Assessment Current Status: Good Progress PT Short Term Goals Short Term Goals Time Frame: Jun 25, 2022 Sit to stand: 4 (MET) Chair/ikr-yj-nzapf transfer: 4 (MET) Toilet transfer: 4 (MET) Car transfer: 4 (MET) Walk 10 feet: 4 (MET) Walk 50 feet with two turns: 4 (MET) Walk 150 feet: 4 (MET) Walking 10ft on uneven surface: 4 (MET) 1 step (curb): 4 (MET) 4 steps: 4 (MET) Picking up objects: 4 PT Corn Breeder Goals Snf Goals PT Snf Goals Time Frame: Jul 09, 2022 Roll Left & Right (QC): 6 Sit to Lying (QC): 6 Lying-Sitting on Side/Bed(QC): 6 Sit to Stand (QC): 6 Chair/Xys-ur-Qpumg Xfer(QC): 6 Toilet Transfer (QC): 6 Car Transfer (QC): 6 Does the Patient Walk: Yes Walk 10 feet (QC): 6 Walk 50ft with 2 Turns (QC): 6 Walk 150 ft (QC): 6 Walking 10ft on Uneven Surface: 6 1 Step (curb) (QC): 6 4 Steps (QC): 6 12 Steps (QC): 6 Picking up an Object (QC): 6 Wheel 50 feet with 2 turns (QC: 9 Wheel 150 feet: 9 PT Plan Treatment/Plan Treatment Plan: Continue Plan of Care Treatment Plan: Bed Mobility, Education, Functional Activity Winter, Functional Strength, Gait, Safety, Therapeutic Exercise, Transfers Treatment Duration: Jul 09, 2022 Frequency: At least 5 of 7 days/Wk (IRF) Estimated Hrs Per Day: 1.5 hours per day Patient and/or Family Agrees t: Yes Safety Risks/Education Patient Education: Gait Training, Transfer Techniques, Steps Response to Teaching: Reinforcement Needed Time Time In: 1335 Time Out: 1355 DATE: Jun 24, 2022 Total Billed Treatment Time: 20 Total Billed Treatment 1,GT20m DARINEL HAMPTON DIRECTOR OF DIETARY Jun 24, 2022 13:59
--- NOTE | 2022-06-24 15:14 | Physical Therapy Progress Note ---
Therapy Progress Note This patient is restricted in weight bearing on left upper extremity and can only wt bear through her forearm and requires a platform attachment on the walker for safe gait. Pt. has a cast on her forearm on L . Pt. is slightly limited on R UE as she had pacemaker placement 3 days ago. A front wheeled walker with left upper extremity platform attachment meets patients needs for safe gait and improves her mobility greatly making her much more independent. Pt. has demonstrated this during treatment with this AGRICULTURE LABORER on multiple treatment occasions . FAY Multani LEE A AGRICULTURE LABORER Jun 24, 2022 15:14
[2022-06-24 20:20] VITALS: BP 142/64
[2022-06-25] MEDS: CATHETER FLUSH 10 ML SYR IVP SCH ×2 (06:42→12:43)
[2022-06-25 07:47] VITALS: BP 180/95
[2022-06-25] MEDS: DOCUSATE SODIUM 100 MG (COLACE) CAP PO SCH ×2 (07:48→20:51)
[2022-06-25] MEDS: VITAMIN D3 25 MCG (1,000 UNITS) TABLET PO SCH ×2 (07:49→20:53)
[2022-06-25] MEDS: CALCIUM CARBONATE 500 MG (TUMS) TAB.CHEW PO SCH ×3 (07:49→20:48)
[2022-06-25] MEDS: SENNOSIDES 8.6 MG (SENOKOT) TAB PO SCH ×2 (07:49→20:49)
[2022-06-25] MEDS: AMIODARONE 200 MG (CORDARONE) TAB PO SCH ×2 (07:49→20:49)
[2022-06-25] MEDS: APIXABAN 5 MG (ELIQUIS) TABLET PO SCH ×2 (07:49→20:49)
[2022-06-25] MEDS: GABAPENTIN 100 MG (NEURONTIN) CAP PO SCH ×3 (07:49→20:50)
[2022-06-25] MEDS: LOSARTAN 100 MG (COZAAR) TABLET PO SCH (07:49)
[2022-06-25] MEDS: PARoxetine 20 MG (PAXIL) TAB PO SCH (07:49)
[2022-06-25] MEDS: dilTIAZem120 MG (CARDIZEM CD) CAP PO SCH (07:49)
[2022-06-25] MEDS: polyethylene glycoL POWDER 17 GM (MIRALAX) PACK PO SCH ×2 (07:50→20:53)
[2022-06-25] MEDS: ACETAMINOPHEN 325 MG TABLET PO PRN ×3 (07:50→20:50)
[2022-06-25 10:23] VITALS: BP 121/72
--- NOTE | 2022-06-25 11:00 | Occupational Ther Daily Note ---
OT Current Status-Daily Note Subjective Pt in recliner, asleep on arrival. Pt awaken and agrees to therapy. Pt c/o no pain at this time. Mental Status/Objective Patient Orientation: Person, Place, Time, Situation ADL-Treatment Pt agrees to sponge bath. Pt don/doff upper body by self after set up. Pt dons/doffs lower body by self after set up. Pt able to don/doff socks independently. Pt completed sponge bath to upper body, brendan area, buttocks and lower body by self after set up/clean up. Pt ambulates to toilet with FWW and complete toilet transfer and hygiene independently. Pt reminded of pacemaker precautions and cautioned to not wipe buttocks from behind. Pt educated on how to wipe buttocks from the front and the importance of hygiene to brendan area. Pt reports no pulling when wiping from the back. Pt stood at sink with FWW to complete hand and oral hygiene independently. Pt ambulates back to recliner with FWW. In recliner at end of session. Phone/call light in reach. All needs met in room. Therapy Code Descriptions/Definitions Functional [place] Measure: 0=Not Assessed/NA 4=Minimal Assistance 1=Total Assistance 5=Supervision or Setup 2=Maximal Assistance 6=Modified [place] 3=Moderate Assistance 7=Complete IndependenceSCALE: Activities may be completed with or without assistive devices. 0-Eetcurdfdv-ajwqgyr completes the activity by him/herself with no assistance from a helper. 5-Set-up or Clean-up Assistance-helper sets up or cleans up; patient completes activity. [place] assists only prior to or following the activity. 4-Supervision or Touching Assistance-helper provides verbal cues and/or touching/steadying and/or contact guard assistance as patient completes activity. Assistance may be provided throughout the activity or intermittently. 3-Partial/Moderate Assistance-helper does LESS THAN HALF the effort. [place] lifts, holds or supports trunk or limbs, but provides less than half the effort. 2-Substantial/Maximal Assistance-helper does MORE THAN HALF the effort. [place] lifts or holds trunk or limbs and provides more than half the effort. 5-Atkpmcdkn-pvmkuf does ALL the effort. Patient does none of the effort to complete the activity. Or, the assistance of 2 or more helpers is required for the patient to complete the activity. If activity was not attempted, code reason: 7-Patient Refused. 9-Not Applicable-not attempted and the patient did not perform the activity before the current illness, exacerbation or injury. 10-Not Attempted due to Environmental Limitations-(lack of equipment, weather restraints, etc.). 88-Not Attempted due to Medical Conditions or Safety Concerns. Oral Hygiene (QC): 6 Shower/Bathe Self (QC): 5 Upper Body Dressing (QC): 5 Lower Body Dressing (QC): 5 On/Off Footwear: 6 Toileting Hygiene (QC): 6 Toilet Transfer (QC): 6 Education OT Patient Education: Correct positioning, Modified ADL techniques, Safety issues Teaching Recipient: Patient Teaching Methods: Demonstration, Discussion Response to Teaching: Verbalize Understanding, Return Demonstration OT Short Term Goals Short Term Goals Time Frame: Jun 25, 2022 Eatin Oral hygiene: 5 Toileting hygiene: 5 Shower/bathe self: 4 Upper body dressin Lower body dressin Putting on/taking off footwear: 4 OT Petroleum Engineering Teacher Goals Petroleum Engineering Teacher Goals Time Frame: Jul 07, 2022 Acute change in mental status: 0 Inattention: 0 Disorganized thinkin Altered level of consciousness: 0 Eating (QC): 6 Oral Hygiene (QC): 6 Toileting Hygiene (QC): 6 Shower/Bathe Self (QC): 5 Upper Body Dressing (QC): 6 Lower Body Dressing (QC): 6 On/Off Footwear (QC): 6 Additional Goals: 1-Demonstrate ADL Tasks, 2-Verbalize Understanding, 3- ImproveStrength/Winter 1=Demonstrate adherence to instructed precautions during ADL tasks. 2=Patient will verbalize/demonstrate understanding of assistive devices/modifications for ADL. 3=Patient will improve strength/tolerance for activity to enable patient to perform ADL's. OT Education/Plan Problem List/Assessment Assessment: Decreased Safety Aware, Impaired I ADL's, Impaired Self-Care Skills, Restricted Funct UE ROM Discharge Recommendations Plan/Recommendations: Continue POC Treatment Plan/Plan of Care Patient would benefit from OT for education, treatment and training to promote independence in ADL's, mobility, safety and/or upper extremity function for ADL's. Plan of Care: ADL Retraining, Functional Mobility, Group Exercise/Act as Ind, UE Funct Exercise/Act Treatment Duration: Jul 07, 2022 Frequency: At least 5 of 7 days/Wk (IRF) Estimated Hrs Per Day: 1.5 hours per day (75-90 min/day) Agreement: Yes Rehab Potential: Good Time Start Time: 10:00 Stop Time: 11:00 DATE: Jun 25, 2022 Total Time Billed (hr/min): 60 Billed Treatment Time 1 visit ADL 4 (60 min) KENDY SHARP Jun 25, 2022 11:00
--- NOTE | 2022-06-25 11:05 | Progress Note ---
ELIECER ADAMS 06/25/22 1105: Progress Note S: Ms. Astudillo is a 76 year old female who presents to the rehabilitation unit s/p CVA. Patient returned from [place] on 06/22 after having a leadless pacemaker placed on the right. Cardiology is following patient. Patient has requested to be monitored with telemetry to ease her concerns about her heart rhythm. Patient is resting in recliner this morning. She denies chest pain or SOA. Patient states her right-sided chest pain from pacemaker placement continues to improve. Patient states her pain is well controlled with PO pain medication. Patient is tolerating PO food and drink as well as PT/OT therapy. Patient's left arm splint has been loosened per Orthopedic's advice. O: -Vital signs: T 36.2, HR 62, RR 16, BP 142/64, SpO2 94% RA. -PE: -Cardiovascular: HRRR - currently in sinus rhythm -Pulmonary: LCTAB A/P: 1. Continued in-patient rehabilitation with PT and OT. Plan is to work toward discharge on 07/01/2022. 2. Appreciate plan from Cardiology. Plan to discontinue telemetry if no complications persist/when patient feels comfortable to do so. ASHLEY GROSS DO 06/26/22 0553: Supervisory-Addendum Brief Verification & Attestation Participated in pt care: history, MDM, physical Personally performed: exam, history, MDM, supervision of care Care discussed with: Medical Student Procedures: n/a Results interpretation: Verified all documentation Verification and Attestation of Medical Student E/M Service A medical student performed and documented this service in my presence. I reviewed and verified all information documented by the medical student and made modifications to such information, when appropriate. I personally performed the physical exam and medical decision making. Ashley rGoss Jun 26, 2022,05:53 ELIECER ADAMS Jun 25, 2022 11:05 ASHLEY GROSS DO Jun 26, 2022 05:53
--- NOTE | 2022-06-25 11:18 | Cardiology Progress Note ---
Subjective Date Seen by Provider: Jun 25, 2022 Time Seen by Provider: 11:00 Subjective/Events-last exam Pt reports feeling better today. She returned to sinus rhythm overnight. She denies CP, palpitations, syncope, edema, and SOB. She states that when her rhythm changes, she gets nauseous, but she is not nauseous currently. She is a little sore over her pacemaker site, but is otherwise not in pain. Dr. Zarate: We are following her due to atrial fibrillation and sick sinus syndrome now status post pacemaker implantation. She remains on the inpatient physical rehabilitation unit. She denies chest discomfort, dyspnea, palpitations, syncope, or ankle edema. Certain portions of this document may have been dictated utilizing voice recognition technology. Inherent to this technology, typographical and gramma tical errors may exist. As much as I am diligent to identify and correct these mistakes, some errors may remain in the document. Focused Exam Respiratory: Lungs Clear, Normal Breath Sounds, No Accessory Muscle Use, No Re spiratory Distress Cardiovascular: Regular Rate, Rhythm, No Murmur, Other (leadless pacemaker) Skin: normal color, warm/dry Objective-Cardiology Exam Last Set of Vital Signs Vital Signs 06/21/22 06/25/22 06/25/22 06/25/22 06/25/22 09:15 07:47 08:34 10:23 13:09 Temp 36.0 Pulse 63 Resp 18 B/P (MAP) 121/72 (88) Pulse Ox 93 O2 Delivery Room Air O2 Flow Rate 0.00 I&O Intake and Output 06/25/22 00:00 Intake Total 1720 ml Balance 1720 ml Intake Oral 1720 ml # Voids 8 General: Alert, Oriented X3, Cooperative, No Acute Distress HEENT: Atraumatic, EOMI Neck: Supple Lungs: Clear to Auscultation, Normal Air Movement Heart: Regular Rate, No Murmurs Abdomen: Soft, No Tenderness Extremities: No Edema, Other (Fx left forearm cast) Neuro: Normal Gait, Normal Speech Psych/Mental Status: Mental Status NL, Mood NL Other physical findings Dr. Zarate: General: Alert. No acute distress. Eye: No xanthelasma. HENT: Normocephalic. Neck: Jugular venous pressure does not appear elevated. Respiratory: Lungs are clear to auscultation. Respirations are non-labored. Breath sounds are equal. Symmetrical chest wall expansion. Cardiovascular: Normal rate. Regular rhythm. No murmur. No gallop. No edema. Gastrointestinal: Soft. Normal bowel sounds. Skin: Warm. Dry. Right-sided pacemaker insertion site has a dressing which is dry and intact. Neurologic: Alert and oriented to person, place, time. Cranial nerves 3-11 grossly intact. Psychiatric: Cooperative. Appropriate mood & affect. A/P-Cardiology Admission Diagnosis Acute CVA Paroxysmal atrial fibrillation Sinus node dysfunction Hypertension Assessment/Plan Status post acute CVA -continue with PT/OT PAF, was off of OAC at time of CVA. Patient is s/p right sided PPM implantation done by Dr. Cool on 06/22/22. Has returned to sinus rhythm following AFib w/ RVR Continue on amiodarone and Cardizem and monitor tolerance and response. Sinus node dysfunction, multiple episodes of bradycardia, tachybradycardia episodes. She is s/p PPM implantation Cardizem was restarted, monitor tolerance and response [id number] score 5, maintained on Eliquis Hypertension Continue losartan and monitor blood pressure Hyperlipidemia maintained on statin. Continue to monitor lipids Left forearm fracture management per Dr. Mirta ZARATE: Sick sinus syndrome. She is now status post permanent pacemaker implantation. We will schedule her for a wound check in 1 week. Atrial fibrillation, paroxysmal. She remains in sinus rhythm on amiodarone and diltiazem. She is on apixaban for stroke prophylaxis. Essential hypertension. Blood pressures have been intermittently elevated. If this persists, we may need to make some adjustments to her antihypertensive medication. Mixed hyperlipidemia. Continue statin medication. Supervisory-Addendum Brief Verification & Attestation Participated in pt care: history, MDM, physical Personally performed: exam, history, MDM Care discussed with: Medical Student Procedures: n/a Results interpretation: Verified all documentation I independently interviewed and examined the patient and formulated my own impression and plan as noted above. I also reviewed the medical student notes. JABARI HUANG Jun 25, 2022 11:18 LINH ZARATE JR, MD Jun 25, 2022 15:57
--- NOTE | 2022-06-25 11:55 | PM&R Progress Note ---
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 Updated family and patient 06/20/2022: Back in AF Pacemaker will be placed tomorrow morning due to severe bradycardia with meds and then will have AF RVR so only option will be pacemaker No pain otherwise Checked meds and labs 06/19/2022: Doing much better Less pain HR is labile either too slow or too fast Dr Medellin assessed her today Review of Systems General: Fatigue, Malaise Objective Exam Vital Signs Vital Signs Date Time Temp Pulse Resp B/P (MAP) Pulse Ox O2 Delivery O2 Flow Rate FiO2 06/26/22 01:00 61 06/25/22 20:45 Room Air 06/25/22 19:44 36.4 20 142/67 (92) 95 06/24/22 08:28 21 06/21/22 09:15 0.00 Capillary Refill : General Appearance: No Apparent Distress, WD/WN, Chronically ill HEENT: PERRL/EOMI, Normal ENT Inspection, Pharynx Normal Neck: Full Range of Motion, Normal Inspection, Non Tender, Supple, Carotid Bruit Respiratory: Lungs Clear, Normal Breath Sounds, No Accessory Muscle Use, No Respiratory Distress Cardiovascular: Regular Rate, Rhythm, No Murmur, Other (leadless pacemaker) Gastrointestinal: Normal Bowel Sounds, No Organomegaly, No Pulsatile Mass, Non Tender, Soft Back: Normal Inspection, No CVA Tenderness, No Vertebral Tenderness Extremity: Normal Capillary Refill, Normal Inspection, Normal Range of Motion (except left arm), Non Tender, No Calf Tenderness, No Pedal Edema Neurologic/Psychiatric: Alert, Oriented x3, Normal Mood/Affect, beveller operator II-XII Norm as Tested, Abnormal Gait, Motor Weakness (left sided) Skin: Normal Color, Warm/Dry Lymphatic: No Adenopathy Results/Procedures Lab Patient resulted labs reviewed. FIM Transfers Therapy Code Descriptions/Definitions Functional [place] Measure: 0=Not Assessed/NA 4=Minimal Assistance 1=Total Assistance 5=Supervision or Setup 2=Maximal Assistance 6=Modified [place] 3=Moderate Assistance 7=Complete IndependenceSCALE: Activities may be completed with or without assistive devices. 4-Glsqofsszv-cashdpd completes the activity by him/herself with no assistance from a helper. 5-Set-up or Clean-up Assistance-helper sets up or cleans up; patient completes activity. [place] assists only prior to or following the activity. 4-Supervision or Touching Assistance-helper provides verbal cues and/or touching/steadying and/or contact guard assistance as patient completes activity. Assistance may be provided throughout the activity or intermittently. 3-Partial/Moderate Assistance-helper does LESS THAN HALF the effort. [place] lifts, holds or supports trunk or limbs, but provides less than half the effort. 2-Substantial/Maximal Assistance-helper does MORE THAN HALF the effort. [place] l ifts or holds trunk or limbs and provides more than half the effort. 8-Thcsuaimy-txasmn does ALL the effort. Patient does none of the effort to complete the activity. Or, the assistance of 2 or more helpers is required for the patient to complete the activity. If activity was not attempted, code reason: 7-Patient Refused. 9-Not Applicable-not attempted and the patient did not perform the activity before the current illness, exacerbation or injury. 10-Not Attempted due to Environmental Limitations-(lack of equipment, weather restraints, etc.). 88-Not Attempted due to Medical Conditions or Safety Concerns. Roll Left to Right (QC): 6 Sit to Lying (QC): 6 Sit to Stand (QC): 6 Chair/Vrq-dt-Lpajy Xfer(QC): 6 Car Transfer (QC): 4 Gait Training Does the Patient Walk?: Yes Distance: 300ft Walk 10 feet (QC): 6 Walk 50 ft with 2 Turns(QC): 6 Walk 150 ft (QC): 6 Walking 10ft/uneven surface-QC: 4 Gait Persons Needed: 1 Gait Assistive Device: Walker Platform Wheelchair Training Does the Pt Use a Wheelchair?: No Wheel 50 ft with 2 turns (QC): 9 Wheel 150 ft (QC): 9 Stair Training Stair Training: Handrails/: 2 handrails #of Steps: 12 1 Step (curb) (QC): 4 4 Steps (QC): 6 12 Steps (QC): 4 Stairs: Pattern: Reciprocal Balance Picking up an Object (QC): 3 ADL-Treatment Eating (QC): 4 Oral Hygiene (QC): 6 Bathing Location: L Arm, R Arm, L Upper Leg, R Upper Leg, Chest, Abdomen, Buttocks, Perineal Area Shower/Bathe Self (QC): 5 Upper Body Dressing (QC): 5 Lower Body Dressing (QC): 5 On/Off Footwear (QC): 6 Toileting Hygiene (QC): 6 Toilet Transfer (QC): 6 Assessment/Plan Assessment and Plan Assess & Plan/Chief Complaint Assessment: A. fib with RVR requiring ICU transfer and discharge from rehab 06/17/2022 but readmitted 06/18/2022 SSS s/p pacemaker of leadless type required transfer to [place] and placed by Dr Cool 06/21/22 and readmitted 06/22/22 CVA Left-sided weakness Left arm fracture limit weight bearing Hypertension Hyperlipidemia Atrial fibrillation Depression History of left sided breast cancer Chronic left arm lymphedema Plan: Monitor closely Fall risk Aggressive rehab Appreciate Cardiology 06/19/2022: Monitor HR Aggressive therapy 06/20/2022: Pacemaker placement tomorrow 06/21/2022: [place] for leadless pacemaker 06/23/2022: Telemetry Appreciate Dr Medellin 06/24/2022: Appreciate Ira Medellin and Mirta 06/25/2022: Supportive care (1) CVA (cerebral vascular accident) (2) Atrial fibrillation with rapid ventricular response (3) Closed left arm fracture (4) Chronic anticoagulation (5) Hypertension (6) Hyperlipidemia (7) Depression JHOANA GROSS DO Jun 25, 2022 11:55
--- NOTE | 2022-06-25 12:12 | Physical Therapy Daily Note ---
PT Daily Note-Current Subjective Pt. agrees to Rx, c/o only minor twinges in R chest/ shoulder area. Pain Numeric Pain Scale: 3 Location: Right Location Body Site: Shoulder Pain Description: Pricking Section J - Health Conditions 1. Rarely or not at all 2. Occasionally 3. Frequently 4. Almost constantly 8. Unable to answer Pain Effect on Sleep: 1 Pain Interference with Therapy: 2 Pain Interference w/Day-to-Day: 2 Mental Status Patient Orientation: Normal For Age Attachments: Other-See Comments (cast L arm/wrist) Transfers SCALE: Activities may be completed with or without assistive devices. 4-Pdtvbbzlzq-idkxhxf completes the activity by him/herself with no assistance from a helper. 5-Set-up or Clean-up Assistance-helper sets up or cleans up; patient completes activity. [place] assists only prior to or following the activity. 4-Supervision or Touching Assistance-helper provides verbal cues and/or touching/steadying and/or contact guard assistance as patient completes activity. Assistance may be provided throughout the activity or intermittently. 3-Partial/Moderate Assistance-helper does LESS THAN HALF the effort. [place] lifts, holds or supports trunk or limbs, but provides less than half the effort. 2-Substantial/Maximal Assistance-helper does MORE THAN HALF the effort. [place] lifts or holds trunk or limbs and provides more than half the effort. 9-Ajlqbkpxp-zgpcfn does ALL the effort. Patient does none of the effort to complete the activity. Or, the assistance of 2 or more helpers is required for the patient to complete the activity. If activity was not attempted, code reason: 7-Patient Refused. 9-Not Applicable-not attempted and the patient did not perform the activity before the current illness, exacerbation or injury. 10-Not Attempted due to Environmental Limitations-(lack of equipment, weather restraints, etc.). 88-Not Attempted due to Medical Conditions or Safety Concerns. Roll Left & Right (QC): 4 Sit to Lying (QC): 6 Lying to Sitting/Side of Bed(Q: 6 Sit to Stand (QC): 6 Chair/Nks-ph-Tzram Xfer(QC): 6 Toilet Transfer (QC): 6 Car Transfer (QC): 6 pt. utilized wedge today for sup to sit and sit to sup which upgraded her to indep and no c/o pain in either UE. Pt. states she can duplicate this at home, pt sits straight up to get up and out of bed and reverse in to bed. Weight Bearing Right Lower Extremity: Right Full Weight Bearing Left Lower Extremity: Left Full Weight Bearing partial weight bearing on left hand Gait Training Does the Patient Walk?: Yes Walk 10 feet (QC): 6 Walk 50 ft with 2 Turns(QC): 6 Walk 150 ft (QC): 6 Walking 10ft/uneven surface-QC: 6 Gait Persons Needed: 1 Gait Assistive Device: Walker Platform it has been questioned as to whether it would be safe for pt to attempt to use c ane in right hand to ambulate as the FWW with platform is cumbersome. This WARDROBE COORDINATOR brought these questions of precautions to the nurse to help us decide whether this would break precautions. Stair Training Stair Training: Handrails/: 2 handrails #of Steps: 4 4 Steps (QC): 4 Stairs: Pattern: Reciprocal Exercises Seated Therapy Exercises: Ankle pumps, Sit to stand, Long arc quads, Hip flexion, Hip abd/add Seated Reps: 12 NuStep Minutes: 10 NuStep Workload: 1 Treatments therex, gait, TRFs, steps Assessment Current Status: Good Progress progressing well, questions with regards to limitations on use of right hand arm still in question ie use of SPC or QC for gait, otherwise pt. progressing well and is happy to report she is in sinus rythm again PT Short Term Goals Short Term Goals Time Frame: Jun 25, 2022 Sit to stand: 4 (MET) Chair/vwy-lz-knhfc transfer: 4 (MET) Toilet transfer: 4 (MET) Car transfer: 4 (MET) Walk 10 feet: 4 (MET) Walk 50 feet with two turns: 4 (MET) Walk 150 feet: 4 (MET) Walking 10ft on uneven surface: 4 (MET) 1 step (curb): 4 (MET) 4 steps: 4 (MET) Picking up objects: 4 PT Defensive Secondary Coach Goals Nursing Home Goals PT Defensive Secondary Coach Goals Time Frame: Jul 09, 2022 Roll Left & Right (QC): 6 Sit to Lying (QC): 6 Lying-Sitting on Side/Bed(QC): 6 Sit to Stand (QC): 6 Chair/Byj-ye-Dyluj Xfer(QC): 6 Toilet Transfer (QC): 6 Car Transfer (QC): 6 Does the Patient Walk: Yes Walk 10 feet (QC): 6 Walk 50ft with 2 Turns (QC): 6 Walk 150 ft (QC): 6 Walking 10ft on Uneven Surface: 6 1 Step (curb) (QC): 6 4 Steps (QC): 6 12 Steps (QC): 6 Picking up an Object (QC): 6 Wheel 50 feet with 2 turns (QC: 9 Wheel 150 feet: 9 PT Plan Treatment/Plan Treatment Plan: Continue Plan of Care Treatment Plan: Bed Mobility, Education, Functional Activity Winter, Functional Strength, Gait, Safety, Therapeutic Exercise, Transfers Treatment Duration: Jul 09, 2022 Frequency: At least 5 of 7 days/Wk (IRF) Estimated Hrs Per Day: 1.5 hours per day Patient and/or Family Agrees t: Yes Safety Risks/Education Patient Education: Gait Training, Transfer Techniques, Steps, Reviewed Precautions, Correct Positioning, Disease Process, Safety Issues Teaching Recipient: Patient Teaching Methods: Demonstration, Discussion Response to Teaching: Verbalize Understanding, Return Demonstration, Reinforcement Needed Time Time In: 800 Time Out: 900 DATE: Jun 25, 2022 Total Billed Treatment Time: 60 Total Billed Treatment 1,FA30m,GT15m,Ex,15m DARINEL HAMPTON WARDROBE COORDINATOR Jun 25, 2022 12:12
--- NOTE | 2022-06-25 14:11 | Therapy Group Daily Note ---
Therapy Daily Group Note Patient Education Topic Exercises, Other List Below (memory strategies, therex program) Exercises LE Seated Exercise, UE Exercise Session Ratio (pt:therapist): 2:1 Goal of Session: Education on ARU Expectations, Memory Strategies, UE/LE Strengthing Goal Met for this Session: Yes Pt Benefit of Group: Contributions to Others, F/U Use of Strategies @Home, Socialization Other/Notes Pt. participated in group PT OT session this date. Pt ambulated to group using FWW and assist. Pts introduced themselves, shared hometown as well as time in their life they felt very challenged but conquered it. Pts. were reviewed on ARU expectations and practices, pts all participated in memory game involving l ocating and remembering images and matching them . Pts shared and discussed memory strategies they use . Pts participated in seated U&L ext exercises. Pt. was assisted to room after group , call neal at hand and all needs met Start Time: 13:00 Stop Time: 14:00 Total Billed Treatment Time: 60 Total Billed Treatment 1,GRP 60m DARINEL HAMPTON WASTEWATER DESIGN ENGINEER Jun 25, 2022 14:11
[2022-06-25 19:44] VITALS: BP 142/67
[2022-06-25] MEDS: MELATONIN 3 MG TABLET PO PRN (22:29)
--- NOTE | 2022-06-26 06:21 | PM&R Progress Note ---
Subjective HPI/CC On Admission Date Seen by Provider: Jun 26, 2022 Time Seen by Provider: 12:00 Subjective/Events-last exam 06/26/2022: Patient doing really well Asking about her visual field deficit of the left side and we discussed that a bit Her eye doctor is in [place] Telemetry is maintained 06/25/2022: Wants to go home soon Doing very well Converted to normal sinus rhythm Still on telemetry 06/24/2022: Much improved status Less pain in right arm Dr Kirby will evaluate the left hand it appears to be more swollen AF RVR managed conservatively 06/23/2022: Patient doing well Telemtry is maintained Appreciate Dr Medellin Pacemaker maintained 06/21/2022: Patient will require transfer to [place] for leadless pacemaker 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 Updated family and patient 06/20/2022: Back in AF Pacemaker will be placed tomorrow morning due to severe bradycardia with meds and then will have AF RVR so only option will be pacemaker No pain otherwise Checked meds and labs 06/19/2022: Doing much better Less pain HR is labile either too slow or too fast Dr Medellin assessed her today Review of Systems General: Fatigue, Malaise Objective Exam Vital Signs Vital Signs Date Time Temp Pulse Resp B/P (MAP) Pulse Ox O2 Delivery O2 Flow Rate FiO2 06/27/22 01:00 65 06/26/22 20:30 Room Air 06/26/22 20:00 36.7 16 173/76 (108) 95 06/24/22 08:28 21 06/21/22 09:15 0.00 Capillary Refill : General Appearance: No Apparent Distress, WD/WN, Chronically ill HEENT: PERRL/EOMI, Normal ENT Inspection, Pharynx Normal Neck: Full Range of Motion, Normal Inspection, Non Tender, Supple, Carotid Bruit Respiratory: Lungs Clear, Normal Breath Sounds, No Accessory Muscle Use, No Respiratory Distress Cardiovascular: Regular Rate, Rhythm, No Murmur, Other (leadless pacemaker) Gastrointestinal: Normal Bowel Sounds, No Organomegaly, No Pulsatile Mass, Non Tender, Soft Back: Normal Inspection, No CVA Tenderness, No Vertebral Tenderness Extremity: Normal Capillary Refill, Normal Inspection, Normal Range of Motion (except left arm), Non Tender, No Calf Tenderness, No Pedal Edema Neurologic/Psychiatric: Alert, Oriented x3, Normal Mood/Affect, cephalometric analyst II-XII Norm as Tested, Abnormal Gait, Motor Weakness (left sided) Skin: Normal Color, Warm/Dry Lymphatic: No Adenopathy Results/Procedures Lab Patient resulted labs reviewed. FIM Transfers Therapy Code Descriptions/Definitions Functional [place] Measure: 0=Not Assessed/NA 4=Minimal Assistance 1=Total Assistance 5=Supervision or Setup 2=Maximal Assistance 6=Modified [place] 3=Moderate Assistance 7=Complete IndependenceSCALE: Activities may be completed with or without assistive devices. 4-Nynsmyrazz-izzulln completes the activity by him/herself with no assistance from a helper. 5-Set-up or Clean-up Assistance-helper sets up or cleans up; patient completes activity. [place] assists only prior to or following the activity. 4-Supervision or Touching Assistance-helper provides verbal cues and/or touching/steadying and/or contact guard assistance as patient completes activity. Assistance may be provided throughout the activity or intermittently. 3-Partial/Moderate Assistance-helper does LESS THAN HALF the effort. [place] lifts, holds or supports trunk or limbs, but provides less than half the effort. 2-Substantial/Maximal Assistance-helper does MORE THAN HALF the effort. [place] lifts or holds trunk or limbs and provides more than half the effort. 8-Fotdijklw-govfhv does ALL the effort. Patient does none of the effort to complete the activity. Or, the assistance of 2 or more helpers is required for the patient to complete the activity. If activity was not attempted, code reason: 7-Patient Refused. 9-Not Applicable-not attempted and the patient did not perform the activity before the current illness, exacerbation or injury. 10-Not Attempted due to Environmental Limitations-(lack of equipment, weather restraints, etc.). 88-Not Attempted due to Medical Conditions or Safety Concerns. Roll Left to Right (QC): 4 Sit to Lying (QC): 6 Sit to Stand (QC): 6 Chair/Anb-jw-Chdcq Xfer(QC): 6 Car Transfer (QC): 6 Gait Training Does the Patient Walk?: Yes Distance: 300ft Walk 10 feet (QC): 6 Walk 50 ft with 2 Turns(QC): 6 Walk 150 ft (QC): 6 Walking 10ft/uneven surface-QC: 6 Gait Persons Needed: 1 Gait Assistive Device: Walker Platform Wheelchair Training Does the Pt Use a Wheelchair?: No Wheel 50 ft with 2 turns (QC): 9 Wheel 150 ft (QC): 9 Stair Training Stair Training: Handrails/: 2 handrails #of Steps: 4 1 Step (curb) (QC): 4 4 Steps (QC): 4 12 Steps (QC): 4 Stairs: Pattern: Reciprocal Balance Picking up an Object (QC): 3 ADL-Treatment Eating (QC): 4 Oral Hygiene (QC): 6 Bathing Location: L Arm, R Arm, L Upper Leg, R Upper Leg, Chest, Abdomen, Buttocks, Perineal Area Shower/Bathe Self (QC): 5 Upper Body Dressing (QC): 5 Lower Body Dressing (QC): 5 On/Off Footwear (QC): 6 Toileting Hygiene (QC): 6 Toilet Transfer (QC): 6 Assessment/Plan Assessment and Plan Assess & Plan/Chief Complaint Assessment: A. fib with RVR requiring ICU transfer and discharge from rehab 06/17/2022 but readmitted 06/18/2022 SSS s/p pacemaker of leadless type required transfer to [place] and placed by Dr Cool 06/21/22 and readmitted 06/22/22 CVA Left-sided weakness Left arm fracture limit weight bearing Hypertension Hyperlipidemia Atrial fibrillation Depression History of left sided breast cancer Chronic left arm lymphedema Plan: Monitor closely Fall risk Aggressive rehab Appreciate Cardiology 06/19/2022: Monitor HR Aggressive therapy 06/20/2022: Pacemaker placement tomorrow 06/21/2022: [place] for leadless pacemaker 06/23/2022: Telemetry Appreciate Dr Medellin 06/24/2022: Appreciate Ira Medellin and Mirta 06/25/2022: Supportive care 06/26/2022: Supportive care (1) CVA (cerebral vascular accident) (2) Atrial fibrillation with rapid ventricular response (3) Closed left arm fracture (4) Chronic anticoagulation (5) Hypertension (6) Hyperlipidemia (7) Depression JHOANA GROSS DO Jun 26, 2022 06:21
[2022-06-26] MEDS: ACETAMINOPHEN 325 MG TABLET PO PRN ×2 (06:55→20:21)
[2022-06-26 07:48] VITALS: BP 121/66
[2022-06-26] MEDS: VITAMIN D3 25 MCG (1,000 UNITS) TABLET PO SCH ×2 (08:09→20:19)
[2022-06-26] MEDS: dilTIAZem120 MG (CARDIZEM CD) CAP PO SCH (08:09)
[2022-06-26] MEDS: SENNOSIDES 8.6 MG (SENOKOT) TAB PO SCH ×2 (08:10→20:19)
[2022-06-26] MEDS: LOSARTAN 100 MG (COZAAR) TABLET PO SCH (08:10)
[2022-06-26] MEDS: DOCUSATE SODIUM 100 MG (COLACE) CAP PO SCH ×2 (08:10→20:20)
[2022-06-26] MEDS: GABAPENTIN 100 MG (NEURONTIN) CAP PO SCH ×3 (08:10→20:19)
[2022-06-26] MEDS: PARoxetine 20 MG (PAXIL) TAB PO SCH (08:10)
[2022-06-26] MEDS: AMIODARONE 200 MG (CORDARONE) TAB PO SCH (08:10)
[2022-06-26] MEDS: APIXABAN 5 MG (ELIQUIS) TABLET PO SCH ×2 (08:10→20:21)
[2022-06-26] MEDS: polyethylene glycoL POWDER 17 GM (MIRALAX) PACK PO SCH ×2 (08:10→20:23)
[2022-06-26] MEDS: CALCIUM CARBONATE 500 MG (TUMS) TAB.CHEW PO SCH ×3 (08:10→20:22)
--- NOTE | 2022-06-26 10:09 | Cardiology Progress Note ---
Progress Note-Cardiology Events since last exam Date Seen by Provider: Jun 26, 2022 Time Seen by Provider: 10:04 Events since last exam We are following her due to sick sinus syndrome and atrial fibrillation. She remains on the inpatient physical rehabilitation unit. She had been sent to [facility] for possible leadless pacemaker but then had atrial fibrillation and because of this, ended up undergoing a dual chamber pacemaker implantation at the outside facility and was sent transferred back to our facility. She has been working with physical therapy without any significant dyspnea. She denies chest pain, palpitations, syncope, or ankle edema. Certain portions of this document may have been dictated utilizing voice recognition technology. Inherent to this technology, typographical and grammatical errors may exist. As much as I am diligent to identify and correct these mistakes, some errors may remain in the document. Vitals Last set of Vitals Signs Vital Signs 06/21/22 06/26/22 09:15 07:48 Temp 36.7 Pulse 63 Resp 20 B/P (MAP) 121/66 (84) Pulse Ox 96 O2 Delivery Room Air O2 Flow Rate 0.00 Exam Vital Signs Vital Signs Date Time Temp Pulse Resp B/P (MAP) Pulse Ox O2 Delivery O2 Flow Rate FiO2 06/26/22 07:48 36.7 63 20 121/66 (84) 96 Room Air 06/24/22 08:28 21 06/21/22 09:15 0.00 Physical Exam General: Alert. No acute distress. Eye: No xanthelasma. HENT: Normocephalic. Neck: Jugular venous pressure does not appear elevated. Respiratory: Lungs are clear to auscultation. Respirations are non-labored. Breath sounds are equal. Symmetrical chest wall expansion. Cardiovascular: Normal rate. Regular rhythm. No murmur. No gallop. No edema. Gastrointestinal: Soft. Normal bowel sounds. Skin: Warm. Dry. Neurologic: Alert and oriented to person, place, time. Cranial nerves 3-11 grossly intact. Psychiatric: Cooperative. Appropriate mood & affect. Diagnosis/Problems Diagnosis/Problems (1) Paroxysmal atrial fibrillation Assessment & Plan: She seems to be remaining in an atrial paced rhythm on amiodarone. I will decrease this from 200 mg twice daily down to 200 mg once daily. Ultimately, we may want to see if we can taper this to off. She is on apixaban for stroke prophylaxis. (2) Sick sinus syndrome Assessment & Plan: She is now status post dual chamber pacemaker implantation from the right side. Site appears intact. (3) Primary hypertension Assessment & Plan: Blood pressure is reasonably controlled with diltiazem and losartan. (4) Mixed hyperlipidemia Assessment & Plan: Continue statin. (5) Cardiac pacemaker in situ Assessment & Plan: We will get her enrolled in our outpatient pacemaker monitoring clinic at the time of discharge. LINH SCHNEIDER JR, MD Jun 26, 2022 10:09
--- NOTE | 2022-06-26 11:03 | Physical Therapy Daily Note ---
PT Daily Note-Current Subjective Upon arrival, pt was seated in recliner, with call light and tray in reach, pts family was present. Pt states that she sleep fine, pt states she has min pain, but did not rate. Pt agrees to PT. Pain Section J - Health Conditions 1. Rarely or not at all 2. Occasionally 3. Frequently 4. Almost constantly 8. Unable to answer Pain Effect on Sleep: 1 Pain Interference with Therapy: 2 Pain Interference w/Day-to-Day: 2 Mental Status Patient Orientation: Person, Time, Situation Transfers SCALE: Activities may be completed with or without assistive devices. 3-Lgvcycoroj-uxeckkq completes the activity by him/herself with no assistance from a helper. 5-Set-up or Clean-up Assistance-helper sets up or cleans up; patient completes activity. [place] assists only prior to or following the activity. 4-Supervision or Touching Assistance-helper provides verbal cues and/or touching/steadying and/or contact guard assistance as patient completes activity. Assistance may be provided throughout the activity or intermittently. 3-Partial/Moderate Assistance-helper does LESS THAN HALF the effort. [place] lifts, holds or supports trunk or limbs, but provides less than half the effort. 2-Substantial/Maximal Assistance-helper does MORE THAN HALF the effort. [place] lifts or holds trunk or limbs and provides more than half the effort. 8-Oauiafoxo-inccni does ALL the effort. Patient does none of the effort to complete the activity. Or, the assistance of 2 or more helpers is required for the patient to complete the activity. If activity was not attempted, code reason: 7-Patient Refused. 9-Not Applicable-not attempted and the patient did not perform the activity before the current illness, exacerbation or injury. 10-Not Attempted due to Environmental Limitations-(lack of equipment, weather restraints, etc.). 88-Not Attempted due to Medical Conditions or Safety Concerns. Sit to Stand (QC): 4 Toilet Transfer (QC): 4 Pt was able to stand with min assistance. Pt ambulates to BR, and was able to toilet herself. Pt was CGA with task. Weight Bearing Right Lower Extremity: Right Full Weight Bearing Left Lower Extremity: Left Full Weight Bearing partial weight bearing on left hand Gait Training Does the Patient Walk?: Yes Distance: 110' Walk 10 feet (QC): 4 Walk 50 ft with 2 Turns(QC): 4 Gait Persons Needed: 1 Gait Assistive Device: Walker Platform Pt ambulated with a slow but steady GT. Pts GT pattern was step to with platform walker. Exercises Supine Ex: Ankle pumps (20), Heel Slides, Straight leg raise Supine Reps: 10 Treatments Pt completed all exercises listed above. Pt ambulated from room, around RN station and back to room. Pt went to BR, and was able to wipe herself and stand up with min assistance. Once PT was concluded, pt was seated in recliner with call light and tray in reach and all needs met. As PT exits pts room, pts family was still present. Assessment Current Status: Good Progress Pt would benefit from continued skilled PT to address strength, GT and activity tolerance. PT Short Term Goals Short Term Goals Time Frame: Jun 25, 2022 Sit to stand: 4 (MET) Chair/acd-ys-gegxo transfer: 4 (MET) Toilet transfer: 4 (MET) Car transfer: 4 (MET) Walk 10 feet: 4 (MET) Walk 50 feet with two turns: 4 (MET) Walk 150 feet: 4 (MET) Walking 10ft on uneven surface: 4 (MET) 1 step (curb): 4 (MET) 4 steps: 4 (MET) Picking up objects: 4 PT Detention Goals Detention Goals PT Bin Filler Goals Time Frame: Jul 09, 2022 Roll Left & Right (QC): 6 Sit to Lying (QC): 6 Lying-Sitting on Side/Bed(QC): 6 Sit to Stand (QC): 6 Chair/Dno-ri-Lynfl Xfer(QC): 6 Toilet Transfer (QC): 6 Car Transfer (QC): 6 Does the Patient Walk: Yes Walk 10 feet (QC): 6 Walk 50ft with 2 Turns (QC): 6 Walk 150 ft (QC): 6 Walking 10ft on Uneven Surface: 6 1 Step (curb) (QC): 6 4 Steps (QC): 6 12 Steps (QC): 6 Picking up an Object (QC): 6 Wheel 50 feet with 2 turns (QC: 9 Wheel 150 feet: 9 PT Plan Problem List Problem List: Activity Tolerance, Functional Strength, Gait Treatment/Plan Treatment Plan: Continue Plan of Care Treatment Plan: Bed Mobility, Education, Functional Activity Winter, Functional Strength, Gait, Safety, Therapeutic Exercise, Transfers Treatment Duration: Jul 09, 2022 Frequency: At least 5 of 7 days/Wk (IRF) Estimated Hrs Per Day: 1.5 hours per day Patient and/or Family Agrees t: Yes Time Time In: 915 Time Out: 931 DATE: Jun 26, 2022 Total Billed Treatment Time: 16 Total Billed Treatment 1, FA (8), Ex (8) COCO ORDAZ PTA Jun 26, 2022 11:03
[2022-06-26] MEDS ORDERED: LORATADINE (CLARITIN) 10 MG TAB PO ONE (12:30)
[2022-06-26 20:00] VITALS: BP 173/76
[2022-06-26] MEDS: MELATONIN 3 MG TABLET PO PRN (20:19)
--- NOTE | 2022-06-27 07:09 | PM&R Progress Note ---
Subjective HPI/CC On Admission Date Seen by Provider: Jun 27, 2022 Time Seen by Provider: 13:00 Subjective/Events-last exam 06/27/2022: Improved status BM+ 06/25 Walking well No pain 06/26/2022: Patient doing really well Asking about her visual field deficit of the left side and we discussed that a bit Her eye doctor is in [place] Telemetry is maintained 06/25/2022: Wants to go home soon Doing very well Converted to normal sinus rhythm Still on telemetry 06/24/2022: Much improved status Less pain in right arm Dr Kirby will evaluate the left hand it appears to be more swollen AF RVR managed conservatively 06/23/2022: Patient doing well Telemtry is maintained Appreciate Dr Medellin Pacemaker maintained 06/21/2022: Patient will require transfer to [facility] for leadless pacemaker 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 Updated family and patient 06/20/2022: Back in AF Pacemaker will be placed tomorrow morning due to severe bradycardia with meds and then will have AF RVR so only option will be pacemaker No pain otherwise Checked meds and labs 06/19/2022: Doing much better Less pain HR is labile either too slow or too fast Dr Medellin assessed her today Review of Systems General: Fatigue, Malaise Neurological: Weakness, Numbness, Incoordination Objective Exam Vital Signs Vital Signs Date Time Temp Pulse Resp B/P (MAP) Pulse Ox O2 Delivery O2 Flow Rate FiO2 06/27/22 19:53 36.6 80 18 130/69 (89) 93 Room Air 06/24/22 08:28 21 06/21/22 09:15 0.00 Capillary Refill : General Appearance: No Apparent Distress, WD/WN, Chronically ill HEENT: PERRL/EOMI, Normal ENT Inspection, Pharynx Normal Neck: Full Range of Motion, Normal Inspection, Non Tender, Supple, Carotid Bruit Respiratory: Lungs Clear, Normal Breath Sounds, No Accessory Muscle Use, No Respiratory Distress Cardiovascular: Regular Rate, Rhythm, No Murmur, Other (leadless pacemaker) Gastrointestinal: Normal Bowel Sounds, No Organomegaly, No Pulsatile Mass, Non Tender, Soft Back: Normal Inspection, No CVA Tenderness, No Vertebral Tenderness Extremity: Normal Capillary Refill, Normal Inspection, Normal Range of Motion (except left arm), Non Tender, No Calf Tenderness, No Pedal Edema Neurologic/Psychiatric: Alert, Oriented x3, Normal 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 FIM Transfers Therapy Code Descriptions/Definitions Functional [place] Measure: 0=Not Assessed/NA 4=Minimal Assistance 1=Total Assistance 5=Supervision or Setup 2=Maximal Assistance 6=Modified [place] 3=Moderate Assistance 7=Complete IndependenceSCALE: Activities may be completed with or without assistive devices. 0-Oxgukdobjq-hyaariq completes the activity by him/herself with no assistance from a helper. 5-Set-up or Clean-up Assistance-helper sets up or cleans up; patient completes activity. [place] assists only prior to or following the activity. 4-Supervision or Touching Assistance-helper provides verbal cues and/or touch ing/steadying and/or contact guard assistance as patient completes activity. Assistance may be provided throughout the activity or intermittently. 3-Partial/Moderate Assistance-helper does LESS THAN HALF the effort. [place] lifts, holds or supports trunk or limbs, but provides less than half the effort. 2-Substantial/Maximal Assistance-helper does MORE THAN HALF the effort. [place] lifts or holds trunk or limbs and provides more than half the effort. 0-Bzssnzkpx-cdisgs does ALL the effort. Patient does none of the effort to complete the activity. Or, the assistance of 2 or more helpers is required for the patient to complete the activity. If activity was not attempted, code reason: 7-Patient Refused. 9-Not Applicable-not attempted and the patient did not perform the activity before the current illness, exacerbation or injury. 10-Not Attempted due to Environmental Limitations-(lack of equipment, weather restraints, etc.). 88-Not Attempted due to Medical Conditions or Safety Concerns. Roll Left to Right (QC): 4 Sit to Lying (QC): 6 Sit to Stand (QC): 4 Chair/Cdy-ql-Dnjqx Xfer(QC): 6 Car Transfer (QC): 6 Gait Training Does the Patient Walk?: Yes Distance: 110' Walk 10 feet (QC): 4 Walk 50 ft with 2 Turns(QC): 4 Walk 150 ft (QC): 6 Walking 10ft/uneven surface-QC: 6 Gait Persons Needed: 1 Gait Assistive Device: Walker Platform Wheelchair Training Does the Pt Use a Wheelchair?: No Wheel 50 ft with 2 turns (QC): 9 Wheel 150 ft (QC): 9 Stair Training Stair Training: Handrails/: 2 handrails #of Steps: 4 1 Step (curb) (QC): 4 4 Steps (QC): 4 12 Steps (QC): 4 Stairs: Pattern: Reciprocal Balance Picking up an Object (QC): 3 ADL-Treatment Eating (QC): 4 Oral Hygiene (QC): 6 Bathing Location: L Arm, R Arm, L Upper Leg, R Upper Leg, Chest, Abdomen, Buttocks, Perineal Area Shower/Bathe Self (QC): 5 Upper Body Dressing (QC): 5 Lower Body Dressing (QC): 5 On/Off Footwear (QC): 6 Toileting Hygiene (QC): 6 Toilet Transfer (QC): 6 Assessment/Plan Assessment and Plan Assess & Plan/Chief Complaint Assessment: A. fib with RVR requiring ICU transfer and discharge from rehab 06/17/2022 but readmitted 06/18/2022 SSS s/p pacemaker of leadless type required transfer to [facility] and placed by Dr Cool 06/21/22 and readmitted 06/22/22 CVA Left-sided weakness Left arm fracture limit weight bearing Hypertension Hyperlipidemia Atrial fibrillation Depression History of left sided breast cancer Chronic left arm lymphedema Plan: Monitor closely Fall risk Aggressive rehab Appreciate Cardiology 06/19/2022: Monitor HR Aggressive therapy 06/20/2022: Pacemaker placement tomorrow 06/21/2022: [facility] for leadless pacemaker 06/23/2022: Telemetry Appreciate Dr Medellin 06/24/2022: Appreciate Ira Medellin and Mirta 06/25/2022: Supportive care 06/26/2022: Supportive care 06/27/2022: Monitor closely (1) Paroxysmal atrial fibrillation Assessment & Plan: She seems to be remaining in an atrial paced rhythm on amiodarone. I will decrease this from 200 mg twice daily down to 200 mg once daily. Ultimately, we may want to see if we can taper this to off. She is on apixaban for stroke prophylaxis. (2) Sick sinus syndrome Assessment & Plan: She is now status post dual chamber pacemaker implantation from the right side. Site appears intact. (3) Primary hypertension Assessment & Plan: Blood pressure is reasonably controlled with diltiazem and losartan. (4) Mixed hyperlipidemia Assessment & Plan: Continue statin. (5) Cardiac pacemaker in situ Assessment & Plan: We will get her enrolled in our outpatient pacemaker monitoring clinic at the time of discharge. JHOANA GROSS DO Jun 27, 2022 07:09
[2022-06-27 07:29] VITALS: BP 158/78
[2022-06-27] MEDS: GABAPENTIN 100 MG (NEURONTIN) CAP PO SCH ×3 (09:46→20:14)
[2022-06-27] MEDS: VITAMIN D3 25 MCG (1,000 UNITS) TABLET PO SCH ×2 (09:46→20:14)
[2022-06-27] MEDS: CALCIUM CARBONATE 500 MG (TUMS) TAB.CHEW PO SCH ×3 (09:46→20:13)
[2022-06-27] MEDS: PARoxetine 20 MG (PAXIL) TAB PO SCH (09:47)
[2022-06-27] MEDS: LORATADINE (CLARITIN) 10 MG TAB PO SCH (09:47)
[2022-06-27] MEDS: AMIODARONE 200 MG (CORDARONE) TAB PO SCH (09:47)
[2022-06-27] MEDS: LOSARTAN 100 MG (COZAAR) TABLET PO SCH (09:47)
[2022-06-27] MEDS: APIXABAN 5 MG (ELIQUIS) TABLET PO SCH ×2 (09:47→20:14)
[2022-06-27] MEDS: dilTIAZem120 MG (CARDIZEM CD) CAP PO SCH (09:47)
[2022-06-27] MEDS: SENNOSIDES 8.6 MG (SENOKOT) TAB PO SCH ×2 (09:48→20:14)
[2022-06-27] MEDS: DOCUSATE SODIUM 100 MG (COLACE) CAP PO SCH ×2 (09:48→20:13)
[2022-06-27] MEDS: ACETAMINOPHEN 325 MG TABLET PO PRN ×2 (09:55→20:17)
[2022-06-27] MEDS: polyethylene glycoL POWDER 17 GM (MIRALAX) PACK PO SCH ×2 (09:55→20:17)
[2022-06-27 19:53] VITALS: BP 130/69
[2022-06-27] MEDS: MELATONIN 3 MG TABLET PO PRN (20:14)
--- NOTE | 2022-06-28 05:25 | PM&R Progress Note ---
Subjective HPI/CC On Admission Date Seen by Provider: Jun 28, 2022 Time Seen by Provider: 08:30 Subjective/Events-last exam 06/28/2022: Patient doing well Bowels moved today Incision looks good Will have an ablation appointment due to atrial fibrillation issues Discharge plan for tomorrow 06/27/2022: Improved status BM+ 06/25 Walking well No pain 06/26/2022: Patient doing really well Asking about her visual field deficit of the left side and we discussed that a bit Her eye doctor is in [place] Telemetry is maintained 06/25/2022: Wants to go home soon Doing very well Converted to normal sinus rhythm Still on telemetry 06/24/2022: Much improved status Less pain in right arm Dr Kirby will evaluate the left hand it appears to be more swollen AF RVR managed conservatively 06/23/2022: Patient doing well Telemtry is maintained Appreciate Dr Medellin Pacemaker maintained 06/21/2022: Patient will require transfer to [facility] for leadless pacemaker 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 Updated family and patient 06/20/2022: Back in AF Pacemaker will be placed tomorrow morning due to severe bradycardia with meds and then will have AF RVR so only option will be pacemaker No pain otherwise Checked meds and labs 06/19/2022: Doing much better Less pain HR is labile either too slow or too fast Dr Medellin assessed her today Review of Systems General: Fatigue, Malaise Objective Exam Vital Signs Vital Signs Date Time Temp Pulse Resp B/P (MAP) Pulse Ox O2 Delivery O2 Flow Rate FiO2 06/29/22 01:00 60 06/28/22 21:00 Room Air 06/28/22 21:00 36.4 18 162/79 (106) 96 06/24/22 08:28 21 Capillary Refill : General Appearance: No Apparent Distress, WD/WN, Chronically ill HEENT: PERRL/EOMI, Normal ENT Inspection, Pharynx Normal Neck: Full Range of Motion, Normal Inspection, Non Tender, Supple, Carotid Bruit Respiratory: Lungs Clear, Normal Breath Sounds, No Accessory Muscle Use, No Respiratory Distress Cardiovascular: Regular Rate, Rhythm, No Murmur, Other (leadless pacemaker) Gastrointestinal: Normal Bowel Sounds, No Organomegaly, No Pulsatile Mass, Non Tender, Soft Back: Normal Inspection, No CVA Tenderness, No Vertebral Tenderness Extremity: Normal Capillary Refill, Normal Inspection, Normal Range of Motion (except left arm), Non Tender, No Calf Tenderness, No Pedal Edema Neurologic/Psychiatric: Alert, Oriented x3, Normal 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 FIM Transfers Therapy Code Descriptions/Definitions Functional [place] Measure: 0=Not Assessed/NA 4=Minimal Assistance 1=Total Assistance 5=Supervision or Setup 2=Maximal Assistance 6=Modified [place] 3=Moderate Assistance 7=Complete IndependenceSCALE: Activities may be completed with or without assistive devices. 7-Lkcyjripaq-wjjiprh completes the activity by him/herself with no assistance from a helper. 5-Set-up or Clean-up Assistance-helper sets up or cleans up; patient completes activity. [place] assists only prior to or following the activity. 4-Supervision or Touching Assistance-helper provides verbal cues and/or touching/steadying and/or contact guard assistance as patient completes activity. Assistance may be provided throughout the activity or intermittently. 3-Partial/Moderate Assistance-helper does LESS THAN HALF the effort. [place] lifts, holds or supports trunk or limbs, but provides less than half the effort. 2-Substantial/Maximal Assistance-helper does MORE THAN HALF the effort. [place] lifts or holds trunk or limbs and provides more than half the effort. 7-Hkcxadyji-inzrvk does ALL the effort. Patient does none of the effort to complete the activity. Or, the assistance of 2 or more helpers is required for the patient to complete the activity. If activity was not attempted, code reason: 7-Patient Refused. 9-Not Applicable-not attempted and the patient did not perform the activity before the current illness, exacerbation or injury. 10-Not Attempted due to Environmental Limitations-(lack of equipment, weather restraints, etc.). 88-Not Attempted due to Medical Conditions or Safety Concerns. Roll Left to Right (QC): 4 Sit to Lying (QC): 6 Sit to Stand (QC): 4 Chair/Cso-go-Ronel Xfer(QC): 6 Car Transfer (QC): 6 Gait Training Does the Patient Walk?: Yes Distance: 110' Walk 10 feet (QC): 4 Walk 50 ft with 2 Turns(QC): 4 Walk 150 ft (QC): 6 Walking 10ft/uneven surface-QC: 6 Gait Persons Needed: 1 Gait Assistive Device: Walker Platform Wheelchair Training Does the Pt Use a Wheelchair?: No Wheel 50 ft with 2 turns (QC): 9 Wheel 150 ft (QC): 9 Stair Training Stair Training: Handrails/: 2 handrails #of Steps: 4 1 Step (curb) (QC): 4 4 Steps (QC): 4 12 Steps (QC): 4 Stairs: Pattern: Reciprocal Balance Picking up an Object (QC): 3 ADL-Treatment Eating (QC): 4 Oral Hygiene (QC): 6 Bathing Location: L Arm, R Arm, L Upper Leg, R Upper Leg, Chest, Abdomen, Buttocks, Perineal Area Shower/Bathe Self (QC): 5 Upper Body Dressing (QC): 5 Lower Body Dressing (QC): 5 On/Off Footwear (QC): 6 Toileting Hygiene (QC): 6 Toilet Transfer (QC): 6 Assessment/Plan Assessment and Plan Assess & Plan/Chief Complaint Assessment: A. fib with RVR requiring ICU transfer and discharge from rehab 06/17/2022 but re admitted 06/18/2022 SSS s/p pacemaker of leadless type required transfer to [facility] and placed by Dr Cool 06/21/22 and readmitted 06/22/22 CVA Left-sided weakness Left arm fracture limit weight bearing Hypertension Hyperlipidemia Atrial fibrillation Depression History of left sided breast cancer Chronic left arm lymphedema Plan: Monitor closely Fall risk Aggressive rehab Appreciate Cardiology 06/19/2022: Monitor HR Aggressive therapy 06/20/2022: Pacemaker placement tomorrow 06/21/2022: [facility] for leadless pacemaker 06/23/2022: Telemetry Appreciate Dr Medellin 06/24/2022: Appreciate Ira Medellin and Mirta 06/25/2022: Supportive care 06/26/2022: Supportive care 06/27/2022: Monitor closely 06/28/2022: Discharge home tomorrow (1) Paroxysmal atrial fibrillation Assessment & Plan: She seems to be remaining in an atrial paced rhythm on amiodarone. I will decrease this from 200 mg twice daily down to 200 mg once daily. Ultimately, we may want to see if we can taper this to off. She is on apixaban for stroke prophylaxis. (2) Sick sinus syndrome Assessment & Plan: She is now status post dual chamber pacemaker implantation from the right side. Site appears intact. (3) Primary hypertension Assessment & Plan: Blood pressure is reasonably controlled with diltiazem and losartan. (4) Mixed hyperlipidemia Assessment & Plan: Continue statin. (5) Cardiac pacemaker in situ Assessment & Plan: We will get her enrolled in our outpatient pacemaker monitoring clinic at the time of discharge. JHOANA GROSS DO Jun 28, 2022 05:25
[2022-06-28 05:44] LABS: BASOPHILS % (AUTO) 1 % (0-10); EOSINOPHILS # (AUTO) 0.4 10^3/uL (0.0-0.3); EOSINOPHILS % (AUTO) 7 % (0-10); HEMATOCRIT 38 % (35-52); HEMOGLOBIN 12.2 g/dL (11.5-16.0); LYMPHOCYTES # (AUTO) 1.3 10^3/uL (1.0-4.0); LYMPHOCYTES % (AUTO) 23 % (12-44); MEAN CORPUSCULAR HEMOGLOBIN 31 pg (25-34); MEAN CORPUSCULAR HGB CONC 32 g/dL (32-36); MEAN CORPUSCULAR VOLUME 95 fL (80-99); MEAN PLATELET VOLUME 10.6 fL (9.0-12.2); MONOCYTES # (AUTO) 0.5 10^3/uL (0.0-1.0); MONOCYTES % (AUTO) 9 % (0-12); NEUTROPHILS # (AUTO) 3.3 10^3/uL (1.8-7.8); NEUTROPHILS % (AUTO) 60 % (42-75); PLATELET COUNT 221 10^3/uL (130-400); WHITE BLOOD COUNT 5.5 10^3/uL (4.3-11.0)
[2022-06-28 06:08] LABS: ALBUMIN 3.4 GM/DL (3.2-4.5); BILIRUBIN,TOTAL 0.3 MG/DL (0.1-1.0); CALCIUM 8.9 MG/DL (8.5-10.1); CREATININE SERUM 0.81 MG/DL (0.60-1.30); TOTAL PROTEIN 6.6 GM/DL (6.4-8.2)
[2022-06-28 08:00] VITALS: BP 166/87
[2022-06-28] MEDS: AMIODARONE 200 MG (CORDARONE) TAB PO SCH (08:04)
[2022-06-28] MEDS: PARoxetine 20 MG (PAXIL) TAB PO SCH (08:04)
[2022-06-28] MEDS: VITAMIN D3 25 MCG (1,000 UNITS) TABLET PO SCH ×2 (08:04→21:01)
[2022-06-28] MEDS: CALCIUM CARBONATE 500 MG (TUMS) TAB.CHEW PO SCH ×3 (08:04→21:01)
[2022-06-28] MEDS: SENNOSIDES 8.6 MG (SENOKOT) TAB PO SCH ×2 (08:04→21:01)
[2022-06-28] MEDS: LOSARTAN 100 MG (COZAAR) TABLET PO SCH (08:04)
[2022-06-28] MEDS: APIXABAN 5 MG (ELIQUIS) TABLET PO SCH ×2 (08:04→21:01)
[2022-06-28] MEDS: DOCUSATE SODIUM 100 MG (COLACE) CAP PO SCH ×2 (08:04→21:02)
[2022-06-28] MEDS: GABAPENTIN 100 MG (NEURONTIN) CAP PO SCH ×3 (08:04→21:01)
[2022-06-28] MEDS: LORATADINE (CLARITIN) 10 MG TAB PO SCH (08:05)
[2022-06-28] MEDS: polyethylene glycoL POWDER 17 GM (MIRALAX) PACK PO SCH ×2 (08:05→21:00)
[2022-06-28] MEDS: dilTIAZem120 MG (CARDIZEM CD) CAP PO SCH (08:05)
[2022-06-28] MEDS: ACETAMINOPHEN 325 MG TABLET PO PRN ×3 (08:25→21:24)
--- NOTE | 2022-06-28 08:29 | Cardiology Progress Note ---
Subjective Date Seen by Provider: Jun 28, 2022 Time Seen by Provider: 08:26 Subjective/Events-last exam Patient sitting up in chair, no new complaints, denies any chest pain or dyspnea. Review of Systems General: No Chills, No Night Sweats, No Fatigue, No Malaise, No Appetite, No Other HEENT: No Head Aches, No Visual Changes, No Eye Pain, No Ear Pain, No Dysphasia, No Sinus Congestion, No Post Nasal Drip, No Sore Throat, No Other Pulmonary: No Dyspnea, No Cough, No Pleuritic Chest Pain, No Other Cardiovascular: No: Chest Pain, Palpitations, Orthopnea, Paroxysmal Noc. Dyspnea, Edema, Lt Headedness, Other Objective-Cardiology Exam Last Set of Vital Signs Vital Signs 06/27/22 06/28/22 19:53 08:00 Temp 35.9 Pulse 70 Resp 20 B/P (MAP) 166/87 (113) Pulse Ox 93 O2 Delivery Room Air I&O Intake and Output 06/28/22 00:00 Intake Total 1540 ml Balance 1540 ml Intake Oral 1540 ml # Voids 8 # Bowel Movements 1 General: Alert, Oriented X3, Cooperative, No Acute Distress HEENT: Atraumatic, EOMI Neck: Supple Lungs: Clear to Auscultation, Normal Air Movement Heart: Regular Rate, Normal S1, Normal S2, No Murmurs Abdomen: Soft, No Tenderness Extremities: No Edema, Other (Fx left forearm cast) Skin: No Rashes, No Breakdown Neuro: Normal Gait, Normal Speech Psych/Mental Status: Mental Status NL, Mood NL Results Lab Laboratory Tests 06/28/22 05:21 A/P-Cardiology Admission Diagnosis Acute CVA Paroxysmal atrial fibrillation Sinus node dysfunction Hypertension Assessment/Plan Status post acute CVAcontinue with PT/OT , Paroxysmal atrial fibrillation, sinus node dysfunction, was off anticoagulation and had a stroke. Patient is s/p right sided PPM implantation done by Dr. Cool on 06/22/22. Has returned to sinus rhythm following AFib w/ RVR Has been having multiple episodes of atrial fibrillation in and out of atrial fibrillation, tolerating amiodarone well. Continue to monitor Sinus node dysfunction, multiple episodes of bradycardia, tachybradycardia episodes. She is s/p PPM implantation [id number] score 5, maintained on Eliquis Hypertension, Continue losartan and monitor blood pressure Hyperlipidemia, maintained on statin. Continue to monitor lipids Left forearm fracture, management per Dr. Kirby Supervisory-Addendum Brief Supervisory Addendum Participated in pt care: history, MDM, physical Personally performed: exam, history, MDM Care discussed with: SUE Results interpretation: Verified all documentation Notes: Patient was seen and evaluated with Loren, examination performed, management plan was discussed, agree with the current scribed note, I made few changes to the note using Italic font Patient was seen at bedside, sitting comfortably Amiodarone dose was decreased Continue to monitor heart rate and blood pressure LOREN VERDIN Jun 28, 2022 08:29 YANA BRISENO MD Jun 28, 2022 10:23
--- NOTE | 2022-06-28 11:13 | Physical Therapy Daily Note ---
PT Daily Note-Current Subjective Pt reclined in chair upon arrival. Pt agrees to PT. Pain Location: No Pain Reported Section J - Health Conditions 1. Rarely or not at all 2. Occasionally 3. Frequently 4. Almost constantly 8. Unable to answer Pain Effect on Sleep: 1 Pain Interference with Therapy: 2 Pain Interference w/Day-to-Day: 2 Mental Status Patient Orientation: Person, Place, Time, Situation Transfers SCALE: Activities may be completed with or without assistive devices. 5-Zqaxudfvli-rrnupfi completes the activity by him/herself with no assistance from a helper. 5-Set-up or Clean-up Assistance-helper sets up or cleans up; patient completes activity. [place] assists only prior to or following the activity. 4-Supervision or Touching Assistance-helper provides verbal cues and/or touching/steadying and/or contact guard assistance as patient completes activity. Assistance may be provided throughout the activity or intermittently. 3-Partial/Moderate Assistance-helper does LESS THAN HALF the effort. [place] lifts, holds or supports trunk or limbs, but provides less than half the effort. 2-Substantial/Maximal Assistance-helper does MORE THAN HALF the effort. [place] l ifts or holds trunk or limbs and provides more than half the effort. 1-Tfshibbvf-zhzquj does ALL the effort. Patient does none of the effort to complete the activity. Or, the assistance of 2 or more helpers is required for the patient to complete the activity. If activity was not attempted, code reason: 7-Patient Refused. 9-Not Applicable-not attempted and the patient did not perform the activity before the current illness, exacerbation or injury. 10-Not Attempted due to Environmental Limitations-(lack of equipment, weather restraints, etc.). 88-Not Attempted due to Medical Conditions or Safety Concerns. Roll Left & Right (QC): 6 Sit to Lying (QC): 6 Lying to Sitting/Side of Bed(Q: 6 Sit to Stand (QC): 6 Chair/Vgz-wh-Sfylo Xfer(QC): 6 Toilet Transfer (QC): 6 Car Transfer (QC): 6 Weight Bearing Right Lower Extremity: Right Full Weight Bearing Left Lower Extremity: Left Full Weight Bearing partial weight bearing on left hand Gait Training Does the Patient Walk?: Yes Distance: 200' Walk 10 feet (QC): 6 Walk 50 ft with 2 Turns(QC): 6 Walk 150 ft (QC): 6 Walking 10ft/uneven surface-QC: 6 Gait Assistive Device: Walker Platform Wheelchair Training Does the Pt Use a Wheelchair?: No Stair Training Stair Training: Handrails/: 2 handrails #of Steps: 12 1 Step (curb) (QC): 6 4 Steps (QC): 6 12 Steps (QC): 5 Stairs: Pattern: Step to Balance Picking up an Object (QC): 5 Special Test Comments Pt reports a little dizziness in bending over so DISABILITY RATER encouraged use of graphic art designer. Exercises Seated Therapy Exercises: Ankle pumps, Long arc quads, Hip flexion, Hip abd/add, Glut set Seated Reps: 15 NuStep Minutes: 15 NuStep Workload: 5 Treatments 900-1000: Pt completes bed mobility and states will use a bed cane. Pt TF to standing and uses BR. Pt amb. in hallway before using NuStep. Pt amb. in hallway before returning to room and resting in recliner. Pt completes Seated EX before end of tx. All needs met, call light in hand. [id number]: Pt completes QC scoring items listed above before returning to room to rest in recliner with all needs met, call light in hand. Assessment Current Status: Good Progress Pt michelle. tx well. PT Short Term Goals Short Term Goals Time Frame: Jun 25, 2022 Sit to stand: 4 (MET) Chair/ffl-bc-ijzjh transfer: 4 (MET) Toilet transfer: 4 (MET) Car transfer: 4 (MET) Walk 10 feet: 4 (MET) Walk 50 feet with two turns: 4 (MET) Walk 150 feet: 4 (MET) Walking 10ft on uneven surface: 4 (MET) 1 step (curb): 4 (MET) 4 steps: 4 (MET) Picking up objects: 4 PT [facility] Goals Pre K Special Education Teacher Goals PT [facility] Goals Time Frame: Jul 09, 2022 Roll Left & Right (QC): 6 Sit to Lying (QC): 6 Lying-Sitting on Side/Bed(QC): 6 Sit to Stand (QC): 6 Chair/Xuq-og-Awfsx Xfer(QC): 6 Toilet Transfer (QC): 6 Car Transfer (QC): 6 Does the Patient Walk: Yes Walk 10 feet (QC): 6 Walk 50ft with 2 Turns (QC): 6 Walk 150 ft (QC): 6 Walking 10ft on Uneven Surface: 6 1 Step (curb) (QC): 6 4 Steps (QC): 6 12 Steps (QC): 6 Picking up an Object (QC): 6 Wheel 50 feet with 2 turns (QC: 9 Wheel 150 feet: 9 PT Plan Problem List Problem List: Activity Tolerance Treatment/Plan Treatment Plan: Continue Plan of Care Treatment Plan: Bed Mobility, Education, Functional Activity Winter, Functional Strength, Gait, Safety, Therapeutic Exercise, Transfers Treatment Duration: Jul 09, 2022 Frequency: At least 5 of 7 days/Wk (IRF) Estimated Hrs Per Day: 1.5 hours per day Patient and/or Family Agrees t: Yes Safety Risks/Education Patient Education: Transfer Techniques, Correct Positioning Teaching Recipient: Patient Teaching Methods: Discussion Response to Teaching: Verbalize Understanding Time Time In: 900 Time Out: 1000 DATE: Jun 28, 2022 Total Billed Treatment Time: 60 Total Billed Treatment 900-1000: 1, GT (15m), FA (15m) EX x2 (30m) [id number]: 1, FA (30m) IVÁN MARTIN DISABILITY RATER Jun 28, 2022 11:13
--- NOTE | 2022-06-28 11:15 | Progress Note ---
ELIECER ADAMS 06/28/22 1115: Progress Note S: Ms. Astudillo is a 76 year old female who presents to the rehabilitation unit s/p CVA. Patient returned from [place] on 06/22 after having a leadless pacemaker placed on the right. Cardiology is following patient. Patient has requested to be monitored with telemetry to ease her concerns about her heart rhythm. Patient is resting in recliner this morning. She denies chest pain or SOA. Patient denies right-sided chest pain from pacemaker placement but states the surrounding skin is itchy. Patient reports 3/10 L arm pain this morning. Patient states her pain is well controlled with PO pain medication. Patient is tolerating PO food and drink as well as PT/OT therapy. Patient states her last BM was this morning. Patient has been seen by Cardiology this morning. O: -Vital signs: T 36.6, HR 60, RR 18, BP 130/69, SpO2 93% RA. -PE: -Cardiovascular: HRRR - currently in sinus rhythm -Pulmonary: LCTAB A/P: 1. Continued in-patient rehabilitation with PT and OT. Plan is to work toward discharge on 07/01/2022. 2. Appreciate plan from Cardiology. Plan to discontinue telemetry if no complications persist/when patient feels comfortable to do so. ASHLEY GROSS DO 06/28/222052: Supervisory-Addendum Brief Verification & Attestation Participated in pt care: history, MDM, physical Personally performed: exam, history, MDM, supervision of care Care discussed with: Medical Student Procedures: n/a Results interpretation: Verified all documentation Verification and Attestation of Medical Student E/M Service A medical student performed and documented this service in my presence. I reviewed and verified all information documented by the medical student and made modifications to such information, when appropriate. I personally performed the physical exam and medical decision making. Ashley Gross Jun 28, 2022,20:53 ELIECER ADAMS Jun 28, 2022 11:15 ASHLEY GROSS DO Jun 28, 2022 20:53
--- NOTE | 2022-06-28 12:00 | Occupational Ther Daily Note ---
OT Current Status-Daily Note Subjective Pt in recliner, alert. Pt agrees to therapy. C/o no pain at start of session. Pain/fatigue increased after session and pt request Tylenol. Reported to nursing. Mental Status/Objective Patient Orientation: Person, Place, Time, Situation ADL-Treatment Pt agrees to shower. Pt transferred to shower with FWW and completes shower transfer independently. Pt doffed all clothing and socks independently. Pt showered independently using grabbars, shower bench and hand held shower. Pt used grab bars to pull self up to clean brendan area. Pt donned all clothes and socks independently. Pt completes transfer to toilet with FWW and then toilet hygiene both independently. Pt completed oral and hand hygiene independently standing at the sink with FWW. Pt ambulated back to recliner with FWW. Therapy Code Descriptions/Definitions Functional [place] Measure: 0=Not Assessed/NA 4=Minimal Assistance 1=Total Assistance 5=Supervision or Setup 2=Maximal Assistance 6=Modified [place] 3=Moderate Assistance 7=Complete IndependenceSCALE: Activities may be completed with or without assistive devices. 4-Hiupevjrgh-wrrfise completes the activity by him/herself with no assistance from a helper. 5-Set-up or Clean-up Assistance-helper sets up or cleans up; patient completes activity. [place] assists only prior to or following the activity. 4-Supervision or Touching Assistance-helper provides verbal cues and/or touching/steadying and/or contact guard assistance as patient completes activity. Assistance may be provided throughout the activity or intermittently. 3-Partial/Moderate Assistance-helper does LESS THAN HALF the effort. [place] lifts, holds or supports trunk or limbs, but provides less than half the effort. 2-Substantial/Maximal Assistance-helper does MORE THAN HALF the effort. [place] lifts or holds trunk or limbs and provides more than half the effort. 1-Dqjgcboal-fsulam does ALL the effort. Patient does none of the effort to complete the activity. Or, the assistance of 2 or more helpers is required for the patient to complete the activity. If activity was not attempted, code reason: 7-Patient Refused. 9-Not Applicable-not attempted and the patient did not perform the activity before the current illness, exacerbation or injury. 10-Not Attempted due to Environmental Limitations-(lack of equipment, weather restraints, etc.). 88-Not Attempted due to Medical Conditions or Safety Concerns. Eating (QC): 6 (Per clinical judgment, pt is independent.) Oral Hygiene (QC): 6 Bathing Location: L Arm, R Arm, L Upper Leg, R Upper Leg, L Lower Leg (including foot), R Lower Leg (including foot), Chest, Abdomen, Buttocks, Pe rineal Area Shower/Bathe Self (QC): 6 Upper Body Dressing (QC): 6 Lower Body Dressing (QC): 6 On/Off Footwear: 6 Toileting Hygiene (QC): 6 Toilet Transfer (QC): 6 Pt requires verbal cues to slow down and pace herself which causes safety concerns. Other Treatment Pt participated in 5 different B UE exercises without weights or resistance to improve UE strength and ROM. Pt participated in fine motor activities with R UE to improve grasp. Pt placed 50 resistant pegs into peg board with R UE to improve UE strength and grasp strength. Pt pinched resistant clothes pins to improve grasp strength. Skills demonstration provided for proper technique and position. All activities were performed to increase strength and endurance necessary for self care and mobility. After session, pt sitting in recliner with call light/phone in reach. All needs met. [place] placed on L UE. BIMS CAM BIMS Expression of Ideas and Wants: Without Difficulty Understanding Verbal Content: Understands Brief Interview/Mental Status: Yes IRF CARL BIMS: IRF CARL BIMS Response (Comments) Value Repitition of Three Words Three 3 Recalls Socks Yes, No Cue Required 2 Recalls Blue Yes, No Cue Required 2 Recalls Bed Yes, No Cue Required 2 Year Correct 3 Month Accurate Within 5 Days 2 Day Correct 1 Total 15 Patient Normally Able to Recal: Current Session, Location of own room, Staff Names and faces, That he/she in a hsp Should Staff Asses. Mental St.: No CAM Mental Status Change/Baseline: 0 Inattention: 0 Disorganized thinkin Altered level of consciousness: 0 OT Short Term Goals Short Term Goals Time Frame: Jun 25, 2022 Eatin Oral hygiene: 5 Toileting hygiene: 5 Shower/bathe self: 4 Upper body dressin Lower body dressin Putting on/taking off footwear: 4 OT Swimming Coach Or Instructor Goals Long-Term Goals Time Frame: Jul 07, 2022 Acute change in mental status: 0 Inattention: 0 Disorganized thinkin Altered level of consciousness: 0 Eating (QC): 6 (met) Oral Hygiene (QC): 6 (met) Toileting Hygiene (QC): 6 (met) Shower/Bathe Self (QC): 5 (met) Upper Body Dressing (QC): 6 (met) Lower Body Dressing (QC): 6 (met) On/Off Footwear (QC): 6 (met) Additional Goals: 1-Demonstrate ADL Tasks, 2-Verbalize Understanding, 3- ImproveStrength/Winter 1=Demonstrate adherence to instructed precautions during ADL tasks. 2=Patient will verbalize/demonstrate understanding of assistive cole nancy/modifications for ADL. 3=Patient will improve strength/tolerance for activity to enable patient to perform ADL's. OT Education/Plan Problem List/Assessment Assessment: Decreased Activ Tolerance, Impaired I ADL's, Impaired Self-Care Skills, Restricted Funct UE ROM Discharge Recommendations Plan/Recommendations: Continue POC Therapy Discharge Recommendati: Post Acute OT Equpiment Recommendations-D/C: Other, See Comments (FWW) Treatment Plan/Plan of Care Patient would benefit from OT for education, treatment and training to promote independence in ADL's, mobility, safety and/or upper extremity function for ADL's. Plan of Care: ADL Retraining, Functional Mobility, Group Exercise/Act as Ind, UE Funct Exercise/Act Treatment Duration: Jul 07, 2022 Frequency: At least 5 of 7 days/Wk (IRF) Estimated Hrs Per Day: 1.5 hours per day (75-90 min/day) Agreement: Yes Rehab Potential: Good Time Start Time: 10:30 Stop Time: 12:00 DATE: Jun 28, 2022 Total Time Billed (hr/min): 90 Billed Treatment Time 1 visit ADL 3 (45 min) EX 2 (30 min) KENDY SHARP Jun 28, 2022 11:59
[2022-06-28] MEDS ORDERED: CALC-308 PO (14:45)
[2022-06-28] MEDS ORDERED: MTP25TSR PO (14:45)
[2022-06-28] MEDS ORDERED: ERGO2000 PO (14:47)
[2022-06-28] MEDS ORDERED: ACET-2650 PO (14:49)
[2022-06-28] MEDS ORDERED: CETI10TA49 PO (14:49)
[2022-06-28 21:00] VITALS: BP 162/79
[2022-06-29] MEDS ORDERED: APIX5TAB PO (05:24)
[2022-06-29] MEDS ORDERED: ATOR40TA PO (05:24)
[2022-06-29] MEDS ORDERED: LOSA100T57 PO (05:24)
[2022-06-29] MEDS ORDERED: GABA-486 PO (05:24)
[2022-06-29] MEDS ORDERED: OXC5T PO (05:24)
[2022-06-29] MEDS ORDERED: DILT-27 PO (05:24)
[2022-06-29] MEDS ORDERED: AMIO200T65 PO (05:24)
--- NOTE | 2022-06-29 05:25 | D/C HH Face to Face Order ---
D/C Face to Face Orders Reconcile Patient Problems Problems Reviewed?: Yes Instructions for Patient [place] Patient Instructions/FollowUp: pcp 2 weeks Physician to follow Patient: Legler Discharge Diet for Home: No Restrictions Patient Problems: CVA AF Patient Data-Allergies,Ht & Wt Patient Allergies: Coded Allergies: gemcitabine (Verified Allergy, Mild, RASH, 06/17/22) Iodinated Contrast Media (Verified Allergy, Unknown, 06/15/22) Sulfa (Sulfonamide Antibiotics) (Verified Allergy, Unknown, 06/15/22) azithromycin (Verified Allergy, NAUSEA AND VOMITING, 06/17/22) levofloxacin (Verified Allergy, HIVES, 06/17/22) Uncoded Allergies: ADHESIVE TAPE-SILICONES (Allergy, Mild, RASH, 06/17/22) CHEMOTHERAPY (Allergy, Unknown, rash, itching, 06/17/22) FEXOFENADINE-PSEUDOEPHEDRINE (Allergy, PALPITATIONS, 06/17/22) Home Health Need/Face to Face Date of Face to Face: Jun 29, 2022 Clinical Findings: Instability, Muscle weakness, Unsteady gait I have seen Pt fgql-yf-llrg: Yes Discharged To: Home Diagnosis/Conditions: CVA Patient is Homebound due to: [place] fall risk due to instabilty, Muscle weakness Homebound Status Due to the above stated illness, injury or surgical procedure (medical condition or diagnosis) and associated clinical findings, the patient is homebound because of his/her inability to leave home except with aid of a suppor tive device and/or person AND leaving the home requires a considerable and taxing effort or is medically contraindicated. Pt req the following assistanc: [facility] Health Nursing Orders Home Health Services Order: Nursing Services, Merchandising Representative-Evaluate & Treat, Physical Therapy-Evaluate & Treat Certify Stmt I certify that this patient is under my care and that I, a nurse practitioner or a physician; a public health training assistant working with me, had a face to face encounter that - meets the physician face to face encounter requirements with this patient as dated. JHOANA GROSS DO Jun 29, 2022 05:25
--- NOTE | 2022-06-29 05:26 | Discharge Summary ---
Diagnosis/Chief Complaint Date of Admission Jun 18, 2022 at 11:28 Date of Discharge Discharge Date: Jun 29, 2022 Discharge Diagnosis Assessment: A. fib with RVR requiring ICU transfer and discharge from rehab 06/17/2022 but readmitted 06/18/2022 SSS s/p pacemaker of leadless type required transfer to [facility] and placed by Dr Cool 06/21/22 and readmitted 06/22/22 CVA Left-sided weakness Left arm fracture limit weight bearing Hypertension Hyperlipidemia Atrial fibrillation Depression History of left sided breast cancer Chronic left arm lymphedema Plan: Monitor closely Fall risk Aggressive rehab Appreciate Cardiology 06/19/2022: Monitor HR Aggressive therapy 06/20/2022: Pacemaker placement tomorrow 06/21/2022: [facility] for leadless pacemaker 06/23/2022: Telemetry Appreciate Dr Medellin 06/24/2022: Appreciate Ira [place]ellin and [facility] 06/25/2022: Supportive care 06/26/2022: Supportive care 06/27/2022: Monitor closely 06/28/2022: Discharge home tomorrow (1) Paroxysmal atrial fibrillation Assessment & Plan: She seems to be remaining in an atrial paced rhythm on amiodarone. I will decrease this from 200 mg twice daily down to 200 mg once daily. Ultimately, we may want to see if we can taper this to off. She is on apixaban for stroke prophylaxis. (2) Sick sinus syndrome Assessment & Plan: She is now status post dual chamber pacemaker implantation from the right side. Site appears intact. (3) Primary hypertension Assessment & Plan: Blood pressure is reasonably controlled with diltiazem and losartan. (4) Mixed hyperlipidemia Assessment & Plan: Continue statin. (5) Cardiac pacemaker in situ Assessment & Plan: We will get her enrolled in our outpatient pacemaker monitoring clinic at the time of discharge. Discharge Summary Discharge Physical Examination Allergies: Coded Allergies: gemcitabine (Verified Allergy, Mild, RASH, 06/17/22) Iodinated Contrast Media (Verified Allergy, Unknown, 06/15/22) Sulfa (Sulfonamide Antibiotics) (Verified Allergy, Unknown, 06/15/22) azithromycin (Verified Allergy, NAUSEA AND VOMITING, 06/17/22) levofloxacin (Verified Allergy, HIVES, 06/17/22) Uncoded Allergies: ADHESIVE TAPE-SILICONES (Allergy, Mild, RASH, 06/17/22) CHEMOTHERAPY (Allergy, Unknown, rash, itching, 06/17/22) FEXOFENADINE-PSEUDOEPHEDRINE (Allergy, PALPITATIONS, 06/17/22) Vitals & I&Os Vital Signs Date Time Temp Pulse Resp B/P (MAP) Pulse Ox O2 Delivery O2 Flow Rate FiO2 06/29/22 13:50 36.2 67 18 147/88 96 Room Air 0.00 06/24/22 08:28 21 General Appearance: Alert, Oriented X3, Cooperative Respiratory: Clear to Auscultation Cardiovascular: Regular Rate Psych/Mental Status: Mental Status NL Hospital Course Was the Problem List Reviewed?: Yes Discharge Summary: Ms. Astudillo is a 76 year old female who presented to the rehabilitation unit on 06/18/2022 s/p CVA. Patient has a PMHx of atrial fibrillation. During the patient's stay, the patient was briefly transferred to [facility] ICU for management of her a fib. The patient was transferred to [facility] on 06/22 for a leadless pacemaker placement. Patient was able to safely return to the ARU after the procedure. Cardiology followed the patient during her stay. Patient has a concurrent injury; patient is recovering from a fractured L distal ulna after falling during an atrial fibrillation episode prior to admission. Patient was evaluated and treated by PT and OT services. Prior to CVA, patient stated she was independent of ADLs and lived at home with her in a single story home. -OT: At time of evaluation patient displayed decreased activity tolerance, impaired ADLs, impaired self-care skills, and restricted UE ROM. During the patient's rehab stay, OT focused on balance, activity tolerance, visual deficits, strengthening, ROM, energy conservation, compensatory methods, and safety in order to improve performance and independence in ADLs and functional mobility. Patient made good progress and met all of her senior living goals. -PT: At time of evaluation patient required assistance with transfers and ambulation/gait training. During the patient's rehab stay, the patient has been performing bed mobility and transfer training, balance and endurance training, functional strengthening, stair training, gait training, and education. PT reports that the patient has made good progress and has met all of her senior living goals except for stairs and picking up an object from the floor. Discharge instructions: 1. Follow-up with PCP. In-patient OT and PT services not recommended at this time. Refer to PCP for recommendations for out-patient services 2. Follow-up with Cardiology 3. Follow-up with Orthopedics Labs (last 24 hrs) Laboratory Tests 06/19/22 06:09: White Blood Count 7.0, Red Blood Count 3.75L, Hemoglobin 11.4L, Hematocrit 36, Mean Corpuscular Volume 97, Mean Corpuscular Hemoglobin 30, Mean Corpuscular Hemoglobin Concent 32, Red Cell Distribution Width 13.2, Platelet Count 259, Mean Platelet Volume 10.7, Immature Granulocyte % (Auto) 0, Neutrophils (%) (Auto) 69, Lymphocytes (%) (Auto) 19, Monocytes (%) (Auto) 8, Eosinophils (%) (Auto) 3, Basophils (%) (Auto) 1, Neutrophils # (Auto) 4.8, Lymphocytes # (Auto) 1.3, Monocytes # (Auto) 0.6, Eosinophils # (Auto) 0.2, Basophils # (Auto) 0.0, Immature Granulocyte # (Auto) 0.0, Sodium Level 142, Potassium Level 3.9, Chloride Level 108H, Carbon Dioxide Level 21, Anion Gap 13, Blood Urea Nitrogen 14, Creatinine 0.75, Estimat Glomerular Filtration Rate 82, BUN/Creatinine Ratio 19, Glucose Level 104, Calcium Level 8.9, Corrected Calcium 9.5, Total Bilirubin 0.5, Aspartate Amino Transf (AST/SGOT) 15, Alanine Aminotransferase (ALT/SGPT) 14, Alkaline Phosphatase 51, Total Protein 6.5, Albumin 3.3 06/21/22 06:02: White Blood Count 7.6, Red Blood Count 4.35, Hemoglobin 13.3, Hematocrit 43, Mean Corpuscular Volume 100H, Mean Corpuscular Hemoglobin 31, Mean Corpuscular Hemoglobin Concent 31L, Red Cell Distribution Width 13.2, Platelet Count 253, Mean Platelet Volume 11.4, Sodium Level 140, Potassium Level 4.2, Chloride Level 106, Carbon Dioxide Level 19L, Anion Gap 15H, Blood Urea Nitrogen 11, Creatinine 0.82, Estimat Glomerular Filtration Rate 74, BUN/Creatinine Ratio 13, Glucose Level 94, Calcium Level 9.7, Corrected Calcium 9.9, Total Bilirubin 0.6, Aspartate Amino Transf (AST/SGOT) 30, Alanine Aminotransferase (ALT/SGPT) 15, Alkaline Phosphatase 65, Total Protein 8.2, Albumin 3.8 06/21/22 07:44: Prothrombin Time 15.0H, INR Comment 1.1, Activated Partial Thromboplast Time 35 06/28/22 05:21: White Blood Count 5.5, Red Blood Count 3.98, Hemoglobin 12.2, Hematocrit 38, Mean Corpuscular Volume 95, Mean Corpuscular Hemoglobin 31, Mean Corpuscular Hemoglobin Concent 32, Red Cell Distribution Width 12.9, Platelet Count 221, Mean Platelet Volume 10.6, Immature Granulocyte % (Auto) 1, Neutrophils (%) (Auto) 60, Lymphocytes (%) (Auto) 23, Monocytes (%) (Auto) 9, Eosinophils (%) (Auto) 7, Basophils (%) (Auto) 1, Neutrophils # (Auto) 3.3, Lymphocytes # (Auto) 1.3, Monocytes # (Auto) 0.5, Eosinophils # (Auto) 0.4H, Basophils # (Auto) 0.0, Immature Granulocyte # (Auto) 0.0, Sodium Level 140, Potassium Level 4.0, Chloride Level 106, Carbon Dioxide Level 23, Anion Gap 11, Blood Urea Nitrogen 13, Creatinine 0.81, Estimat Glomerular Filtration Rate 75, BUN/Creatinine Ratio 16, Glucose Level 107H, Calcium Level 8.9, Corrected Calcium 9.4, Total Bilirubin 0.3, Aspartate Amino Transf (AST/SGOT) 17, Alanine Aminotransferase (ALT/SGPT) 10, Alkaline Phosphatase 67, Total Protein 6.6, Albumin 3.4 Pending Labs Laboratory Tests 06/19/22 06:09: White Blood Count 7.0, Red Blood Count 3.75, Hemoglobin 11.4, Hematocrit 36, Mean Corpuscular Volume 97, Mean Corpuscular Hemoglobin 30, Mean Corpuscular Hemoglobin Concent 32, Red Cell Distribution Width 13.2, Platelet Count 259, Mean Platelet Volume 10.7, Immature Granulocyte % (Auto) 0, Neutrophils (%) (Auto) 69, Lymphocytes (%) (Auto) 19, Monocytes (%) (Auto) 8, Eosinophils (%) (Auto) 3, Basophils (%) (Auto) 1, Neutrophils # (Auto) 4.8, Lymphocytes # (Auto) 1.3, Monocytes # (Auto) 0.6, Eosinophils # (Auto) 0.2, Basophils # (Auto) 0.0, Immature Granulocyte # (Auto) 0.0, Sodium Level 142, Potassium Level 3.9, Chloride Level 108, Carbon Dioxide Level 21, Anion Gap 13, Blood Urea Nitrogen 14, Creatinine 0.75, Estimat Glomerular Filtration Rate 82, BUN/Creatinine Ratio 19, Glucose Level 104, Calcium Level 8.9, Corrected Calcium 9.5, Total Bilirubin 0.5, Aspartate Amino Transf (AST/SGOT) 15, Alanine Aminotransferase (ALT/SGPT) 14, Alkaline Phosphatase 51, Total Protein 6.5, Albumin 3.3 06/21/22 06:02: White Blood Count 7.6, Red Blood Count 4.35, Hemoglobin 13.3, Hematocrit 43, Mean Corpuscular Volume 100, Mean Corpuscular Hemoglobin 31, Mean Corpuscular Hemoglobin Concent 31, Red Cell Distribution Width 13.2, Platelet Count 253, Mean Platelet Volume 11.4, Sodium Level 140, Potassium Level 4.2, Chloride Level 106, Carbon Dioxide Level 19, Anion Gap 15, Blood Urea Nitrogen 11, Creatinine 0.82, Estimat Glomerular Filtration Rate 74, BUN/Creatinine Ratio 13, Glucose Level 94, Calcium Level 9.7, Corrected Calcium 9.9, Total Bilirubin 0.6, Aspartate Amino Transf (AST/SGOT) 30, Alanine Aminotransferase (ALT/SGPT) 15, Alkaline Phosphatase 65, Total Protein 8.2, Albumin 3.8 06/21/22 07:44: Prothrombin Time 15.0, INR Comment 1.1, Activated Partial Thromboplast Time 35 06/28/22 05:21: White Blood Count 5.5, Red Blood Count 3.98, Hemoglobin 12.2, Hematocrit 38, Mean Corpuscular Volume 95, Mean Corpuscular Hemoglobin 31, Mean Corpuscular Hemoglobin Concent 32, Red Cell Distribution Width 12.9, Platelet Count 221, Mean Platelet Volume 10.6, Immature Granulocyte % (Auto) 1, Neutrophils (%) (Auto) 60, Lymphocytes (%) (Auto) 23, Monocytes (%) (Auto) 9, Eosinophils (%) (Auto) 7, Basophils (%) (Auto) 1, Neutrophils # (Auto) 3.3, Lymphocytes # (Auto) 1.3, Monocytes # (Auto) 0.5, Eosinophils # (Auto) 0.4, Basophils # (Auto) 0.0, Immature Granulocyte # (Auto) 0.0, Sodium Level 140, Potassium Level 4.0, Chloride Level 106, Carbon Dioxide Level 23, Anion Gap 11, Blood Urea Nitrogen 13, Creatinine 0.81, Estimat Glomerular Filtration Rate 75, BUN/Creatinine Ratio 16, Glucose Level 107, Calcium Level 8.9, Corrected Calcium 9.4, Total Bilirubin 0.3, Aspartate Amino Transf (AST/SGOT) 17, Alanine Aminotransferase (ALT/SGPT) 10, Alkaline Phosphatase 67, Total Protein 6.6, Albumin 3.4 Discharge Home Medications: Active Scripts Active Gabapentin 100 Mg Capsule 100 Mg PO TID Oxyir Tablet (Oxycodone HCl) 5 Mg Tab 5 Mg PO Q8H PRN Losartan Potassium 100 Mg Tablet 100 Mg PO DAILY Diltiazem 24Hr ER (Diltiazem HCl) 120 Mg Cap.er.24h 120 Mg PO DAILY Lipitor (Atorvastatin Calcium) 40 Mg Tablet 40 Mg PO HS Amiodarone HCl 200 Mg Tablet 200 Mg PO DAILY Eliquis (Apixaban) 5 Mg Tablet 5 Mg PO BID Reported Zyrtec (Cetirizine HCl) 10 Mg Tablet 10 Mg PO DAILY PRN Tylenol Arthritis (Acetaminophen) 650 Mg Tablet.er 650 Mg PO BID PRN Vitamin D2 (Ergocalciferol (Vitamin D2)) 50 Mcg (2000 Unit) Tablet 50 Mcg PO BID Calcium (Calcium Carbonate) 500 Mg Calcium (1250 Mg) Tab.chew 500 Mg PO BID Paroxetine HCl 20 Mg Tablet 20 Mg PO DAILY Instructions to patient/family Please see electronic discharge instructions given to patient. Diagnosis/Problems Diagnosis/Problems (1) CVA (cerebral vascular accident) (2) Atrial fibrillation with rapid ventricular response (3) Closed left arm fracture (4) Chronic anticoagulation (5) Hypertension (6) Hyperlipidemia (7) Depression JHOANA GROSS DO Jun 29, 2022 05:25
[2022-06-29 07:53] VITALS: BP 147/88
--- NOTE | 2022-06-29 08:34 | Cardiology Progress Note ---
Subjective Date Seen by Provider: Jun 29, 2022 Time Seen by Provider: 08:33 Subjective/Events-last exam Patient sitting in chair, no new complaints. Denies any chest pain or dyspnea. Objective-Cardiology Exam Last Set of Vital Signs Vital Signs 06/28/22 06/29/22 21:00 07:53 Temp 36.2 Pulse 67 Resp 18 B/P (MAP) 147/88 (107) Pulse Ox 96 O2 Delivery Room Air I&O Intake and Output 06/29/22 00:00 Intake Total 900 ml Balance 900 ml Intake Oral 900 ml # Voids 7 # Bowel Movements 1 General: Alert, Oriented X3, Cooperative, No Acute Distress HEENT: Atraumatic, EOMI Neck: Supple Lungs: Clear to Auscultation, Normal Air Movement Heart: Regular Rate, Normal S1, Normal S2, No Murmurs Abdomen: Soft, No Tenderness Extremities: No Edema, Other (Fx left forearm cast) Skin: No Rashes, No Breakdown Neuro: Normal Gait, Normal Speech Psych/Mental Status: Mental Status NL, Mood NL A/P-Cardiology Admission Diagnosis Acute CVA Paroxysmal atrial fibrillation Sinus node dysfunction Hypertension Assessment/Plan Status post acute CVAcontinue with PT/OT , Paroxysmal atrial fibrillation, sinus node dysfunction, was off anticoagulation and had a stroke. Patient is s/p right sided PPM implantation done by Dr. Cool on 06/22/22. Has returned to sinus rhythm following AFib w/ RVR Has been having multiple episodes of atrial fibrillation in and out of atrial fibrillation, tolerating amiodarone well. Continue to monitor Will refer to Dr. Kathleen in our [place] office. Will arrange appt through our office Sinus node dysfunction, multiple episodes of bradycardia, tachybradycardia episodes. She is s/p PPM implantation [id number] score 5, maintained on Eliquis Hypertension, Continue losartan and monitor blood pressure Hyperlipidemia, maintained on statin. Continue to monitor lipids Left forearm fracture, management per Dr. Mirta Castaneda for discharge from cardiology standpoint. Follow up with Dr. Cool in 2-[address] Kathleen in our [place] office. Supervisory-Addendum Brief Supervisory Addendum Participated in pt care: history, MDM, physical Personally performed: exam, history, MDM Care discussed with: SUE Results interpretation: Verified all documentation Notes: Patient was seen and evaluated with Marian, examination performed, management plan was discussed, agree with the current scribed note, I made few changes to the note using Italic font Patient was seen at bedside, sitting comfortably Blood pressure is mildly elevated, will continue on Cardizem and losartan She wishes to follow-up with Dr. Cool. Recommended follow-up in 1 to 2 weeks I will arrange for EP evaluation with Dr. Frannie VERDIN,MARIAN ROGERS Jun 29, 2022 08:34 YANA BRISENO MD Jun 29, 2022 08:44
[2022-06-29] MEDS: VITAMIN D3 25 MCG (1,000 UNITS) TABLET PO SCH (08:45)
[2022-06-29] MEDS: dilTIAZem120 MG (CARDIZEM CD) CAP PO SCH (08:45)
[2022-06-29] MEDS: LOSARTAN 100 MG (COZAAR) TABLET PO SCH (08:46)
[2022-06-29] MEDS: AMIODARONE 200 MG (CORDARONE) TAB PO SCH (08:46)
[2022-06-29] MEDS: DOCUSATE SODIUM 100 MG (COLACE) CAP PO SCH (08:46)
[2022-06-29] MEDS: LORATADINE (CLARITIN) 10 MG TAB PO SCH (08:46)
[2022-06-29] MEDS: CALCIUM CARBONATE 500 MG (TUMS) TAB.CHEW PO SCH (08:46)
[2022-06-29] MEDS: APIXABAN 5 MG (ELIQUIS) TABLET PO SCH (08:46)
[2022-06-29] MEDS: PARoxetine 20 MG (PAXIL) TAB PO SCH (08:46)
[2022-06-29] MEDS: SENNOSIDES 8.6 MG (SENOKOT) TAB PO SCH (08:46)
[2022-06-29] MEDS: ACETAMINOPHEN 325 MG TABLET PO PRN (08:47)
[2022-06-29] MEDS: polyethylene glycoL POWDER 17 GM (MIRALAX) PACK PO SCH (08:50)
[2022-06-29] MEDS: GABAPENTIN 100 MG (NEURONTIN) CAP PO SCH (08:50)
--- NOTE | 2022-06-29 11:50 | Therapy Team Discharge Summary ---
Therapy Discharge Summary Discharge Recommendations Date of Discharge Physical Therapy Patient came to rehab post right CVA. Upon evaluation patient performed rolling and supine <-> sit with CGA/SBA, sit <-> stand and transfers CGA/SBA, car transfer CGA/SBA, ambulated 300' with a platform walker with CGA/SBA (including 50' with at least 2 turns of 90 degrees and 10' over an uneven surface), went up and down 12 steps with CGA, and picked up an object from the floor with min/mod assist. Patient has been performing bed mobility and transfer training, balance and endurance training, functional strengthening, stair training, gait training, and education. Patient has made good progress and has met all of her fdc goals except for stairs and picking up an object from the floor. 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 Patient is being discharged from this facility today and will be discharged from PT at this time. Roll Left to Right (QC): 6 Sit to Lying (QC): 6 Lying to Sitting/Side of Bed(Q: 6 Sit to Stand (QC): 6 Chair/Ohd-ui-Cwhhp Xfer(QC): 6 Toilet Transfer (QC): 6 Car Transfer (QC): 6 Does the Patient Walk: Yes Mode of Locomotion: Walk Anticipated Mode of Locomotion: Walk Walk 10 feet (QC): 6 Walk 50 ft with 2 Turns(QC): 6 Walk 150 ft (QC): 6 Walking 10ft on uneven surface: 6 Distance: 300' Gait Assistive Device: Walker Platform Does the Pt Use a Wheelchair: No Wheel 50 ft with 2 turns (QC): 9 Wheel 150 ft (QC): 9 #of Steps: 12 1 Step (curb) (QC): 6 4 Steps (QC): 6 12 Steps (QC): 5 Balance Sitting Static: Good Balance Sitting Dynamic: Good Balance-Standing Static: Fair Picking up an Object (QC): 5 Occupational Therapy Decreased Activ Tolerance, Impaired I ADL's, Impaired Self-Care Skills, Restricted Funct UE ROM Eating (QC): 6 (Per clinical judgment, pt is independent.) Oral Hygiene (QC): 6 Shower/Bathe Self (QC): 6 Upper Body Dressing (QC): 6 Lower Body Dressing (QC): 6 On/Off Footwear (QC): 6 Toileting Hygiene (QC): 6 PT Head Inspector Goals Head Inspector Goals PT Jail Goals Time Frame: Jul 09, 2022 Roll Left to Right (QC): 6 Sit to Lying (QC): 6 Lying-Sitting on Side/Bed(QC): 6 Sit to Stand (QC): 6 Chair/Sht-wj-Qpunr Xfer(QC): 6 Toilet/Commode Transfer (QC): 6 Car Transfer (QC): 6 Does the Patient Walk: Yes Walk 10 feet (QC): 6 Walk 10ft-Uneven Surface(QC): 6 Walk 50ft with 2 Turns (QC): 6 Walk 150 ft (QC): 6 Wheel 50 feet with 2 turns (QC: 9 Wheel 150 feet: 9 1 Step (curb) (QC): 6 4 Steps (QC): 6 12 Steps (QC): 6 Picking up an Object (QC): 6 OT Jail Goals Jail Goals Time Frame: Jul 07, 2022 Acute change in mental status: 0 Inattention: 0 Disorganized thinkin Altered level of consciousness: 0 Eating (QC): 6 (met) Oral Hygiene (QC): 6 (met) Toileting Hygiene (QC): 6 (met) Shower/Bathe Self (QC): 5 (met) Upper Body Dressing (QC): 6 (met) Lower Body Dressing (QC): 6 (met) On/Off Footwear (QC): 6 (met) Additional Goals: 1-Demonstrate ADL Tasks, 2-Verbalize Understanding, 3- ImproveStrength/Winter 1=Demonstrate adherence to instructed precautions during ADL tasks. 2=Patient will verbalize/demonstrate understanding of assistive devices/modifications for ADL. 3=Patient will improve strength/tolerance for activity to enable patient to perform ADL's. SERGEY CABRERA PT Jun 29, 2022 11:50
[2022-06-29 13:50] VITALS: BP 147/88
--- NOTE | 2022-06-29 14:24 | Therapy Team Discharge Summary ---
Therapy Discharge Summary Discharge Recommendations Date of Discharge Jun 29, 2022 at 12:15 Therapy D/C Recommendations: Home w/ Family Support, Homemaker Support, Occupational Therapy Outpatient Physical Therapy Roll Left to Right (QC): 6 Sit to Lying (QC): 6 Lying to Sitting/Side of Bed(Q: 6 Sit to Stand (QC): 6 Chair/Tif-ix-Qlecd Xfer(QC): 6 Toilet Transfer (QC): 6 Car Transfer (QC): 6 Does the Patient Walk: Yes Mode of Locomotion: Walk Anticipated Mode of Locomotion: Walk Walk 10 feet (QC): 6 Walk 50 ft with 2 Turns(QC): 6 Walk 150 ft (QC): 6 Walking 10ft on uneven surface: 6 Distance: 300' Gait Assistive Device: Walker Platform Does the Pt Use a Wheelchair: No Wheel 50 ft with 2 turns (QC): 9 Wheel 150 ft (QC): 9 #of Steps: 12 1 Step (curb) (QC): 6 4 Steps (QC): 6 12 Steps (QC): 5 Balance Sitting Static: Good Balance Sitting Dynamic: Good Balance-Standing Static: Fair Picking up an Object (QC): 5 Occupational Therapy Pt admitted to ARU with R CVA. At time of evaluation she was mod a for footwear and lower body dressing, min a for toileting and bathing, sba for eating, and set up for oral care and upper body dressing. During her rehab stay, OT focused on balance, activity tolerance, visual deficits, strengthening, ROM, energy conservation, compensatory methods, and safety in order to improve performance and independence in adls and functional mobility. 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 See below for current levels of assist. Pt has now discharged from this facility and will be discharged from OT at this time. Decreased Activ Tolerance, Impaired I ADL's, Impaired Self-Care Skills, Restricted Funct UE ROM Eating (QC): 6 (Per clinical judgment, pt is independent.) Oral Hygiene (QC): 6 Shower/Bathe Self (QC): 6 Upper Body Dressing (QC): 6 Lower Body Dressing (QC): 6 On/Off Footwear (QC): 6 Toileting Hygiene (QC): 6 PT Mcc Goals Environmental Tech Goals PT Mcc Goals Time Frame: Jul 09, 2022 Roll Left to Right (QC): 6 Sit to Lying (QC): 6 Lying-Sitting on Side/Bed(QC): 6 Sit to Stand (QC): 6 Chair/Jnf-ja-Ndsks Xfer(QC): 6 Toilet/Commode Transfer (QC): 6 Car Transfer (QC): 6 Does the Patient Walk: Yes Walk 10 feet (QC): 6 Walk 10ft-Uneven Surface(QC): 6 Walk 50ft with 2 Turns (QC): 6 Walk 150 ft (QC): 6 Wheel 50 feet with 2 turns (QC: 9 Wheel 150 feet: 9 1 Step (curb) (QC): 6 4 Steps (QC): 6 12 Steps (QC): 6 Picking up an Object (QC): 6 OT Environmental Tech Goals Environmental Tech Goals Time Frame: Jul 07, 2022 Acute change in mental status: 0 Inattention: 0 Disorganized thinkin Altered level of consciousness: 0 Eating (QC): 6 (met) Oral Hygiene (QC): 6 (met) Toileting Hygiene (QC): 6 (met) Shower/Bathe Self (QC): 5 (met) Upper Body Dressing (QC): 6 (met) Lower Body Dressing (QC): 6 (met) On/Off Footwear (QC): 6 (met) Additional Goals: 1-Demonstrate ADL Tasks, 2-Verbalize Understanding, 3- ImproveStrength/Winter 1=Demonstrate adherence to instructed precautions during ADL tasks. 2=Patient will verbalize/demonstrate understanding of assistive de vices/modifications for ADL. 3=Patient will improve strength/tolerance for activity to enable patient to perform ADL's. Corinne Clifton OT Jun 29, 2022 14:24
--- NOTE | 2022-06-29 14:49 | Progress Note ---
ELIECER ADAMS 06/29/22 1449: Progress Note Discharge Summary: Ms. Astudillo is a 76 year old female who presented to the rehabilitation unit on 06/18/2022 s/p CVA. Patient has a PMHx of atrial fibrillation. During the p atient's stay, the patient was briefly transferred to [facility] ICU for management of her a fib. The patient was transferred to [facility] on 06/22 for a leadless pacemaker placement. Patient was able to safely return to the ARU after the procedure. Cardiology followed the patient during her stay. Patient has a concurrent injury; patient is recovering from a fractured L distal ulna after fa lling during an atrial fibrillation episode prior to admission. Patient was evaluated and treated by PT and OT services. Prior to CVA, patient stated she was independent of ADLs and lived at home with her in a single story home. -OT: At time of evaluation patient displayed decreased activity tolerance, impaired ADLs, impaired self-care skills, and restricted UE ROM. During the patient's rehab stay, OT focused on balance, activity tolerance, visual deficits, strengthening, ROM, energy conservation, compensatory methods, and safety in order to improve performance and independence in ADLs and functional mobility. 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 -PT: At time of evaluation patient required assistance with transfers and amb ulation/gait training. During the patient's rehab stay, the patient has been performing bed mobility and transfer training, balance and endurance training, functional strengthening, stair training, gait training, and education. 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 Discharge instructions: 1. Follow-up with PCP. In-patient OT and PT services not recommended at this time. Refer to PCP for recommendations for out-patient services 2. Follow-up with Cardiology 3. Follow-up with Orthopedics ASHLEY GROSS DO 06/29/22 2016: Supervisory-Addendum Brief Verification & Attestation Participated in pt care: history, MDM, physical Personally performed: exam, history, MDM, supervision of care Care discussed with: Medical Student Procedures: n/a Results interpretation: Verified all documentation Verification and Attestation of Medical Student E/M Service A medical student performed and documented this service in my presence. I reviewed and verified all information documented by the medical student and made modifications to such information, when appropriate. I personally performed the physical exam and medical decision making. Ashley Gross, Jun 29, 2022,20:16 ELIECER ADAMS Jun 29, 2022 14:49 ASHLEY GROSS DO Jun 29, 2022 20:16
== END 2022-06-29 12:15 | disposition home health service (06) | DRG 57 ==
PROVIDERS: ADMIT Internal Medicine; ATTEND Internal Medicine
DX: I69.354 Hemiplegia and hemiparesis following cerebral infarction affecting left non-dominant side (principal); I69.392 Facial weakness following cerebral infarction; I69.322 Dysarthria following cerebral infarction; I48.0 Paroxysmal atrial fibrillation; S52.602D Unspecified fracture of lower end of left ulna, subsequent encounter for closed fracture with routine healing; H53.452 Other localized visual field defect, left eye; Z91.81 History of falling; I10 Essential (primary) hypertension; E78.2 Mixed hyperlipidemia; K59.00 Constipation, unspecified; F32.A Depression, unspecified; I49.5 Sick sinus syndrome; I95.1 Orthostatic hypotension; I89.0 Lymphedema, not elsewhere classified; Z85.3 Personal history of malignant neoplasm of breast; Z79.01 Long term (current) use of anticoagulants; Z79.82 Long term (current) use of aspirin; Z95.0 Presence of cardiac pacemaker; Z23 Encounter for immunization
CPT/HCPCS: 36415; 80053; 85025; 85027; 85610; 85730; 90662; 93005; 94640; 94760

== ENCOUNTER → 2022-06-21 | Day surgery (SDC) | payer MEDICARE ==
[~2022-06-21] MED LIST changes: +ACET-2650 PO; +ATOR40TA PO; +CALC-308 PO; +CETI10TA49 PO; +CHOL20003 PO; +ERGO2000 PO; +LOSA100T57 PO; +OXC5T PO
== END | disposition home or self-care (01) ==
LOC: CATH 08:00
PROVIDERS: ATTEND Internal Medicine Cardiovascular Disease
DX: Z53.9 Procedure and treatment not carried out, unspecified reason (principal)

== ENCOUNTER → 2022-09-09 | Outpatient (CLI) | payer MEDICARE, OTHER ==
--- NOTE | 2022-09-13 12:17 | Diagnostic Imaging Report ---
INDICATION: Routine screening. COMPARISON: 06/23/2021. TECHNIQUE: Unilateral right 2D and 3D screening mammography was performed with CAD. FINDINGS: The right breast is heterogeneously dense, limiting the sensitivity of mammography. The parenchymal pattern is stable. No mass or malignant-appearing microcalcifications are seen. There are scattered benign calcifications in the right breast. The right axilla is unremarkable. IMPRESSION: No mammographic features suspicious for malignancy are identified. ACR BI-RADS Category 2: Benign findings. Result letter will be mailed to the patient. Note: At least 10% of breast cancer is not imaged by mammography. Dictated by: Dictated on workstation # [id number]
== END ==
LOC: RAD 14:44
PROVIDERS: ATTEND Internal Medicine
DX: Z12.31 Encounter for screening mammogram for malignant neoplasm of breast (principal); Z85.3 Personal history of malignant neoplasm of breast
CPT/HCPCS: 77063

== ENCOUNTER 2022-09-20 10:45 | Outpatient (CLI) | payer MEDICARE, OTHER | END 2022-09-20 11:33 | LOC: SLEEP 10:45 | PROVIDERS: ATTEND Internal Medicine Cardiovascular Disease | DX: G47.33 Obstructive sleep apnea (adult) (pediatric) (principal); G47.10 Hypersomnia, unspecified; R06.83 Snoring; I49.9 Cardiac arrhythmia, unspecified; Z86.73 Personal history of transient ischemic attack (TIA), and cerebral infarction without residual deficits | CPT/HCPCS: G0399 ==

== ENCOUNTER → 2022-10-06 | Outpatient (CLI) | payer MEDICARE, OTHER ==
[~2022-10-06] MED LIST changes: +CATHETER FLUSH 10 ML SYR IVP PRN; +REGADENOSON 0.4 MG/5 ML SYR (LEXISCAN) IV ONE
[2022-10-06 13:15] VITALS: BP 173/82
--- NOTE | 2022-10-06 17:31 | Cardiology Stress Test Report ---
Stress Test Report Date of Procedure/Referring: Date of Procedure: Oct 06, 2022 PCP Ac Kimbrough MD Admitting Physician Admitting Physician: Attending Physician: Yana Medellin MD Indications: CP Baseline Heart Rate: 62 Baseline Blood Pressure: Blood Pressure Systolic: 173 Blood Pressure Diastolic: 82 Baseline Vitals Vital Signs Date Time Temp Pulse Resp B/P (MAP) Pulse Ox O2 Delivery O2 Flow Rate FiO2 10/06/22 13:15 64 173/82 (112) 99 Baseline EKG: Baseline EKG: NSR Summary After explaining the procedure to the patient, she signed a consent and then brought to the stress nuclear laboratory. Patient received 0.4 mg Lexiscan for stress test, ECG, heart rate and blood pressure were monitored continuously. Resting and stress dose of radio tracer were injected, imaging was acquired and reviewed in short axis, horizontal long axis and vertical long axis views. TID: 1.05 SSS: 2 SDS: 2 EF: 47 1. Patient tolerated Lexiscan well 2. No significant ischemia or infarction noted on SPECT images 3. Normal left ventricular size, ejection fraction 47% YANA MEDELLIN MD Oct 06, 2022 17:31
== END ==
LOC: CARD 11:18
PROVIDERS: ATTEND Internal Medicine Cardiovascular Disease
DX: I25.10 Atherosclerotic heart disease of native coronary artery without angina pectoris (principal); I10 Essential (primary) hypertension
CPT/HCPCS: 78452; 93017; A9502

== ENCOUNTER 2023-01-28 16:14 | Emergency (ER) | payer MEDICARE, OTHER ==
[~2023-01-28] VITALS: Ht 162.6 cm; Wt 72.6 kg
[~2023-01-28 16:14] MED LIST changes: -CATHETER FLUSH 10 ML SYR IVP PRN; -LOSA100T57 PO; +LOSA100T58 PO; -REGADENOSON 0.4 MG/5 ML SYR (LEXISCAN) IV ONE
[2023-01-28] MEDS ORDERED: ONDANSETRON 4 MG (ZOFRAN) ORAL DISSOLVE TAB PO STA (16:32)
[2023-01-28] MEDS ORDERED: ONDA4TAB11 PO (16:38)
--- NOTE | 2023-01-28 16:38 | ED General ---
General Chief Complaint: - Reproductive Stated Complaint: UTI SYMPTOMS Source of Information: Patient, Family () Exam Limitations: No Limitations History of Present Illness Date Seen by Provider: Jan 28, 2023 Time Seen by Provider: 16:28 Initial Comments Patient is a 77-year-old female who presents to the emergency department with a chief complaint of upset stomach/nausea. She has been fighting a urinary tract infection over the course of the last 2 weeks. She has had at least 3 visits to urgent care with shots of Rocephin and now currently on ciprofloxacin. She started it 2 or 3 days ago. She states she has felt very gassy and bloated. She is concerned she will not be able to hold down her daily medications and antibiotics. She was able to hold down the medication this morning. She points to the epigastrium as the source of her stomach upset. She is on multiple medications for acid reflux/GERD. She denies fevers or chills. She states that her dysuria, urgency and frequency are improving. She denies diarrhea, black or bloody stools. She is mainly here for nausea medication. She states she does feel a little lightheaded when she stands up. She states she has been drinking lots of water, tea and Sprite. Timing/Duration: 1-2 Days Severity: Moderate Associated Systoms: Loss of Appetite, Nausea/Vomiting (nausea without vomiting) Allergies and Home Medications Allergies Coded Allergies: gemcitabine (Verified Allergy, Mild, RASH, 06/17/22) Iodinated Contrast Media (Verified Allergy, Unknown, 06/15/22) Sulfa (Sulfonamide Antibiotics) (Verified Allergy, Unknown, 06/15/22) azithromycin (Verified Allergy, NAUSEA AND VOMITING, 06/17/22) levofloxacin (Verified Allergy, HIVES, 06/17/22) Uncoded Allergies: ADHESIVE TAPE-SILICONES (Allergy, Mild, RASH, 06/17/22) CHEMOTHERAPY (Allergy, Unknown, rash, itching, 06/17/22) FEXOFENADINE-PSEUDOEPHEDRINE (Allergy, PALPITATIONS, 06/17/22) Patient Home Medication List Home Medication List Reviewed: Yes Acetaminophen (Tylenol Arthritis) 650 Mg Tablet.er, 650 MG PO BID PRN for PAIN- MILD (1-4), (Reported) Entered as Reported by: BARB DENNISON on 06/28/22 1449 Amiodarone HCl (Amiodarone HCl) 200 Mg Tablet, 200 MG PO DAILY Prescribed by: JHOANA GROSS on 06/29/22523 Apixaban (Eliquis) 5 Mg Tablet, 5 MG PO BID Prescribed by: JHOANA GROSS on 06/29/22523 Atorvastatin Calcium (Lipitor) 40 Mg Tablet, 40 MG PO HS Prescribed by: JHOANA GROSS on 06/29/22523 Calcium Carbonate (Calcium) 500 Mg Calcium (1250 Mg) Tab.chew, 500 MG PO BID, (Reported) Entered as Reported by: BARB DENNISON on 06/28/22 1445 Cetirizine HCl (Zyrtec) 10 Mg Tablet, 10 MG PO DAILY PRN for ALLERGIES, (Reported) Entered as Reported by: BARB DENNISON on 06/28/22 1449 Diltiazem HCl (Diltiazem 24Hr ER) 120 Mg Cap.er.24h, 120 MG PO DAILY Prescribed by: JHOANA GROSS on 06/29/22523 Ergocalciferol (Vitamin D2) (Vitamin D2) 50 Mcg (2000 Unit) Tablet, 50 MCG PO BID, (Reported) Entered as Reported by: BARB DENNISON on 06/28/22 1447 Gabapentin (Gabapentin) 100 Mg Capsule, 100 MG PO TID Prescribed by: JHOANA GROSS on 06/29/22523 Losartan Potassium (Losartan Potassium) 100 Mg Tablet, 100 MG PO DAILY Prescribed by: JHOANA GROSS on 06/29/22523 Ondansetron (Ondansetron Odt) 4 Mg Tab.rapdis, 4 MG PO Q8H PRN for NAUSEA/VOMITING Prescribed by: JO ANN XIONG on 01/28/23 1638 Oxycodone Hcl (Oxyir Tablet) 5 Mg Tab, 5 MG PO Q8H PRN for PAIN-SEE DOSE INSTRUC TIONS Prescribed by: JHOANA GROSS on 06/29/22523 Paroxetine HCl (Paroxetine HCl) 20 Mg Tablet, 20 MG PO DAILY, (Reported) Entered as Reported by: YUNIEL MCGRAW on 06/15/22 1322 Review of Systems Review of Systems Constitutional: see HPI EENTM: no symptoms reported Respiratory: no symptoms reported Cardiovascular: no symptoms reported Gastrointestinal: loss of appetite, nausea, other ("bloated") Genitourinary: no symptoms reported Musculoskeletal: no symptoms reported Skin: no symptoms reported Past Nexiusi-Xtkcgl-Clepcu Hx Past Medical History Surgery/Hospitalization HX: AFIB, HTN, LEFT BREAST CA WITH MASTECTOMY AND THEN RESECTION, LEFT ARM LYMPHEDEMA, NEUROPATHY FROM CHEMO, HYSTERECTOMY, LEFT ELBOW SURGERY, CVA, FALLS. Atrial Fibrillation, High Cholesterol, Hypertension Stroke Depression Family Medical History No Pertinent Family Hx Physical Exam Vital Signs Vital Signs - First Documented 01/28/23 16:20 Temp 36.7 Pulse 70 Resp 20 B/P (MAP) 160/73 (102) Pulse Ox 99 Capillary Refill : Height, Weight, BMI Height: '" Weight: lbs. oz. kg; 28.29 BMI Method: General Appearance: No Apparent Distress, WD/WN, Other (alert, perky; no acute distress) Eyes: Bilateral Eye Normal Inspection, Bilateral Eye PERRL, Bilateral Eye EOMI HEENT: PERRL/EOMI, Other (slightly dry oral mucosa) Respiratory: Lungs Clear, No Accessory Muscle Use Cardiovascular: Regular Rate, Rhythm, Normal Peripheral Pulses Gastrointestinal: Normal Bowel Sounds, Non Tender, Soft Extremity: Normal Inspection Neurologic/Psychiatric: Alert, Oriented x3, No Motor/Sensory Deficits, Normal Mood/Affect Skin: Normal Color, Warm/Dry Progress/Results/Core Measures Suspected Sepsis SIRS Temperature: Pulse: Respiratory Rate: Blood Pressure / Mean: Results/Orders My Orders Orders - JO ANN XIONG MD Ondansetron Oral Dissolve Tab (Zofran (01/28/23 16:32) Vital Signs/I&O 01/28/23 01/28/23 16:20 17:09 Temp 36.7 Pulse 70 62 Resp 20 B/P (MAP) 160/73 (102) 137/70 Pulse Ox 99 96 Capillary Refill : Progress Note : Time: 17:00 Progress Note Patient is feeling better. Tolerating oral fluids. SHe has no clinical or objective findings to warrant lab work or repeat urinalysis. She states her symptoms are improving - just getting an upset stomach with the medications. No concerning findings for sepsis on VS. Departure Impression Primary Impression: Nausea Disposition: 01 HOME, SELF-CARE Condition: Improved Departure-Patient Inst. Decision time for Depature: 16:36 Referrals: BRIGIDA VAIL MD (PCP/Family) Primary Care Physician Patient Instructions: Nausea and Vomiting, Adult (DC) Add. Discharge Instructions: Sip on clear liquids to stay well hydrated. Use the Ondansetron 4mg tablets every 8 hours as needed for nausea. Continue your other medications as prescribed. Be sure and finish the entire antibiotic prescription. Return to the Emergency Department for any new, concerning or emergent complaints. Scripts Ondansetron (Ondansetron Odt) 4 Mg Tab.rapdis 4 MG PO Q8H PRN for NAUSEA/VOMITING, #10 TAB 0 Refills Prov: JO ANN XIONG MD 01/28/23 JO ANN XIONG MD Jan 28, 2023 16:38
[2023-01-28 17:09] VITALS: BP 137/70
== END 2023-01-28 17:10 | disposition home or self-care (01) ==
LOC: EDUNIT# 16:14 → ER 16:16
DX: R11.0 Nausea (principal); K21.9 Gastro-esophageal reflux disease without esophagitis; Z79.899 Other long term (current) drug therapy; Z28.311 Partially vaccinated for COVID-19
CPT/HCPCS: 99283

== ENCOUNTER → 2023-03-08 | Outpatient (CLI) | payer MEDICARE, OTHER ==
[~2023-03-08] MED LIST changes: +ONDA4TAB11 PO
--- NOTE | 2023-03-08 09:47 | Diagnostic Imaging Report ---
INDICATION: Abdominal pain. TECHNIQUE: Abdominal sonography was performed in the routine fashion. FINDINGS: The liver shows normal echogenicity without focal lesion. The portal vein is patent with hepatopetal flow. The gallbladder is unremarkable with no stones or wall thickening. The common duct measures 4 mm. The pancreas appears unremarkable. The spleen is not enlarged and shows no focal lesion. The visualized portions of the aorta and IVC are unremarkable. The kidneys bilaterally appear normal with the right measuring 9.6 x 4.7 x 5.2 cm and the left 9.4 x 5.1 x 5.5 cm. There is no ascites. The sonographic Rascon sign was negative. IMPRESSION: Unremarkable abdominal sonography. Dictated by: Dictated on workstation # [id number]
== END ==
LOC: RAD 08:03
PROVIDERS: ATTEND Nurse Practitioner
DX: K21.9 Gastro-esophageal reflux disease without esophagitis (principal)
CPT/HCPCS: 76700

== ENCOUNTER → 2023-03-18 | Outpatient (CLI) | payer MEDICARE, OTHER ==
[~2023-03-18] MED LIST changes: +CATHETER FLUSH 10 ML SYR IVP PRN
--- NOTE | 2023-03-18 13:48 | Diagnostic Imaging Report ---
INDICATION: Right upper quadrant pain. Patient was administered 5.1 mCi technetium 99m Choletec intravenously and imaging over the abdomen was performed. At 45 mins patient ingested 8 ounces Ensure and a gallbladder ejection fraction was calculated. There is homogeneous uptake of activity by the liver with prompt excretion of activity into the common duct and gallbladder. There is normal passage of activity into the small bowel. Gallbladder ejection fraction is normal at 58%. IMPRESSION: Normal HIDA scan and gallbladder ejection fraction. Dictated by: Dictated on workstation # [id number]
== END ==
LOC: CARD 09:53
PROVIDERS: ATTEND Surgery
DX: R10.11 Right upper quadrant pain (principal)
CPT/HCPCS: 78227; A9537

== ENCOUNTER 2023-05-29 10:16 | Emergency (ER) | payer MEDICARE, OTHER ==
[~2023-05-29] VITALS: Ht 163 cm; Wt 70.0 kg
[~2023-05-29 10:16] MED LIST changes: -CATHETER FLUSH 10 ML SYR IVP PRN
--- NOTE | 2023-05-29 10:40 | ED Upper Extremity ---
General Chief Complaint: Trauma-Non Activation Stated Complaint: FALL, LEFT ELBOW PAIN Nursing Triage Note: PT STATES HAVING A FALL THIS AM ON THE WAY TO THE BATHROOM, CC OF LT ELBOW PAIN, MILD NECK PAIN BUT DID NOT HIT HER HEAD, STATES SHE JUST FEELS TENSE, NO LOC OR ANY OTHER PAIN, DOES HAVE NAUSEA, LEFT ARM LYMPHEDEMA Exam Limitations: no limitations History of Present Illness Date Seen by Provider: May 29, 2023 Time Seen by Provider: 10:36 Initial Comments Very pleasant 77-year-old female presents to the emergency department after she had tripped at 4 this morning in her home and fell she landed on her left elbow. She has lymphedema in this arm she has had surgery on this arm for radial nerve relocation in the past. She is neurovascular intact denies injury anywhere else has full range of motion of hand and wrist and shoulder no pain in her humerus or radius and ulna just in her elbow. Onset: this morning Severity: mild Pain/Injury Location: left elbow Method of Injury: fell Modifying Factors: Improves With Movement Allergies and Home Medications Allergies Coded Allergies: gemcitabine (Verified Allergy, Mild, RASH, 06/17/22) Iodinated Contrast Media (Verified Allergy, Unknown, 06/15/22) Sulfa (Sulfonamide Antibiotics) (Verified Allergy, Unknown, 06/15/22) azithromycin (Verified Allergy, NAUSEA AND VOMITING, 06/17/22) levofloxacin (Verified Allergy, HIVES, 06/17/22) Uncoded Allergies: ADHESIVE TAPE-SILICONES (Allergy, Mild, RASH, 06/17/22) CHEMOTHERAPY (Allergy, Unknown, rash, itching, 06/17/22) FEXOFENADINE-PSEUDOEPHEDRINE (Allergy, PALPITATIONS, 06/17/22) Patient Home Medication List Home Medication List Reviewed: Yes Acetaminophen (Tylenol Arthritis) 650 Mg Tablet.er, 650 MG PO BID PRN for PAIN- MILD (1-4), (Reported) Entered as Reported by: BARB DENNISON on 06/28/22 1449 Amiodarone HCl (Amiodarone HCl) 200 Mg Tablet, 200 MG PO DAILY Prescribed by: JHOANA GROSS on 06/29/22523 Apixaban (Eliquis) 5 Mg Tablet, 5 MG PO BID Prescribed by: JHOANA GROSS on 06/29/22523 Atorvastatin Calcium (Lipitor) 40 Mg Tablet, 40 MG PO HS Prescribed by: JHOANA GROSS on 06/29/22 05 Calcium Carbonate (Calcium) 500 Mg Calcium (1250 Mg) Tab.chew, 500 MG PO BID, (Reported) Entered as Reported by: BARB DENNISON on 06/28/22 1445 Cetirizine HCl (Zyrtec) 10 Mg Tablet, 10 MG PO DAILY PRN for ALLERGIES, (Reported) Entered as Reported by: BARB DENNISON on 06/28/22 1449 Diltiazem HCl (Diltiazem 24Hr ER) 120 Mg Cap.er.24h, 120 MG PO DAILY Prescribed by: JHOANA GROSS on 06/29/22 05 Ergocalciferol (Vitamin D2) (Vitamin D2) 50 Mcg (2000 Unit) Tablet, 50 MCG PO BID, (Reported) Entered as Reported by: BARB DENNISON on 06/28/22 144 Gabapentin (Gabapentin) 100 Mg Capsule, 100 MG PO TID Prescribed by: JHOANA GROSS on 06/29/22523 Losartan Potassium (Losartan Potassium) 100 Mg Tablet, 100 MG PO DAILY Prescribed by: JHOANA GROSS on 06/29/22523 Ondansetron (Ondansetron Odt) 4 Mg Tab.rapdis, 4 MG PO Q8H PRN for NAUSEA/VOMITING Prescribed by: JO ANN XIONG on 01/28/23 1638 Oxycodone Hcl (Oxyir Tablet) 5 Mg Tab, 5 MG PO Q8H PRN for PAIN-SEE DOSE INSTRUCTIONS Prescribed by: JHOANA GROSS on 06/29/22523 Paroxetine HCl (Paroxetine HCl) 20 Mg Tablet, 20 MG PO DAILY, (Reported) Entered as Reported by: YUNIEL MCGRAW on 06/15/22 1322 Review of Systems Constitutional: no symptoms reported EENTM: no symptoms reported Respiratory: no symptoms reported Cardiovascular: no symptoms reported Gastrointestinal: no symptoms reported Genitourinary: no symptoms reported : No Musculoskeletal: see HPI, joint pain Skin: no symptoms reported Psychiatric/Neurological: No Symptoms Reported All Other Systems Reviewed Negative Unless Noted: Yes Past Odbqvfp-Oxzfxr-Ydansg Hx Patient Social History Tobacco Use?: No Substance use?: No Alcohol Use?: Yes Alcohol type: Beer, Wine Alcohol Frequency: Rarely Immunizations Up To Date First/Initial COVID19 Vaccinat: YES Past Medical History Surgery/Hospitalization HX: AFIB, HTN, LEFT BREAST CA WITH MASTECTOMY AND THEN RESECTION, LEFT ARM LYMPHEDEMA, NEUROPATHY FROM CHEMO, HYSTERECTOMY, LEFT ELBOW SURGERY, CVA WITH LT SIDE WEAKNESS AND LT EYE VISION ISSUES, FALLS, RT KNEE REPLACEMENT Atrial Fibrillation, High Cholesterol, Hypertension Stroke Depression Family Medical History No Pertinent Family Hx Physical Exam Vital Signs Vital Signs - First Documented 05/29/23 10:23 Temp 35.3 Pulse 69 Resp 18 B/P (MAP) 117/67 (84) Pulse Ox 100 O2 Delivery Room Air Capillary Refill : Less Than 3 Seconds Height, Weight, BMI Height: '" Weight: lbs. oz. kg; 26.00 BMI Method: General Appearance: WD/WN, no apparent distress HEENT: PERRL/EOMI Neck: non-tender, full range of motion Cardiovascular: normal peripheral pulses, regular rate, rhythm Respiratory: chest non-tender, lungs clear, normal breath sounds, no respiratory distress Gastrointestinal: non tender Back: no vertebral tenderness Shoulder: normal inspection, non-tender, no evidence of injury, normal ROM Elbow/Forearm: Left, bone tenderness (On olecranon), pain Wrist: Yes normal inspection, Yes non-tender, Yes no evidence of injury, Yes normal ROM Hand: normal inspection, non-tender, no evidence of injury, normal ROM Neurologic/Tendon: normal sensation, normal motor functions, no evidence tendon injury 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 She isolates the pain to her olecranon. She does have lymphedema in the left arm. She has had radial nerve relocation surgery in this elbow years ago. She states she had gotten up at 4 this morning and tripped landing on her left elbow she did not hit her head she denies any other pain there is no pain in her humerus shoulder chest neck head knee hip hand or wrist. She has full range of motion of her left upper extremity both proximal and distal to her injury. There is no external evidence of trauma. No significant tenderness with palpation. Will obtain elbow x-ray, patient agrees denies any other needs or concerns at this time. 1113 x-ray reveals fracture of the distal humerus and the elbow. No neurovascular compromise. Spoke with Dr. Pena who will see patient in clinic and follow-up will place in a posterior long-arm splint and provide pain medication if desired by the patient. Discussed with patient she agrees Diagnostic Imaging Diagonstic Imaging: Xray Plain Films/CT/US/NM/MRI: elbow (Fracture distal humerus) Reviewed: Reviewed by Me Departure Communication (Admissions) Time/Spoke to Consulting Phy: 11:14 Dr. PENA will see patient in clinic for follow-up. Impression Primary Impression: Fracture of humerus, distal, left, closed Qualified Codes: S42.492A - Other displaced fracture of lower end of left humerus, initial encounter for closed fracture Disposition: HOME, SELF-CARE Condition: Stable Departure-Patient Inst. Referrals: TOÑO YEPEZ MD (PCP/Family) Primary Care Physician JAVAD PENA MD Patient Instructions: Elbow Fracture, Adult ED Scripts Hydrocodone/Acetaminophen (Hydrocodone-Acetamin 5-325 mg) 5 Mg-325 Mg Tablet 1 TAB PO Q6H PRN for PAIN-MODERATE (5-7) for 7 Days, #28 TAB Prov: MEENA GARNER DO 05/29/23 MEENA GARNER DO May 29, 2023 10:40
--- NOTE | 2023-05-29 11:10 | Diagnostic Imaging Report ---
ELBOW, LEFT, 3 VIEWS. INDICATION: Left elbow injury. COMPARISON: None available. TECHNIQUE: 3 views left elbow. FINDINGS: There is an acute and multipart fracture involving the distal humerus. This has a split fracture extending intra-articular the medial and lateral condyles. The proximal radius and ulna remain intact. Elbow joint effusion is present. IMPRESSION: Complete intra-articular fracture of the distal humerus. Dictated by: Dictated on workstation # [id number]
[2023-05-29] MEDS ORDERED: ACHD5005 PO ×2 (11:17→13:03)
[2023-05-29] MEDS ORDERED: HYDROcodone/ACETAMINOPHEN 5 MG/325 MG TABLET PO ONE ×2 (11:30→12:00)
[2023-05-29] MEDS ORDERED: HYDROcodone/ACETAMINOPHEN 5 MG/325 MG TABLET ONE (11:51)
[2023-05-29 12:09] VITALS: BP 115/68
== END 2023-05-29 11:25 | disposition home or self-care (01) ==
LOC: EDUNIT# 10:16 → ER 10:18
DX: S42.452A Displaced fracture of lateral condyle of left humerus, initial encounter for closed fracture (principal); Z28.311 Partially vaccinated for COVID-19; W01.0XXA Fall on same level from slipping, tripping and stumbling without subsequent striking against object, initial encounter; Y92.009 Unspecified place in unspecified non-institutional (private) residence as the place of occurrence of the external cause
CPT/HCPCS: 29105; 73080